=== PATIENT | female | born 1990 | race Caucasian/White ===

== ENCOUNTER 2023-12-15 21:51 | Inpatient (IN) | payer OTHER, SELFPAY ==
--- NOTE | 2023-12-15 21:46 | ECG_ITS ---
APPROVED REPORT Exam: Resting ECG HR:123 bpm ECG Measurements Heart Rate 123 AXES MT 154 P 17 QRSd 92 QRS 59 QT 308 T 45 QTc 381 Conclusion Sinus tachycardia with incomplete right bundle branch block Electronically signed by : RAJINDER LANCASTER, 12/15/2023 23:27:49
[2023-12-15 21:51] VITALS: BP 149/82; PULSE 124; RESP 22; TEMP 36.6; O2SAT 81; BMI 34.9
--- NOTE | 2023-12-15 21:52 | XR_ITS ---
PROCEDURE INFORMATION: Exam: XR Chest Exam date and time: 12/15/2023 10:59 PM Age: 33 years old Clinical indication: Shortness of breath; Additional info: SOA TECHNIQUE: Imaging protocol: Radiologic exam of the chest. Views: 1 view. COMPARISON: CR XR CHEST PORTABLE 12/15/2023 10:59 PM FINDINGS: Lungs: Low lung volumes. Bilateral hazy airspace disease in the mid and lower lung zones. Pleural spaces: Unremarkable. No pleural effusion. No pneumothorax. Heart/Mediastinum: Unremarkable. No cardiomegaly. Vasculature: Unremarkable. Bones/joints: Unremarkable. IMPRESSION: 1. Bilateral mid and lower lung zone hazy airspace disease consistent with inflammation or edema. No significant effusions are evident. 2. Low lung volumes.
[2023-12-15 22:01] VITALS: BP 122/63; PULSE 137; O2SAT 85
[2023-12-15 22:20] LABS: Basophils # 0.1 K/mm3 (0-0.2); Basophils % 0.4 % (0.1-2.0); Eosinophils # 0.4 K/mm3 (0.0-0.4); Eosinophils % 2.1 % (0.1-12.0); Hematocrit 37.8 % (37.0-47.0); Lymphocytes # 2.9 K/mm3 (0.7-4.5); Lymphocytes % 14.8 % (10-50); Mean Corpuscular HGB Conc 31.8 g/dL (31.8-35.4); Mean Corpuscular Hemoglobin 29.4 pg (27.0-31.2); Mean Corpuscular Volume 92.5 fl (81-99); Mean Platelet Volume 7.5 fl (7.4-10.4); Monocytes # 0.3 K/mm3 (0.1-1.0); Monocytes % 1.3 % (1.7-9.3); Neutrophils # 15.8 K/mm3 (1.8-7.8); Neutrophils % 81.4 % (37.0-80.0); Platelet Count 365 K/mm3 (142-424); Red Blood Count 4.08 M/mm3 (4.20-5.40); Red Cell Distribution Width 14.4 % (11.5-17.5); White Blood Count 19.4 K/mm3 (4.8-10.8)
[2023-12-15 22:24] LABS: MANUAL DIFFERENTIAL MANUAL DIFFERENTIAL (MANUAL DIFF)
[2023-12-15] MEDS: LACTATED RINGERS 1000ML 1,000 ML 999 ML IV (22:25)
[2023-12-15 22:31] VITALS: BP 110/64; PULSE 124; O2SAT 89
[2023-12-15 22:33] LABS: Alanine Aminotransferase 33 U/L (12-78); Albumin Level 3.7 g/dl (3.5-5.0); Albumin/Globulin Ratio 1.1 (1.1-1.8); Aspartate Amino Transferase 52 U/L (14-36); Blood Urea Nitrogen 9 mg/dl (7-17); Carbon Dioxide 21 mmol/L (22.0-30.0); Chloride 111 mmol/L (98-107); Creatinine Clearance Estimated 175 mL/min (50-200); Estimated Glomerular Filt Rate 98 ml/min (>60); GFR (African American) 118 ML/MIN (>60); Globulin 3.4 g/dL (1.3-3.2); Total Protein,Serum 7.1 g/dl (6.3-8.2)
[2023-12-15 22:36] LABS: Alkaline Phosphatase 95 U/L (38-126); Anion Gap 10.1 mEq/L (5-15); Bilirubin,Total 0.4 mg/dl (0.2-1.3); Calcium 8.6 mg/dl (8.4-10.2); Glucose 120 mg/dl (74-100); Potassium 3.1 mmoL/L (3.5-5.1); Sodium 139 mmol/L (136-145)
[2023-12-15 22:39] LABS: D-Dimer 0.52 ug/mL (0.0-0.5)
[2023-12-15 22:45] LABS: NT Pro Brain Natriuretic Pep. 108 pg/mL (0-125)
[2023-12-15 22:48] LABS: Eosinophils % 4 % (0-3); Lymphocytes % 11 % (10-50); Monocytes % 1 % (2-9); Neutrophils % 84 % (42-76); Platelet Estimate Normal; Tear Drop Cells 1+; Total Cells Counted 100
--- NOTE | 2023-12-15 22:48 | CT_ITS ---
PROCEDURE INFORMATION: Exam: CTA Chest With Contrast Exam date and time: 12/15/2023 11:12 PM Age: 33 years old Clinical indication: Shortness of breath; Additional info: SOA tachy, hypoxemia TECHNIQUE: Imaging protocol: Computed tomographic angiography of the chest with contrast. Exam focused on the arteries. 3D rendering (Not supervised by radiologist): MIP and/or 3D reconstructed images were created by the technologist. Radiation optimization: All CT scans at this facility use at least one of these dose optimization techniques: automated exposure control; mA and/or kV adjustment per patient size (includes targeted exams where dose is matched to clinical indication); or iterative reconstruction. Contrast material: ISOVUE; Contrast volume: 70 ml; Contrast route: INTRAVENOUS (IV); COMPARISON: CR XR CHEST PORTABLE 12/15/2023 10:59 PM FINDINGS: Pulmonary arteries: Normal. No pulmonary emboli. Aorta: Unremarkable. No aortic aneurysm. No aortic dissection. Lungs: There is a small right lower lobe calcified granuloma. Diffuse extensive ground-glass opacities are noted throughout both lungs. Pleural spaces: Unremarkable. No pneumothorax. No pleural effusion. Heart: Unremarkable. No cardiomegaly. No pericardial effusion. Lymph nodes: There is mediastinal and bilateral hilar lymphadenopathy. Bones/joints: Unremarkable. No acute fracture. Soft tissues: Unremarkable. IMPRESSION: 1. No pulmonary embolus. 2. Acute inflammatory process with extensive bilateral ground-glass infiltrates along with mediastinal and hilar lymphadenopathy.
[2023-12-15 22:49] LABS: Troponin I < 0.01 ng/ml (0.00-0.034)
--- NOTE | 2023-12-15 22:49 | [facility].EDCP ---
Discharge Plan Disposition Patient Disposition: Admitted Condition: Fair Clinical Impressions Clinical Impression: Acute hypoxemic respiratory failure, Pneumonia Print Language Print Language: Czech Discharge ED Provider: Dane Georges [facility] <Dane Georges MD - Last Filed: 12/15/23 23:00> General Chief Complaint: Shortness of Breath/Dyspnea Stated Complaint: SOA Time Seen by Provider: 12/15/23 21:52 Mode of Arrival: Ambulatory Source of Information: Patient Limitations: No Limitations Description of Symptoms (Recalled from ER Triage Doc. by RN): Pt arrives with SOA after taking some Bromfed cough syrup.Pt is on daily Suboxone. Oxygen is 80% on ra and 91% after 2l/nc History of Present Illness HPI narrative: Please note that above description of symptoms, in this electronic medical record under categorization of recalled from ER triage doctor by RN are reflective of an initial nursing assessment, however, is not reflective of my full history and physical exam that was personally taken and clarified. Consequentially, this preceding description of symptoms, which may include the patient's categorized chief complaint in the EMR, do not reflect my personal clinical impression, and the ultimate description of history of present illness and patient stated complaints should be deferred to this section of the note. Unless stated otherwise or congruent with this section of the note, additional signs, symptoms, or incongruence should be interpreted as inaccurate with my clinical impression. Related Data Allergies Allergy/AdvReac Type Severity Reaction Status Date / Time No Known Allergies Allergy Verified 12/15/23 22:24 PFS <Dane Georges MD - Last Filed: 12/15/23 23:00> [facility] Disclaimer: The information contained in this section may have been updated after the patient was seen, as this information can be updated by other users. Social History (Updated 12/15/23 @ 23:00 by Dane Georges MD) Smoking Status: Current every day smoker alcohol intake: never current occupational status: employed Travel in the last 8 weeks: None <Dane Georges MD - Last Filed: 12/15/23 23:00> ROS Obtained: Yes All systems reviewed & no additional complaints except as documented Physical Exam <Dane Georges MD - Last Filed: 12/15/23 23:00> General General appearance: alert, anxious and obese ENT ENT exam: Present other (4 L nasal cannula in place, 81% on room air. 94% with nasal cannula) Neck Neck exam: Present trachea midline Chest Chest inspection: Present normal inspection and symmetric chest wall rise Respiratory Respiratory exam: Present normal lung sounds bilaterally; Absent respiratory distress, wheezes, stridor, accessory muscle use or prolonged expiratory phase Cardiovascular Cardiovascular exam: Present normal rhythm, tachycardia and other (Pulses equal and symmetric in upper and lower extremities) Extremities Exam Extremities exam: Absent edema Neurological Exam Neurological exam: Present alert, oriented X3 and CN II-XII intact Skin Skin exam: Present warm and dry; Absent cyanosis, diaphoresis or pallor HEART Score <Dane Georges MD - Last Filed: 12/15/23 23:00> HEART Score HEART Score assessment performed?: No Critical Care <Dane Georges MD - Last Filed: 12/15/23 23:00> Critical Care Time Critical Care Time: Yes (respiratory) Attestation: On , the high probability of a clinically significant, sudden or life threatening deterioration of the following system(s) required my full and direct attention, intervention and personal management. The time I documented below is in addition to time spent performing reported procedures but includes the following listed in this critical care notation. Total Time Total Critical Care Time: 50 Medical Decision Making <Dane Georges MD - Last Filed: 12/15/23 23:00> Medical Records Medical records reviewed: Yes I reviewed the patient's medical records. Emir Inquiry Pt receiving controlled substance: No Emir was queried for this patient: No Vital Signs Vital Signs: 12/15/23 21:51 12/15/23 22:01 12/15/23 22:31 Temperature 98 F Temperature Source Oral Pulse Rate 137 H 124 H Pulse Rate [Left] 124 H Respiratory Rate 22 Blood Pressure 122/63 110/64 Blood Pressure [Right Arm] 149/82 H Blood Pressure Mean 82 73 Blood Pressure Mean [Right Arm] 104 Blood Pressure Source [Right Arm] Automatic Cuff Blood Pressure Position [Right Arm] Sitting 02 Sat by Pulse Oximetry 81 L 85 L 89 L Oxygen Delivery Method Room Air Lab Data Labs: Lab Results 12/15/23 22:10: WBC 19.4 H, RBC 4.08 L, Hgb 12.0 L, Hct 37.8, MCV 92.5, MCH 29.4, MCHC 31.8, RDW 14.4, Plt Count 365, MPV 7.5, Neut % (Auto) 81.4 H, Lymph % (Auto) 14.8, [place] % (Auto) 1.3 L, Eos % (Auto) 2.1, Baso % (Auto) 0.4, Neut # (Auto) 15.8 H, Lymph # (Auto) 2.9, [place] # (Auto) 0.3, Eos # (Auto) 0.4, Baso # (Auto) 0.1, Total Counted 100, Neutrophils % (Manual) 84 H, Lymphocytes % (Manual) 11, Monocytes % (Manual) 1 L, Eosinophils % (Manual) 4 H, Platelet Estimate Normal, Tear Drop Cells 1+, D-Dimer 0.52 H, Sodium 139, Potassium 3.1 L, Chloride 111 H, Carbon Dioxide 21 L, Anion Gap 10.1, BUN 9, Creatinine 0.70, Estimated Creat Clear 175, Estimated GFR 98, Est GFR ( Amer) 118, Glucose 120 H, Calcium 8.6, Total Bilirubin 0.4, AST 52 H, ALT 33, Alkaline Phosphatase 95, Troponin I < 0.01, NT-Pro-B Natriuret Pep 108, Total Protein 7.1, Albumin 3.7, Globulin 3.4 H, Albumin/Globulin Ratio 1.1 12/15/23 23:22: VBG pH 7.34, VBG pCO2 42.1, VBG pO2 38.7, VBG HCO3 22.1 L, VBG Total CO2 23.4, VBG O2 Saturation 71.7 H, VBG Base Excess -3.7 L, VBG Lactic Acid 1.4 12/15/23 22:10 12/15/23 22:10 Response Orders (Tests/Meds): ED MEDICATIONS Generic Name Dose Route Start Last Admin Trade Name Freq PRN Reason Stop Dose Admin Hydroxyzine Pamoate 25 mg 12/15/23 21:53 12/15/23 22:55 Hydroxyzine Pamoate 25mg Capsule PO 01/14/24 21:52 25 mg Q6HP PRN Administration Itching Piperacillin Sod/Tazobactam 100 mls @ 200 mls/hr 12/15/23 23:36 Sod 4.5 gm/ Sodium Chloride IV 12/16/23 00:05 ONCE ONE Miscellaneous 1 each 12/15/23 23:45 Vancomycin Consult Request NOTAPPLIC 01/14/24 23:44 CONSULT PHARMACY [facility] Sodium Chloride 10 ml 12/15/23 23:19 12/15/23 23:20 Sodium Chloride 0.9% 10ml Syr (Rad Only) IV 01/14/24 23:18 10 ml NEEDED PRN Administration Maintain IV Site Discontinued Medications Generic Name Dose Route Start Last Admin Trade Name Chalinoq PRN Reason Stop Dose Admin Lactated Ringer's 1,000 mls @ 999 mls/hr 12/15/23 21:54 12/15/23 22:25 Lactated Ringer's 1000 Ml Bag IV 12/15/23 22:54 999 mls/hr .Q1H1M ONE Administration Iopamidol 70 ml 12/15/23 23:19 12/15/23 23:20 Iopamidol-370 (76%);100ml Bottle IV 12/15/23 23:20 70 ml ONCE ONE Administration Methylprednisolone Sodium Succinate 125 mg 12/15/23 22:48 12/15/23 22:55 Methylprednisolone Sod Succ 125mg Vial IV 12/15/23 22:49 125 mg ONCE ONE Administration Potassium Chloride 60 meq 12/15/23 22:39 12/15/23 22:55 Potassium Chloride 20meq Tab PO 12/15/23 22:40 60 meq ONCE ONE Administration Sodium Chloride 50 ml 12/15/23 23:19 12/15/23 23:20 0.9 % Sodium Chloride 50 Ml Vial IV 12/15/23 23:20 50 ml ONCE ONE Administration ORDERS Category Date Time Status CT angio chest PE protocol Stat Cat Scan 12/15/23 22:48 Completed CXR --portable [XR chest portable] Stat Exams 12/15/23 21:52 Completed CBC w/Auto Diff [Complete Blood Count Auto Diff] Stat Lab 12/15/23 22:10 Completed CMP [Comprehensive Metabolic Panel] Stat Lab 12/15/23 22:10 Completed D-Dimer Stat Lab 12/15/23 22:10 Completed NT Pro Brain Natriuretic Pep. Stat Lab 12/15/23 22:10 Completed Trop I [Troponin I] Stat Lab 12/15/23 22:10 Completed Troponin I Q3H Lab 12/16/23 01:00 Ordered Troponin I Q3H Lab 12/16/23 04:00 Ordered VBG [Venous Blood Gas] Stat RT 12/15/23 23:22 Completed MDM Narrative Medical Decision Narrative: 33-year-old female history of remote DVT, tubal ligation, anxiety, panic, chronic chest pain presenting with chest pain, shortness of breath. She states this has been going on for a couple of years, has been seen at multiple ED's for this. Patient states for the past couple of days she has been short of breath, having chest pain. It is substernal, exertional, associated with cough. She tried to take Bromfed today just before arrival and states that it interacted with my other medications. She started having a panic attack. She states that she also felt that her oxygen was low, so came to the emergency department. History was obtained via conversation with patient. On arrival, patient hemodynamically stable, alert, oriented x4, appropriate, GCS 15, moving all extremities spontaneously, pupils equal and reactive to light. Full physical exam performed and significant for anxious appearing, tearful. Hypoxemic, tachycardic. Lungs are clear to auscultation anterior and posterior bilaterally. No murmurs gallops rubs, no lower extremity swelling. Cardiac exam otherwise normal differential includes PE, pneumothorax, pneumonia, ACS, [place], among others. Patient was given supplemental oxygen, hydroxyzine, Solu-Medrol (patient says that this is the only thing that ever helps when she has the symptoms) for symptomatic management and correction of underlying abnormalities. Patient placed on continuous cardiac monitoring and continuous pulse ox with initial blood pressure 149/82, heart rate 120, saturation 81% on room air. Patient 94% with 4 L nasal cannula. Independent interpretation of EKG shows incomplete right bundle branch block in the setting of sinus tachycardia 123 bpm. NE 154, QRS 92, QTc 381. Ophiem normal.. Workup independently interpreted and significant for leukocytosis 19.4 with neutrophilia. Patient also has mildly elevated D-dimer 0.52. Chemistry remarkable for potassium 3.1, this was repleted 60 mill equivalents p.o. Troponin negative, BNP negative. Prior to imaging, care handed off to oncoming physician. Human Factors Specialist disclaimer Much of this encounter note is an electronic profile stitching machine operator spoken language to printed text. Electronic profile stitching machine operator of the spoken language may permit errors. Although I have reviewed the note, some errors may still exist. <Lisandro Hernandez MD - Last Filed: 12/15/23 23:43> Vital Signs Vital Signs: 12/15/23 21:51 12/15/23 22:01 12/15/23 22:31 Temperature 98 F Temperature Source Oral Pulse Rate 137 H 124 H Pulse Rate [Left] 124 H Respiratory Rate 22 Blood Pressure 122/63 110/64 Blood Pressure [Right Arm] 149/82 H Blood Pressure Mean 82 73 Blood Pressure Mean [Right Arm] 104 Blood Pressure Source [Right Arm] Automatic Cuff Blood Pressure Position [Right Arm] Sitting 02 Sat by Pulse Oximetry 81 L 85 L 89 L Oxygen Delivery Method Room Air Lab Data Labs: Lab Results 12/15/23 22:10: WBC 19.4 H, RBC 4.08 L, Hgb 12.0 L, Hct 37.8, MCV 92.5, MCH 29.4, MCHC 31.8, RDW 14.4, Plt Count 365, MPV 7.5, Neut % (Auto) 81.4 H, Lymph % (Auto) 14.8, [place] % (Auto) 1.3 L, Eos % (Auto) 2.1, Baso % (Auto) 0.4, Neut # (Auto) 15.8 H, Lymph # (Auto) 2.9, [place] # (Auto) 0.3, Eos # (Auto) 0.4, Baso # (Auto) 0.1, Total Counted 100, Neutrophils % (Manual) 84 H, Lymphocytes % (Manual) 11, Monocytes % (Manual) 1 L, Eosinophils % (Manual) 4 H, Platelet Estimate Normal, Tear Drop Cells 1+, D-Dimer 0.52 H, Sodium 139, Potassium 3.1 L, Chloride 111 H, Carbon Dioxide 21 L, Anion Gap 10.1, BUN 9, Creatinine 0.70, Estimated Creat Clear 175, Estimated GFR 98, Est GFR ( Amer) 118, Glucose 120 H, Calcium 8.6, Total Bilirubin 0.4, AST 52 H, ALT 33, Alkaline Phosphatase 95, Troponin I < 0.01, NT-Pro-B Natriuret Pep 108, Total Protein 7.1, Albumin 3.7, Globulin 3.4 H, Albumin/Globulin Ratio 1.1 12/15/23 23:22: VBG pH 7.34, VBG pCO2 42.1, VBG pO2 38.7, VBG HCO3 22.1 L, VBG Total CO2 23.4, VBG O2 Saturation 71.7 H, VBG Base Excess -3.7 L, VBG Lactic Acid 1.4 Response Orders (Tests/Meds): ED MEDICATIONS Generic Name Dose Route Start Last Admin Trade Name Freq PRN Reason Stop Dose Admin Hydroxyzine Pamoate 25 mg 12/15/23 21:53 12/15/23 22:55 Hydroxyzine Pamoate 25mg Capsule PO 01/14/24 21:52 25 mg Q6HP PRN Administration Itching Piperacillin Sod/Tazobactam 100 mls @ 200 mls/hr 12/15/23 23:36 Sod 4.5 gm/ Sodium Chloride IV 12/16/23 00:05 ONCE ONE Miscellaneous 1 each 12/15/23 23:45 Vancomycin Consult Request NOTAPPLIC 01/14/24 23:44 CONSULT PHARMACY [facility] Sodium Chloride 10 ml 12/15/23 23:19 12/15/23 23:20 Sodium Chloride 0.9% 10ml Syr (Rad Only) IV 01/14/24 23:18 10 ml NEEDED PRN Administration Maintain IV Site Discontinued Medications Generic Name Dose Route Start Last Admin Trade Name Freq PRN Reason Stop Dose Admin Lactated Ringer's 1,000 mls @ 999 mls/hr 12/15/23 21:54 12/15/23 22:25 Lactated Ringer's 1000 Ml Bag IV 12/15/23 22:54 999 mls/hr .Q1H1M ONE Administration Iopamidol 70 ml 12/15/23 23:19 12/15/23 23:20 Iopamidol-370 (76%);100ml Bottle IV 12/15/23 23:20 70 ml ONCE ONE Administration Methylprednisolone Sodium Succinate 125 mg 12/15/23 22:48 12/15/23 22:55 Methylprednisolone Sod Succ 125mg Vial IV 12/15/23 22:49 125 mg ONCE ONE Administration Potassium Chloride 60 meq 12/15/23 22:39 12/15/23 22:55 Potassium Chloride 20meq Tab PO 12/15/23 22:40 60 meq ONCE ONE Administration Sodium Chloride 50 ml 12/15/23 23:19 12/15/23 23:20 0.9 % Sodium Chloride 50 Ml Vial IV 12/15/23 23:20 50 ml ONCE ONE Administration ORDERS Category Date Time Status CT angio chest PE protocol Stat Cat Scan 12/15/23 22:48 Completed CXR --portable [XR chest portable] Stat Exams 08/18/24 21:52 Completed CBC w/Auto Diff [Complete Blood Count Auto Diff] Stat Lab 12/15/23 22:10 Completed CMP [Comprehensive Metabolic Panel] Stat Lab 12/15/23 22:10 Completed D-Dimer Stat Lab 12/15/23 22:10 Completed NT Pro Brain Natriuretic Pep. Stat Lab 12/15/23 22:10 Completed Trop I [Troponin I] Stat Lab 12/15/23 22:10 Completed Troponin I Q3H Lab 12/16/23 01:00 Ordered Troponin I Q3H Lab 12/16/23 04:00 Ordered VBG [Venous Blood Gas] Stat RT 12/15/23 23:22 Completed MDM Narrative Medical Decision Narrative: 33-year-old female history of remote DVT, tubal ligation, anxiety, panic, chronic chest pain presenting with chest pain, shortness of breath. She states this has been going on for a couple of years, has been seen at multiple ED's for this. Patient states for the past couple of days she has been short of breath, having chest pain. It is substernal, exertional, associated with cough. She tried to take Bromfed today just before arrival and states that it interacted with my other medications. She started having a panic attack. She states that she also felt that her oxygen was low, so came to the emergency department. History was obtained via conversation with patient. On arrival, patient hemodynamically stable, alert, oriented x4, appropriate, GCS 15, moving all extremities spontaneously, pupils equal and reactive to light. Full physical exam performed and significant for anxious appearing, tearful. Hypoxemic, tachycardic. Lungs are clear to auscultation anterior and posterior bilaterally. No murmurs gallops rubs, no lower extremity swelling. Cardiac exam otherwise normal differential includes PE, pneumothorax, pneumonia, ACS, [place], among others. Patient was given supplemental oxygen, hydroxyzine, Solu-Medrol (patient says that this is the only thing that ever helps when she has the symptoms) for symptomatic management and correction of underlying abnormalities. Patient placed on continuous cardiac monitoring and continuous pulse ox with initial blood pressure 149/82, heart rate 120, saturation 81% on room air. Patient 94% with 4 L nasal cannula. Independent interpretation of EKG shows incomplete right bundle branch block in the setting of sinus tachycardia 123 bpm. NE 154, QRS 92, QTc 381. Ophiem normal.. Workup independently interpreted and significant for leukocytosis 19.4 with neutrophilia. Patient also has mildly elevated D-dimer 0.52. Chemistry remarkable for potassium 3.1, this was repleted 60 mill equivalents p.o. Troponin negative, BNP negative. Prior to imaging, care handed off to oncoming physician. Human Factors Specialist disclaimer Much of this encounter note is an electronic profile stitching machine operator spoken language to printed text. Electronic profile stitching machine operator of the spoken language may permit errors. Although I have reviewed the note, some errors may still exist. Hernandez: Upon my assumption of care patient was stable on 4 L nasal cannula. She had pulled off her nasal cannula at 1 point and become hypoxic again. She is saturating well on 4 to 6 L. VBG has been sent. I called [facility] and asked them to perform a stat read on patient's CTA. I personally interpreted this CTA chest prior to radiology read. I appreciate bilateral patchy infiltrates in the lung parenchyma as well as abnormalities in the mediastinum. No PE on my personal interpretation. Radiology read is in agreement. Since patient has bilateral patchy infiltrates with tachycardia, hypoxia, significant leukocytosis, I ordered vancomycin and Zosyn for broad-spectrum coverage. Patient requires admission and is amenable to this. I discussed this case with the hospitalist. Patient accepted for admission.
[2023-12-15] MEDS: hydrOXYzine pamoate 25MG CAPSULE 25 MG PO (22:55)
[2023-12-15] MEDS: METHYLPREDNISOLONE SOD SUCC 125MG VIAL 125 MG IV (22:55)
[2023-12-15] MEDS: POTASSIUM CHLORIDE 20MEQ TAB 60 MEQ PO (22:55)
[2023-12-15] MEDS: SODIUM CHLORIDE 0.9% 10ML SYR (RAD ONLY) 10 ML IV (23:20)
[2023-12-15] MEDS: 0.9 % SODIUM CHLORIDE 50 ML VIAL IV (23:20)
[2023-12-15] MEDS: IOPAMIDOL-370 (76%);100ML BOTTLE 70 ML IV (23:20)
[2023-12-15 23:34] LABS: Lactate Venous 1.4 mmol/L (0.4-2.0); VBG Base Excess -3.7 mmol/L (-2.4-2.3); VBG HCO3 22.1 mmol/L (23-30); VBG Oxygen Saturation 71.7 % (50-70); VBG PCO2 42.1 mmol/L (35-51); VBG PH 7.34 mmol/L (7.31-7.41); VBG PO2 38.7 mmol/L (28-40); VBG Total CO2 23.4 mmol/L (23-27)
[2023-12-15] MEDS: PIPERACILLIN/TAZO 4.5 GM in 0.9 % SODIUM CHLORIDE 100 ML IV (23:43)
[2023-12-15] MEDS: VANCOMYCIN CONSULT REQUEST 1 EACH NOTAPPLIC (23:45)
--- NOTE | 2023-12-15 23:50 | PC.NURSE ---
Report given to Iesha RN
[2023-12-15 23:51] VITALS: PULSE 104; O2SAT 93
--- NOTE | 2023-12-15 23:53 | PC.NURSE ---
[facility] verified by [facility]
[2023-12-15 23:54] VITALS: BP 110/64; PULSE 104; RESP 18; TEMP 36.8; O2SAT 94
[2023-12-16] VITALS (19 sets, daily range): BP systolic 111–149; BP diastolic 69–91; PULSE 55–107; RESP 16–30; TEMP 36.5–36.9; O2SAT 88–100; BMI 37.2
--- NOTE | 2023-12-16 00:07 | PC.NURSE ---
Patient arrived to floor via stretcher from ED at 00:05.
[2023-12-16 00:35] LABS: Adenovirus,PCR Not Detected (NotDetected); Bordetella Pertussis Not Detected (NotDetected); Chlamydophila Pneumoniae, PCR Not Detected (NotDetected); Coronavirus 19, PCR Not Detected (NotDetected); Coronavirus 229E Not Detected (NotDetected); Coronavirus NL63 Not Detected (NotDetected); Coronavirus OC43 Not Detected (NotDetected); Coronovirus HKU1,PCR Not Detected (NotDetected); Human Metapneumovirus Not Detected (NotDetected); Influenza A, PCR Not Detected (NotDetected); Influenza AH1, 2009 Not Detected (NotDetected); Influenza AH1, PCR Not Detected (NotDetected); Influenza AH3,PCR Not Detected (NotDetected); Influenza B, PCR Not Detected (NotDetected); Mycoplasma Pneumoniae, PCR Not Detected (NotDetected); Parainfluenza 1, PCR Not Detected (NotDetected); Parainfluenza 2, PCR Not Detected (NotDetected); Parainfluenza 3, PCR Not Detected (NotDetected); Parainfluenza 4, PCR Not Detected (NotDetected); Respiratory Syncytial Virus Not Detected (NotDetected); Rhinovirus/Enterovirus Not Detected (NotDetected)
--- NOTE | 2023-12-16 00:36 | EXP.HP ---
History of Present Illness *Admission Date: 12/16/23 *Reason for visit:: Shortness of breath *History of present illness: This is a 33-year-old female with past medical history of substance abuse disorder on Suboxone, anxiety and depression who presents to the emergency department with complaints of severe shortness of breath. With EMS her oxygen saturations were noted to be in the 80s. Upon arrival to the emergency department she had a room air oxygen sat of 81% with tachycardia and tachypnea. She was placed on nasal cannula and is requiring 5 to 6 L to maintain oxygen saturation greater than 90%. She reports sudden onset of shortness of breath yesterday is associated with a mild cough. She denies any prodromal symptoms prior to her shortness of breath. She does state that she has been around 2 people recently with viral illnesses but they were only diagnosed with upper respiratory infections. She denies any fever, headaches, myalgias. States that she was laying down and noticed that it was hard to breathe. States that she has a sensation of air not passing through her oral and chest cavities well. States this has happened multiple times in the past in 2021. She states that she was admitted to [facility] with multiple episodes of shortness of breath. Required steroids, breathing treatments with eventual discharge to home. She reports this happened on 6 or 7 different occasions. She is unaware of any diagnoses that she received to be the causative factor of these episodes. Denies any known lung diseases. States that she has been clean from substance abuse but when she did use it was snorting of medicine. Denies any IV drug use. She does endorse the use of electronic cigarettes. States that she did not use electronic cigarettes back in 2021 with the other episodes of shortness of breath. 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 Of note, she does own 3 parakeets at home that she is in close contact with daily. States that she holds her birds a lot throughout the day. Emergency department workup notable for leukocytosis with a white blood cell count 19. Elevated D-dimer at 0.52, mildly elevated AST at 52, potassium of 3.1. EKG notable for sinus tach with incomplete right bundle branch block. CT imaging of the chest notable for Acute inflammatory process with extensive bilateral ground-glass infiltrates along with mediastinal and hilar lymphadenopathy. Negative for PE. She is still currently requiring 5 to 6 L nasal cannula but has improved work of breathing at this time. She is able to speak in complete sentences. Oxygen saturations maintaining approximately 93 to 95%. [facility] Disclaimer: The information contained in this section may have been updated after the patient was seen, as this information can be updated by other users. Medical History (Updated 12/16/23 @ 17:35 by Maciej Baca MD) ILD (interstitial lung disease) Endometriosis Acute [place] Anxiety Depression Bipolar disorder Surgical History (Updated 12/16/23 @ 00:40 by Iesha Pool, ELIANA) History of cholecystectomy Hx of tonsillectomy Delivery by section Family History (Updated 12/16/23 @ 00:46 by Iesha Pool, ELIANA) Other Cancer Social History (Updated 12/16/23 @ 00:46 by Iesha Pool, ELIANA) Smoking Status: Current every day smoker alcohol intake: never current occupational status: employed Travel in the last 8 weeks: None Review of Systems Review of Systems Review of systems:: other (Negative except for HPI) Meds Home Medications and Allergies Home Medications ?Medication ?Instructions ?Recorded ?Confirmed ?Type aripiprazole 10 mg tablet 10 mg PO HS 12/15/23 12/16/23 History buprenorphine 8 mg-naloxone 2 mg 2 tab sublingual DAILY 12/15/23 12/16/23 History sublingual tablet buspirone 15 mg tablet 15 mg PO TID 12/15/23 12/16/23 History fluoxetine 20 mg capsule 20 mg PO DAILY 12/15/23 12/16/23 History gabapentin 800 mg tablet 800 mg PO TID 12/15/23 12/16/23 History quetiapine 50 mg tablet 50 mg PO HS 12/15/23 12/16/23 History fluoxetine 40 mg capsule 40 mg PO DAILY 12/16/23 12/16/23 History New Prescriptions to Start Prescriptions: Allergies Allergy/AdvReac Type Severity Reaction Status Date / Time No Known Allergies Allergy Verified 12/15/23 22:24 Exam Data for Last 24 hours Vital signs and Labs for Last 24 Hours: Temp Pulse Resp BP Pulse Ox O2 Del Method O2 Flow Rate 98.2 F 104 H 18 110/64 89 L Nasal Cannula 6 12/15/23 23:54 12/15/23 23:54 12/15/23 23:54 12/15/23 23:54 12/15/23 22:31 12/15/23 23:54 12/15/23 23:54 Laboratory Results - last 24 hr 12/15/23 22:10: WBC 19.4 H, RBC 4.08 L, Hgb 12.0 L, Hct 37.8, MCV 92.5, MCH 29.4, MCHC 31.8, RDW 14.4, Plt Count 365, MPV 7.5, Neut % (Auto) 81.4 H, Lymph % (Auto) 14.8, [place] % (Auto) 1.3 L, Eos % (Auto) 2.1, Baso % (Auto) 0.4, Neut # (Auto) 15.8 H, Lymph # (Auto) 2.9, [place] # (Auto) 0.3, Eos # (Auto) 0.4, Baso # (Auto) 0.1, Total Counted 100, Neutrophils % (Manual) 84 H, Lymphocytes % (Manual) 11, Monocytes % (Manual) 1 L, Eosinophils % (Manual) 4 H, Platelet Estimate Normal, Tear Drop Cells 1+, D-Dimer 0.52 H, Sodium 139, Potassium 3.1 L, Chloride 111 H, Carbon Dioxide 21 L, Anion Gap 10.1, BUN 9, Creatinine 0.70, Estimated Creat Clear 175, Estimated GFR 98, Est GFR ( Amer) 118, Glucose 120 H, Calcium 8.6, Total Bilirubin 0.4, AST 52 H, ALT 33, Alkaline Phosphatase 95, Troponin I < 0.01, NT-Pro-B Natriuret Pep 108, Total Protein 7.1, Albumin 3.7, Globulin 3.4 H, Albumin/Globulin Ratio 1.1 12/15/23 23:22: VBG pH 7.34, VBG pCO2 42.1, VBG pO2 38.7, VBG HCO3 22.1 L, VBG Total CO2 23.4, VBG O2 Saturation 71.7 H, VBG Base Excess -3.7 L, VBG Lactic Acid 1.4 I & O for Last 24 hours: Intake & Output 12/13/23 12/14/23 12/15/23 12/16/23 23:59 23:59 23:59 23:59 Weight 95.254 kg Constitutional Constitutional: no acute distress *Routine HEENT Exam Head: Present normocephalic Eye: Present EOMI and PERRL ENT: Present mucous membranes moist *Routine Neck Exam Neck: Present supple; Absent lymphadenopathy *Routine Respiratory Exam Respiratory: Present decreased breath sounds, diminished air movement and able to speak in complete sentences *Routine Cardiovascular Exam Cardiovascular: Present RRR and tachycardia *Routine Abdominal Exam Abdominal: Present soft and normoactive bowel sounds; Absent tenderness *Routine Rectal Exam Rectal:: deferred *Routine Genitalia Exam Genitalia:: deferred *Routine Extremities Exam Extremities: Absent cyanosis, clubbing or edema *Routine Skin Exam Skin: Present warm; Absent rash *Routine Neurological Exam Neurological: Present alert and oriented X3 Assessment and Plan *Assessment and plan (1) Acute hypoxemic respiratory failure: Status: Acute Category: Medical Code(s): J96.01 - Acute respiratory failure with hypoxia (2) Pneumonia: Status: Acute Qualifiers: Laterality: bilateral Lung location: lower lobe of lung Pneumonia type: due to unspecified organism Qualified Code(s): J18.9 - Pneumonia, unspecified organism Category: Medical Code(s): J18.9 - Pneumonia, unspecified organism (3) Bipolar 1 disorder: Status: Acute Category: Medical Code(s): F31.9 - Bipolar disorder, unspecified (4) Anxiety and depression: Status: Acute Category: Medical Code(s): F41.9 - Anxiety disorder, unspecified; F32.A - Depression, unspecified (5) HIV (human immunodeficiency virus infection): Status: Acute Category: Medical Code(s): Z21 - Asymptomatic human immunodeficiency virus [HIV] infection status Plan Case discussed with ER physician, request admission due to respiratory distress. Medicine agreed to admit for further management. Problems addressed as follows: #Acute respiratory failure with hypoxia #Pneumonia Patient with extensive groundglass opacities and interstitial inflammatory disease with mediastinal and hilar lymphadenopathy Differential diagnosis include: Viral/bacterial/fungal/zoonotic/EVALI Consult to Pulmonology in a.m., greatly appreciate expertise Reports being in contact with 2 people this week with viral illnesses. Will send for full respiratory panel. Patient reports being swabbed for COVID this week which was negative. Currently requiring 5 to 6 L nasal cannula Continue bronchodilators and corticosteroids Will continue broad-spectrum coverage with vancomycin, Zosyn and doxycycline Maintain oxygen saturations greater than 88% Continuous pulse ox Sputum culture pending Requesting chart from [facility] where patient states that she was admitted previously with similar symptoms #Sepsis Meets criteria for leukocytosis, tachycardia, tachypnea Continue broad-spectrum coverage for pneumonia Will defer for 30 mL/kg bolus. Pt is hemodynamically stable and would like to avoid volume overload in acute respiratory distress Inflammatory markers pending #Anxiety and depression Continue new mood stabilization medications #vancomycin toxicty monitoring Pharmacy consulted for management and monitoring of Vancomycin-high risk medication Rounded on patient after nurse practitioner. Personally examined and interviewed patient. Agree with exam findings and care plan as documented. Patient was screened for HIV this morning given the atypical nature of her pneumonia and dyspnea out of proportion to her lung exam. Found to be HIV positive. Added Bactrim double strength oral twice daily for coverage of possible pneumocystis. Pulmonology assisting with care. Holding on a bronchoscopy at this time. Will consider steroids over the next 24 to 48 hours if sputum cultures and blood cultures support PCP and are negative for bacteremia. Will consider initiating antiretroviral therapy pending patient's clinical improvement. Left to be cautious for immune reconstitution syndrome. Discussed finding and diagnosis with patient and her fianc?. Questions answered at bedside. Facilitating testing for fianc?. Escalated to Vapotherm over the course of the morning, currently on 70% FiO2. Escalated to stepdown level of care. Continue vancomycin IV, Zosyn IV, Bactrim double strength twice daily oral.
[2023-12-16] MEDS: IPRATROPIUM/ALBUTEROL 3 ML NEB IH ×5 (00:57→23:12)
[2023-12-16] MEDS: ACETAMINOPHEN 325MG TAB 650 MG PO ×3 (01:10→23:11)
[2023-12-16] MEDS: VANCOMYCIN/WATER FOR INJ (PEG) 1.5 GM/300 ML PIGGYBACK IV ×3 (01:10→16:50)
[2023-12-16] MEDS: NICOTINE 21MG/24HR PATCH 21 MG TD ×2 (01:12→08:34)
[2023-12-16] MEDS: DOXYCYCLINE HYCL 100 MG TABLET PO ×2 (01:14→12:06)
[2023-12-16 01:25] LABS: Troponin I < 0.01 ng/ml (0.00-0.034)
--- NOTE | 2023-12-16 03:42 | PC.NURSE ---
Contacted [facility] at 03:43 and spoke to Vianca, she will fax any past medical records.
[2023-12-16] MEDS: FUROSEMIDE 40 MG TABLET PO ×2 (04:35→08:35)
[2023-12-16 04:40] LABS: Basophils % 0.1 % (0.1-2.0); Hematocrit 35.8 % (37.0-47.0); Lymphocytes # 0.5 K/mm3 (0.7-4.5); Lymphocytes % 2.2 % (10-50); Mean Corpuscular HGB Conc 30.8 g/dL (31.8-35.4); Mean Corpuscular Hemoglobin 28.4 pg (27.0-31.2); Mean Corpuscular Volume 92.2 fl (81-99); Mean Platelet Volume 7.1 fl (7.4-10.4); Monocytes # 0.3 K/mm3 (0.1-1.0); Monocytes % 1.3 % (1.7-9.3); Neutrophils # 21.9 K/mm3 (1.8-7.8); Neutrophils % 96.3 % (37.0-80.0); Platelet Count 314 K/mm3 (142-424); Red Blood Count 3.89 M/mm3 (4.20-5.40); Red Cell Distribution Width 14.4 % (11.5-17.5); White Blood Count 22.8 K/mm3 (4.8-10.8)
[2023-12-16 04:43] LABS: Chloride 109 mmol/L (98-107)
[2023-12-16 04:44] LABS: Potassium 3.8 mmoL/L (3.5-5.1); Sodium 137 mmol/L (136-145)
[2023-12-16 04:47] LABS: Anion Gap 9.8 mEq/L (5-15); Blood Urea Nitrogen 8 mg/dl (7-17); Calcium 8.1 mg/dl (8.4-10.2); Carbon Dioxide 22 mmol/L (22.0-30.0); Creatinine Clearance Estimated 217 mL/min (50-200); Estimated Glomerular Filt Rate 117 ml/min (>60); GFR (African American) 141 ML/MIN (>60); Glucose 201 mg/dl (74-100)
[2023-12-16 04:59] LABS: Troponin I < 0.01 ng/ml (0.00-0.034)
--- NOTE | 2023-12-16 05:14 | PC.NURSE ---
Ms Pope was newly admitted last night for shortness of breath and dyspnea. She reported that her shortness of breath has been an ongoing issue for years and does not know what is going on. Patient has been admitted to [facility] in the past due to respiratory issues. She is alert and oriented x4 and can ambulate independently. However, ambulation causes her to become easily winded. She has been running sinus tachycardia on telemetry. Upon auscultation, coarse crackles were heard in her lungs. She arrived to the floor on 6 L of oxygen on nasal cannula and tolerated it well in the low 90s. Her O2 sats started dropping into the mid 80s during her sleep. She was later switched to a Venturi mask on 50% around 02:00 this shift. Patient's O2 sats have fluctuated around 88%. Sputum was collected and sent during this shift. 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 Patient has gotten up to the commode once this shift; her urine was noted to be clear, dark pippa, and slightly foul-smelling. I myself emptied 425 mL of urine this shift. Patient stated that she did feel a little overexerted after getting out/back into bed. Patient's has remained at bedside through the night. Patient has slept intermittently throughout the night. She was given antibiotics per MAR and a Nicotine patch for her cravings. The patient did report some pain in her chest that increases whenever she breathes; Tylenol was given to treat her pain. She was also given 40mg of Lasix this shift. SCDs were applied. She is currently resting in bed with no complaints at this time. Call light within reach.
--- NOTE | 2023-12-16 08:04 | P.CONPHA_ITS ---
Pharmacy Intervention Comments: HOME MEDICATION LIST VERIFIED USING LIST FROM OUTPATIENT PHARMACY, PT INTERVIEW AND CALLING [facility].
--- NOTE | 2023-12-16 08:04 | HMH.PHAINT1 ---
Pharmacy Intervention Comments: HOME MEDICATION LIST VERIFIED USING LIST FROM OUTPATIENT PHARMACY, PT INTERVIEW AND CALLING [facility].
--- NOTE | 2023-12-16 08:21 | EXP.PHA.CONS ---
Pharmacy Consult Date: 12/16/23 Time: 08:21 Referring provider: DR. JEFFERSON Reason for Consult:: VANCOMYCIN DOSING Allergies Allergy/AdvReac Type Severity Reaction Status Date / Time No Known Allergies Allergy Verified 12/15/23 22:24 Home Medications ?Medication ?Instructions ?Recorded ?Confirmed ?Type aripiprazole 10 mg tablet 10 mg PO HS 12/15/23 12/16/23 History buprenorphine 8 mg-naloxone 2 mg 2 tab sublingual DAILY 12/15/23 12/16/23 History sublingual tablet buspirone 15 mg tablet 15 mg PO TID 12/15/23 12/16/23 History fluoxetine 20 mg capsule 20 mg PO DAILY 12/15/23 12/16/23 History gabapentin 800 mg tablet 800 mg PO TID 12/15/23 12/16/23 History quetiapine 50 mg tablet 50 mg PO HS 12/15/23 12/16/23 History New Prescriptions to Start Prescriptions: Height: 1.65 m Weight: 101.378 kg Laboratory Results:: Laboratory Results - last 24 hr 12/15/23 22:10: WBC 19.4 H, RBC 4.08 L, Hgb 12.0 L, Hct 37.8, MCV 92.5, MCH 29.4, MCHC 31.8, RDW 14.4, Plt Count 365, MPV 7.5, Neut % (Auto) 81.4 H, Lymph % (Auto) 14.8, [place] % (Auto) 1.3 L, Eos % (Auto) 2.1, Baso % (Auto) 0.4, Neut # (Auto) 15.8 H, Lymph # (Auto) 2.9, [place] # (Auto) 0.3, Eos # (Auto) 0.4, Baso # (Auto) 0.1, Total Counted 100, Neutrophils % (Manual) 84 H, Lymphocytes % (Manual) 11, Monocytes % (Manual) 1 L, Eosinophils % (Manual) 4 H, Platelet Estimate Normal, Tear Drop Cells 1+, D-Dimer 0.52 H, Sodium 139, Potassium 3.1 L, Chloride 111 H, Carbon Dioxide 21 L, Anion Gap 10.1, BUN 9, Creatinine 0.70, Estimated Creat Clear 175, Estimated GFR 98, Est GFR ( Amer) 118, Glucose 120 H, Calcium 8.6, Total Bilirubin 0.4, AST 52 H, ALT 33, Alkaline Phosphatase 95, Troponin I < 0.01, NT-Pro-B Natriuret Pep 108, Total Protein 7.1, Albumin 3.7, Globulin 3.4 H, Albumin/Globulin Ratio 1.1 12/15/23 23:22: VBG pH 7.34, VBG pCO2 42.1, VBG pO2 38.7, VBG HCO3 22.1 L, VBG Total CO2 23.4, VBG O2 Saturation 71.7 H, VBG Base Excess -3.7 L, VBG Lactic Acid 1.4 12/16/23 00:27: Chlamy pneumoniae PCR Not detected, Adenovirus (PCR) Not detected, B. pertussis DNA (PCR) Not detected, Coronavirus OC43 (PCR) Not detected, Coronavirus HKU1 (PCR) Not detected, Coronavirus 229E (PCR) Not detected, SARS-CoV-2 (PCR) Not detected, Coronavirus NL63 (PCR) Not detected, Human Metapneumovir PCR Not detected, Influenza A (H1) PCR Not detected, Influ A (H1N1/09) PCR Not detected, Influenza A (H3) PCR Not detected, Influenza Type A (PCR) Not detected, Influenza Type B (PCR) Not detected, M. pneumoniae (PCR) Not detected, Parainfluenza 1 (PCR) Not detected, Parainfluenza 2 (PCR) Not detected, Parainfluenza 3 (PCR) Not detected, Parainfluenza 4 (PCR) Not detected, RSV (PCR) Not detected, Entero/Rhino (PCR) Not detected 12/16/23 00:55: Troponin I < 0.01 12/16/23 04:26: WBC 22.8 H*, RBC 3.89 L, Hgb 11.0 L, Hct 35.8 L, MCV 92.2, MCH 28.4, MCHC 30.8 L, RDW 14.4, Plt Count 314, MPV 7.1 L, Neut % (Auto) 96.3 H, Lymph % (Auto) 2.2 L, [place] % (Auto) 1.3 L, Eos % (Auto) 0.0 L, Baso % (Auto) 0.1, Neut # (Auto) 21.9 H, Lymph # (Auto) 0.5 L, [place] # (Auto) 0.3, Eos # (Auto) 0.0, Baso # (Auto) 0.0, Sodium 137, Potassium 3.8 D, Chloride 109 H, Carbon Dioxide 22, Anion Gap 9.8, BUN 8, Creatinine 0.60, Estimated Creat Clear 217, Estimated GFR 117, Est GFR ( Amer) 141, Glucose 201 H D, Calcium 8.1 L, Troponin I < 0.01 Medical History: Medical History (Updated 12/16/23 @ 00:49 by Марина [facility]os [facility]) Endometriosis Acute [place] Anxiety Depression Bipolar disorder Assessment and Plan Assessment and plan all Dx Assessment and Plan for all problems:: Pharmacokinetic dosing service Objective: Patient: Floor: Age: 33 yo Serum creatinine: 0.6 mg/dL Height: 65.0 Inches Weight (kg): 101 Assessment: IBW (kg): 57.00 Dosing wt(kg): 101 Estimated Creatinine clearance (ml/min): 122.2 CRCL method: Cockcroft and Gault using ibw(default). Drug selected: Vancomycin Loading dose (mg): 0 Vd (liters): 80.8 (factor used: 0.8 L/kg) Chente (hr-1): 0.106 Half life (hrs): 6.54 Recommended dose: 1500 mg Interval: 8 hrs Infusion time (hrs): 2.0 Predicted peak (mcg/mL): 29.3 Predicted trough (mcg/mL): 15.51 Total body weight is being used for vancomycin dosing. Recommendations: Give Vancomycin 1500 mg q 8 hrs with an expected Cpeak of 29.3 mcg/ml and an expected Ctrough of 15.51 mcg/ml. ----Vanco only - ignore for aminoglycosides----- CLvanco= 8.56 L/hr AUC 0-24 /MICHAEL Data: MICHAEL 0.5 mcg/mL: AUC/MICHAEL: 1051.4 MICHAEL 1.0 mcg/mL: AUC/MICHAEL: 525.7 --------- MICHAEL 1.5 mcg/mL: AUC/MICHAEL: 350.5 MICHAEL 2.0 mcg/mL: AUC/MICHAEL: 262.9
[2023-12-16 08:27] LABS: Erythrocyte Sedimentation Rate 27 mm/hr (0-20)
[2023-12-16] MEDS: PIPERCILLIN/TAZO 3.375 GM in 0.9 % SODIUM CHLORIDE 50 ML IV ×3 (08:34→23:06)
[2023-12-16] MEDS: BUSPIRONE HCL 5 MG TABLET 15 MG PO ×3 (08:35→20:19)
[2023-12-16] MEDS: METHYLPREDNISOLONE SOD SUCC 40MG VIAL 40 MG IV (08:35)
[2023-12-16] MEDS: FLUOXETINE 20MG CAPSULE 20 MG PO (08:35)
[2023-12-16] MEDS: GABAPENTIN 800MG TABLET 800 MG PO ×3 (08:35→20:19)
[2023-12-16] MEDS: BUPRENORPHINE/NALOXONE 8MG/2MG ODT 2 EACH SL (08:42)
--- NOTE | 2023-12-16 09:16 | PC.NURSE ---
Addendum entered by Anne-Marei Cordova, RT 12/16/23 09:25: RESP CARE NOTE: Pt vapotherm settings increased to 35L/80% to maintain SPO2 at 94%. Will continue to monitor patient. Original Note: RESP CARE NOTE: Pt placed on vapotherm per Dr Vicente order and titrated to 30L/60% to maintain SPO2 at 92-95% on these settings. Will continue to monitor patient via continuous pulse oximetry.
[2023-12-16 09:18] LABS: C-Reactive Protein 113.7 mg/L (0-4)
[2023-12-16 09:22] LABS: NT Pro Brain Natriuretic Pep. 198 pg/mL (0-125)
--- NOTE | 2023-12-16 09:36 | EXP.PULM.CON ---
History of Present Illness History of present illness: Ms. Garces is a 33-year-old female current smoker around 82-16-rkop-year smoking history, prior history of drug abuse, snorted, never used any IV drugs, e currently on Suboxone, anxiety and depression presented today with worsening respiratory distress needing increased oxygen supplementation and pulmonary was called for further evaluation and management. Patient with progressively worsening respiratory distress, admits cough mostly nonproductive. Denies any hemoptysis. [facility] Disclaimer: The information contained in this section may have been updated after the patient was seen, as this information can be updated by other users. Medical History (Updated 12/16/23 @ 10:17 by Otoniel Vicente MD) ILD (interstitial lung disease) Endometriosis Acute [place] Anxiety Depression Bipolar disorder Surgical History (Updated 12/16/23 @ 00:40 by Iesha Pool RN) History of cholecystectomy Hx of tonsillectomy Delivery by section Family History (Updated 12/16/23 @ 00:46 by Iesha Pool, RN) Other Cancer Social History (Updated 12/16/23 @ 00:46 by Iesha Pool RN) Smoking Status: Current every day smoker alcohol intake: never current occupational status: employed Travel in the last 8 weeks: None Review of Systems Constitutional Constitutional: Reports anorexia, Reports body ache(s), Reports fatigue and Reports lethargy Eyes Eyes: Denies eye discharge, Denies dry eyes, Denies irritation and Denies itchy eyes ENT Ears, Nose, Mouth, and Throat: Denies epistaxis, Denies facial pain, Denies lip swelling and Denies throat swelling *Cardiovascular Cardiovascular: Reports dyspnea and Reports dyspnea on exertion *Respiratory Respiratory: Denies change in phlegm color, Reports chest congestion, Reports cough, Reports dyspnea, Reports dyspnea on exertion, Denies excessive phlegm production, Denies hemoptysis and Denies wheezing *Gastrointestinal Gastrointestinal: Denies abdominal pain, Denies belching and Denies cramping *Musculoskeletal Musculoskeletal: Reports back pain, Reports myalgias and Reports other (No small joint swelling or Pain) Psychiatric Psychiatric: Denies homicidal ideation and Denies suicidal ideation Endocrine Endocrine: Reports fatigue and Denies heat intolerance Hematologic/Lymphatic Hematologic/Lymphatic: Denies easy bleeding and Denies lymphadenopathy Allergic/Immunologic Allergic/Immunologic: Denies itchy eyes, Denies lip swelling, Denies throat swelling and Denies wheezing Pulmonology Exam Inpatient Vital signs and Labs for Last 24 Hours: Temp Pulse Resp BP Pulse Ox O2 Del Method O2 Flow Rate 98.0 F 91 H 20 126/72 93 L Vapotherm 30 12/16/23 08:00 12/16/23 08:00 12/16/23 08:00 12/16/23 08:00 12/16/23 09:15 12/16/23 09:15 12/16/23 09:15 FiO2 60 12/16/23 09:15 Laboratory Results - last 24 hr 12/15/23 22:10: WBC 19.4 H, RBC 4.08 L, Hgb 12.0 L, Hct 37.8, MCV 92.5, MCH 29.4, MCHC 31.8, RDW 14.4, Plt Count 365, MPV 7.5, Neut % (Auto) 81.4 H, Lymph % (Auto) 14.8, [place] % (Auto) 1.3 L, Eos % (Auto) 2.1, Baso % (Auto) 0.4, Neut # (Auto) 15.8 H, Lymph # (Auto) 2.9, [place] # (Auto) 0.3, Eos # (Auto) 0.4, Baso # (Auto) 0.1, Total Counted 100, Neutrophils % (Manual) 84 H, Lymphocytes % (Manual) 11, Monocytes % (Manual) 1 L, Eosinophils % (Manual) 4 H, Platelet Estimate Normal, Tear Drop Cells 1+, D-Dimer 0.52 H, Sodium 139, Potassium 3.1 L, Chloride 111 H, Carbon Dioxide 21 L, Anion Gap 10.1, BUN 9, Creatinine 0.70, Estimated Creat Clear 175, Estimated GFR 98, Est GFR ( Amer) 118, Glucose 120 H, Calcium 8.6, Total Bilirubin 0.4, AST 52 H, ALT 33, Alkaline Phosphatase 95, Troponin I < 0.01, NT-Pro-B Natriuret Pep 108, Total Protein 7.1, Albumin 3.7, Globulin 3.4 H, Albumin/Globulin Ratio 1.1 12/15/23 23:22: VBG pH 7.34, VBG pCO2 42.1, VBG pO2 38.7, VBG HCO3 22.1 L, VBG Total CO2 23.4, VBG O2 Saturation 71.7 H, VBG Base Excess -3.7 L, VBG Lactic Acid 1.4 12/16/23 00:27: Chlamy pneumoniae PCR Not detected, Adenovirus (PCR) Not detected, B. pertussis DNA (PCR) Not detected, Coronavirus OC43 (PCR) Not detected, Coronavirus HKU1 (PCR) Not detected, Coronavirus 229E (PCR) Not detected, SARS-CoV-2 (PCR) Not detected, Coronavirus NL63 (PCR) Not detected, Human Metapneumovir PCR Not detected, Influenza A (H1) PCR Not detected, Influ A (H1N1/09) PCR Not detected, Influenza A (H3) PCR Not detected, Influenza Type A (PCR) Not detected, Influenza Type B (PCR) Not detected, M. pneumoniae (PCR) Not detected, Parainfluenza 1 (PCR) Not detected, Parainfluenza 2 (PCR) Not detected, Parainfluenza 3 (PCR) Not detected, Parainfluenza 4 (PCR) Not detected, RSV (PCR) Not detected, Entero/Rhino (PCR) Not detected 12/16/23 00:55: Troponin I < 0.01 12/16/23 04:26: WBC 22.8 H*, RBC 3.89 L, Hgb 11.0 L, Hct 35.8 L, MCV 92.2, MCH 28.4, MCHC 30.8 L, RDW 14.4, Plt Count 314, MPV 7.1 L, Neut % (Auto) 96.3 H, Lymph % (Auto) 2.2 L, [place] % (Auto) 1.3 L, Eos % (Auto) 0.0 L, Baso % (Auto) 0.1, Neut # (Auto) 21.9 H, Lymph # (Auto) 0.5 L, [place] # (Auto) 0.3, Eos # (Auto) 0.0, Baso # (Auto) 0.0, ESR 27 H, Sodium 137, Potassium 3.8 D, Chloride 109 H, Carbon Dioxide 22, Anion Gap 9.8, BUN 8, Creatinine 0.60, Estimated Creat Clear 217, Estimated GFR 117, Est GFR ( Amer) 141, Glucose 201 H D, Calcium 8.1 L, Troponin I < 0.01, C-Reactive Protein 113.7 H, NT-Pro-B Natriuret Pep 198 H I & O for Labs for Last 24 Hours: Intake & Output 12/13/23 12/14/23 12/15/23 12/16/23 23:59 23:59 23:59 23:59 Intake Total 480 / 480 Output Total 1125 / 1125 Balance -645 / -645 Weight 210 lb 223 lb 8.004 oz Microbiology Reports for the Last 24 Hours: Microbiology 12/16/23 01:00 Sputum - Expectorated Sputum Gram Stain - Final Constitutional: Present moderate distress Head: Present normocephalic and atraumatic ENT: Present normal exam, normal oropharynx and mucous membranes moist Neck: Present normal inspection and full ROM Respiratory: Present respiratory distress; Absent rhonchi, wheezes, crackles or able to speak in complete sentences Cardiac: Present S1/S2, Tachycardia and radial pulses present GI: Present soft and distention; Absent tenderness or guarding Rectal (female): Present deferred (female): Present deferred Skin: Present intact; Absent cyanosis or jaundice Neuro: Present alert, awake and oriented x 3 Extremities: Present normal inspection; Absent clubbing or cyanosis Psychiatric: Present normal affect and cooperative Meds Home Medications and Allergies Home Medications ?Medication ?Instructions ?Recorded ?Confirmed ?Type aripiprazole 10 mg tablet 10 mg PO HS 12/15/23 12/16/23 History buprenorphine 8 mg-naloxone 2 mg 2 tab sublingual DAILY 12/15/23 12/16/23 History sublingual tablet buspirone 15 mg tablet 15 mg PO TID 12/15/23 12/16/23 History fluoxetine 20 mg capsule 20 mg PO DAILY 12/15/23 12/16/23 History gabapentin 800 mg tablet 800 mg PO TID 12/15/23 12/16/23 History quetiapine 50 mg tablet 50 mg PO HS 12/15/23 12/16/23 History fluoxetine 40 mg capsule 40 mg PO DAILY 12/16/23 12/16/23 History New Prescriptions to Start Prescriptions: Allergies Allergy/AdvReac Type Severity Reaction Status Date / Time No Known Allergies Allergy Verified 12/15/23 22:24 Results Laboratory Findings 12/16/23 04:26 12/16/23 04:26 PT/INR, D-dimer D-Dimer 0.52 ug/mL (0.0-0.5) H 12/15/23 22:10 Abnormal lab findings: Abnormal Labs 12/15/23 12/15/23 12/16/23 22:10 23:22 04:26 WBC 19.4 H 22.8 H* RBC 4.08 L 3.89 L Hgb 12.0 L 11.0 L Hct 35.8 L MCHC 30.8 L MPV 7.1 L Neut % (Auto) 81.4 H 96.3 H Lymph % (Auto) 2.2 L [place] % (Auto) 1.3 L 1.3 L Eos % (Auto) 0.0 L Neut # (Auto) 15.8 H 21.9 H Lymph # (Auto) 0.5 L Neutrophils % (Manual) 84 H Monocytes % (Manual) 1 L Eosinophils % (Manual) 4 H ESR 27 H D-Dimer 0.52 H VBG HCO3 22.1 L VBG O2 Saturation 71.7 H VBG Base Excess -3.7 L Potassium 3.1 L Chloride 111 H 109 H Carbon Dioxide 21 L Glucose 120 H 201 H D Calcium 8.1 L AST 52 H C-Reactive Protein 113.7 H NT-Pro-B Natriuret Pep 198 H Globulin 3.4 H Assessment and Plan *Assessment and plan (1) Acute hypoxemic respiratory failure: Status: Acute Category: Medical Code(s): J96.01 - Acute respiratory failure with hypoxia (2) Pneumonia: Status: Acute Qualifiers: Laterality: bilateral Lung location: lower lobe of lung Pneumonia type: due to unspecified organism Qualified Code(s): J18.9 - Pneumonia, unspecified organism Category: Medical Code(s): J18.9 - Pneumonia, unspecified organism (3) ILD (interstitial lung disease): Status: Acute Category: Medical Code(s): J84.9 - Interstitial pulmonary disease, unspecified Plan Ms. Garces is a 33-year-old female current smoker around 83-22-uzyf-year smoking history, prior history of drug abuse, snorted, never used any IV drugs, e currently on Suboxone, anxiety and depression presented today with worsening respiratory distress needing increased oxygen supplementation and pulmonary was called for further evaluation and management. Patient with progressively worsening respiratory distress, admits cough mostly nonproductive. Denies any hemoptysis. Labs on admission, predominant neutrophilic leukocytosis with a white count of 22.8. Hemoglobin at 11. Platelet count 314. Comprehensive respiratory viral PCR panel negative BUN/creatinine within normal limits. CRP elevated at 113.7. proBNP at 119. Troponins within normal limits. CTA upon admission no evidence of pulmonary embolism. Bilateral diffuse groundglass opacities along with traction bronchiectasis predominantly in left lower lung mcconnell. Mild review of systems negative. Denies any personal history or family to autoimmune disorders. Past history include parakeets within the last month. Plan: Continue oxygen supplementation to maintain O2 saturation goal of 89% and above. Continue high flow nasal oxygen supplementation. Wean as tolerated. Recommend HIV screen Follow with hypersensitive pneumonitis panel Follow with urine strep and Legionella antigen and Nasal MRSA screen Follow with urinalysis Continue vancomycin and Zosyn pending sputum and blood culture. # Thank you for involving pulmonary in this patient care. Will continue to follow.
[2023-12-16 09:52] LABS: Lactate Dehydrogenase 441 U/L (313-618)
[2023-12-16 11:30] LABS: Appearance,Urine CLEAR (Clear); Bilirubin,Urine Negative (Negative); Blood, Urine 1+ (Negative); Color,Urine YELLOW (Yellow); Glucose,Urine (UA) 3+ (Negative); Ketones,Urine Negative (Negative); Leukocyte Esterase,Urine Negative (Negative); Microscopic, Urine URINE MICROSCOPIC (MICROSCOPIC); Nitrate,Urine Negative (Negative); Protein,Urine Negative (Negative); Specific Gravity, Urine 1.015 (1.005-1.030)
[2023-12-16 12:05] LABS: Bacteria,Urine Trace /lpf; Squamous Epithelial Cell,Urine Occasional #/hpf (0-5); WBC,Urine Occasional #/hpf (0-3)
[2023-12-16 12:55] LABS: HIV (1&2) Antibody Rapid REACTIVE (NONREACTIVE)
--- NOTE | 2023-12-16 18:50 | PC.NURSE ---
pt alert and oriented x4 and independent in her care. currently hooked to [employer]. nasal swab and urine sample collected this shift and sent to lab. pt is resting in bed with vapotherm 35L 80% with sats 89-95%. respiratory has been monitoring toleration of this and adjusting as necessary. pt has received multiple doses of antibiotics per jun, as well as other daily meds & tylenol for a headache. scuds have remained on the pt throughout the shift. pt has not ambulated this shift. significant other and son at bedside. both will be spending the night here. pt and significant other educated on the need to supervise child at all times and not allow disruptions. [facility] staff not responsible for child's care. both parties agreeable. bed in low and locked position with call light in reach. pt has no complaints or concerns at this time.
[2023-12-16] MEDS: SULFA/TRIMETHOPRIM 1 TABLET 1 EACH PO (20:19)
[2023-12-16] MEDS: FLUOXETINE 20MG CAPSULE 60 MG PO (20:19)
[2023-12-16] MEDS: ARIPiprazole 10MG TABLET 10 MG PO (20:19)
[2023-12-16] MEDS: MELATONIN 5MG TABLET 5 MG PO (23:06)
[2023-12-17] VITALS (17 sets, daily range): BP systolic 91–120; BP diastolic 52–73; PULSE 70–102; RESP 16–30; TEMP 36.7–37.1; O2SAT 89–94; BMI 37.2
[2023-12-17] MEDS: VANCOMYCIN/WATER FOR INJ (PEG) 1.5 GM/300 ML PIGGYBACK IV (00:03)
--- NOTE | 2023-12-17 05:10 | PC.NURSE ---
End of shift summary: Patient remained stable throughout shift without acute changes. Vapotherm remains in place with improved settings of 25L/40%-- tolerated weaning down well. Patient medicated per JUN. She remains a/o x3, CGS 15, VSS otherwise.
[2023-12-17] MEDS: IPRATROPIUM/ALBUTEROL 3 ML NEB IH ×4 (06:14→23:40)
[2023-12-17 06:31] LABS: Albumin Level 3.7 g/dl (3.5-5.0); Chloride 108 mmol/L (98-107); Potassium 4.2 mmoL/L (3.5-5.1); Sodium 138 mmol/L (136-145)
[2023-12-17 06:33] LABS: Basophils % 0.1 % (0.1-2.0); Eosinophils % 0.1 % (0.1-12.0); Hematocrit 38.7 % (37.0-47.0); Hemoglobin 11.9 g/dL (12.2-16.2); Lymphocytes # 2.7 K/mm3 (0.7-4.5); Lymphocytes % 11.2 % (10-50); Mean Corpuscular HGB Conc 30.6 g/dL (31.8-35.4); Mean Corpuscular Hemoglobin 27.7 pg (27.0-31.2); Mean Corpuscular Volume 90.7 fl (81-99); Mean Platelet Volume 7.6 fl (7.4-10.4); Monocytes # 0.6 K/mm3 (0.1-1.0); Monocytes % 2.4 % (1.7-9.3); Neutrophils # 20.7 K/mm3 (1.8-7.8); Neutrophils % 86.1 % (37.0-80.0); Platelet Count 407 K/mm3 (142-424); Red Blood Count 4.27 M/mm3 (4.20-5.40); Red Cell Distribution Width 14.5 % (11.5-17.5)
[2023-12-17 06:34] LABS: Alanine Aminotransferase 32 U/L (12-78); Albumin/Globulin Ratio 1.1 (1.1-1.8); Alkaline Phosphatase 112 U/L (38-126); Anion Gap 10.2 mEq/L (5-15); Aspartate Amino Transferase 46 U/L (14-36); Bilirubin,Total 0.4 mg/dl (0.2-1.3); Blood Urea Nitrogen 9 mg/dl (7-17); Carbon Dioxide 24 mmol/L (22.0-30.0); Creatinine Clearance Estimated 163 mL/min (50-200); Estimated Glomerular Filt Rate 84 ml/min (>60); GFR (African American) 101 ML/MIN (>60); Globulin 3.4 g/dL (1.3-3.2); Total Protein,Serum 7.1 g/dl (6.3-8.2)
[2023-12-17 06:35] LABS: Calcium 8.9 mg/dl (8.4-10.2); Glucose 113 mg/dl (74-100); Magnesium 1.8 mg/dl (1.6-2.3)
[2023-12-17 06:44] LABS: MANUAL DIFFERENTIAL MANUAL DIFFERENTIAL (MANUAL DIFF)
[2023-12-17] MEDS: FUROSEMIDE 40 MG TABLET PO (08:02)
[2023-12-17] MEDS: PIPERCILLIN/TAZO 3.375 GM in 0.9 % SODIUM CHLORIDE 50 ML IV ×2 (08:02→16:13)
[2023-12-17] MEDS: BUSPIRONE HCL 5 MG TABLET 15 MG PO ×3 (08:02→21:20)
[2023-12-17] MEDS: NICOTINE 21MG/24HR PATCH 21 MG TD (08:02)
[2023-12-17 08:19] LABS: Lymphocytes % 18 % (10-50); Neutrophils % 82 % (42-76); Platelet Estimate Normal; Total Cells Counted 100
[2023-12-17 08:20] LABS: RBC Morphology Normal
[2023-12-17] MEDS: SULFA/TRIMETHOPRIM 1 TABLET 1 EACH PO ×2 (08:32→21:20)
[2023-12-17 08:48] LABS: HIV Screen 4th Generation wRfx Non Reactive (Non Reactive)
--- NOTE | 2023-12-17 09:39 | P.PN_ITS ---
Subjective *Date: 12/17/23 *Time: 10:19 Interval history: Denies any new respiratory complaints. Tolerating well. Pulmonology Exam Inpatient Vital signs and Labs for Last 24 Hours: Temp Pulse Resp BP Pulse Ox O2 Del Method O2 Flow Rate 98.1 F 87 30 H 117/69 94 L Vapotherm 25 12/17/23 08:00 12/17/23 08:00 12/17/23 08:00 12/17/23 08:00 12/17/23 08:00 12/17/23 09:00 12/17/23 06:14 FiO2 40 12/17/23 06:14 Laboratory Results - last 24 hr 12/16/23 04:26: Lactate Dehydrogenase 441 12/16/23 11:20: HIV 1&2 Ag/Ab, 4th Gen Non reactive, HIV 1&2 Antibody Rapid Reactive 12/16/23 : Urine Color Yellow, Urine Appearance Clear, Urine pH 7.0, Ur Specific [place] 1.015, Urine Protein Negative, Urine Glucose (UA) 3+, Urine Ketones Negative, Urine Blood 1+, Urine Nitrate Negative, Urine Bilirubin Negative, Urine Urobilinogen 1.0, Ur Leukocyte Esterase Negative, Urine RBC None, Urine WBC Occasional, Ur Squamous Epith Cells Occasional, Urine Bacteria Trace 12/17/23 05:23: WBC 24.0 H*, RBC 4.27, Hgb 11.9 L, Hct 38.7, MCV 90.7, MCH 27.7, MCHC 30.6 L, RDW 14.5, Plt Count 407 D, MPV 7.6, Neut % (Auto) 86.1 H, Lymph % (Auto) 11.2, [place] % (Auto) 2.4, Eos % (Auto) 0.1, Baso % (Auto) 0.1, Neut # (Auto) 20.7 H, Lymph # (Auto) 2.7, [place] # (Auto) 0.6, Eos # (Auto) 0.0, Baso # (Auto) 0.0, Total Counted 100, Neutrophils % (Manual) 82 H, Lymphocytes % (Manual) 18, Platelet Estimate Normal, RBC Morphology Normal, Sodium 138, Potassium 4.2, Chloride 108 H, Carbon Dioxide 24, Anion Gap 10.2, BUN 9, Creatinine 0.80 D, Estimated Creat Clear 163, Estimated GFR 84, Est GFR ( Amer) 101 D, Glucose 113 H, Calcium 8.9, Magnesium 1.8, Total Bilirubin 0.4, AST 46 H, ALT 32, Alkaline Phosphatase 112, Total Protein 7.1, Albumin 3.7, Globulin 3.4 H, Albumin/Globulin Ratio 1.1 Temp Pulse Resp BP Pulse Ox O2 Del Method O2 Flow Rate 98.0 F 91 H 20 126/72 93 L Vapotherm 30 12/16/23 08:00 12/16/23 08:00 12/16/23 08:00 12/16/23 08:00 12/16/23 09:15 12/16/23 09:15 12/16/23 09:15 FiO2 60 12/16/23 09:15 Laboratory Results - last 24 hr 12/15/23 22:10: WBC 19.4 H, RBC 4.08 L, Hgb 12.0 L, Hct 37.8, MCV 92.5, MCH 29.4, MCHC 31.8, RDW 14.4, Plt Count 365, MPV 7.5, Neut % (Auto) 81.4 H, Lymph % (Auto) 14.8, [place] % (Auto) 1.3 L, Eos % (Auto) 2.1, Baso % (Auto) 0.4, Neut # (Auto) 15.8 H, Lymph # (Auto) 2.9, [place] # (Auto) 0.3, Eos # (Auto) 0.4, Baso # (Auto) 0.1, Total Counted 100, Neutrophils % (Manual) 84 H, Lymphocytes % (Manual) 11, Monocytes % (Manual) 1 L, Eosinophils % (Manual) 4 H, Platelet Estimate Normal, Tear Drop Cells 1+, D-Dimer 0.52 H, Sodium 139, Potassium 3.1 L , Chloride 111 H, Carbon Dioxide 21 L, Anion Gap 10.1, BUN 9, Creatinine 0.70, Estimated Creat Clear 175, Estimated GFR 98, Est GFR ( Amer) 118, Glucose 120 H, Calcium 8.6, Total Bilirubin 0.4, AST 52 H, ALT 33, Alkaline Phosphatase 95, Troponin I < 0.01, NT-Pro-B Natriuret Pep 108, Total Protein 7.1, Albumin 3.7, Globulin 3.4 H, Albumin/Globulin Ratio 1.1 12/15/23 23:22: VBG pH 7.34, VBG pCO2 42.1, VBG pO2 38.7, VBG HCO3 22.1 L, VBG Total CO2 23.4, VBG O2 Saturation 71.7 H, VBG Base Excess -3.7 L, VBG Lactic Acid 1.4 12/16/23 00:27: Chlamy pneumoniae PCR Not detected, Adenovirus (PCR) Not detected, B. pertussis DNA (PCR) Not detected, Coronavirus OC43 (PCR) Not detected, Coronavirus HKU1 (PCR) Not detected, Coronavirus 229E (PCR) Not detected, SARS-CoV-2 (PCR) Not detected, Coronavirus NL63 (PCR) Not detected, Human Metapneumovir PCR Not detected, Influenza A (H1) PCR Not detected, Influ A (H1N1/09) PCR Not detected, Influenza A (H3) PCR Not detected, Influenza Type A (PCR) Not detected, Influenza Type B (PCR) Not detected, M. pneumoniae (PCR) Not detected, Parainfluenza 1 (PCR) Not detected, Parainfluenza 2 (PCR) Not detected, Parainfluenza 3 (PCR) Not detected, Parainfluenza 4 (PCR) Not detected, RSV (PCR) Not detected, Entero/Rhino (PCR) Not detected 12/16/23 00:55: Troponin I < 0.01 12/16/23 04:26: WBC 22.8 H*, RBC 3.89 L, Hgb 11.0 L, Hct 35.8 L, MCV 92.2, MCH 28.4, MCHC 30.8 L, RDW 14.4, Plt Count 314, MPV 7.1 L, Neut % (Auto) 96.3 H, Lymph % (Auto) 2.2 L, [place] % (Auto) 1.3 L, Eos % (Auto) 0.0 L, Baso % (Auto) 0.1, Neut # (Auto) 21.9 H, Lymph # (Auto) 0.5 L, [place] # (Auto) 0.3, Eos # (Auto) 0.0, Baso # (Auto) 0.0, ESR 27 H, Sodium 137, Potassium 3.8 D, Chloride 109 H, Carbon Dioxide 22, Anion Gap 9.8, BUN 8, Creatinine 0.60, Estimated Creat Clear 217, Estimated GFR 117, Est GFR ( Amer) 141, Glucose 201 H D, Calcium 8.1 L, Troponin I < 0.01, C-Reactive Protein 113.7 H, NT-Pro-B Natriuret Pep 198 H I & O for Labs for Last 24 Hours: Intake & Output 12/14/23 12/15/23 12/16/23 12/17/23 23:59 23:59 23:59 23:59 Intake Total 930 / 1680 750 / 750 Output Total 2125 / 2925 800 / 800 Balance -1195 / -1245 -50 / -50 Weight 210 lb 223 lb 8.004 oz 223 lb 8.004 oz Intake & Output 12/13/23 12/14/23 12/15/23 12/16/23 23:59 23:59 23:59 23:59 Intake Total 480 / 480 Output Total 1125 / 1125 Balance -645 / -645 Weight 210 lb 223 lb 8.004 oz Microbiology Reports for the Last 24 Hours: Microbiology 12/16/23 00:55 Blood Blood Culture - Preliminary NO GROWTH AFTER 24 HOURS Microbiology 12/16/23 01:00 Sputum - Expectorated Sputum Gram Stain - Final Constitutional: Present moderate distress Head: Present normocephalic and atraumatic ENT: Present normal exam, normal oropharynx and mucous membranes moist Neck: Present normal inspection and full ROM Respiratory: Present respiratory distress; Absent rhonchi, wheezes, crackles or able to speak in complete sentences Cardiac: Present S1/S2, Tachycardia and radial pulses present GI: Present soft and distention; Absent tenderness or guarding Rectal (female): Present deferred (female): Present deferred Skin: Present intact; Absent cyanosis or jaundice Neuro: Present alert, awake and oriented x 3 Extremities: Present normal inspection; Absent clubbing or cyanosis Psychiatric: Present normal affect and cooperative Assessment and Plan *Assessment and plan (1) Acute hypoxemic respiratory failure: Status: Acute Category: Medical Code(s): J96.01 - Acute respiratory failure with hypoxia (2) Pneumonia: Status: Acute Qualifiers: Laterality: bilateral Lung location: lower lobe of lung Pneumonia type: due to unspecified organism Qualified Code(s): J18.9 - Pneumonia, unspecified organism Category: Medical Code(s): J18.9 - Pneumonia, unspecified organism (3) ILD (interstitial lung disease): Status: Acute Category: Medical Code(s): J84.9 - Interstitial pulmonary disease, unspecified Plan Ms. Garces is a 33-year-old female current smoker around 32-10-updw-year smoking history, prior history of drug abuse, snorted, never used any IV drugs, e currently on Suboxone, anxiety and depression presented today with worsening respiratory distress needing increased oxygen supplementation and pulmonary was called for further evaluation and management. Patient with progressively worsening respiratory distress, admits cough mostly nonproductive. Denies any hemoptysis. Labs on admission, predominant neutrophilic leukocytosis with a white count of 22.8. Hemoglobin at 11. Platelet count 314. Comprehensive respiratory viral PCR panel negative BUN/creatinine within normal limits. CRP elevated at 113.7. proBNP at 119. Troponins within normal limits. CTA upon admission no evidence of pulmonary embolism. Bilateral diffuse groundglass opacities along with traction bronchiectasis predominantly in left lower lung mcconnell. Mild review of systems negative. Denies any personal history or family to autoimmune disorders. Past history include parakeets within the last month. Interval update: HIV screen resulted positive for highly concerning for PJP. Initiated on Bactrim yesterday. Will follow with the lab to perform cell worsening for PJP. Sputum >25 WBC Gm +ve cocci. Final cultures pending. Blood cultures no growth 24 hours. Urinalysis not concerning for hematuria Plan: -Out of bed to chair. Activity as tolerated. Incentive spirometry. Continue oxygen supplementation to maintain O2 saturation goal of 89% and above. Weaned to 15 L 35% this morning. Will continue to wean as tolerated to nasal cannula Continue vancomycin and Zosyn pending sputum and blood culture. Continue Bactrim DS daily for suspected PJP pneumonia. F/U Sputum cytology -Follow with CD4 differential F/U urine histoplasma antigen Follow with hypersensitive pneumonitis panel Follow with urine strep and Legionella antigen and Nasal MRSA screen # Thank you for involving pulmonary in this patient care. Will continue to follow.
[2023-12-17] MEDS: BUPRENORPHINE/NALOXONE 8MG/2MG ODT 2 EACH SL (09:43)
[2023-12-17] MEDS: GABAPENTIN 800MG TABLET 800 MG PO ×3 (09:43→21:19)
--- NOTE | 2023-12-17 09:58 | PC.NURSE ---
Dr. Vicente at bedside.
[2023-12-17] MEDS: ACETAMINOPHEN 325MG TAB 650 MG PO (11:10)
[2023-12-17 13:19] LABS: RBC 4.01
[2023-12-17 13:20] LABS: Eosinophils 0; HCT 34.3; HGB 11.3; Lymphocytes 4; MCH 28.2; MCHC 32.9; MCV 86; Monocytes 1; Neutrophils 92; Platelets 335; RDW 13.3
[2023-12-17 13:21] LABS: Abs. Lymphocytes 1.1; Abs. Monocytes 0.4; Abs. Neutrophil 25.4; Immature Granulocytes 3
[2023-12-17 13:35] LABS: WBC 27.7
[2023-12-17] MEDS: KETOROLAC 30MG/ML VIAL 30 MG IV (13:45)
[2023-12-17 15:15] LABS: % CD4 Positive Lymphs 28.8 % (30.8-58.5); Abs. Immature Granulocytes 0.7 x10E3/uL (0.0-0.1); Absolute CD4 helper 317 /uL (359-1519)
[2023-12-17 16:14] LABS: Anti-Centromere B Antibodies <0.2 AI (0.0-0.9); Anti-DNA (DS) Ab Qn 1 IU/mL (0-9); Anti-Jo-1 <0.2 AI (0.0-0.9); Antichromatin Antibodies <0.2 AI (0.0-0.9); Antiscleroderma-70 Antibodies <0.2 AI (0.0-0.9); RNP Antibodies <0.2 AI (0.0-0.9); Sjogren's Anti-SS-A <0.2 AI (0.0-0.9)
--- NOTE | 2023-12-17 17:35 | PC.NURSE ---
A&OX4. PT IS TOLERATING VAPOTHERM WELL, SETTINGS AT 15L 50% AT THIS TIME. O2 CURRENTLY 93%. PT DID HAVE SOME SUBSTERNAL PAIN AT ONE TIME. WORSE WITH EXERTION AND DEEP BREATHS. GAVE TORADOL PER JUN-WHICH HAD GREAT AFFECT FOR PATIENT. PT WAS UP TO CHAIR FOR QUITE SOME TIME THIS SHIFT, USING BEDSIDE COMMODE. O2 SATURATION DECREASES WITH EXERTION. DOES TAKE A BIT TO BOUNCE BACK. PT STATES SHE HAS BEEN VERY SLEEPY TODAY, BUT IS ABLE TO AROUSE AND ANSWER ALL QUESTIONS AND HOLD CONVERSATION. FAMILY AT BEDSIDE MAJORITY OF SHIFT. NO OTHER NEEDS OR C/O NOTED THUS FAR, VSS.
--- NOTE | 2023-12-17 18:12 | P.PN_ITS ---
Subjective *Date: 12/17/23 *Time: 18:12 Interval history: Patient steadily weaning from Vapotherm without complications. Patient agrees. Start evaluation. Admits to some pleuritic chest discomfort with breathing resolved with as needed pain meds. Denies fever/chills overnight. Medical Exam Vital signs and Labs for Last 24 Hours: Vital Signs Temp Pulse Pulse Resp BP Pulse Ox O2 Del Method 12/17/23 16:39 Vapotherm 12/17/23 16:00 90 12/17/23 16:00 89 L Vapotherm 12/17/23 16:00 98.3 F 12/17/23 15:00 Vapotherm 12/17/23 14:00 96 H 22 91/52 L 89 L Vapotherm 12/17/23 13:00 Vapotherm 12/17/23 12:00 100 H 12/17/23 12:00 93 H 20 116/72 93 L Vapotherm 12/17/23 11:13 94 H 12/17/23 11:13 102 H 12/17/23 11:13 92 L Vapotherm 12/17/23 11:00 Vapotherm 12/17/23 10:00 88 24 120/73 92 L Vapotherm 12/17/23 09:00 Vapotherm 12/17/23 08:00 90 12/17/23 08:00 98.1 F 12/17/23 08:00 87 30 H 117/69 94 L Vapotherm 12/17/23 08:00 92 L Vapotherm 12/17/23 06:14 81 12/17/23 06:14 78 12/17/23 06:14 94 L Vapotherm 12/17/23 06:00 79 20 96/66 L 94 L Vapotherm 12/17/23 04:00 98.8 F 12/17/23 04:00 70 17 95/68 L 92 L Vapotherm 12/17/23 04:00 82 12/17/23 02:00 82 19 98/67 L 94 L Vapotherm 12/17/23 00:00 70 12/17/23 00:00 70 16 113/64 94 L Vapotherm 12/16/23 23:20 70 12/16/23 23:20 70 12/16/23 22:00 73 17 132/74 100 Vapotherm 12/16/23 20:00 98.4 F 12/16/23 20:00 77 20 124/74 100 Vapotherm 12/16/23 20:00 66 12/16/23 18:43 Vapotherm 12/16/23 18:25 62 12/16/23 18:25 62 12/16/23 18:25 94 L Vapotherm O2 Flow Rate FiO2 12/17/23 16:39 12/17/23 16:00 12/17/23 16:00 12/17/23 16:00 12/17/23 15:00 12/17/23 14:00 12/17/23 13:00 12/17/23 12:00 12/17/23 12:00 12/17/23 11:13 12/17/23 11:13 12/17/23 11:13 15 35 12/17/23 11:00 12/17/23 10:00 12/17/23 09:00 12/17/23 08:00 12/17/23 08:00 12/17/23 08:00 12/17/23 08:00 12/17/23 06:14 12/17/23 06:14 12/17/23 06:14 25 40 12/17/23 06:00 25 40 12/17/23 04:00 12/17/23 04:00 25 40 12/17/23 04:00 12/17/23 02:00 25 40 12/17/23 00:00 12/17/23 00:00 35 50 12/16/23 23:20 12/16/23 23:20 12/16/23 22:00 35 70 12/16/23 20:00 12/16/23 20:00 35 70 12/16/23 20:00 12/16/23 18:43 35 12/16/23 18:25 12/16/23 18:25 12/16/23 18:25 35 70 Intake and Output 12/17/23 12/17/23 12/17/23 07:59 15:59 23:59 Intake Total 750 / 1020 270 / 1020 Output Total 800 / 800 0 / 800 Balance -50 / 220 270 / 220 Intake: Intake, Oral Amount 400 / 670 270 / 670 Intake, Total IV Amount 350 / 350 Pipercillin/Tazo 3.375 gm In 0. 50 / 50 9 % Sodium Chloride 50 ml @ 100 mls/hr IV Q8H [facility] Rx#:[id number] Vancomycin/Water For Inj (Peg) 300 / 300 1.5 gm In 300 ml @ 150 mls/hr IV Q8H [facility] Rx#:[id number] Output: Output, Urine Amount 800 / 800 0 / 800 Other: Number of Unmeasured Voids 1 Weight 101.378 kg Patient Weight 12/17/23 23:59 Weight 101.378 kg Laboratory Results - last 24 hr 12/16/23 11:20: DAIANA Comment Comment, DERRICK-1 Antibody <0.2, SS-A Antibody <0.2, SS- B Antibody 1.0 H, Sm (Wick) Antibody <0.2, [employer] Antibody <0.2, Scl-70 Scleroderma Ab <0.2, Double Strand DNA Ab 1, Chromatin Antibody <0.2, Centromere B Antibody <0.2, HIV 1&2 Ag/Ab, 4th Gen Non reactive 12/16/23 15:00: Abs Immat Gran (auto) 0.7 H, Nucleated RBC % TNP, % CD4 [place] 2 8.8 L, Absolute CD4 [place] 317 L 12/17/23 05:23: WBC 24.0 H*, RBC 4.27, Hgb 11.9 L, Hct 38.7, MCV 90.7, MCH 27.7, MCHC 30.6 L, RDW 14.5, Plt Count 407 D, MPV 7.6, Neut % (Auto) 86.1 H, Lymph % (Auto) 11.2, [place] % (Auto) 2.4, Eos % (Auto) 0.1, Baso % (Auto) 0.1, Neut # (Auto) 20.7 H, Lymph # (Auto) 2.7, [place] # (Auto) 0.6, Eos # (Auto) 0.0, Baso # (Auto) 0.0, Total Counted 100, Neutrophils % (Manual) 82 H, Lymphocytes % (Manual) 18, Platelet Estimate Normal, RBC Morphology Normal, Sodium 138, Potassium 4.2, Chloride 108 H, Carbon Dioxide 24, Anion Gap 10.2, BUN 9, Creatinine 0.80 D, Estimated Creat Clear 163, Estimated GFR 84, Est GFR ( Amer) 101 D, Glucose 113 H, Calcium 8.9, Magnesium 1.8, Total Bilirubin 0.4, AST 46 H, ALT 32, Alkaline Phosphatase 112, Total Protein 7.1, Albumin 3.7, Globulin 3.4 H, Albumin/Globulin Ratio 1.1 I & O for Labs for Last 24 Hours: Intake & Output 12/14/23 12/15/23 12/16/23 12/17/23 23:59 23:59 23:59 23:59 Intake Total 930 / 1680 1020 / 1020 Output Total 2125 / 2925 800 / 800 Balance -1195 / -1245 220 / 220 Weight 95.254 kg 101.378 kg 101.378 kg Microbiology Reports for the Last 24 Hours: Microbiology 12/16/23 01:00 Sputum - Expectorated Sputum Gram Stain - Final 12/16/23 01:00 Sputum - Expectorated Sputum Sputum Culture - Preliminary 12/16/23 00:55 Blood Blood Culture - Preliminary NO GROWTH AFTER 24 HOURS Head: Present atraumatic Neck: Present normal inspection Respiratory: Present respiratory distress and diminished air movement Cardiac: Present Tachycardia GI: Present soft and normal bowel sounds Rectal (female): Present deferred (female): Present deferred Extremities: Present normal inspection Skin: Present intact Assessment and Plan *Assessment and plan (1) HIV (human immunodeficiency virus infection): Status: Acute Category: Medical Code(s): Z21 - Asymptomatic human immunodeficiency virus [HIV] infection status (2) ILD (interstitial lung disease): Status: Acute Category: Medical Code(s): J84.9 - Interstitial pulmonary disease, unspecified (3) Anxiety and depression: Status: Acute Category: Medical Code(s): F41.9 - Anxiety disorder, unspecified; F32.A - Depression, unspecified (4) Pneumonia: Status: Acute Qualifiers: Laterality: bilateral Lung location: lower lobe of lung Pneumonia type: due to unspecified organism Qualified Code(s): J18.9 - Pneumonia, unspecified organism Category: Medical Code(s): J18.9 - Pneumonia, unspecified organism (5) Acute hypoxemic respiratory failure: Status: Acute Category: Medical Code(s): J96.01 - Acute respiratory failure with hypoxia (6) Bipolar 1 disorder: Status: Acute Category: Medical Code(s): F31.9 - Bipolar disorder, unspecified Plan #Acute respiratory failure with hypoxia #Pneumonia ?8/20 patient's rapid HIV test positive but confirmatory test negative. Will discuss results with infectious disease environmental consultant and pulmonology. Continue current management. Wean from Vapotherm as tolerated. Continue PCP prophylaxis. Continue IV antibiotics, nebulization treatments, and glucocorticoids. Appreciate pulmonary consult and assistance Patient with extensive groundglass opacities and interstitial inflammatory disease with mediastinal and hilar lymphadenopathy Differential diagnosis include: Viral/bacterial/fungal/zoonotic/EVALI Consult to Pulmonology in a.m., greatly appreciate expertise Reports being in contact with 2 people this week with viral illnesses. Will send for full respiratory panel. Patient reports being swabbed for COVID this week which was negative. Currently requiring 5 to 6 L nasal cannula Continue bronchodilators and corticosteroids Will continue broad-spectrum coverage with vancomycin, Zosyn and doxycycline Maintain oxygen saturations greater than 88% Continuous pulse ox Sputum culture pending Requesting chart from [facility] where patient states that she was admitted previously with similar symptoms #Sepsis Meets criteria for leukocytosis, tachycardia, tachypnea Continue broad-spectrum coverage for pneumonia Will defer for 30 mL/kg bolus. Pt is hemodynamically stable and would like to avoid volume overload in acute respiratory distress Inflammatory markers pending #Anxiety and depression Continue new mood stabilization medications #vancomycin toxicty monitoring Pharmacy consulted for management and monitoring of Vancomycin-high risk medication Rounded on patient after nurse practitioner. Personally examined and interviewed patient. Agree with exam findings and care plan as documented. Patient was screened for HIV this morning given the atypical nature of her pneumonia and dyspnea out of proportion to her lung exam. Found to be HIV positive. Added Bactrim double strength oral twice daily for coverage of pos sible pneumocystis. Pulmonology assisting with care. Holding on a bronchoscopy at this time. Will consider steroids over the next 24 to 48 hours if sputum cultures and blood cultures support PCP and are negative for bacteremia. Will consider initiating antiretroviral therapy pending patient's clinical improvement. Left to be cautious for immune reconstitution syndrome. Discussed finding and diagnosis with patient and her fianc?. Questions answered at bedside. Facilitating testing for fianc?. Escalated to Vapotherm over the course of the morning, currently on 70% FiO2. Escalated to stepdown level of care. Continue vancomycin IV, Zosyn IV, Bactrim double strength twice daily oral. Disposition: ? Patient will remain in ICU till weaning from Vapotherm. Will continue infectious workup including evaluation for immunosuppressive HIV infection, and PCP. Patient will probably remain in house for initial additional few days to complete workup.
[2023-12-17] MEDS: FLUOXETINE 20MG CAPSULE 60 MG PO (21:19)
[2023-12-17] MEDS: ARIPiprazole 10MG TABLET 10 MG PO (21:19)
[2023-12-17] MEDS: QUETIAPINE 25MG TABLET 50 MG PO (21:20)
[2023-12-18] VITALS (17 sets, daily range): BP systolic 90–117; BP diastolic 47–73; PULSE 70–98; RESP 16–24; TEMP 36.6–37.3; O2SAT 89–97; BMI 37.2
[2023-12-18] MEDS: KETOROLAC 30MG/ML VIAL 15 MG IV (02:15)
[2023-12-18] MEDS: ACETAMINOPHEN 325MG TAB 650 MG PO (04:00)
[2023-12-18] MEDS: MORPHINE 2MG/ML SYRINGE 1 MG IV (04:45)
--- NOTE | 2023-12-18 05:18 | PC.NURSE ---
Eng of shift summary: Patient has rested well throughout shift. Vapotherm settings adjusted per [facility] ADJUNCT HISTORY INSTRUCTOR with current settings of 20L/50% and tolerating well. Medicated per MAR for acute pain. Otherwise, NAD, VSS, GCS 15
[2023-12-18] MEDS: IPRATROPIUM/ALBUTEROL 3 ML NEB IH ×4 (06:23→23:37)
[2023-12-18] MEDS: BUSPIRONE HCL 5 MG TABLET 15 MG PO ×3 (08:44→20:40)
[2023-12-18] MEDS: FUROSEMIDE 40 MG TABLET PO (08:45)
[2023-12-18] MEDS: NICOTINE 21MG/24HR PATCH 21 MG TD (08:45)
[2023-12-18] MEDS: SULFA/TRIMETHOPRIM 1 TABLET 1 EACH PO ×2 (08:45→20:39)
[2023-12-18] MEDS: PIPERCILLIN/TAZO 3.375 GM in 0.9 % SODIUM CHLORIDE 50 ML IV ×3 (08:45→17:19)
[2023-12-18] MEDS: GABAPENTIN 800MG TABLET 800 MG PO ×2 (08:45→20:39)
[2023-12-18 09:14] LABS: HBsAg Screen Negative (Negative); HCV Ab Non Reactive (Non Reactive); Hep A Ab, IGM Negative (Negative); Hep B Core Ab, IgM Negative (Negative)
--- NOTE | 2023-12-18 09:37 | P.PN_ITS ---
Subjective *Date: 12/18/23 *Time: 11:23 Interval history: No acute respiratory events overnight. Worsening oxygen requirements. Patient denies any new respiratory complaints. Pulmonology Exam Inpatient Vital signs and Labs for Last 24 Hours: Temp Pulse Resp BP Pulse Ox O2 Del Method O2 Flow Rate 98.0 F 86 20 90/64 L 93 L Vapotherm 20 12/18/23 08:00 12/18/23 08:00 12/18/23 08:00 12/18/23 08:00 12/18/23 08:00 12/18/23 09:00 12/18/23 09:00 FiO2 50 12/18/23 08:00 Laboratory Results - last 24 hr 12/16/23 11:20: DAIANA Comment Comment, DERRICK-1 Antibody <0.2, SS-A Antibody <0.2, SS- B Antibody 1.0 H, Sm (Wick) Antibody <0.2, [employer] MEMBER Antibody <0.2, Scl-70 Scleroderma Ab <0.2, Double Strand DNA Ab 1, Chromatin Antibody <0.2, Centromere B Antibody <0.2 12/16/23 15:00: Abs Immat Gran (auto) 0.7 H, Nucleated RBC % TNP, % CD4 [place] 28.8 L, Absolute CD4 [place] 317 L, Hepatitis A IgM Ab Negative, Hep Bs Antigen Negative, Hep B Core IgM Ab Negative, Hepatitis C Antibody Non reactive Temp Pulse Resp BP Pulse Ox O2 Del Method O2 Flow Rate 98.0 F 91 H 20 126/72 93 L Vapotherm 30 12/16/23 08:00 12/16/23 08:00 12/16/23 08:00 12/16/23 08:00 12/16/23 09:15 12/16/23 09:15 12/16/23 09:15 FiO2 60 12/16/23 09:15 Laboratory Results - last 24 hr 12/15/23 22:10: WBC 19.4 H, RBC 4.08 L, Hgb 12.0 L, Hct 37.8, MCV 92.5, MCH 29.4, MCHC 31.8, RDW 14.4, Plt Count 365, MPV 7.5, Neut % (Auto) 81.4 H, Lymph % (Auto) 14.8, [place] % (Auto) 1.3 L, Eos % (Auto) 2.1, Baso % (Auto) 0.4, Neut # (Auto) 15.8 H, Lymph # (Auto) 2.9, [place] # (Auto) 0.3, Eos # (Auto) 0.4, Baso # ( Auto) 0.1, Total Counted 100, Neutrophils % (Manual) 84 H, Lymphocytes % (Manual) 11, Monocytes % (Manual) 1 L, Eosinophils % (Manual) 4 H, Platelet Estimate Normal, Tear Drop Cells 1+, D-Dimer 0.52 H, Sodium 139, Potassium 3.1 L , Chloride 111 H, Carbon Dioxide 21 L, Anion Gap 10.1, BUN 9, Creatinine 0.70, Estimated Creat Clear 175, Estimated GFR 98, Est GFR ( Amer) 118, Glucose 120 H, Calcium 8.6, Total Bilirubin 0.4, AST 52 H, ALT 33, Alkaline Phosphatase 95, Troponin I < 0.01, NT-Pro-B Natriuret Pep 108, Total Protein 7.1, Albumin 3.7, Globulin 3.4 H, Albumin/Globulin Ratio 1.1 12/15/23 23:22: VBG pH 7.34, VBG pCO2 42.1, VBG pO2 38.7, VBG HCO3 22.1 L, VBG Total CO2 23.4, VBG O2 Saturation 71.7 H, VBG Base Excess -3.7 L, VBG Lactic Acid 1.4 12/16/23 00:27: Chlamy pneumoniae PCR Not detected, Adenovirus (PCR) Not detected, B. pertussis DNA (PCR) Not detected, Coronavirus OC43 (PCR) Not detected, Coronavirus HKU1 (PCR) Not detected, Coronavirus 229E (PCR) Not detected, SARS-CoV-2 (PCR) Not detected, Coronavirus NL63 (PCR) Not detected, Human Metapneumovir PCR Not detected, Influenza A (H1) PCR Not detected, Influ A (H1N1/09) PCR Not detected, Influenza A (H3) PCR Not detected, Influenza Type A (PCR) Not detected, Influenza Type B (PCR) Not detected, M. pneumoniae (PCR) Not detected, Parainfluenza 1 (PCR) Not detected, Parainfluenza 2 (PCR) Not detected, Parainfluenza 3 (PCR) Not detected, Parainfluenza 4 (PCR) Not detected, RSV (PCR) Not detected, Entero/Rhino (PCR) Not detected 12/16/23 00:55: Troponin I < 0.01 12/16/23 04:26: WBC 22.8 H*, RBC 3.89 L, Hgb 11.0 L, Hct 35.8 L, MCV 92.2, MCH 28.4, MCHC 30.8 L, RDW 14.4, Plt Count 314, MPV 7.1 L, Neut % (Auto) 96.3 H, Lymph % (Auto) 2.2 L, [place] % (Auto) 1.3 L, Eos % (Auto) 0.0 L, Baso % (Auto) 0 .1, Neut # (Auto) 21.9 H, Lymph # (Auto) 0.5 L, [place] # (Auto) 0.3, Eos # (Auto) 0.0, Baso # (Auto) 0.0, ESR 27 H, Sodium 137, Potassium 3.8 D, Chloride 109 H, Carbon Dioxide 22, Anion Gap 9.8, BUN 8, Creatinine 0.60, Estimated Creat Clear 217, Estimated GFR 117, Est GFR ( Amer) 141, Glucose 201 H D, Calcium 8.1 L, Troponin I < 0.01, C-Reactive Protein 113.7 H, NT-Pro-B Natriuret Pep 198 H I & O for Labs for Last 24 Hours: Intake & Output 12/15/23 12/16/23 12/17/23 12/18/23 23:59 23:59 23:59 23:59 Intake Total 930 / 1680 0 / 1990 620 / 620 Output Total 2125 / 2925 800 / 1275 475 / 475 Balance -1195 / -1245 940 / 715 145 / 145 Weight 210 lb 223 lb 8.004 oz 223 lb 8.004 oz 223 lb 12.307 oz Intake & Output 12/13/23 12/14/23 12/15/23 12/16/23 23:59 23:59 23:59 23:59 Intake Total 480 / 480 Output Total 1125 / 1125 Balance -645 / -645 Weight 210 lb 223 lb 8.004 oz Microbiology Reports for the Last 24 Hours: Microbiology 12/16/23 01:00 Sputum - Expectorated Sputum Gram Stain - Final 12/16/23 01:00 Sputum - Expectorated Sputum Sputum Culture - Final 12/17/23 12:24 Sputum - Expectorated Sputum СВЕТЛАНА Preparation - Final Microbiology 12/16/23 01:00 Sputum - Expectorated Sputum Gram Stain - Final Constitutional: Present moderate distress Head: Present normocephalic and atraumatic ENT: Present normal exam, normal oropharynx and mucous membranes moist Neck: Present normal inspection and full ROM Respiratory: Present respiratory distress; Absent rhonchi, wheezes, crackles or able to speak in complete sentences Cardiac: Present S1/S2, Tachycardia and radial pulses present GI: Present soft and distention; Absent tenderness or guarding Rectal (female): Present deferred (female): Present deferred Skin: Present intact; Absent cyanosis or jaundice Neuro: Present alert, awake and oriented x 3 Extremities: Present normal inspection; Absent clubbing or cyanosis Psychiatric: Present normal affect and cooperative Assessment and Plan *Assessment and plan (1) Acute hypoxemic respiratory failure: Status: Acute Category: Medical Code(s): J96.01 - Acute respiratory failure with hypoxia (2) Pneumonia: Status: Acute Qualifiers: Laterality: bilateral Lung location: lower lobe of lung Pneumonia type: due to unspecified organism Qualified Code(s): J18.9 - Pneumonia, unspecified organism Category: Medical Code(s): J18.9 - Pneumonia, unspecified organism (3) ILD (interstitial lung disease): Status: Acute Category: Medical Code(s): J84.9 - Interstitial pulmonary disease, unspecified Plan Ms. Garces is a 33-year-old female current smoker around 84-43-ccmq-year smoki ng history, prior history of drug abuse, snorted, never used any IV drugs, e currently on Suboxone, anxiety and depression presented today with worsening respiratory distress needing increased oxygen supplementation and pulmonary was called for further evaluation and management. Patient with progressively worsening respiratory distress, admits cough mostly nonproductive. Denies any hemoptysis. Labs on admission, predominant neutrophilic leukocytosis with a white count of 22.8. Hemoglobin at 11. Platelet count 314. Comprehensive respiratory viral PCR panel negative BUN/creatinine within normal limits. CRP elevated at 113.7. proBNP at 119. Troponins within normal limits. CTA upon admission no evidence of pulmonary embolism. Bilateral diffuse groundglass opacities along with traction bronchiectasis predominantly in left lower lung [place]. Mild review of systems negative. Denies any personal history or family to autoimmune disorders. Pet history include parakeets within the last month prior to admission Urinalysis not concerning for hematuria Interval update: HIV screen resulted positive -however final test resulted negative. Continue to receive Bactrim. Sputum cultures normal respiratory rehana. Blood cultures no growth 24 hours. Chest x-ray today concerning for bilateral worsening airspace disease. Worsening oxygen requirement from yesterday. Plan: -Out of bed to chair. Activity as tolerated. Incentive spirometry. -Continue oxygen supplementation to maintain O2 saturation goal of 89% and above. Weaned to 15 L 35% this morning. Will continue to wean as tolerated to nasal cannula -Continue vancomycin and Zosyn pending sputum and blood culture. -Continue Bactrim DS daily for suspected PJP pneumonia. F/U Sputum cytology -Initiate itraconazole 200 twice daily -Follow with CD4 differential -F/U urine histoplasma antigen Follow with hypersensitive pneumonitis panel Follow with urine strep and Legionella antigen and Nasal MRSA screen # Thank you for involving pulmonary in this patient care. Will continue to follow.
--- NOTE | 2023-12-18 09:39 | XR_ITS ---
FINAL REPORT CLINICAL HISTORY: Hypoxia COMPARISON: 12/15/2023 FINDINGS: SINGLE-VIEW CHEST There is cardiomegaly. The mediastinum is normal. The lungs are underinflated. There are chronic changes at the bases. The previously identified airspace opacity at the bases has nearly resolved. Mild residual infiltrate is seen at the left base. There is no pneumothorax. IMPRESSION: Near-complete resolution of previously identified airspace opacity with mild residual infiltrate at the left base. Reviewed, Interpreted and Dictated by Brant Tariq MD Transcribed by Belkys Tucker Authenticated and [facility]
[2023-12-18 11:47] LABS: Basophils # 0.1 K/mm3 (0-0.2); Basophils % 0.6 % (0.1-2.0); Eosinophils # 0.7 K/mm3 (0.0-0.4); Eosinophils % 5.6 % (0.1-12.0); Hematocrit 39.3 % (37.0-47.0); Hemoglobin 12.2 g/dL (12.2-16.2); Lymphocytes # 3.5 K/mm3 (0.7-4.5); Lymphocytes % 28.3 % (10-50); Mean Corpuscular Hemoglobin 28.2 pg (27.0-31.2); Mean Platelet Volume 7.2 fl (7.4-10.4); Monocytes # 0.4 K/mm3 (0.1-1.0); Monocytes % 3.1 % (1.7-9.3); Neutrophils # 7.8 K/mm3 (1.8-7.8); Neutrophils % 62.4 % (37.0-80.0); Platelet Count 385 K/mm3 (142-424); Red Blood Count 4.32 M/mm3 (4.20-5.40); Red Cell Distribution Width 14.4 % (11.5-17.5); White Blood Count 12.5 K/mm3 (4.8-10.8)
[2023-12-18 11:50] LABS: Chloride 105 mmol/L (98-107)
[2023-12-18 11:51] LABS: Albumin Level 3.6 g/dl (3.5-5.0); Potassium 3.6 mmoL/L (3.5-5.1); Sodium 139 mmol/L (136-145)
[2023-12-18 11:53] LABS: Alanine Aminotransferase 45 U/L (12-78); Blood Urea Nitrogen 19 mg/dl (7-17); Creatinine Clearance Estimated 145 mL/min (50-200); Estimated Glomerular Filt Rate 73 ml/min (>60); GFR (African American) 88 ML/MIN (>60)
[2023-12-18 11:54] LABS: Albumin/Globulin Ratio 1.1 (1.1-1.8); Alkaline Phosphatase 116 U/L (38-126); Anion Gap 7.6 mEq/L (5-15); Aspartate Amino Transferase 58 U/L (14-36); Bilirubin,Total 0.5 mg/dl (0.2-1.3); Calcium 8.3 mg/dl (8.4-10.2); Carbon Dioxide 30 mmol/L (22.0-30.0); Globulin 3.4 g/dL (1.3-3.2); Glucose 102 mg/dl (74-100)
[2023-12-18] MEDS: ITRACONAZOLE 100MG CAPSULE 200 MG PO ×2 (11:54→20:40)
[2023-12-18 11:59] LABS: C-Reactive Protein 113.2 mg/L (0-4)
[2023-12-18 12:28] LABS: Magnesium 1.6 mg/dl (1.6-2.3)
[2023-12-18 12:46] LABS: Procalcitonin 0.827 ng/mL (0.0-2.0)
[2023-12-18] MEDS: BUPRENORPHINE/NALOXONE 8MG/2MG ODT 2 EACH SL (13:58)
--- NOTE | 2023-12-18 15:25 | PC.NURSE ---
PT IS RESTING IN BED. ALERT AND ORIENTED X4. HAS BEEN DROWSY T/O THE SHIFT. REQUESTED TO TAKE HER SUBOXONE AT 1400 DUE TO THAT BEING THE TIME SHE TAKES IT AT HOME. PHARMACY NOTIFIED TO CHANGE THE TIME. PT WAS OFFERED TO GET OOB TO CHAIR AND SHE STATED SHE MIGHT AT DINNER TIME. LUNG SOUNDS DIMINISHED WITH SCATTERED WHEEZES. O2 SATURATION HAS MAINTAINED 92-96% ON VAPOTHERM 20 L 50% FIO2. ATTEMPTED TO WEAN PT TO 15 L 40% HOWEVER O2 SATURATION WOULD ONLY MAINTAIN 85-87%. NOTIFIED AND STATED TO KEEP SATURATION >90%. RT NOTIFIED. VSS. WILL CONTINUE TO MONITOR.
[2023-12-18 17:35] LABS: Clinical Relevance Notes (.); Disclaimer Notes (.); Fungitell Value < 31.25 pg/mL (.); Interpretation Notes (.)
[2023-12-18 17:35] LABS: Body Fluid Culture, Sterile Not indicated. (.); Legionella pneumophila Urinary Negative (Negative); Organism ID Not indicated. (.); Specimen Source Urine (.); Streptococcus pneumoniae Ag Negative (Negative)
--- NOTE | 2023-12-18 17:36 | EXP.ACUTE.PN ---
Subjective *Date: 12/18/23 *Time: 17:36 Interval history: Patient still gradually weaning from Vapotherm. Patient in good spirits at time evaluation by Dr. Rouse today. Medical Exam Vital signs and Labs for Last 24 Hours: Vital Signs Temp Pulse Pulse Resp BP Pulse Ox O2 Del Method 12/18/23 16:00 97 Vapotherm 12/18/23 16:00 90 12/18/23 16:00 92 H 20 115/53 L 97 Vapotherm 12/18/23 15:00 Vapotherm 12/18/23 14:00 85 24 117/51 L 95 Vapotherm 12/18/23 13:58 90 L Vapotherm 12/18/23 13:00 Vapotherm 12/18/23 12:00 85 12/18/23 12:00 92 H 20 99/66 L 89 L Vapotherm 12/18/23 12:00 98 F 12/18/23 11:13 79 12/18/23 11:13 78 12/18/23 11:00 Vapotherm 12/18/23 10:00 96 H 22 110/73 91 L Vapotherm 12/18/23 09:00 Vapotherm 12/18/23 08:00 90 12/18/23 08:00 Vapotherm 12/18/23 08:00 98.0 F 86 20 90/64 L 93 L Vapotherm 12/18/23 06:00 86 20 96/62 L 94 L Vapotherm 12/18/23 04:00 88 19 105/62 L 92 L Vapotherm 12/18/23 04:00 97 H 12/18/23 02:00 92 H 23 105/57 L 92 L Vapotherm 12/18/23 00:00 98 H 23 114/68 93 L Vapotherm 12/18/23 00:00 97 H 12/17/23 23:40 96 H 12/17/23 23:40 98 H 12/17/23 22:40 90 L Vapotherm 12/17/23 22:00 96 H 20 106/61 L 90 L Vapotherm 12/17/23 20:00 86 12/17/23 20:00 85 23 112/62 93 L Vapotherm 12/17/23 20:00 98.4 F 12/17/23 18:56 87 12/17/23 18:56 91 H 12/17/23 18:56 91 L Nasal Cannula 12/17/23 18:52 Vapotherm 12/17/23 18:00 100 H 20 100/63 L 92 L Vapotherm O2 Flow Rate FiO2 12/18/23 16:00 20 50 12/18/23 16:00 12/18/23 16:00 12/18/23 15:00 20 12/18/23 14:00 20 50 12/18/23 13:58 20 50 12/18/23 13:00 12/18/23 12:00 12/18/23 12:00 15 40 12/18/23 12:00 12/18/23 11:13 12/18/23 11:13 12/18/23 11:00 15 12/18/23 10:00 15 40 12/18/23 09:00 20 12/18/23 08:00 12/18/23 08:00 20 50 12/18/23 08:00 20 50 12/18/23 06:00 20 50 12/18/23 04:00 12/18/23 04:00 12/18/23 02:00 12/18/23 00:00 12/18/23 00:00 12/17/23 23:40 12/17/23 23:40 12/17/23 22:40 20 50 12/17/23 22:00 12/17/23 20:00 12/17/23 20:00 15 50 12/17/23 20:00 12/17/23 18:56 12/17/23 18:56 12/17/23 18:56 15 50 12/17/23 18:52 15 12/17/23 18:00 15 50 Intake and Output 12/18/23 12/18/23 12/18/23 07:59 15:59 23:59 Intake Total 250 / 940 690 / 940 Output Total 475 / 475 Balance -225 / 465 690 / 465 Intake: Intake, Oral Amount 200 / 840 640 / 840 Intake, Total IV Amount 50 / 100 50 / 100 Pipercillin/Tazo 3.375 gm In 0. 50 / 100 50 / 100 9 % Sodium Chloride 50 ml @ 100 mls/hr IV Q8H [facility] Rx#:[id number] Output: Output, Urine Amount 475 / 475 Other: Number of Voids 2 Weight 101.5 kg Patient Weight 12/18/23 23:59 Weight 101.5 kg Laboratory Results - last 24 hr 12/16/23 11:15: Fluid Culture Not indicated., Ur L.pneumophila Ag Negative, S. pneumoniae Antigen Negative, S. pneumoniae Ag Source Urine, Organism ID Not indicated. 12/16/23 11:20: B-(1,3)-D-Glucan Quant < 31.25, B-(1,3)-D-Glucan Intrp Notes 12/16/23 15:00: Hepatitis A IgM Ab Negative, Hep Bs Antigen Negative, Hep B Core IgM Ab Negative, Hepatitis C Antibody Non reactive 12/18/23 11:26: WBC 12.5 H D, RBC 4.32, Hgb 12.2, Hct 39.3, MCV 91.0, MCH 28.2, MCHC 31.0 L, RDW 14.4, Plt Count 385, MPV 7.2 L, Neut % (Auto) 62.4, Lymph % (Auto) 28.3, [place] % (Auto) 3.1, Eos % (Auto) 5.6, Baso % (Auto) 0.6, Neut # (Auto) 7.8, Lymph # (Auto) 3.5, [place] # (Auto) 0.4, Eos # (Auto) 0.7 H, Baso # (Auto) 0.1, Sodium 139, Potassium 3.6, Chloride 105, Carbon Dioxide 30, Anion Gap 7.6, BUN 19 H D, Creatinine 0.90, Estimated Creat Clear 145, Estimated GFR 73, Est GFR ( Amer) 88, Glucose 102 H, Calcium 8.3 L, Magnesium 1.6 D, Total Bilirubin 0.5, AST 58 H D, ALT 45 D, Alkaline Phosphatase 116, C-Reactive Protein 113.2 H, Total Protein 7.0, Albumin 3.6, Globulin 3.4 H, Albumin/Globulin Ratio 1.1, Procalcitonin 0.827 I & O for Labs for Last 24 Hours: Intake & Output 12/15/23 12/16/23 12/17/23 12/18/23 23:59 23:59 23:59 23:59 Intake Total 930 / 1680 0 / 1990 940 / 940 Output Total 2125 / 2925 800 / 1275 475 / 475 Balance -1195 / -1245 940 / 715 465 / 465 Weight 95.254 kg 101.378 kg 101.378 kg 101.5 kg Microbiology Reports for the Last 24 Hours: Microbiology 12/16/23 00:55 Blood Blood Culture - Preliminary NO GROWTH AFTER 48 HOURS 12/16/23 01:00 Sputum - Expectorated Sputum Gram Stain - Final 12/16/23 01:00 Sputum - Expectorated Sputum Sputum Culture - Final 12/17/23 12:24 Sputum - Expectorated Sputum СВЕТЛАНА Preparation - Final Head: Present normocephalic ENT: Present normal oropharynx Neck: Present normal inspection and full ROM Respiratory: Present decreased breath sounds and diminished air movement GI: Present soft and normal bowel sounds Extremities: Present normal inspection and full ROM Skin: Present intact and dry Assessment and Plan *Assessment and plan (1) HIV (human immunodeficiency virus infection): Status: Acute Category: Medical Code(s): Z21 - Asymptomatic human immunodeficiency virus [HIV] infection status (2) ILD (interstitial lung disease): Status: Acute Category: Medical Code(s): J84.9 - Interstitial pulmonary disease, unspecified (3) Anxiety and depression: Status: Acute Category: Medical Code(s): F41.9 - Anxiety disorder, unspecified; F32.A - Depression, unspecified Plan # Possible immunosuppressive condition ?12/17 worried that patient may be suffering from combined variable immunodeficiency disease or HIV. HIV test pending as noted in pneumonia section. Will order IgG levels. Patient and patient's family admit the patient suffered from multiple respiratory infections over past 2 years. #Acute respiratory failure with hypoxia #Pneumonia ?12/17 called in confirmatory HIV test should be available within the next 2 to 4 days. Still attempting to wean patient off of Vapotherm. Appreciate pulmonary assistance. Continue current management. ?12/16 patient's rapid HIV test positive but second rapid test negative. Currently waiting on results of HIV confirmatory test. Will discuss results with infectious disease managed services consultant and pulmonology. Continue current management. Wean from Vapotherm as tolerated. Continue PCP prophylaxis. Continue IV antibiotics, nebulization treatments, and glucocorticoids. Appreciate pulmonary consult and assistance Patient with extensive groundglass opacities and interstitial inflammatory disease with mediastinal and hilar lymphadenopathy Differential diagnosis include: Viral/bacterial/fungal/zoonotic/EVALI Consult to Pulmonology in a.m., greatly appreciate expertise Reports being in contact with 2 people this week with viral illnesses. Will send for full respiratory panel. Patient reports being swabbed for COVID this week which was negative. Currently requiring 5 to 6 L nasal cannula Continue bronchodilators and corticosteroids Will continue broad-spectrum coverage with vancomycin, Zosyn and doxycycline Maintain oxygen saturations greater than 88% Continuous pulse ox Sputum culture pending Requesting chart from [facility] where patient states that she was admitted previously with similar symptoms #Sepsis Meets criteria for leukocytosis, tachycardia, tachypnea Continue broad-spectrum coverage for pneumonia Will defer for 30 mL/kg bolus. Pt is hemodynamically stable and would like to avoid volume overload in acute respiratory distress Inflammatory markers pending #Anxiety and depression Continue new mood stabilization medications #vancomycin toxicty monitoring Pharmacy consulted for management and monitoring of Vancomycin-high risk medication Rounded on patient after nurse practitioner. Personally examined and interviewed patient. Agree with exam findings and care plan as documented. Patient was screened for HIV this morning given the atypical nature of her pneumonia and dyspnea out of proportion to her lung exam. Found to be HIV positive. Added Bactrim double strength oral twice daily for coverage of possible pneumocystis. Pulmonology assisting with care. Holding on a bronchoscopy at this time. Will consider steroids over the next 24 to 48 hours if sputum cultures and blood cultures support PCP and are negative for bacteremia. Will consider initiating antiretroviral therapy pending patient's clinical improvement. Left to be cautious for immune reconstitution syndrome. Discussed finding and diagnosis with patient and her fianc?. Questions answered at bedside. Facilitating testing for fianc?. Escalated to Vapotherm over the course of the morning, currently on 70% FiO2. Escalated to stepdown level of care. Continue vancomycin IV, Zosyn IV, Bactrim double strength twice daily oral. Disposition: ? Patient will remain in ICU till weaning from Vapotherm. Will continue infectious workup including evaluation for immunosuppressive HIV infection, and PCP. Patient will probably remain in house for initial additional few days to complete workup. 35 minutes critical care time spent with patient by Dr. Rouse 12/18/2023.
[2023-12-18] MEDS: FLUOXETINE 20MG CAPSULE 60 MG PO (20:40)
[2023-12-18] MEDS: ARIPiprazole 10MG TABLET 10 MG PO (20:40)
[2023-12-18] MEDS: MELATONIN 5MG TABLET 5 MG PO (20:40)
[2023-12-18] MEDS: QUETIAPINE 25MG TABLET 25 MG PO (20:40)
[2023-12-19] VITALS (21 sets, daily range): BP systolic 87–119; BP diastolic 37–73; PULSE 74–99; RESP 16–27; TEMP 36.8–37.1; O2SAT 90–97; BMI 37.3
[2023-12-19] MEDS: PIPERCILLIN/TAZO 3.375 GM in 0.9 % SODIUM CHLORIDE 50 ML IV ×2 (00:04→08:54)
--- NOTE | 2023-12-19 05:06 | PC.NURSE ---
Patient has rested well this shift. Patient remains A/O x4, voiced no complaints of pain. Remains on vapotherm 20L/50% and maintaining o2 sats >90%. Family remains at bedside throughout shift, call light within reach.
[2023-12-19] MEDS: IPRATROPIUM/ALBUTEROL 3 ML NEB IH ×3 (06:09→18:35)
[2023-12-19 06:32] LABS: Basophils % 0.4 % (0.1-2.0); Eosinophils # 0.8 K/mm3 (0.0-0.4); Eosinophils % 6.6 % (0.1-12.0); Hematocrit 36.5 % (37.0-47.0); Hemoglobin 11.2 g/dL (12.2-16.2); Lymphocytes # 3.7 K/mm3 (0.7-4.5); Lymphocytes % 31.8 % (10-50); Mean Corpuscular HGB Conc 30.8 g/dL (31.8-35.4); Mean Corpuscular Volume 90.9 fl (81-99); Mean Platelet Volume 7.2 fl (7.4-10.4); Monocytes # 0.4 K/mm3 (0.1-1.0); Monocytes % 3.3 % (1.7-9.3); Neutrophils # 6.7 K/mm3 (1.8-7.8); Neutrophils % 57.8 % (37.0-80.0); Platelet Count 360 K/mm3 (142-424); Red Blood Count 4.02 M/mm3 (4.20-5.40); Red Cell Distribution Width 14.4 % (11.5-17.5); White Blood Count 11.5 K/mm3 (4.8-10.8)
[2023-12-19 06:43] LABS: Albumin Level 3.4 g/dl (3.5-5.0); Chloride 106 mmol/L (98-107); Sodium 135 mmol/L (136-145)
[2023-12-19 06:46] LABS: Alanine Aminotransferase 43 U/L (12-78); Albumin/Globulin Ratio 1.1 (1.1-1.8); Alkaline Phosphatase 118 U/L (38-126); Aspartate Amino Transferase 51 U/L (14-36); Bilirubin,Total 0.5 mg/dl (0.2-1.3); Blood Urea Nitrogen 13 mg/dl (7-17); Carbon Dioxide 26 mmol/L (22.0-30.0); Creatinine Clearance Estimated 187 mL/min (50-200); Estimated Glomerular Filt Rate 98 ml/min (>60); GFR (African American) 118 ML/MIN (>60); Globulin 3.2 g/dL (1.3-3.2); Total Protein,Serum 6.6 g/dl (6.3-8.2)
[2023-12-19 06:47] LABS: Calcium 8.4 mg/dl (8.4-10.2); Glucose 94 mg/dl (74-100)
[2023-12-19 06:52] LABS: C-Reactive Protein 92.2 mg/L (0-4)
[2023-12-19 07:14] LABS: Magnesium 1.7 mg/dl (1.6-2.3)
[2023-12-19 07:16] LABS: HIV 1 RNA, Real time PCR <20 copies/mL (.)
--- NOTE | 2023-12-19 08:02 | EXP.PHA.PN ---
Subjective *Date: 12/19/23 *Time: 08:02 Medical Exam Vital signs and Labs for Last 24 Hours: Vital Signs Temp Pulse Pulse Resp BP Pulse Ox O2 Del Method 12/19/23 07:51 93 L Vapotherm 12/19/23 06:56 Vapotherm 12/19/23 06:11 91 H 12/19/23 06:11 91 H 12/19/23 06:00 74 18 98/60 L 92 L Vapotherm 12/19/23 05:00 Vapotherm 12/19/23 04:20 95 Vapotherm 12/19/23 04:00 80 12/19/23 04:00 98.2 F 81 16 106/37 L 97 Vapotherm 12/19/23 03:00 Vapotherm 12/19/23 02:00 88 16 106/61 L 92 L Vapotherm 12/19/23 01:00 Vapotherm 12/19/23 00:00 85 12/19/23 00:00 98.2 F 84 16 87/73 L 95 Vapotherm 12/18/23 23:38 77 12/18/23 23:38 78 12/18/23 23:38 91 L Vapotherm 12/18/23 23:30 70 16 100/47 L 97 Vapotherm 12/18/23 23:00 Vapotherm 12/18/23 22:00 75 16 98/48 L 95 Vapotherm 12/18/23 21:00 Room Air 12/18/23 20:00 80 12/18/23 20:00 76 18 98/55 L 94 L Vapotherm 12/18/23 20:00 94 L Vapotherm 12/18/23 20:00 99.1 F 12/18/23 18:52 79 12/18/23 18:52 82 12/18/23 18:52 94 L Vapotherm 12/18/23 18:00 82 19 105/72 L 97 Vapotherm 12/18/23 17:00 Vapotherm 12/18/23 16:00 97 Vapotherm 12/18/23 16:00 90 12/18/23 16:00 92 H 20 115/53 L 97 Vapotherm 12/18/23 16:00 98.3 F 12/18/23 15:00 Vapotherm 12/18/23 14:00 85 24 117/51 L 95 Vapotherm 12/18/23 13:58 90 L Vapotherm 12/18/23 13:00 Vapotherm 12/18/23 12:00 85 12/18/23 12:00 92 H 20 99/66 L 89 L Vapotherm 12/18/23 12:00 98 F 12/18/23 11:13 79 12/18/23 11:13 78 12/18/23 11:00 Vapotherm 12/18/23 10:00 96 H 22 110/73 91 L Vapotherm 12/18/23 09:00 Vapotherm O2 Flow Rate FiO2 12/19/23 07:51 20 50 12/19/23 06:56 20 12/19/23 06:11 12/19/23 06:11 12/19/23 06:00 20 12/19/23 05:00 20 12/19/23 04:20 20 50 12/19/23 04:00 12/19/23 04:00 20 12/19/23 03:00 20 12/19/23 02:00 20 12/19/23 01:00 20 12/19/23 00:00 12/19/23 00:00 20 12/18/23 23:38 12/18/23 23:38 12/18/23 23:38 20 50 12/18/23 23:30 20 12/18/23 23:00 20 12/18/23 22:00 20 12/18/23 21:00 12/18/23 20:00 12/18/23 20:00 20 12/18/23 20:00 20 50 12/18/23 20:00 12/18/23 18:52 12/18/23 18:52 12/18/23 18:52 20 50 12/18/23 18:00 20 50 12/18/23 17:00 20 12/18/23 16:00 20 50 12/18/23 16:00 12/18/23 16:00 12/18/23 16:00 12/18/23 15:00 20 12/18/23 14:00 20 50 12/18/23 13:58 20 50 12/18/23 13:00 12/18/23 12:00 12/18/23 12:00 15 40 12/18/23 12:00 12/18/23 11:13 12/18/23 11:13 12/18/23 11:00 15 12/18/23 10:00 15 40 12/18/23 09:00 20 Intake and Output 12/18/23 12/19/23 12/19/23 23:59 07:59 15:59 Intake Total 120 / 1060 50 / 50 Output Total 0 / 475 0 / 0 Balance 120 / 585 50 / 50 Intake: Intake, Oral Amount 120 / 960 Intake, Total IV Amount 50 / 50 Pipercillin/Tazo 3.375 gm In 0. 50 / 50 9 % Sodium Chloride 50 ml @ 100 mls/hr IV Q8H [facility] Rx#:[id number] Output: Output, Urine Amount 0 / 475 0 / 0 Other: Number of Unmeasured Voids 1 1 Weight 101.5 kg Patient Weight 12/19/23 23:59 Weight 101.5 kg Laboratory Results - last 24 hr 12/16/23 11:15: Fluid Culture Not indicated., Ur L.pneumophila Ag Negative, S. pneumoniae Antigen Negative, S. pneumoniae Ag Source Urine, Organism ID Not indicated. 12/16/23 11:20: B-(1,3)-D-Glucan Quant < 31.25, B-(1,3)-D-Glucan Intrp Notes 12/16/23 15:00: Hepatitis A IgM Ab Negative, Hep Bs Antigen Negative, Hep B Core IgM Ab Negative, Hepatitis C Antibody Non reactive 12/17/23 05:23: HIV-1 RNA PCR copies/ml <20, HIV-1 RNA (PCR) log10 TNP 12/18/23 11:26: WBC 12.5 H D, RBC 4.32, Hgb 12.2, Hct 39.3, MCV 91.0, MCH 28.2, MCHC 31.0 L, RDW 14.4, Plt Count 385, MPV 7.2 L, Neut % (Auto) 62.4, Lymph % (Auto) 28.3, [place] % (Auto) 3.1, Eos % (Auto) 5.6, Baso % (Auto) 0.6, Neut # (Auto) 7.8, Lymph # (Auto) 3.5, [place] # (Auto) 0.4, Eos # (Auto) 0.7 H, Baso # (Auto) 0.1, Sodium 139, Potassium 3.6, Chloride 105, Carbon Dioxide 30, Anion Gap 7.6, BUN 19 H D, Creatinine 0.90, Estimated Creat Clear 145, Estimated GFR 73, Est GFR ( Amer) 88, Glucose 102 H, Calcium 8.3 L, Magnesium 1.6 D, Total Bilirubin 0.5, AST 58 H D, ALT 45 D, Alkaline Phosphatase 116, C-Reactive Protein 113.2 H, Total Protein 7.0, Albumin 3.6, Globulin 3.4 H, Albumin/Globulin Ratio 1.1, Procalcitonin 0.827 12/19/23 05:25: WBC 11.5 H, RBC 4.02 L, Hgb 11.2 L, Hct 36.5 L, MCV 90.9, MCH 28.0, MCHC 30.8 L, RDW 14.4, Plt Count 360, MPV 7.2 L, Neut % (Auto) 57.8, Lymph % (Auto) 31.8, [place] % (Auto) 3.3, Eos % (Auto) 6.6, Baso % (Auto) 0.4, Neut # (Auto) 6.7, Lymph # (Auto) 3.7, [place] # (Auto) 0.4, Eos # (Auto) 0.8 H, Baso # (Auto) 0.0, Sodium 135 L, Potassium 4.0, Chloride 106, Carbon Dioxide 26, Anion Gap 7.0, BUN 13 D, Creatinine 0.70 D, Estimated Creat Clear 187, Estimated GFR 98, Est GFR ( Amer) 118 D, Glucose 94, Calcium 8.4, Magnesium 1.7, Total Bilirubin 0.5, AST 51 H, ALT 43, Alkaline Phosphatase 118, C-Reactive Protein 92.2 H, Total Protein 6.6, Albumin 3.4 L, Globulin 3.2, Albumin/Globulin Ratio 1.1 I & O for Labs for Last 24 Hours: Intake & Output 12/16/23 12/17/23 12/18/23 12/19/23 23:59 23:59 23:59 23:59 Intake Total 930 / 1680 1740 / 1990 1060 / 1060 50 / 50 Output Total 2125 / 2925 800 / 1275 475 / 475 0 / 0 Balance -1195 / -1245 940 / 715 585 / 585 50 / 50 Weight 101.378 kg 101.378 kg 101.5 kg 101.5 kg Microbiology Reports for the Last 24 Hours: Microbiology 12/16/23 00:55 Blood Blood Culture - Preliminary NO GROWTH AFTER 48 HOURS 12/16/23 01:00 Sputum - Expectorated Sputum Gram Stain - Final 12/16/23 01:00 Sputum - Expectorated Sputum Sputum Culture - Final 12/17/23 12:24 Sputum - Expectorated Sputum СВЕТЛАНА Preparation - Final The patient's infection will respond to the chosen ABx?: Yes (WHITE COUNT 11.5, TREND DOWN, AFEBRILE >24HR) Is the patient receiving the right drug, dose, and route?: Yes Could a more targeted ABx be ordered?: No (BLOOD = NO GROWTH, SPUTUM = NORMAL JOAN, NO YEAST, ACID FAST PENDING.) How long ABx needed (days)?: 21 (FOR BACTRIM FOR SUSPECTED PJP PNEUMONIA)
[2023-12-19] MEDS: SULFA/TRIMETHOPRIM 1 TABLET 1 EACH PO ×2 (08:54→20:58)
[2023-12-19] MEDS: BUSPIRONE HCL 5 MG TABLET 15 MG PO ×3 (08:54→20:58)
[2023-12-19] MEDS: NICOTINE 21MG/24HR PATCH 21 MG TD (08:54)
[2023-12-19] MEDS: FUROSEMIDE 40 MG TABLET PO (08:54)
[2023-12-19] MEDS: ITRACONAZOLE 100MG CAPSULE 200 MG PO ×2 (08:54→20:58)
[2023-12-19] MEDS: GABAPENTIN 800MG TABLET 800 MG PO ×2 (08:54→20:58)
[2023-12-19] MEDS: ACETAMINOPHEN 325MG TAB 650 MG PO ×2 (09:01→21:01)
--- NOTE | 2023-12-19 09:56 | P.PN_ITS ---
Subjective *Date: 12/19/23 *Time: 11:27 Interval history: No acute respiratory vents overnight. Pulmonology Exam Inpatient Vital signs and Labs for Last 24 Hours: Temp Pulse Resp BP Pulse Ox O2 Del Method O2 Flow Rate 98.8 F 95 H 25 H 105/62 L 93 L Vapotherm 20 12/19/23 08:00 12/19/23 08:05 12/19/23 08:00 12/19/23 08:00 12/19/23 08:05 12/19/23 09:01 12/19/23 09:01 FiO2 50 12/19/23 08:05 Laboratory Results - last 24 hr 12/16/23 11:15: Fluid Culture Not indicated., Ur L.pneumophila Ag Negative, S. pneumoniae Antigen Negative, S. pneumoniae Ag Source Urine, Organism ID Not indicated. 12/16/23 11:20: B-(1,3)-D-Glucan Quant < 31.25, B-(1,3)-D-Glucan Intrp Notes 12/17/23 05:23: HIV-1 RNA PCR copies/ml <20, HIV-1 RNA (PCR) log10 TNP 12/18/23 11:26: WBC 12.5 H D, RBC 4.32, Hgb 12.2, Hct 39.3, MCV 91.0, MCH 28.2, MCHC 31.0 L, RDW 14.4, Plt Count 385, MPV 7.2 L, Neut % (Auto) 62.4, Lymph % (Auto) 28.3, [place] % (Auto) 3.1, Eos % (Auto) 5.6, Baso % (Auto) 0.6, Neut # (Auto) 7.8, Lymph # (Auto) 3.5, [place] # (Auto) 0.4, Eos # (Auto) 0.7 H, Baso # (Auto) 0.1, Sodium 139, Potassium 3.6, Chloride 105, Carbon Dioxide 30, Anion Gap 7.6, BUN 19 H D, Creatinine 0.90, Estimated Creat Clear 145, Estimated GFR 73, Est GFR ( Amer) 88, Glucose 102 H, Calcium 8.3 L, Magnesium 1.6 D, Total Bilirubin 0.5, AST 58 H D, ALT 45 D, Alkaline Phosphatase 116, C-Reactive Protein 113.2 H, Total Protein 7.0, Albumin 3.6, Globulin 3.4 H, Albumin/Globulin Ratio 1.1, Procalcitonin 0.827 12/19/23 05:25: WBC 11.5 H, RBC 4.02 L, Hgb 11.2 L, Hct 36.5 L, MCV 90.9, MCH 28.0, MCHC 30.8 L, RDW 14.4, Plt Count 360, MPV 7.2 L, Neut % (Auto) 57.8, Lymph % (Auto) 31.8, [place] % (Auto) 3.3, Eos % (Auto) 6.6, Baso % (Auto) 0.4, Neut # (Auto) 6.7, Lymph # (Auto) 3.7, [place] # (Auto) 0.4, Eos # (Auto) 0.8 H, Baso # (Auto) 0.0, Sodium 135 L, Potassium 4.0, Chloride 106, Carbon Dioxide 26, Anion Gap 7.0, BUN 13 D, Creatinine 0.70 D, Estimated Creat Clear 187, Estimated GFR 98, Est GFR ( Amer) 118 D, Glucose 94, Calcium 8.4, Magnesium 1.7, Total Bilirubin 0.5, AST 51 H, ALT 43, Alkaline Phosphatase 118, C-Reactive Protein 92.2 H, Total Protein 6.6, Albumin 3.4 L, Globulin 3.2, Albumin/Globulin Ratio 1.1 Temp Pulse Resp BP Pulse Ox O2 Del Method O2 Flow Rate 98.0 F 91 H 20 126/72 93 L Vapotherm 30 12/16/23 08:00 12/16/23 08:00 12/16/23 08:00 12/16/23 08:00 12/16/23 09:15 12/16/23 09:15 12/16/23 09:15 FiO2 60 12/16/23 09:15 Laboratory Results - last 24 hr 12/15/23 22:10: WBC 19.4 H, RBC 4.08 L, Hgb 12.0 L, Hct 37.8, MCV 92.5, MCH 29.4, MCHC 31.8, RDW 14.4, Plt Count 365, MPV 7.5, Neut % (Auto) 81.4 H, Lymph % (Auto) 14.8, [place] % (Auto) 1.3 L, Eos % (Auto) 2.1, Baso % (Auto) 0.4, Neut # (Auto) 15.8 H, Lymph # (Auto) 2.9, [place] # (Auto) 0.3, Eos # (Auto) 0.4, Baso # (Auto) 0.1, Total Counted 100, Neutrophils % (Manual) 84 H, Lymphocytes % (Manual) 11, Monocytes % (Manual) 1 L, Eosinophils % (Manual) 4 H, Platelet Estimate Normal, Tear Drop Cells 1+, D-Dimer 0.52 H, Sodium 139, Potassium 3.1 L , Chloride 111 H, Carbon Dioxide 21 L, Anion Gap 10.1, BUN 9, Creatinine 0.70, Estimated Creat Clear 175, Estimated GFR 98, Est GFR ( Amer) 118, Glucose 120 H, Calcium 8.6, Total Bilirubin 0.4, AST 52 H, ALT 33, Alkaline Phosphatase 95, Troponin I < 0.01, NT-Pro-B Natriuret Pep 108, Total Protein 7.1, Albumin 3.7, Globulin 3.4 H, Albumin/Globulin Ratio 1.1 12/15/23 23:22: VBG pH 7.34, VBG pCO2 42.1, VBG pO2 38.7, VBG HCO3 22.1 L, VBG Total CO2 23.4, VBG O2 Saturation 71.7 H, VBG Base Excess -3.7 L, VBG Lactic Acid 1.4 12/16/23 00:27: Chlamy pneumoniae PCR Not detected, Adenovirus (PCR) Not detected, B. pertussis DNA (PCR) Not detected, Coronavirus OC43 (PCR) Not detected, Coronavirus HKU1 (PCR) Not detected, Coronavirus 229E (PCR) Not detected, SARS-CoV-2 (PCR) Not detected, Coronavirus NL63 (PCR) Not detected, Human Metapneumovir PCR Not detected, Influenza A (H1) PCR Not detected, Influ A (H1N1/09) PCR Not detected, Influenza A (H3) PCR Not detected, Influenza Type A (PCR) Not detected, Influenza Type B (PCR) Not detected, M. pneumoniae (PCR) Not detected, Parainfluenza 1 (PCR) Not detected, Parainfluenza 2 (PCR) Not detected, Parainfluenza 3 (PCR) Not detected, Parainfluenza 4 (PCR) Not detected, RSV (PCR) Not detected, Entero/Rhino (PCR) Not detected 12/16/23 00:55: Troponin I < 0.01 12/16/23 04:26: WBC 22.8 H*, RBC 3.89 L, Hgb 11.0 L, Hct 35.8 L, MCV 92.2, MCH 28.4, MCHC 30.8 L, RDW 14.4, Plt Count 314, MPV 7.1 L, Neut % (Auto) 96.3 H, Lymph % (Auto) 2.2 L, [place] % (Auto) 1.3 L, Eos % (Auto) 0.0 L, Baso % (Auto) 0.1, Neut # (Auto) 21.9 H, Lymph # (Auto) 0.5 L, [place] # (Auto) 0.3, Eos # (Auto) 0.0, Baso # (Auto) 0.0, ESR 27 H, Sodium 137, Potassium 3.8 D, Chloride 109 H, Carbon Dioxide 22, Anion Gap 9.8, BUN 8, Creatinine 0.60, Estimated Creat Clear 217, Estimated GFR 117, Est GFR ( Amer) 141, Glucose 201 H D, Calcium 8.1 L, Troponin I < 0.01, C-Reactive Protein 113.7 H, NT-Pro-B Natriuret Pep 198 H I & O for Labs for Last 24 Hours: Intake & Output 12/16/23 12/17/23 12/18/23 12/19/23 23:59 23:59 23:59 23:59 Intake Total 930 / 1680 1740 / 1990 1060 / 1060 460 / 460 Output Total 2125 / 2925 800 / 1275 475 / 475 0 / 0 Balance -1195 / -1245 940 / 715 585 / 585 460 / 460 Weight 223 lb 8.004 oz 223 lb 8.004 oz 223 lb 12.307 oz 223 lb 12.307 oz Intake & Output 12/13/23 12/14/23 12/15/23 12/16/23 23:59 23:59 23:59 23:59 Intake Total 480 / 480 Output Total 1125 / 1125 Balance -645 / -645 Weight 210 lb 223 lb 8.004 oz Microbiology Reports for the Last 24 Hours: Microbiology 12/16/23 00:55 Blood Blood Culture - Preliminary NO GROWTH AFTER 48 HOURS 12/16/23 01:00 Sputum - Expectorated Sputum Gram Stain - Final 12/16/23 01:00 Sputum - Expectorated Sputum Sputum Culture - Final Microbiology 12/16/23 01:00 Sputum - Expectorated Sputum Gram Stain - Final Constitutional: Present moderate distress Head: Present normocephalic and atraumatic ENT: Present normal exam, normal oropharynx and mucous membranes moist Neck: Present normal inspection and full ROM Respiratory: Present respiratory distress; Absent rhonchi, wheezes, crackles or able to speak in complete sentences Cardiac: Present S1/S2, Tachycardia and radial pulses present GI: Present soft and distention; Absent tenderness or guarding Rectal (female): Present deferred (female): Present deferred Skin: Present intact; Absent cyanosis or jaundice Neuro: Present alert, awake and oriented x 3 Extremities: Present normal inspection; Absent clubbing or cyanosis Psychiatric: Present normal affect and cooperative Assessment and Plan *Assessment and plan (1) Acute hypoxemic respiratory failure: Status: Acute Category: Medical Code(s): J96.01 - Acute respiratory failure with hypoxia (2) Pneumonia: Status: Acute Qualifiers: Laterality: bilateral Lung location: lower lobe of lung Pneumonia type: due to unspecified organism Qualified Code(s): J18.9 - Pneumonia, unspecified organism Category: Medical Code(s): J18.9 - Pneumonia, unspecified organism (3) ILD (interstitial lung disease): Status: Acute Category: Medical Code(s): J84.9 - Interstitial pulmonary disease, unspecified Plan Ms. Garces is a 33-year-old female current smoker around 64-51-dobt-year smoking history, prior history of drug abuse, snorted, never used any IV drugs, e currently on Suboxone, anxiety and depression presented today with worsening respiratory distress needing increased oxygen supplementation and pulmonary was called for further evaluation and management. Patient with progressively worsening respiratory distress, admits cough mostly nonproductive. Denies any hemoptysis. Labs on admission, predominant neutrophilic leukocytosis with a white count of 22.8. Hemoglobin at 11. Platelet count 314. Comprehensive respiratory viral PCR panel negative BUN/creatinine within normal limits. CRP elevated at 113.7. proBNP at 119. Troponins within normal limits. CTA upon admission no evidence of pulmonary embolism. Bilateral diffuse groundglass opacities along with traction bronchiectasis predominantly in left lower lung [place]. ILD review of systems negative. Denies any personal history or family to autoimmune disorders. Pet history include parakeets within the last month prior to admission Urinalysis not concerning for hematuria Beta D glucan WNL. Urine Strep and Legionella Ag Negative. Anti SSA Ab Positive. CD4 count 317. CRP slightly improved from 113 to 92. Urine strep Legionella antigen negative. Nasal MRSA PCR negative. Interval update: No significant improvement in patient respiratory status and oxygen requirements. Wean antibiotics to levofloxacin and Bactrim along with continuation of itraconazole. Sputum PJP staining. Initiate prednisone 40 mg daily Plan: -Lasix 40 mg IV once -Prednisone 40 mg daily -Out of bed to chair. Activity as tolerated. Incentive spirometry. -Continue oxygen supplementation to maintain O2 saturation goal of 89% and above. . Will continue to wean as tolerated to nasal cannula -Continue Bactrim and levofloxacin -Continue itraconazole -F/U urine histoplasma antigen Follow with hypersensitive pneumonitis panel # Thank you for involving pulmonary in this patient care. Will continue to follow.
[2023-12-19] MEDS: FUROSEMIDE 40MG/4ML VIAL 40 MG IV (11:05)
[2023-12-19] MEDS: predniSONE 20MG TAB 40 MG PO (12:12)
[2023-12-19 12:49] LABS: Procalcitonin 0.469 ng/mL (0.0-2.0)
--- NOTE | 2023-12-19 15:08 | EXP.ACUTE.PN ---
Subjective *Date: 12/19/23 *Time: 15:08 Interval history: Patient gets periods of time evaluation by Dr. Rouse today. Slowly weaning from Vapotherm. Less dyspnea versus yesterday exam. Medical Exam Vital signs and Labs for Last 24 Hours: Vital Signs Temp Pulse Pulse Resp BP Pulse Ox O2 Del Method 12/19/23 14:53 Nasal Cannula 12/19/23 14:00 95 H 20 112/64 91 L Nasal Cannula 12/19/23 13:57 Nasal Cannula 12/19/23 12:24 99 H 22 119/70 91 L Nasal Cannula 12/19/23 11:13 84 12/19/23 11:13 82 12/19/23 11:13 94 L Vapotherm 12/19/23 11:13 Vapotherm 12/19/23 10:00 91 H 24 93/72 L 93 L Vapotherm 12/19/23 09:01 Vapotherm 12/19/23 08:05 95 H 93 L Vapotherm 12/19/23 08:00 90 12/19/23 08:00 98.8 F 12/19/23 08:00 92 H 25 H 105/62 L 91 L Vapotherm 12/19/23 07:51 93 L Vapotherm 12/19/23 06:56 Vapotherm 12/19/23 06:20 93 L Vapotherm 12/19/23 06:11 91 H 12/19/23 06:11 91 H 12/19/23 06:00 74 18 98/60 L 92 L Vapotherm 12/19/23 05:00 Vapotherm 12/19/23 04:20 95 Vapotherm 12/19/23 04:00 80 12/19/23 04:00 98.2 F 81 16 106/37 L 97 Vapotherm 12/19/23 03:00 Vapotherm 12/19/23 02:00 88 16 106/61 L 92 L Vapotherm 12/19/23 01:00 Vapotherm 12/19/23 00:00 85 12/19/23 00:00 98.2 F 84 16 87/73 L 95 Vapotherm 12/18/23 23:38 77 12/18/23 23:38 78 12/18/23 23:38 91 L Vapotherm 12/18/23 23:30 70 16 100/47 L 97 Vapotherm 12/18/23 23:00 Vapotherm 12/18/23 22:00 75 16 98/48 L 95 Vapotherm 12/18/23 21:00 Room Air 12/18/23 20:00 80 12/18/23 20:00 76 18 98/55 L 94 L Vapotherm 12/18/23 20:00 94 L Vapotherm 12/18/23 20:00 99.1 F 12/18/23 18:52 79 12/18/23 18:52 82 12/18/23 18:52 94 L Vapotherm 12/18/23 18:00 82 19 105/72 L 97 Vapotherm 12/18/23 17:00 Vapotherm 12/18/23 16:00 97 Vapotherm 12/18/23 16:00 90 12/18/23 16:00 92 H 20 115/53 L 97 Vapotherm 12/18/23 16:00 98.3 F O2 Flow Rate FiO2 12/19/23 14:53 4 12/19/23 14:00 4 12/19/23 13:57 4 12/19/23 12:24 4 12/19/23 11:13 12/19/23 11:13 12/19/23 11:13 20 35 12/19/23 11:13 20 12/19/23 10:00 20 50 12/19/23 09:01 20 12/19/23 08:05 20 50 12/19/23 08:00 12/19/23 08:00 12/19/23 08:00 20 50 12/19/23 07:51 20 50 12/19/23 06:56 20 12/19/23 06:20 20 50 12/19/23 06:11 12/19/23 06:11 12/19/23 06:00 20 12/19/23 05:00 20 12/19/23 04:20 20 50 12/19/23 04:00 12/19/23 04:00 20 12/19/23 03:00 20 12/19/23 02:00 20 12/19/23 01:00 20 12/19/23 00:00 12/19/23 00:00 20 12/18/23 23:38 12/18/23 23:38 12/18/23 23:38 20 50 12/18/23 23:30 20 08/21/24 23:00 20 12/18/23 22:00 20 12/18/23 21:00 12/18/23 20:00 12/18/23 20:00 20 12/18/23 20:00 20 50 12/18/23 20:00 12/18/23 18:52 12/18/23 18:52 12/18/23 18:52 20 50 12/18/23 18:00 20 50 12/18/23 17:00 20 12/18/23 16:00 20 50 12/18/23 16:00 12/18/23 16:00 12/18/23 16:00 Intake and Output 12/18/23 12/19/23 12/19/23 23:59 07:59 15:59 Intake Total 120 / 1060 50 / 700 650 / 700 Output Total 0 / 475 0 / 1550 1550 / 1550 Balance 120 / 585 50 / -850 -900 / -850 Intake: Intake, Oral Amount 120 / 960 600 / 600 Intake, Total IV Amount 50 / 100 50 / 100 Pipercillin/Tazo 3.375 gm In 0. 50 / 100 50 / 100 9 % Sodium Chloride 50 ml @ 100 mls/hr IV Q8H [facility] Rx#:[id number] Output: Output, Urine Amount 0 / 475 0 / 1550 1550 / 1550 Other: Number of Unmeasured Voids 1 1 1 Weight 101.5 kg Patient Weight 12/19/23 23:59 Weight 101.5 kg Laboratory Results - last 24 hr 12/16/23 11:15: Fluid Culture Not indicated., Ur L.pneumophila Ag Negative, S. pneumoniae Antigen Negative, S. pneumoniae Ag Source Urine, Organism ID Not indicated. 12/16/23 11:20: B-(1,3)-D-Glucan Quant < 31.25, B-(1,3)-D-Glucan Intrp Notes 12/17/23 05:23: HIV-1 RNA PCR copies/ml <20, HIV-1 RNA (PCR) log10 TNP 12/19/23 05:25: WBC 11.5 H, RBC 4.02 L, Hgb 11.2 L, Hct 36.5 L, MCV 90.9, MCH 28.0, MCHC 30.8 L, RDW 14.4, Plt Count 360, MPV 7.2 L, Neut % (Auto) 57.8, Lymph % (Auto) 31.8, [place] % (Auto) 3.3, Eos % (Auto) 6.6, Baso % (Auto) 0.4, Neut # (Auto) 6.7, Lymph # (Auto) 3.7, [place] # (Auto) 0.4, Eos # (Auto) 0.8 H, Baso # (Auto) 0.0, Sodium 135 L, Potassium 4.0, Chloride 106, Carbon Dioxide 26, Anion Gap 7.0, BUN 13 D, Creatinine 0.70 D, Estimated Creat Clear 187, Estimated GFR 98, Est GFR ( Amer) 118 D, Glucose 94, Calcium 8.4, Magnesium 1.7, Total Bilirubin 0.5, AST 51 H, ALT 43, Alkaline Phosphatase 118, C-Reactive Protein 92.2 H, Total Protein 6.6, Albumin 3.4 L, Globulin 3.2, Albumin/Globulin Ratio 1.1, Procalcitonin 0.469 I & O for Labs for Last 24 Hours: Intake & Output 12/16/23 12/17/23 12/18/23 12/19/23 23:59 23:59 23:59 23:59 Intake Total 930 / 1680 1740 / 1990 1060 / 1060 700 / 700 Output Total 2125 / 2925 800 / 1275 475 / 475 1550 / 1550 Balance -1195 / -1245 940 / 715 585 / 585 -850 / -850 Weight 101.378 kg 101.378 kg 101.5 kg 101.5 kg Microbiology Reports for the Last 24 Hours: Microbiology 12/16/23 11:18 Nose MRSA Culture - Final Negative 12/16/23 00:55 Blood Blood Culture - Preliminary NO GROWTH AFTER 48 HOURS Head: Present normocephalic ENT: Present normal exam and normal oropharynx Neck: Present normal inspection and full ROM Cardiac: Present Reg Rate and Rhythm Rectal (female): Present deferred (female): Present deferred Extremities: Present normal inspection and full ROM Skin: Present intact and dry Assessment and Plan *Assessment and plan (1) ILD (interstitial lung disease): Status: Acute Category: Medical Code(s): J84.9 - Interstitial pulmonary disease, unspecified (2) Anxiety and depression: Status: Acute Category: Medical Code(s): F41.9 - Anxiety disorder, unspecified; F32.A - Depression, unspecified (3) Acute hypoxemic respiratory failure: Status: Acute Category: Medical Code(s): J96.01 - Acute respiratory failure with hypoxia (4) Pneumonia: Status: Acute Qualifiers: Laterality: bilateral Lung location: lower lobe of lung Pneumonia type: due to unspecified organism Qualified Code(s): J18.9 - Pneumonia, unspecified organism Category: Medical Code(s): J18.9 - Pneumonia, unspecified organism Plan # Possible immunosuppressive condition such as combined variable immunodeficiency syndrome. ?12/17 worried that patient may be suffering from combined variable immunodeficiency disease or HIV. HIV test pending as noted in pneumonia section. Will order IgG levels. Patient and patient's family admit the patient suffered from multiple respiratory infections over past 2 years. IgG levels ordered yesterday by Dr. Rouse. #Acute respiratory failure with hypoxia #Pneumonia ?12/18 patient's respiratory status steadily improving. Continue to wean from Vapotherm as tolerated. 12/17 chest x-ray shows decreased infiltrates versus previous exam. ?12/18 confirmatory Western blot HIV test negative. Viral HIV RNA not noted. Although rapid HIV initially positive, given negative Western blot test patient does not have HIV. Concerned patient may be suffering from immunodeficiency such as combined variable immunodeficiency syndrome. IgG levels ordered yesterday by Dr. Rouse. Y ?12/17 called in confirmatory HIV test should be available within the next 2 to 4 days. Still attempting to wean patient off of Vapotherm. Appreciate pulmonary assistance. Continue current management. ?12/16 patient's rapid HIV test positive but second rapid test negative. Currently waiting on results of HIV confirmatory test. Will discuss results with infectious disease procurement consultant and pulmonology. Continue current management. Wean from Vapotherm as tolerated. Continue PCP prophylaxis. Continue IV antibiotics, nebulization treatments, and glucocorticoids. Appreciate pulmonary consult and assistance Patient with extensive groundglass opacities and interstitial inflammatory disease with mediastinal and hilar lymphadenopathy Differential diagnosis include: Viral/bacterial/fungal/zoonotic/EVALI Consult to Pulmonology in a.m., greatly appreciate expertise Reports being in contact with 2 people this week with viral illnesses. Will send for full respiratory panel. Patient reports being swabbed for COVID this week which was negative. Currently requiring 5 to 6 L nasal cannula Continue bronchodilators and corticosteroids Will continue broad-spectrum coverage with vancomycin, Zosyn and doxycycline Maintain oxygen saturations greater than 88% Continuous pulse ox Sputum culture pending Requesting chart from [facility] where patient states that she was admitted previously with similar symptoms #Sepsis ?Improving with treatment of pneumonia. Meets criteria for leukocytosis, tachycardia, tachypnea Continue broad-spectrum coverage for pneumonia Will defer for 30 mL/kg bolus. Pt is hemodynamically stable and would like to avoid volume overload in acute respiratory distress Inflammatory markers pending #Anxiety and depression Continue new mood stabilization medications #vancomycin toxicty monitoring Pharmacy consulted for management and monitoring of Vancomycin-high risk medication Rounded on patient after nurse practitioner. Personally examined and interviewed patient. Agree with exam findings and care plan as documented. Patient was screened for HIV this morning given the atypical nature of her pneumonia and dyspnea out of proportion to her lung exam. Found to be HIV positive. Added Bactrim double strength oral twice daily for coverage of possible pneumocystis. Pulmonology assisting with care. Holding on a bronchoscopy at this time. Will consider steroids over the next 24 to 48 hours if sputum cultures and blood cultures support PCP and are negative for bacteremia. Will consider initiating antiretroviral therapy pending patient's clinical improvement. Left to be cautious for immune reconstitution syndrome. Discussed finding and diagnosis with patient and her fianc?. Questions answered at bedside. Facilitating testing for fianc?. Escalated to Vapotherm over the course of the morning, currently on 70% FiO2. Escalated to stepdown level of care. Continue vancomycin IV, Zosyn IV, Bactrim double strength twice daily oral. Disposition: ? Patient will remain in ICU till weaning from Vapotherm. Will continue infectious workup including evaluation for immunosuppressive disorder. Patient will probably remain in house for initial additional few days to complete workup. 35 minutes critical care time spent with patient by Dr. Rouse 12/19/2023.
[2023-12-19] MEDS: BUPRENORPHINE/NALOXONE 8MG/2MG ODT 2 EACH SL (15:26)
[2023-12-19] MEDS: LEVOFLOXACIN/D5W 750 MG/150 ML 750 MG/150 ML PIGGYBACK 100 MG IV (16:33)
--- NOTE | 2023-12-19 17:05 | PC.NURSE ---
pt noted to be alert and oriented x 4. throughout the first part of the shift pt was noted to be very sleepy. pt states that she typically does not get up until around 2pm. pt was able to be weaned from vapotherm to 4lpm nc at approx 1130. nad noted. pt able to get up to the bsc without assistance to void yellow urine. pt is currently menstruating. pt 02 sats noted to drop to the upper 70's/low 80's with minimal exertion. pt o2 sats noted to recover well/easily. o2 sats noted to be 90-93 while on 4lpm
[2023-12-19] MEDS: ARIPiprazole 10MG TABLET 10 MG PO (20:58)
[2023-12-19] MEDS: MELATONIN 5MG TABLET 5 MG PO (20:58)
[2023-12-19] MEDS: FLUOXETINE 20MG CAPSULE 60 MG PO (20:59)
[2023-12-19] MEDS: QUETIAPINE 25MG TABLET 25 MG PO (20:59)
[2023-12-20] VITALS (8 sets, daily range): BP systolic 108–118; BP diastolic 58–71; PULSE 67–83; RESP 16–19; TEMP 36.5–36.6; O2SAT 93–96; BMI 37.3
[2023-12-20] MEDS: IPRATROPIUM/ALBUTEROL 3 ML NEB IH ×2 (00:02→06:13)
[2023-12-20 05:52] LABS: Basophils % 0.3 % (0.1-2.0); Eosinophils # 0.1 K/mm3 (0.0-0.4); Eosinophils % 0.9 % (0.1-12.0); Hematocrit 36.9 % (37.0-47.0); Hemoglobin 11.8 g/dL (12.2-16.2); Lymphocytes # 2.4 K/mm3 (0.7-4.5); Lymphocytes % 25.4 % (10-50); Mean Corpuscular Hemoglobin 28.7 pg (27.0-31.2); Mean Corpuscular Volume 89.5 fl (81-99); Mean Platelet Volume 7.3 fl (7.4-10.4); Monocytes # 0.3 K/mm3 (0.1-1.0); Monocytes % 2.9 % (1.7-9.3); Neutrophils # 6.8 K/mm3 (1.8-7.8); Neutrophils % 70.5 % (37.0-80.0); Platelet Count 430 K/mm3 (142-424); Red Blood Count 4.12 M/mm3 (4.20-5.40); Red Cell Distribution Width 14.2 % (11.5-17.5); White Blood Count 9.6 K/mm3 (4.8-10.8)
[2023-12-20 05:55] LABS: Chloride 105 mmol/L (98-107)
[2023-12-20 05:56] LABS: Potassium 4.1 mmoL/L (3.5-5.1); Sodium 135 mmol/L (136-145)
[2023-12-20 05:58] LABS: Blood Urea Nitrogen 16 mg/dl (7-17); Creatinine Clearance Estimated 218 mL/min (50-200); Estimated Glomerular Filt Rate 117 ml/min (>60); GFR (African American) 141 ML/MIN (>60)
[2023-12-20 05:59] LABS: Anion Gap 7.1 mEq/L (5-15); Carbon Dioxide 27 mmol/L (22.0-30.0); Glucose 140 mg/dl (74-100)
[2023-12-20 06:04] LABS: C-Reactive Protein 72.3 mg/L (0-4)
[2023-12-20 06:43] LABS: Procalcitonin 0.268 ng/mL (0.0-2.0)
[2023-12-20] MEDS: GABAPENTIN 800MG TABLET 800 MG PO ×2 (09:02→13:46)
[2023-12-20] MEDS: ITRACONAZOLE 100MG CAPSULE 200 MG PO (09:03)
[2023-12-20] MEDS: BUSPIRONE HCL 5 MG TABLET 15 MG PO ×2 (09:03→13:46)
[2023-12-20] MEDS: predniSONE 20MG TAB 40 MG PO (09:03)
[2023-12-20] MEDS: SULFA/TRIMETHOPRIM 1 TABLET 1 EACH PO (09:03)
[2023-12-20] MEDS: NICOTINE 21MG/24HR PATCH 21 MG TD (09:03)
[2023-12-20] MEDS: FUROSEMIDE 40 MG TABLET PO (09:03)
[2023-12-20] MEDS: ACETAMINOPHEN 325MG TAB 650 MG PO (09:06)
--- NOTE | 2023-12-20 09:44 | EXP.PULM.PN ---
Subjective *Date: 12/20/23 *Time: 12:27 Interval history: No acute respiratory vents overnight. Patient admits significant improvement in her respiratory symptoms. Pulmonology Exam Inpatient Vital signs and Labs for Last 24 Hours: Temp Pulse Resp BP Pulse Ox O2 Del Method O2 Flow Rate 97.7 F 77 16 109/59 L 96 Nasal Cannula 3 12/20/23 08:00 12/20/23 08:00 12/20/23 08:00 12/20/23 08:00 12/20/23 08:00 12/20/23 08:00 12/20/23 08:00 FiO2 35 12/19/23 11:13 Laboratory Results - last 24 hr 12/19/23 05:25: Procalcitonin 0.469 12/20/23 05:25: WBC 9.6, RBC 4.12 L, Hgb 11.8 L, Hct 36.9 L, MCV 89.5, MCH 28.7, MCHC 32.0, RDW 14.2, Plt Count 430 H, MPV 7.3 L, Neut % (Auto) 70.5, Lymph % (Auto) 25.4, [place] % (Auto) 2.9, Eos % (Auto) 0.9, Baso % (Auto) 0.3, Neut # (Auto) 6.8, Lymph # (Auto) 2.4, [place] # (Auto) 0.3, Eos # (Auto) 0.1, Baso # (Auto) 0.0, Sodium 135 L, Potassium 4.1, Chloride 105, Carbon Dioxide 27, Anion Gap 7.1, BUN 16, Creatinine 0.60, Estimated Creat Clear 218, Estimated GFR 117, Est GFR ( Amer) 141, Glucose 140 H D, Calcium 9.0, Magnesium 2.0 D, C-Reactive Protein 72.3 H, Procalcitonin 0.268 Temp Pulse Resp BP Pulse Ox O2 Del Method O2 Flow Rate 98.0 F 91 H 20 126/72 93 L Vapotherm 30 12/16/23 08:00 12/16/23 08:00 12/16/23 08:00 12/16/23 08:00 12/16/23 09:15 12/16/23 09:15 12/16/23 09:15 FiO2 60 12/16/23 09:15 Laboratory Results - last 24 hr 12/15/23 22:10: WBC 19.4 H, RBC 4.08 L, Hgb 12.0 L, Hct 37.8, MCV 92.5, MCH 29.4, MCHC 31.8, RDW 14.4, Plt Count 365, MPV 7.5, Neut % (Auto) 81.4 H, Lymph % (Auto) 14.8, [place] % (Auto) 1.3 L, Eos % (Auto) 2.1, Baso % (Auto) 0.4, Neut # (Auto) 15.8 H, Lymph # (Auto) 2.9, [place] # (Auto) 0.3, Eos # (Auto) 0.4, Baso # (Auto) 0.1, Total Counted 100, Neutrophils % (Manual) 84 H, Lymphocytes % (Manual) 11, Monocytes % (Manual) 1 L, Eosinophils % (Manual) 4 H, Platelet Estimate Normal, Tear Drop Cells 1+, D-Dimer 0.52 H, Sodium 139, Potassium 3.1 L, Chloride 111 H, Carbon Dioxide 21 L, Anion Gap 10.1, BUN 9, Creatinine 0.70, Estimated Creat Clear 175, Estimated GFR 98, Est GFR ( Amer) 118, Glucose 120 H, Calcium 8.6, Total Bilirubin 0.4, AST 52 H, ALT 33, Alkaline Phosphatase 95, Troponin I < 0.01, NT-Pro-B Natriuret Pep 108, Total Protein 7.1, Albumin 3.7, Globulin 3.4 H, Albumin/Globulin Ratio 1.1 12/15/23 23:22: VBG pH 7.34, VBG pCO2 42.1, VBG pO2 38.7, VBG HCO3 22.1 L, VBG Total CO2 23.4, VBG O2 Saturation 71.7 H, VBG Base Excess -3.7 L, VBG Lactic Acid 1.4 12/16/23 00:27: Chlamy pneumoniae PCR Not detected, Adenovirus (PCR) Not detected, B. pertussis DNA (PCR) Not detected, Coronavirus OC43 (PCR) Not detected, Coronavirus HKU1 (PCR) Not detected, Coronavirus 229E (PCR) Not detected, SARS-CoV-2 (PCR) Not detected, Coronavirus NL63 (PCR) Not detected, Human Metapneumovir PCR Not detected, Influenza A (H1) PCR Not detected, Influ A (H1N1/09) PCR Not detected, Influenza A (H3) PCR Not detected, Influenza Type A (PCR) Not detected, Influenza Type B (PCR) Not detected, M. pneumoniae (PCR) Not detected, Parainfluenza 1 (PCR) Not detected, Parainfluenza 2 (PCR) Not detected, Parainfluenza 3 (PCR) Not detected, Parainfluenza 4 (PCR) Not detected, RSV (PCR) Not detected, Entero/Rhino (PCR) Not detected 12/16/23 00:55: Troponin I < 0.01 12/16/23 04:26: WBC 22.8 H*, RBC 3.89 L, Hgb 11.0 L, Hct 35.8 L, MCV 92.2, MCH 28.4, MCHC 30.8 L, RDW 14.4, Plt Count 314, MPV 7.1 L, Neut % (Auto) 96.3 H, Lymph % (Auto) 2.2 L, [place] % (Auto) 1.3 L, Eos % (Auto) 0.0 L, Baso % (Auto) 0.1, Neut # (Auto) 21.9 H, Lymph # (Auto) 0.5 L, [place] # (Auto) 0.3, Eos # (Auto) 0.0, Baso # (Auto) 0.0, ESR 27 H, Sodium 137, Potassium 3.8 D, Chloride 109 H, Carbon Dioxide 22, Anion Gap 9.8, BUN 8, Creatinine 0.60, Estimated Creat Clear 217, Estimated GFR 117, Est GFR ( Amer) 141, Glucose 201 H D, Calcium 8.1 L, Troponin I < 0.01, C-Reactive Protein 113.7 H, NT-Pro-B Natriuret Pep 198 H I & O for Labs for Last 24 Hours: Intake & Output 12/17/23 12/18/23 12/19/23 12/20/23 23:59 23:59 23:59 23:59 Intake Total 1739 / 1990 1060 / 1060 1120 / 1870 960 / 960 Output Total 800 / 1275 475 / 475 2350 / 2350 Balance 940 / 715 585 / 585 -1230 / -480 960 / 960 Weight 223 lb 8.004 oz 223 lb 12.307 oz 223 lb 12.307 oz 223 lb 12.307 oz Intake & Output 12/13/23 12/14/23 12/15/23 12/16/23 23:59 23:59 23:59 23:59 Intake Total 480 / 480 Output Total 1125 / 1125 Balance -645 / -645 Weight 210 lb 223 lb 8.004 oz Microbiology Reports for the Last 24 Hours: Microbiology 12/16/23 00:55 Blood Blood Culture - Preliminary NO GROWTH AFTER 4 DAYS 12/16/23 11:18 Nose MRSA Culture - Final Negative Microbiology 12/16/23 01:00 Sputum - Expectorated Sputum Gram Stain - Final Constitutional: Present moderate distress Head: Present normocephalic and atraumatic ENT: Present normal exam, normal oropharynx and mucous membranes moist Neck: Present normal inspection and full ROM Respiratory: Present respiratory distress; Absent rhonchi, wheezes, crackles or able to speak in complete sentences Cardiac: Present S1/S2, Tachycardia and radial pulses present GI: Present soft and distention; Absent tenderness or guarding Rectal (female): Present deferred (female): Present deferred Skin: Present intact; Absent cyanosis or jaundice Neuro: Present alert, awake and oriented x 3 Extremities: Present normal inspection; Absent clubbing or cyanosis Psychiatric: Present normal affect and cooperative Assessment and Plan *Assessment and plan (1) Acute hypoxemic respiratory failure: Status: Acute Category: Medical Code(s): J96.01 - Acute respiratory failure with hypoxia (2) Pneumonia: Status: Acute Qualifiers: Laterality: bilateral Lung location: lower lobe of lung Pneumonia type: due to unspecified organism Qualified Code(s): J18.9 - Pneumonia, unspecified organism Category: Medical Code(s): J18.9 - Pneumonia, unspecified organism (3) ILD (interstitial lung disease): Status: Acute Category: Medical Code(s): J84.9 - Interstitial pulmonary disease, unspecified Plan Ms. Garces is a 33-year-old female current smoker around 14-12-bkil-year smoking history, prior history of drug abuse, snorted, never used any IV drugs, e currently on Suboxone, anxiety and depression presented today with worsening respiratory distress needing increased oxygen supplementation and pulmonary was called for further evaluation and management. Patient with progressively worsening respiratory distress, admits cough mostly nonproductive. Denies any hemoptysis. Labs on admission, predominant neutrophilic leukocytosis with a white count of 22.8. Hemoglobin at 11. Platelet count 314. Comprehensive respiratory viral PCR panel negative BUN/creatinine within normal limits. CRP elevated at 113.7. proBNP at 119. Troponins within normal limits. CTA upon admission no evidence of pulmonary embolism. Bilateral diffuse groundglass opacities along with traction bronchiectasis predominantly in left lower lung [place]. ILD review of systems negative. Denies any personal history or family to autoimmune disorders. Pet history include parakeets within the last month prior to admission Urinalysis not concerning for hematuria Beta D glucan WNL. Urine Strep and Legionella Ag Negative. Anti SSA Ab Positive. CD4 count 317. CRP slightly improved from 113 to 92. Urine strep Legionella antigen negative. Nasal MRSA PCR negative. Interval update: No acute respiratory vents overnight. Weaned to nasal cannula. Tolerating well. Plan: -Prednisone 40 mg daily x 14 days -Out of bed to chair. Activity as tolerated. Incentive spirometry. Continue nasal oxygen supplementation to maintain O2 saturation below 89% and above -Continue Bactrim x 14 days and levofloxacin x 10 days since initiation of Zosyn -Continue itraconazole x 14 days -F/U urine histoplasma antigen Follow with hypersensitive pneumonitis panel # Thank you for involving pulmonary in this patient care. Will follow the patient in pulmonary clinic 5 to 7 days postdischarge
--- NOTE | 2023-12-20 09:46 | XR_ITS ---
FINAL REPORT CLINICAL HISTORY: SOB COMPARISON: 12/18/2023 FINDINGS: The heart size is normal. The mediastinum is normal. The lungs are underinflated. There is no focal infiltrate or edema. There are no pleural effusions. There is no pneumothorax. There is no osseous abnormality. IMPRESSION: No acute cardiopulmonary process Reviewed, Interpreted and Dictated by Brant Tariq MD Transcribed by Essie Saravia Authenticated and [facility]
[2023-12-20] MEDS: BUPRENORPHINE/NALOXONE 8MG/2MG ODT 2 EACH SL (13:46)
--- NOTE | 2023-12-20 13:46 | P.DS_ITS ---
General Admission date:: 12/15/23 Discharge date: 12/20/23 HPI HPI HPI: This is a 33-year-old female with past medical history of substance abuse disorder on Suboxone, anxiety and depression who presents to the emergency department with complaints of severe shortness of breath. With EMS her oxygen saturations were noted to be in the 80s. Upon arrival to the emergency department she had a room air oxygen sat of 81% with tachycardia and tachypnea. She was placed on nasal cannula and is requiring 5 to 6 L to maintain oxygen saturation greater than 90%. She reports sudden onset of shortness of breath yesterday is associated with a mild cough. She denies any prodromal symptoms prior to her shortness of breath. She does state that she has been around 2 people recently with viral illnesses but they were only diagnosed with upper respiratory infections. She denies any fever, headaches, myalgias. States that she was laying down and noticed that it was hard to breathe. States that she has a sensation of air not passing through her oral and chest cavities well. States this has happened multiple times in the past in 2021. She states that she was admitted to [facility] with multiple episodes of shortness of breath. Required steroids, breathing treatments with eventual discharge to home. She reports this happened on 6 or 7 different occasions. She is unaware of any diagnoses that she received to be the causative factor of these episodes. Denies any known lung diseases. States that she has been clean from substance abuse but when she did use it was snorting of medicine. Denies any IV drug use. She does endorse the use of electronic cigarettes. States that she did not use electronic cigarettes back in 2021 with the other episodes of shortness of breath. 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 Of note, she does own 3 parakeets at home that she is in close contact with daily. States that she holds her birds a lot throughout the day. Emergency department workup notable for leukocytosis with a white blood cell count 19. Elevated D-dimer at 0.52, mildly elevated AST at 52, potassium of 3.1. EKG notable for sinus tach with incomplete right bundle branch block. CT imaging of the chest notable for Acute inflammatory process with extensive bilateral ground-glass infiltrates along with mediastinal and hilar lymp hadenopathy. Negative for PE. She is still currently requiring 5 to 6 L nasal cannula but has improved work of breathing at this time. She is able to speak in complete sentences. Oxygen saturations maintaining approximately 93 to 95%. Hospital Course Hospital Course Hospital Course: Patient admitted to hospital 12/15/2023 and diagnosed with atypical pneumonia. Patient placed on broad-spectrum antibiotics, antifungal, and glucocorticoid therapy during hospitalization. Patient's initial imaging showed groundglass opacities which gradually improved throughout hospitalization. CTA chest showed no pulmonary embolus. Respiratory PCR bacterial/viral antigen panel negative. Urine strep pneumo/Legionella negative. Patient weaned from Vapotherm to nasal cannula by 12/19/2023. Patient further weaned to 2 L nasal cannula by 12/20/2023. Patient's O2 saturation fell to 85% on room air at rest 12/20/2023. Patient evaluated and comanaged by pulmonology/hospitalist throughout hospitalization. Patient had rapid HIV test positive during hospitalization, however Western blot confirmatory HIV test negative. Patient RNA levels nondetectable. CD4 count 317. Patient states she has suffered from similar respiratory distress issues; most recently 2 years ago. Patient subsequently diagnosed by Dr. Rouse with acquired immunodeficiency syndrome, with a diagnosis of combined variable immunodeficiency disease entertained. IgG levels collected during hospitalization. Patient instructed to follow-up with pulmonary, immunology, infectious disease, and primary care physician at time of hospital discharge by Dr. Rouse. Patient discharged home on home oxygen. Patient also discharged home on prednisone 40 mg x 14 days, Bactrim x 14 days, Levaquin x 10 days, and itraconazole x 14 days. Exam Data for Last 24 hours Vital signs and Labs for Last 24 Hours: Temp Pulse Resp BP Pulse Ox O2 Del Method O2 Flow Rate 97.7 F 77 16 109/59 L 96 Nasal Cannula 2 12/20/23 08:00 12/20/23 08:00 12/20/23 08:00 12/20/23 08:00 12/20/23 08:00 12/20/23 11:15 12/20/23 11:15 FiO2 35 12/19/23 11:13 Laboratory Results - last 24 hr 12/20/23 05:25: WBC 9.6, RBC 4.12 L, Hgb 11.8 L, Hct 36.9 L, MCV 89.5, MCH 28.7, MCHC 32.0, RDW 14.2, Plt Count 430 H, MPV 7.3 L, Neut % (Auto) 70.5, Lymph % (Auto) 25.4, [place] % (Auto) 2.9, Eos % (Auto) 0.9, Baso % (Auto) 0.3, Neut # (Auto) 6.8, Lymph # (Auto) 2.4, [place] # (Auto) 0.3, Eos # (Auto) 0.1, Baso # (Auto) 0.0, Sodium 135 L, Potassium 4.1, Chloride 105, Carbon Dioxide 27, Anion Gap 7.1, BUN 16, Creatinine 0.60, Estimated Creat Clear 218, Estimated GFR 117, Est GFR ( Amer) 141, Glucose 140 H D, Calcium 9.0, Magnesium 2.0 D, C- Reactive Protein 72.3 H, Procalcitonin 0.268 I & O for Last 24 hours: Intake & Output 12/17/23 12/18/23 12/19/23 12/20/23 23:59 23:59 23:59 23:59 Intake Total 1740 / 1990 1060 / 1060 1120 / 1870 960 / 960 Output Total 800 / 1275 475 / 475 2350 / 2350 Balance 940 / 715 585 / 585 -1230 / -480 960 / 960 Weight 101.378 kg 101.5 kg 101.5 kg 101.5 kg Microbiology Reports for the Last 24 Hours: Microbiology 12/16/23 00:55 Blood Blood Culture - Preliminary NO GROWTH AFTER 4 DAYS 12/16/23 11:18 Nose MRSA Culture - Final Negative Constitutional Constitutional: no acute distress *Routine HEENT Exam Head: Present normocephalic Eye: Present EOMI and normal accommodation ENT: Present mucous membranes moist *Routine Neck Exam Neck: Present supple and full ROM *Routine Respiratory Exam Respiratory: Present CTA bilaterally *Routine Cardiovascular Exam Cardiovascular: Present RRR, Normal S1 and Normal S2 *Routine Abdominal Exam Abdominal: Present soft and normoactive bowel sounds *Routine Extremities Exam Extremities: Present full ROM and normal capillary refill *Routine Skin Exam Skin: Present intact and dry *Routine Neurological Exam Neurological: Present alert and oriented X3 Results Data Completed and Pending Labs on day of discharge: Labs from last 24 hours 12/20/23 05:25 WBC 9.6 RBC 4.12 L Hgb 11.8 L Hct 36.9 L MCV 89.5 MCH 28.7 MCHC 32.0 RDW 14.2 Plt Count 430 H MPV 7.3 L Neut % (Auto) 70.5 Lymph % (Auto) 25.4 [place] % (Auto) 2.9 Eos % (Auto) 0.9 Baso % (Auto) 0.3 Neut # (Auto) 6.8 Lymph # (Auto) 2.4 [place] # (Auto) 0.3 Eos # (Auto) 0.1 Baso # (Auto) 0.0 Sodium 135 L Potassium 4.1 Chloride 105 Carbon Dioxide 27 Anion Gap 7.1 BUN 16 Creatinine 0.60 Estimated Creat Clear 218 Estimated GFR 117 Est GFR ( Amer) 141 Glucose 140 H D Calcium 9.0 Magnesium 2.0 D C-Reactive Protein 72.3 H Procalcitonin 0.268 Preliminary micro results at discharge 12/16/23 00:55 Blood Culture - Preliminary Blood NO GROWTH AFTER 4 DAYS Impressions Impressions: Date of Service: 12/20/23 Procedure(s): XR chest portable Accession Number(s): [id number] cc: Brant Tariq MD; Provider,Referral MD~ FINAL REPORT CLINICAL HISTORY: SOB COMPARISON: 12/18/2023 FINDINGS: The heart size is normal. The mediastinum is normal. The lungs are underinflated. There is no focal infiltrate or edema. There are no pleural effusions. There is no pneumothorax. There is no osseous abnormality. IMPRESSION: No acute cardiopulmonary process Ordering Physician: Otoniel Vicente MD Date of Service: 12/18/23 Procedure(s): XR chest portable Accession Number(s): [id number] cc: Brant Tariq MD; Provider,Referral MD~ FINAL REPORT CLINICAL HISTORY: Hypoxia COMPARISON: 12/15/2023 FINDINGS: SINGLE-VIEW CHEST There is cardiomegaly. The mediastinum is normal. The lungs are underinflated. There are chronic changes at the bases. The previously identified airspace opacity at the bases has nearly resolved. Mild residual infiltrate is seen at the left base. There is no pneumothorax. IMPRESSION: Near-complete resolution of previously identified airspace opacity with mild residual infiltrate at the left base. - Exam date and time: 12/15/2023 11:12 PM Age: 33 years old Clinical indication: Shortness of breath; Additional info: SOA tachy, hypoxemia TECHNIQUE: Imaging protocol: Computed tomographic angiography of the chest with contrast. Exam focused on the arteries. 3D rendering (Not supervised by radiologist): MIP and/or 3D reconstructed images were created by the technologist. Radiation optimization: All CT scans at this facility use at least one of these dose optimization techniques: automated exposure control; mA and/or kV adjustment per patient size (includes targeted exams where dose is matched to clinical indication); or iterative reconstruction. Contrast material: ISOVUE; Contrast volume: 70 ml; Contrast route: INTRAVENOUS (IV); COMPARISON: CR XR CHEST PORTABLE 12/15/2023 10:59 PM FINDINGS: Pulmonary arteries: Normal. No pulmonary emboli. Aorta: Unremarkable. No aortic aneurysm. No aortic dissection. Lungs: There is a small right lower lobe calcified granuloma. Diffuse extensive ground-glass opacities are noted throughout both lungs. Pleural spaces: Unremarkable. No pneumothorax. No pleural effusion. Heart: Unremarkable. No cardiomegaly. No pericardial effusion. Lymph nodes: There is mediastinal and bilateral hilar lymphadenopathy. Bones/joints: Unremarkable. No acute fracture. Soft tissues: Unremarkable. IMPRESSION: 1. No pulmonary embolus. 2. Acute inflammatory process with extensive bilateral ground-glass infiltrates along with mediastinal and hilar lymphadenopathy. - CR XR CHEST PORTABLE 12/15/2023 10:59 PM FINDINGS: Lungs: Low lung volumes. Bilateral hazy airspace disease in the mid and lower lung zones. Pleural spaces: Unremarkable. No pleural effusion. No pneumothorax. Heart/Mediastinum: Unremarkable. No cardiomegaly. Vasculature: Unremarkable. Bones/joints: Unremarkable. IMPRESSION: 1. Bilateral mid and lower lung zone hazy airspace disease consistent with inflammation or edema. No significant effusions are evident. 2. Low lung volumes. DS: Diagnosis Discharge Diagnosis (1) Acute hypoxemic respiratory failure: Status: Acute Code(s): J96.01 - Acute respiratory failure with hypoxia (2) Pneumonia: Status: Acute Code(s): J18.9 - Pneumonia, unspecified organism Qualifiers: Laterality: bilateral Lung location: lower lobe of lung Pneumonia type: due to unspecified organism Qualified Code(s): J18.9 - Pneumonia, unspecified organism (3) ILD (interstitial lung disease): Status: Acute Code(s): J84.9 - Interstitial pulmonary disease, unspecified Meds Home Medications and Allergies Home Medications ?Medication ?Instructions ?Recorded ?Confirmed ?Type aripiprazole 10 mg tablet 10 mg PO HS 12/15/23 12/16/23 History buprenorphine 8 mg-naloxone 2 mg 2 tab sublingual DAILY 12/15/23 12/16/23 Hi story sublingual tablet buspirone 15 mg tablet 15 mg PO TID 12/15/23 12/16/23 History fluoxetine 20 mg capsule 20 mg PO DAILY 12/15/23 12/16/23 History gabapentin 800 mg tablet 800 mg PO TID 12/15/23 12/16/23 History quetiapine 50 mg tablet 50 mg PO HS 12/15/23 12/16/23 History fluoxetine 40 mg capsule 40 mg PO DAILY 12/16/23 12/16/23 History itraconazole 100 mg capsule 100 mg PO DAILY #14 caps 12/20/23 Rx levofloxacin 750 mg tablet 750 mg PO DAILY #14 tabs 12/20/23 Rx prednisone 20 mg tablet 40 mg (2 x 20 mg) PO DAILY #28 tabs 12/20/23 Rx sulfamethoxazole 400 1 tab PO BID #28 tabs 12/20/23 Rx mg-trimethoprim 80 mg tablet (Bactrim) New Prescriptions to Start Prescriptions: itraconazole Rouse,[place] levofloxacin Rouse,Sean prednisone Rouse,Sean sulfamethoxazole-trimethoprim [Bactrim] Rouse,Sean Allergies Allergy/AdvReac Type Severity Reaction Status Date / Time No Known Allergies Allergy Verified 12/15/23 22:24 Discharge Plan Disposition Patient Disposition: Home, Self-Care Condition: Fair Discharge Order Discharge Orders: Discharge Order (Routine); Ordered 12/20/23 Ordered By: Sean Rouse Follow up Plan Follow up with: Pawel Mackey II, MD [Referring] - 1 month (Patient with recurrent respiratory illness. CD4 317, RNA negative, rapid HIV positive but Western blot negative. Please evaluate for possible infectious etiology for current respiratory infection. Thank you) Claudia Lacey MD [Referring] - 1 month (Patient with recurrent respiratory infections possibly suffering from combined variable immunodeficiency disease. Please evaluate and advise. Thank you) Padma Capps APRN [Nurse Practitioner] - 12/27/23 1:00 pm Otoniel Vicente MD [Physician] - 12/26/23 1:40 pm Prescriptions/Medication Reconciliation: New prednisone 20 mg tablet 40 mg PO DAILY Qty: 28 0RF sulfamethoxazole-trimethoprim [Bactrim] 400-80 mg tablet 1 tab PO BID Qty: 28 0RF levofloxacin 750 mg tablet 750 mg PO DAILY Qty: 14 0RF itraconazole 100 mg capsule 100 mg PO DAILY Qty: 14 0RF Rx Instructions: must administer with a meal/food No Action gabapentin 800 mg tablet 800 mg PO TID fluoxetine 20 mg capsule 20 mg PO DAILY buspirone 15 mg tablet 15 mg PO TID aripiprazole 10 mg tablet 10 mg PO HS Patient Comments: TAKE 1 TABLET BY MOUTH AT BEDTIME buprenorphine-naloxone 8-2 mg tablet, sublingual 2 tab SUBLINGUAL DAILY Patient Comments: Place 2 tablet under tongue once a day Rx Instructions: Patient prefers film over tablet; states that tablets leave sores in her mouth quetiapine 50 mg tablet 50 mg PO HS fluoxetine 40 mg capsule 40 mg PO DAILY Patient Comments: TAKE 1 CAPSULE BY MOUTH DAILY Rx Instructions: pt takes total of 60mg prozac Other Ambulatory Orders: Home Medical Equipment (Routine) Location: None Selected Ordered By: Sean Rouse Problem Reconciliation Problems Reviewed?: Yes Patient Discharge Instructions ACTIVITY: Continue current activity DIET: continue same diet Additional Instructions: Patient requires 3 L home oxygen at time of hospital discharge. Patient Instructions: Atypical Pneumonia, DI for Pneumonia -- Adult, DI for Respiratory Failure Print Language: Palestinian Providers Primary Care Provider: Provider,Referral Admit Provider: Maciej Baca Attending Provider: Maciej Baca
[2023-12-20 14:28] LABS: IgG, Subclass 1 426 mg/dL (248-810); IgG, Subclass 2 262 mg/dL (130-555); IgG, Subclass 3 50 mg/dL (15-102); IgG, Subclass 4 44 mg/dL (2-96); Immunoglobulin G, Qn 895 mg/dL (586-1602)
--- NOTE | 2023-12-20 15:17 | CARE MANAGER ---
Patient discharged home today with home O2. Patient Choice signed for [facility]. Clinical/order faxed and portable delivered prior to discharge.
[2023-12-22 15:08] LABS: Histoplasma Gal'mannan Ag Ur Negative (<0.2 ng/mL)
--- NOTE | 2023-12-24 13:06 | CARE MANAGER ---
Attempted to contact patient x2 related to hospital discharge. No VM option. ELIANA Frausto
[2023-12-25 09:32] LABS: PDF: SCANNED IMAGE
[2023-12-30 12:28] LABS: Aspergillus fumigatus IgG NEGATIVE
[2023-12-30 12:30] LABS: Anti-Centromere B Abs Charge YES; Anti-DNA (DS) Ab Charge YES; Anti-Jo-1 Charge YES; Antichromatin Abs Charge YES; Antinuclear Antibodies (ANA) POSITIVE; Antiscleroderma-70 Abs Charge YES; Pigeon Serum Abs NEGATIVE; RNP Antibodies Charge YES; Sjogren's Anti-SS-A Ab Charge YES; Sjogren's Anti-SS-B Ab Charge YES; Smith Antibodies Charge YES
== END 2023-12-20 14:40 | disposition home or self-care (01) | DRG 193 ==
LOC: ER 23:40 → 2ND 12-16 00:28
PROVIDERS: Emergency Medicine; Internal Medicine; Internal Medicine Pulmonary Disease; Nurse Practitioner Acute Care; Admitting Provider Internal Medicine Adolescent Medicine; Emergency Provider Emergency Medicine; Visit Provider Internal Medicine Adolescent Medicine
DX: J18.9 Pneumonia, unspecified organism (principal); J96.01 Acute respiratory failure with hypoxia; F41.9 Anxiety disorder, unspecified; R07.9 Chest pain, unspecified; G89.29 Other chronic pain; F31.9 Bipolar disorder, unspecified; F17.290 Nicotine dependence, other tobacco product, uncomplicated
CPT/HCPCS: 36415; 71045; 71275; 80048; 80053; 80074; 81001; 82784; 82787; 82803; 83615; 83735; 83880; 84145; 84484; 85007; 85025; 85027; 85378; 85651; 86038; 86140; 86225; 86235; 86331; 86361; 86602; 86606; 86609; 86703; 87040; 87070; 87081; 87116; 87186; 87205; 87206; 87220; 87385; 87449; 87536; 87581; 87632; 87635; 87798; 87899; 93005; 94640; 94760; 94761; 99291; G0432; J0574; J1885; J1940; J1956; J2270; J2543; J2919; J7120; J7620; Q9967

== ENCOUNTER 2024-02-26 21:43 | Emergency (ER) | payer SELFPAY ==
[2024-02-26] VITALS (7 sets, daily range): BP systolic 96–126; BP diastolic 55–80; PULSE 61–118; RESP 16–46; TEMP 37.1; O2SAT 42–88; BMI 33.3
--- NOTE | 2024-02-26 21:30 | CT_ITS ---
PROCEDURE INFORMATION: Exam: CTA Chest With Contrast Exam date and time: 02/26/2024 11:53 PM Age: 33 years old Clinical indication: Dyspnea; Additional info: Resp failure TECHNIQUE: Imaging protocol: Computed tomographic angiography of the chest with contrast. Exam focused on the arteries. 3D rendering (Not supervised by radiologist): MIP and/or 3D reconstructed images were created by the technologist. Radiation optimization: All CT scans at this facility use at least one of these dose optimization techniques: automated exposure control; mA and/or kV adjustment per patient size (includes targeted exams where dose is matched to clinical indication); or iterative reconstruction. Contrast material: ISOVUE; Contrast volume: 80 ml; Contrast route: INTRAVENOUS (IV); Other contrast: Oral; COMPARISON: CT ANGIO CHEST PE PROTOCOL 12/15/2023 11:12 PM FINDINGS: Pulmonary arteries: Normal. No pulmonary emboli. Aorta: Unremarkable. No aortic aneurysm. No aortic dissection. Lungs: Ground-glass opacities in both lungs concerning for pneumonia. No consolidation. No masses. Pleural spaces: Unremarkable. No pneumothorax. No pleural effusion. Heart: Unremarkable. No cardiomegaly. No pericardial effusion. Lymph nodes: Unremarkable. No enlarged lymph nodes. Bones/joints: Unremarkable. No acute fracture. Soft tissues: Unremarkable. IMPRESSION: Ground-glass opacities in both lungs concerning for pneumonia. No pulmonary embolus
--- NOTE | 2024-02-26 21:36 | ECG_ITS ---
APPROVED REPORT Exam: Resting ECG HR:110 bpm ECG Measurements Heart Rate 110 AXES IN 147 P 51 QRSd 96 QRS 87 QT 353 T 14 QTc 418 Conclusion SINUS TACHYCARDIA INCOMPLETE RIGHT BUNDLE BRANCH BLOCK [90+ ms QRS DURATION, TERMINAL R IN V1/V2, 40+ ms S IN I/aVL/V4/V5/V6] NONSPECIFIC T-WAVE ABNORMALITY ABNORMAL RHYTHM ECG UNCONFIRMED REPORT Electronically signed by : BONIFACIO JIMENEZ, 02/27/2024 06:52:07
[2024-02-26] MEDS: METHYLPREDNISOLONE SOD SUCC 125MG VIAL 125 MG IV (21:46)
[2024-02-26 21:48] LABS: Basophils % 0.2 % (0.1-2.0); Hematocrit 32.2 % (37.0-47.0); Hemoglobin 10.6 g/dL (12.2-16.2); Lymphocytes # 2.5 K/mm3 (0.7-4.5); Lymphocytes % 17.4 % (10-50); Mean Corpuscular HGB Conc 33.1 g/dL (31.8-35.4); Mean Corpuscular Hemoglobin 28.4 pg (27.0-31.2); Mean Platelet Volume 7.3 fl (7.4-10.4); Monocytes # 0.6 K/mm3 (0.1-1.0); Monocytes % 4.1 % (1.7-9.3); Neutrophils # 11.2 K/mm3 (1.8-7.8); Neutrophils % 78.2 % (37.0-80.0); Platelet Count 387 K/mm3 (142-424); Red Blood Count 3.74 M/mm3 (4.20-5.40); Red Cell Distribution Width 14.8 % (11.5-17.5); White Blood Count 14.3 K/mm3 (4.8-10.8)
[2024-02-26 21:52] LABS: VBG Base Excess -7.3 mmol/L (-2.4-2.3); VBG HCO3 18.5 mmol/L (23-30); VBG PCO2 35.3 mmol/L (35-51); VBG PH 7.34 mmol/L (7.31-7.41); VBG Total CO2 19.6 mmol/L (23-27)
--- NOTE | 2024-02-26 22:00 | PC.NURSE ---
Dr. Tanner notified of critical lactic acid from [facility]
[2024-02-26 22:07] LABS: HCG Qualitative, Serum Negative (Negative)
--- NOTE | 2024-02-26 22:07 | ED_ITS ---
Discharge Plan Disposition Patient Disposition: Xfer Short-Term Hosp Prescriptions Prescriptions: No Action gabapentin 800 mg tablet 800 mg PO TID fluoxetine 20 mg capsule 20 mg PO DAILY buspirone 15 mg tablet 15 mg PO TID aripiprazole 10 mg tablet 10 mg PO HS Patient Comments: TAKE 1 TABLET BY MOUTH AT BEDTIME buprenorphine-naloxone 8-2 mg tablet, sublingual 2 tab SUBLINGUAL DAILY Patient Comments: Place 2 tablet under tongue once a day Rx Instructions: Patient prefers film over tablet; states that tablets leave sores in her mouth quetiapine 50 mg tablet 50 mg PO HS fluoxetine 40 mg capsule 40 mg PO DAILY Patient Comments: TAKE 1 CAPSULE BY MOUTH DAILY Rx Instructions: pt takes total of 60mg prozac prednisone 20 mg tablet 40 mg PO DAILY Qty: 28 0RF sulfamethoxazole-trimethoprim [Bactrim] 400-80 mg tablet 1 tab PO BID Qty: 28 0RF levofloxacin 750 mg tablet 750 mg PO DAILY Qty: 14 0RF itraconazole 100 mg capsule 100 mg PO DAILY Qty: 14 0RF Rx Instructions: must administer with a meal/food Referrals Follow up/Referrals: Provider,Referral, MD [Primary Care Provider] - See instructions Clinical Impressions Clinical Impression: NIRAJ (acute kidney injury), Liver injury, Acute hypoxemic respiratory failure, Multi-organ failure with heart failure, Shock, Elevated troponin, Pneumonia Stand Alone Forms Stand Alone Forms: Transfer Record - ED Print Language Print Language: Faroese Discharge ED Provider: Patricia Tanner HPI <Patricia Tanner DO - Last Filed: 02/27/24 00:57> General Chief Complaint: Shortness of Breath/Dyspnea Stated Complaint: SOA, hypoxic, home O2 3LPM Time Seen by Provider: 02/26/24 21:42 Mode of Arrival: EMS Source of Information: Patient, EMS and Medical Record Limitations: No Limitations Description of Symptoms (Recalled from ER Triage Doc. by RN): Pt c/o SOA for several days. States she wears home O2 of 2-5 LPM NC. EMS reports her sat is 82% on 3LPM NC. Pt is tachnepic and dyspnea. She reports, I feel like I'm dying . 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 She does take suboxone 16mg daily. History of Present Illness HPI narrative: This patient is a 33-year-old female with a history of interstitial lung disease, bipolar disorder, anxiety and depression, and previous admission for respiratory failure requiring Vapotherm and then discharged home on 5 to 6 L nasal cannula presented to the emergency department for evaluation with concern for shortness of breath. Patient is a very poor historian and states that she has some lung issue for which she wears oxygen at home, 5 to 6 L nasal cannula but sometimes down to 2 L. She notes that she has been feeling bad for several days with shortness of breath. She states she feels like she is dying. She has had cough, congestion, severe shortness of breath. EMS notes that they picked her up and she was hypoxic with an O2 saturation reading in the 50s-80s. She was significantly tachypneic and tachycardic. Patient does not further contribute to history upon exam given acuity of condition. Related Data Home Medications ?Medication ?Instructions ?Recorded ?Confirmed aripiprazole 10 mg tablet 10 mg PO HS 12/15/23 12/16/23 buprenorphine 8 mg-naloxone 2 mg 2 tab sublingual DAILY 12/15/23 12/16/23 sublingual tablet buspirone 15 mg tablet 15 mg PO TID 12/15/23 12/16/23 fluoxetine 20 mg capsule 20 mg PO DAILY 12/15/23 12/16/23 gabapentin 800 mg tablet 800 mg PO TID 12/15/23 12/16/23 quetiapine 50 mg tablet 50 mg PO HS 12/15/23 12/16/23 fluoxetine 40 mg capsule 40 mg PO DAILY 12/16/23 12/16/23 Previous Rx's ?Medication ?Instructions ?Recorded itraconazole 100 mg capsule 100 mg PO DAILY #14 caps 12/20/23 levofloxacin 750 mg tablet 750 mg PO DAILY #14 tabs 12/20/23 prednisone 20 mg tablet 40 mg (2 x 20 mg) PO DAILY #28 tabs 12/20/23 sulfamethoxazole 400 1 tab PO BID #28 tabs 12/20/23 mg-trimethoprim 80 mg tablet (Bactrim) Allergies Allergy/AdvReac Type Severity Reaction Status Date / Time No Known Allergies Allergy Verified 12/15/23 22:24 [facility] <Patricia Tanner, DO - Last Filed: 02/27/24 00:57> [facility] Disclaimer: The information contained in this section may have been updated after the patient was seen, as this information can be updated by other users. Medical History ILD (interstitial lung disease) Endometriosis Acute PR Anxiety Depression Bipolar disorder Surgical History History of cholecystectomy Hx of tonsillectomy Delivery by section Family History Other Cancer Social History Smoking Status: Current some day smoker alcohol intake: never current occupational status: employed Travel in the last 8 weeks: None Other Medical History Have you received the Flu Vaccine for this season: No Have you received the Pneumonia Vaccine: No <Patricia Tanner DO - Last Filed: 02/27/24 00:57> ROS Obtained: Yes All systems reviewed & no additional complaints except as documented Physical Exam <Patricia Tanner DO - Last Filed: 02/27/24 00:57> General General appearance: alert and in distress Comment: Very ill-appearing, tachypneic, tachycardic Head Head exam: atraumatic and normocephalic Eye Eye exam: Present normal appearance, PERRL and EOMI ENT ENT exam: Present mucous membranes dry and normal external ear exam Neck Neck exam: Present normal inspection, full ROM and trachea midline; Absent tenderness Chest Chest inspection: Present normal inspection and symmetric chest wall rise; Absent tenderness Respiratory Respiratory exam: Present normal lung sounds bilaterally, respiratory distress, accessory muscle use, prolonged expiratory phase and other (Tachypneic with prolonged expiratory phase, accessory muscle use. Lungs are clear bilaterally); Absent wheezes or stridor Cardiovascular Cardiovascular exam: Present normal rhythm and tachycardia Abdominal Exam Abdominal exam: Present soft; Absent distention, tenderness, guarding, rebound or rigidity Extremities Exam Extremities exam: Present normal inspection, full ROM and normal capillary refill; Absent tenderness or edema Back Exam Back exam: Present normal inspection and full ROM; Absent tenderness Neurological Exam Neurological exam: Present alert, oriented X3, CN II-XII intact and normal gait; Absent motor sensory deficit Psychiatric Psychiatric exam: Present anxious Skin Skin exam: Present warm and dry HEART Score <Patricia Tanner DO - Last Filed: 02/27/24 00:57> HEART Score HEART Score assessment performed?: Yes History (anamnesis): Moderately suspicious ECG: Non-specific disturbance Age: <45 years Risk factors: 1-2 risk factors Troponin: > 3x normal limit HEART Score: 5 <Damian Lorenzana MD - Last Filed: 02/27/24 03:45> HEART Score HEART Score: 5 Procedures <Damian Lorenzana MD - Last Filed: 02/27/24 03:45> Intubation Mallampati Score:: Class III Time out performed: Yes sedative: Etomidate Mg Given: 40 paralytic: Succinylcholine Mg Given: 140 Laryngoscope: Gabrielle Assist Device Used: fiber optic device ET Tube Size: 7.5 ET Tube Uncuffed: No Tube Secured Depth (cm): 21 Tube Secured Location: lips Tube Placement Confirmation: visualized tube passing through cords, equal breath sounds bilaterally and confirmation by capnometry Patient Tolerated Procedure: well and no complications Intubation Complications: hypoxia (dropped to 80 but quickly recovered to the 90s) Critical Care <Patricia Tanner DO - Last Filed: 02/27/24 00:57> Critical Care Time Critical Care Time: Yes Attestation: On 02/26/24, the high probability of a clinically significant, sudden or life threatening deterioration of the following system(s) required my full and direct attention, intervention and personal management. The time I documented below is in addition to time spent performing reported procedures but includes the following listed in this critical care notation. Total Time Total Critical Care Time: 60 <Damian Lorenzana MD - Last Filed: 02/27/24 03:45> Critical Care Time Critical Care Time: Yes Attestation: On 02/27/24, the high probability of a clinically significant, sudden or life threatening deterioration of the following system(s) respiratory required my full and direct attention, intervention and personal management. The time I documented below is in addition to time spent performing reported procedures but includes the following listed in this critical care notation. Total Time Total Critical Care Time: 65 Medical Decision Making <Patricia Tanner DO - Last Filed: 02/27/24 00:57> Emir Inquiry Pt receiving controlled substance: No Vital Signs Vital Signs: 02/26/24 21:42 02/26/24 22:00 02/26/24 22:15 Temperature 98.8 F Temperature Source Axillary Pulse Rate 61 108 H Pulse Rate [Right] 118 H Respiratory Rate 38 H 41 H 26 H Blood Pressure 115/80 Blood Pressure [Right Arm] 112/70 Blood Pressure Mean [Right Arm] 84 Blood Pressure Source Blood Pressure Source [Right Arm] Automatic Cuff Blood Pressure Position 02 Sat by Pulse Oximetry 74 L 42 L Oxygen Delivery Method Nasal Cannula Oxygen Flow Rate (LPM) 3 02/26/24 22:30 02/26/24 23:00 02/26/24 23:17 Temperature Temperature Source Pulse Rate Pulse Rate [Right] Respiratory Rate 46 H 16 Blood Pressure 126/78 115/73 Blood Pressure [Right Arm] Blood Pressure Mean [Right Arm] Blood Pressure Source Blood Pressure Source [Right Arm] Blood Pressure Position 02 Sat by Pulse Oximetry 88 L Oxygen Delivery Method Vapotherm Oxygen Flow Rate (LPM) 40 02/26/24 23:31 02/27/24 00:01 02/27/24 00:31 Temperature Temperature Source Pulse Rate 100 H 93 H 86 Pulse Rate [Right] Respiratory Rate 22 32 H Blood Pressure 96/55 L 112/73 109/68 L Blood Pressure [Right Arm] Blood Pressure Mean [Right Arm] Blood Pressure Source Blood Pressure Source [Right Arm] Blood Pressure Position 02 Sat by Pulse Oximetry 81 L 88 L 98 Oxygen Delivery Method Oxygen Flow Rate (LPM) 02/27/24 01:01 02/27/24 01:30 02/27/24 02:00 Temperature Temperature Source Pulse Rate 87 79 79 Pulse Rate [Right] Respiratory Rate 28 H 22 33 H Blood Pressure 98/69 L 119/69 126/85 Blood Pressure [Right Arm] Blood Pressure Mean [Right Arm] Blood Pressure Source Blood Pressure Source [Right Arm] Blood Pressure Position 02 Sat by Pulse Oximetry 91 L 95 94 L Oxygen Delivery Method Oxygen Flow Rate (LPM) 02/27/24 02:31 02/27/24 02:37 02/27/24 02:42 Temperature 98.8 F Temperature Source Oral Pulse Rate 66 79 Pulse Rate [Right] Respiratory Rate 43 H 45 H 38 H Blood Pressure 127/105 H 111/76 111/76 Blood Pressure [Right Arm] Blood Pressure Mean [Right Arm] Blood Pressure Source Automatic Cuff Blood Pressure Source [Right Arm] Blood Pressure Position Sitting 02 Sat by Pulse Oximetry 92 L Oxygen Delivery Method BiPAP Oxygen Flow Rate (LPM) Lab Data Labs: Lab Results 02/26/24 21:30: WBC 14.3 H, RBC 3.74 L, Hgb 10.6 L, Hct 32.2 L, MCV 86.0, MCH 28.4, MCHC 33.1, RDW 14.8, Plt Count 387, MPV 7.3 L, Neut % (Auto) 78.2, Lymph % (Auto) 17.4, Taylor % (Auto) 4.1, Eos % (Auto) 0.0 L, Baso % (Auto) 0.2, Neut # (Auto) 11.2 H, Lymph # (Auto) 2.5, Taylor # (Auto) 0.6, Eos # (Auto) 0.0, Baso # (Auto) 0.0, VBG pH 7.34, VBG pCO2 35.3, VBG pO2 33.0, VBG HCO3 18.5 L, VBG Total CO2 19.6 L, VBG O2 Saturation 54.0, VBG Base Excess -7.3 L, VBG Lactic Acid 5.0 H, Sodium 136, Potassium 4.6, Chloride 105, Carbon Dioxide 17 L, Anion Gap 18.6 H, BUN 23 H, Creatinine 1.10 H, Estimated Creat Clear 106, Estimated GFR 58 L, Est GFR ( Amer) 70, Glucose 140 H, Calcium 8.3 L, Total Bilirubin 0.9, A ST 431 H*, ALT 267 H, Alkaline Phosphatase 133 H, Troponin I 0.21 H, NT-Pro-B Natriuret Pep 05672 H, Total Protein 6.7, Albumin 3.6, Globulin 3.1, Albumin/Globulin Ratio 1.2, TSH 0.62, Thyroxine (T4) 5.9, Serum HCG, Qual Negative, HIV 1&2 Antibody Rapid Preliminary reactive 02/26/24 22:09: Chlamy pneumoniae PCR Not detected, Adenovirus (PCR) Not detected, B. pertussis DNA (PCR) Not detected, Coronavirus OC43 (PCR) Not detected, Coronavirus HKU1 (PCR) Not detected, Coronavirus 229E (PCR) Not detected, SARS-CoV-2 (PCR) Not detected, Coronavirus NL63 (PCR) Not detected, Human Metapneumovir PCR Not detected, Influenza A (H1) PCR Not detected, Influ A (H1N1/09) PCR Not detected, Influenza A (H3) PCR Not detected, Influenza Type A (PCR) Not detected, Influenza Type B (PCR) Not detected, M. pneumoniae (PCR) Not detected, Parainfluenza 1 (PCR) Not detected, Parainfluenza 2 (PCR) Not detected, Parainfluenza 3 (PCR) Not detected, Parainfluenza 4 (PCR) Not detected, RSV (PCR) Not detected, Entero/Rhino (PCR) Not detected 02/26/24 23:11: O2 % 6lnc, ABG pH 7.46 H, ABG pCO2 26.8 L, ABG pO2 31.2 L, ABG HCO3 18.5 L, ABG Total CO2 19.4 L, ABG O2 Saturation 56 L*, ABG Base Excess -5.3 L 02/26/24 23:20: Lactate 2.5 H 02/27/24 00:55: Troponin I 0.20 H 02/26/24 21:30 02/26/24 21:30 Response Orders (Tests/Meds): ED MEDICATIONS Generic Name Dose Route Start Last Admin Trade Name Freq PRN Reason Stop Dose Admin Miscellaneous 1 each 02/26/24 22:00 02/26/24 22:49 Vancomycin Consult Request NOTAPPLIC 03/27/24 21:59 1 each CONSULT PHARMACY ABDI Administration Sodium Chloride 3 ml 02/26/24 21:33 02/26/24 22:09 Sodium Chloride 3% 15ml Neb IH 03/27/24 21:32 3 ml ONCE PRN Administration INDUCE [employer]LE[employer] Sodium Chloride 10 ml 02/26/24 23:59 02/27/24 00:00 Sodium Chloride 0.9% 10ml Syr (Rad Only) IV 03/27/24 23:58 10 ml NEEDED PRN Administration Maintain IV Site Discontinued Medications Generic Name Dose Route Start Last Admin Trade Name Freq PRN Reason Stop Dose Admin Diazepam 5 mg 02/27/24 00:07 02/27/24 00:09 Diazepam 10mg/2ml Syringe IV 02/27/24 00:08 5 mg ONCE ONE Administration Diazepam 5 mg 02/27/24 02:21 02/27/24 03:03 Diazepam 10mg/2ml Syringe IV 02/27/24 02:22 5 mg ONCE ONE Administration Cefepime HCl 2 gm/ Sodium 100 mls @ 200 mls/hr 02/26/24 21:58 02/26/24 23:35 Chloride IV 02/26/24 22:27 200 mls/hr ONCE ONE Administration Azithromycin 500 mg/ Sodium 250 mls @ 250 mls/hr 02/26/24 22:00 02/26/24 22:48 Chloride IV 02/26/24 22:01 250 mls/hr ONCE ONE Administration Lactated Ringer's 1,000 mls @ 999 mls/hr 02/26/24 21:58 02/26/24 22:05 Lactated Ringer's 1000 Ml Bag IV 02/26/24 22:58 Not Given .Q1H1M ONE Vancomycin HCl 2,250 mg/ 250 mls @ 125 mls/hr 02/26/24 22:15 02/26/24 22:48 Sodium Chloride IV 02/27/24 00:14 125 mls/hr ONCE ONE Administration Iopamidol 80 ml 02/26/24 23:59 02/27/24 00:00 Iopamidol-370 (76%);100ml Bottle IV 02/27/24 00:00 80 ml ONCE ONE Administration Methylprednisolone Sodium Succinate 125 mg 02/26/24 21:35 02/26/24 21:46 Methylprednisolone Sod Succ 125mg Vial IV 02/26/24 21:36 125 mg ONCE ONE Administration Ondansetron HCl 4 mg 02/26/24 23:06 02/26/24 23:16 Ondansetron 4mg/2ml Vial IV 02/26/24 23:07 4 mg ONCE ONE Administration Sodium Chloride 50 ml 02/26/24 23:59 02/27/24 00:00 0.9 % Sodium Chloride 50 Ml Vial IV 02/27/24 00:00 50 ml ONCE ONE Administration ORDERS Category Date Time Status CT abdomen pelvis w con Stat Cat Scan 02/26/24 22:38 Completed CTA Chest [CT angio chest PE protocol] Stat Cat Scan 02/26/24 21:30 Completed BNP [NT Pro Brain Natriuretic Pep.] Stat Lab 02/26/24 21:30 Completed Complete Blood Count Auto Diff Stat Lab 02/26/24 21:30 Completed Comprehensive Metabolic Panel Stat Lab 02/26/24 21:30 Completed Full Resp Panel w/COVID ([facility]) Routine Lab 02/26/24 22:09 Completed HIV (1&2) Antibody Rapid Stat Lab 02/26/24 21:30 Completed Hep C Ab with Reflex to RNA Stat Lab 02/26/24 22:46 Received Lactic Acid Follow Up (RFLX 1) Stat Lab 02/27/24 03:23 Ordered Lactic Acid Stat Lab 02/26/24 23:20 Completed Serum [HCG Qualitative, Serum] Stat Lab 02/26/24 21:30 Completed T4 (Thyroxine) Stat Lab 02/26/24 21:30 Completed TSH [Thyroid Stimulating Hormone] Stat Lab 02/26/24 21:30 Completed Trop I [Troponin I] Stat Lab 02/26/24 21:30 Completed Troponin I Q3H Lab 02/27/24 00:55 Completed Troponin I Q3H Lab 02/27/24 03:45 Ordered Blood Culture Stat Micro 02/26/24 22:22 Received Sputum Culture & Gram Stain Stat Micro 02/26/24 21:33 Ordered ABG [Arterial Blood Gas] Stat RT 02/26/24 23:11 Completed VBG [Venous Blood Gas] Stat RT 02/26/24 21:30 Completed ECG Data Tracing #1: Attestation: I reviewed this ECG and interpreted as documented below: ECG Narrative: Sinus tachycardia with a ventricular rate of 110 bpm. Incomplete right bundle branch block noted. Nonspecific T wave abnormality but no acute ST changes concerning for ischemia. ECG initial impression date: 02/26/24 ECG initial impression time: 21:39 MDM Narrative Medical Decision Narrative: In summary, this patient is a 33-year-old female presenting to the Emergency Department for evaluation of shortness of breath and feeling like she is dying. Differential diagnoses considered include but are not limited to pneumonia, acute on chronic respiratory failure, asthma, COPD, pulmonary edema, heart failure, PE. Ruling out the most morbid conditions drove assessment. It should be noted patient's history includes interstitial lung disease, bipolar disorder, anxiety and depression, chronic respiratory failure which are not at goal therapy. This complicates all aspects of care by increasing patient's risk for morbidity. I reviewed patient's past medical records and noted previous admission for respiratory failure with concern for possible immunocompromise state given severe respiratory failure in the setting of multifocal pneumonia On exam, the patient arrives critically ill-appearing in acute distress with an O2 saturation that actually read 29% when EMS was moving her over from stretcher to bed and O2 supplementation was briefly interrupted. She also has significant tachycardic, tachypneic, diaphoretic. She did improve with her work of breathing on nonrebreather, but her O2 saturation was only picking up in the low 80s. Tachycardia and tachypnea had improved however. Blood pressure noted to be trending downward. Workup included broad lab evaluation to evaluate for infectious, metabolic, cardiac causes symptoms as well as scans of the chest, abdomen, and pelvis. EKG was obtained that is not concerning for acute ischemia. Bedside echocardiogram was performed by Dr. Lorenzana and not concerning for pericardial effusion, tamponade, acute heart failure, but she does have possible concern for some right heart strain. I independently interpreted CT scans prior to the radiologist read and noted multifocal pneumonia but no large PE, nothing in the abdomen and pelvis. Please see their read for final interpretation. Labs were obtained that demonstrated acute kidney injury, acute liver injury, elevated troponin, elevated BNP, leukocytosis, elevated lactic acid. She is significantly hypoxic on ABG with PaO2 in the 30s. Ultimately, patient has multisystem organ failure, especially respiratory failure, with uncertain etiology. She does have multifocal pneumonia but I feel that her symptoms and exam are out of proportion. She does have a history of interstitial lung disease according to medical record review, but she was lost to follow-up. I treated the patient with IV methylprednisolone, vancomycin, cefepime, azithromycin as well as a bolus of IV fluids. I had an interactive discussion with the hospitalist and we both agreed that the patient would benefit from transfer to higher level of care. I had an interactive discussion with Dr. Meyer At who excepted the patient for transfer. Prior to that, I had spoken with both and [facility] who advised they had no beds. patient agreeable to transfer to . Prior to transfer, patient required escalating respiratory support including initially Vapotherm at 40 L and 100% FiO2 but then escalation to BiPAP. Patient care signed out to the oncoming provider, Dr. Lorenzana, while we are awaiting definitive transport to . <Damian Lorenzana MD - Last Filed: 02/27/24 03:45> Vital Signs Vital Signs: 02/26/24 21:42 02/26/24 22:00 02/26/24 22:15 Temperature 98.8 F Temperature Source Axillary Pulse Rate 61 108 H Pulse Rate [Right] 118 H Respiratory Rate 38 H 41 H 26 H Blood Pressure 115/80 Blood Pressure [Right Arm] 112/70 Blood Pressure Mean [Right Arm] 84 Blood Pressure Source Blood Pressure Source [Right Arm] Automatic Cuff Blood Pressure Position 02 Sat by Pulse Oximetry 74 L 42 L Oxygen Delivery Method Nasal Cannula Oxygen Flow Rate (LPM) 3 02/26/24 22:30 02/26/24 23:00 02/26/24 23:17 Temperature Temperature Source Pulse Rate Pulse Rate [Right] Respiratory Rate 46 H 16 Blood Pressure 126/78 115/73 Blood Pressure [Right Arm] Blood Pressure Mean [Right Arm] Blood Pressure Source Blood Pressure Source [Right Arm] Blood Pressure Position 02 Sat by Pulse Oximetry 88 L Oxygen Delivery Method Vapotherm Oxygen Flow Rate (LPM) 40 02/26/24 23:31 02/27/24 00:01 02/27/24 00:31 Temperature Temperature Source Pulse Rate 100 H 93 H 86 Pulse Rate [Right] Respiratory Rate 22 32 H Blood Pressure 96/55 L 112/73 109/68 L Blood Pressure [Right Arm] Blood Pressure Mean [Right Arm] Blood Pressure Source Blood Pressure Source [Right Arm] Blood Pressure Position 02 Sat by Pulse Oximetry 81 L 88 L 98 Oxygen Delivery Method Oxygen Flow Rate (LPM) 02/27/24 01:01 02/27/24 01:30 02/27/24 02:00 Temperature Temperature Source Pulse Rate 87 79 79 Pulse Rate [Right] Respiratory Rate 28 H 22 33 H Blood Pressure 98/69 L 119/69 126/85 Blood Pressure [Right Arm] Blood Pressure Mean [Right Arm] Blood Pressure Source Blood Pressure Source [Right Arm] Blood Pressure Position 02 Sat by Pulse Oximetry 91 L 95 94 L Oxygen Delivery Method Oxygen Flow Rate (LPM) 02/27/24 02:31 02/27/24 02:37 02/27/24 02:42 Temperature 98.8 F Temperature Source Oral Pulse Rate 66 79 Pulse Rate [Right] Respiratory Rate 43 H 45 H 38 H Blood Pressure 127/105 H 111/76 111/76 Blood Pressure [Right Arm] Blood Pressure Mean [Right Arm] Blood Pressure Source Automatic Cuff Blood Pressure Source [Right Arm] Blood Pressure Position Sitting 02 Sat by Pulse Oximetry 92 L Oxygen Delivery Method BiPAP Oxygen Flow Rate (LPM) Lab Data Labs: Lab Results 02/26/24 21:30: WBC 14.3 H, RBC 3.74 L, Hgb 10.6 L, Hct 32.2 L, MCV 86.0, MCH 28.4, MCHC 33.1, RDW 14.8, Plt Count 387, MPV 7.3 L, Neut % (Auto) 78.2, Lymph % (Auto) 17.4, Taylor % (Auto) 4.1, Eos % (Auto) 0.0 L, Baso % (Auto) 0.2, Neut # (Auto) 11.2 H, Lymph # (Auto) 2.5, Taylor # (Auto) 0.6, Eos # (Auto) 0.0, Baso # (Auto) 0.0, VBG pH 7.34, VBG pCO2 35.3, VBG pO2 33.0, VBG HCO3 18.5 L, VBG Total CO2 19.6 L, VBG O2 Saturation 54.0, VBG Base Excess -7.3 L, VBG Lactic Acid 5.0 H, Sodium 136, Potassium 4.6, Chloride 105, Carbon Dioxide 17 L, Anion Gap 18.6 H, BUN 23 H, Creatinine 1.10 H, Estimated Creat Clear 106, Estimated GFR 58 L, Est GFR ( Amer) 70, Glucose 140 H, Calcium 8.3 L, Total Bilirubin 0.9, A ST 431 H*, ALT 267 H, Alkaline Phosphatase 133 H, Troponin I 0.21 H, NT-Pro-B Natriuret Pep 25057 H, Total Protein 6.7, Albumin 3.6, Globulin 3.1, Albumin/Globulin Ratio 1.2, TSH 0.62, Thyroxine (T4) 5.9, Serum HCG, Qual Negative, HIV 1&2 Antibody Rapid Preliminary reactive 02/26/24 22:09: Chlamy pneumoniae PCR Not detected, Adenovirus (PCR) Not detected, B. pertussis DNA (PCR) Not detected, Coronavirus OC43 (PCR) Not detected, Coronavirus HKU1 (PCR) Not detected, Coronavirus 229E (PCR) Not detected, SARS-CoV-2 (PCR) Not detected, Coronavirus NL63 (PCR) Not detected, Human Metapneumovir PCR Not detected, Influenza A (H1) PCR Not detected, Influ A (H1N1/09) PCR Not detected, Influenza A (H3) PCR Not detected, Influenza Type A (PCR) Not detected, Influenza Type B (PCR) Not detected, M. pneumoniae (PCR) Not detected, Parainfluenza 1 (PCR) Not detected, Parainfluenza 2 (PCR) Not detected, Parainfluenza 3 (PCR) Not detected, Parainfluenza 4 (PCR) Not detected, RSV (PCR) Not detected, Entero/Rhino (PCR) Not detected 02/26/24 23:11: O2 % 6lnc, ABG pH 7.46 H, ABG pCO2 26.8 L, ABG pO2 31.2 L, ABG HCO3 18.5 L, ABG Total CO2 19.4 L, ABG O2 Saturation 56 L*, ABG Base Excess -5.3 L 02/26/24 23:20: Lactate 2.5 H 02/27/24 00:55: Troponin I 0.20 H Response Orders (Tests/Meds): ED MEDICATIONS Generic Name Dose Route Start Last Admin Trade Name Freq PRN Reason Stop Dose Admin Miscellaneous 1 each 02/26/24 22:00 02/26/24 22:49 Vancomycin Consult Request NOTAPPLIC 03/27/24 21:59 1 each CONSULT PHARMACY ABDI Administration Sodium Chloride 3 ml 02/26/24 21:33 02/26/24 22:09 Sodium Chloride 3% 15ml Neb IH 03/27/24 21:32 3 ml ONCE PRN Administration INDUCE SPUTUM COLLECTION Sodium Chloride 10 ml 02/26/24 23:59 02/27/24 00:00 Sodium Chloride 0.9% 10ml Syr (Rad Only) IV 03/27/24 23:58 10 ml NEEDED PRN Administration Maintain IV Site Discontinued Medications Generic Name Dose Route Start Last Admin Trade Name Freq PRN Reason Stop Dose Admin Diazepam 5 mg 02/27/24 00:07 02/27/24 00:09 Diazepam 10mg/2ml Syringe IV 02/27/24 00:08 5 mg ONCE ONE Administration Diazepam 5 mg 02/27/24 02:21 02/27/24 03:03 Diazepam 10mg/2ml Syringe IV 02/27/24 02:22 5 mg ONCE ONE Administration Cefepime HCl 2 gm/ Sodium 100 mls @ 200 mls/hr 02/26/24 21:58 02/26/24 23:35 Chloride IV 02/26/24 22:27 200 mls/hr ONCE ONE Administration Azithromycin 500 mg/ Sodium 250 mls @ 250 mls/hr 02/26/24 22:00 02/26/24 22:48 Chloride IV 02/26/24 22:01 250 mls/hr ONCE ONE Administration Lactated Ringer's 1,000 mls @ 999 mls/hr 02/26/24 21:58 02/26/24 22:05 Lactated Ringer's 1000 Ml Bag IV 02/26/24 22:58 Not Given .Q1H1M ONE Vancomycin HCl 2,250 mg/ 250 mls @ 125 mls/hr 02/26/24 22:15 02/26/24 22:48 Sodium Chloride IV 02/27/24 00:14 125 mls/hr ONCE ONE Administration Iopamidol 80 ml 02/26/24 23:59 02/27/24 00:00 Iopamidol-370 (76%);100ml Bottle IV 02/27/24 00:00 80 ml ONCE ONE Administration Methylprednisolone Sodium Succinate 125 mg 02/26/24 21:35 02/26/24 21:46 Methylprednisolone Sod Succ 125mg Vial IV 02/26/24 21:36 125 mg ONCE ONE Administration Ondansetron HCl 4 mg 02/26/24 23:06 02/26/24 23:16 Ondansetron 4mg/2ml Vial IV 02/26/24 23:07 4 mg ONCE ONE Administration Sodium Chloride 50 ml 02/26/24 23:59 02/27/24 00:00 0.9 % Sodium Chloride 50 Ml Vial IV 02/27/24 00:00 50 ml ONCE ONE Administration ORDERS Category Date Time Status CT abdomen pelvis w con Stat Cat Scan 02/26/24 22:38 Completed CTA Chest [CT angio chest PE protocol] Stat Cat Scan 02/26/24 21:30 Completed BNP [NT Pro Brain Natriuretic Pep.] Stat Lab 02/26/24 21:30 Completed Complete Blood Count Auto Diff Stat Lab 02/26/24 21:30 Completed Comprehensive Metabolic Panel Stat Lab 02/26/24 21:30 Completed Full Resp Panel w/COVID ([facility]) Routine Lab 02/26/24 22:09 Completed HIV (1&2) Antibody Rapid Stat Lab 02/26/24 21:30 Completed Hep C Ab with Reflex to RNA Stat Lab 02/26/24 22:46 Received Lactic Acid Follow Up (RFLX 1) Stat Lab 02/27/24 03:23 Ordered Lactic Acid Stat Lab 02/26/24 23:20 Completed Serum [HCG Qualitative, Serum] Stat Lab 02/26/24 21:30 Completed T4 (Thyroxine) Stat Lab 02/26/24 21:30 Completed TSH [Thyroid Stimulating Hormone] Stat Lab 02/26/24 21:30 Completed Trop I [Troponin I] Stat Lab 02/26/24 21:30 Completed Troponin I Q3H Lab 02/27/24 00:55 Completed Troponin I Q3H Lab 02/27/24 03:45 Ordered Blood Culture Stat Micro 02/26/24 22:22 Received Sputum Culture & Gram Stain Stat Micro 02/26/24 21:33 Ordered ABG [Arterial Blood Gas] Stat RT 02/26/24 23:11 Completed VBG [Venous Blood Gas] Stat RT 02/26/24 21:30 Completed MDM Narrative Medical Decision Narrative: In summary, this patient is a 33-year-old female presenting to the Emergency Department for evaluation of shortness of breath and feeling like she is dying. Differential diagnoses considered include but are not limited to pneumonia, acute on chronic respiratory failure, asthma, COPD, pulmonary edema, heart failure, PE. Ruling out the most morbid conditions drove assessment. It should be noted patient's history includes interstitial lung disease, bipolar disorder, anxiety and depression, chronic respiratory failure which are not at goal therapy. This complicates all aspects of care by increasing patient's risk for morbidity. I reviewed patient's past medical records and noted previous admission for respiratory failure with concern for possible immunocompromise state given severe respiratory failure in the setting of multifocal pneumonia On exam, the patient arrives critically ill-appearing in acute distress with an O2 saturation that actually read 29% when EMS was moving her over from stretcher to bed and O2 supplementation was briefly interrupted. She also has significant tachycardic, tachypneic, diaphoretic. She did improve with her work of breathing on nonrebreather, but her O2 saturation was only picking up in the low 80s. Tachycardia and tachypnea had improved however. Blood pressure noted to be trending downward. Workup included broad lab evaluation to evaluate for infectious, metabolic, cardiac causes symptoms as well as scans of the chest, abdomen, and pelvis. EKG was obtained that is not concerning for acute ischemia. Bedside echocardiogram was performed by Dr. Lorenzana and not concerning for pericardial effusion, tamponade, acute heart failure, but she does have possible concern for some right heart strain. I independently interpreted CT scans prior to the radiologist read and noted multifocal pneumonia but no large PE, nothing in the abdomen and pelvis. Please see their read for final interpretation. Labs were obtained that demonstrated acute kidney injury, acute liver injury, elevated troponin, elevated BNP, leukocytosis, elevated lactic acid. She is significantly hypoxic on ABG with PaO2 in the 30s. Ultimately, patient has multisystem organ failure, especially respiratory failure, with uncertain etiology. She does have multifocal pneumonia but I feel that her symptoms and exam are out of proportion. She does have a history of interstitial lung disease according to medical record review, but she was lost to follow-up. I treated the patient with IV methylprednisolone, vancomycin, cefepime, azithromycin as well as a bolus of IV fluids. I had an interactive discussion with the hospitalist and we both agreed that the patient would benefit from transfer to higher level of care. I had an interactive discussion with Dr. Meyer At who excepted the patient for transfer. Prior to that, I had spoken with both and [facility] who advised they had no beds. patient agreeable to transfer to . Prior to transfer, patient required escalating respiratory support including initially Vapotherm at 40 L and 100% FiO2 but then escalation to BiPAP. Patient care signed out to the oncoming provider, Dr. Lorenzana, while we are awaiting definitive transport to . Harriett MYLES: I assumed care of the patient at the time of handoff from the prior provider. On reassessment patient continues to sat in the high 80s. I adjusted her BiPAP settings to 18/10, 100%. On further reassessment, patient was accepted to and bed was available. We attempted to transition patient from the hospital BiPAP to the transport BiPAP. The patient became much more tachypneic to the 40s and was pulling significantly lower volumes. She remained alert and oriented and continued to sat mid 90s on those settings, but I am concerned that she would not be able to maintain that effort en route to . I had an interactive discussion with patient about the risks and benefits of intubation prior to transport versus transport with suboptimal support. We ultimately utilized shared decision making and decided to intubate patient prior to transfer. Intubation went well, she only desaturated to 80% and quickly recovered. Fowler and OG were placed, tube placement was confirmed with chest x-ray, on my interpretation it was appropriately placed. Patient was discharged and transported to for further assessment.
[2024-02-26 22:09] LABS: Albumin Level 3.6 g/dl (3.5-5.0); Chloride 105 mmol/L (98-107)
[2024-02-26] MEDS: SODIUM CHLORIDE 3% 15ML NEB 3 ML IH (22:09)
[2024-02-26 22:10] LABS: Potassium 4.6 mmoL/L (3.5-5.1); Sodium 136 mmol/L (136-145)
[2024-02-26 22:12] LABS: Alanine Aminotransferase 267 U/L (12-78); Blood Urea Nitrogen 23 mg/dl (7-17); Creatinine Clearance Estimated 106 mL/min (50-200); Estimated Glomerular Filt Rate 58 ml/min (>60); GFR (African American) 70 ML/MIN (>60)
[2024-02-26 22:12] LABS: Adenovirus,PCR Not Detected (NotDetected); Bordetella Pertussis Not Detected (NotDetected); Chlamydophila Pneumoniae, PCR Not Detected (NotDetected); Coronavirus 19, PCR Not Detected (NotDetected); Coronavirus 229E Not Detected (NotDetected); Coronavirus NL63 Not Detected (NotDetected); Coronavirus OC43 Not Detected (NotDetected); Coronovirus HKU1,PCR Not Detected (NotDetected); Human Metapneumovirus Not Detected (NotDetected); Influenza A, PCR Not Detected (NotDetected); Influenza AH1, 2009 Not Detected (NotDetected); Influenza AH1, PCR Not Detected (NotDetected); Influenza AH3,PCR Not Detected (NotDetected); Influenza B, PCR Not Detected (NotDetected); Mycoplasma Pneumoniae, PCR Not Detected (NotDetected); Parainfluenza 1, PCR Not Detected (NotDetected); Parainfluenza 2, PCR Not Detected (NotDetected); Parainfluenza 3, PCR Not Detected (NotDetected); Parainfluenza 4, PCR Not Detected (NotDetected); Respiratory Syncytial Virus Not Detected (NotDetected); Rhinovirus/Enterovirus Not Detected (NotDetected)
[2024-02-26 22:13] LABS: Albumin/Globulin Ratio 1.2 (1.1-1.8); Alkaline Phosphatase 133 U/L (38-126); Anion Gap 18.6 mEq/L (5-15); Aspartate Amino Transferase 431 U/L (14-36); Bilirubin,Total 0.9 mg/dl (0.2-1.3); Calcium 8.3 mg/dl (8.4-10.2); Carbon Dioxide 17 mmol/L (22.0-30.0); Globulin 3.1 g/dL (1.3-3.2); Glucose 140 mg/dl (74-100); Total Protein,Serum 6.7 g/dl (6.3-8.2)
[2024-02-26 22:22] LABS: NT Pro Brain Natriuretic Pep. 13600 pg/mL (0-125)
[2024-02-26 22:29] LABS: T4 (Thyroxine) 5.9 ug/dl (5.53-11.0)
[2024-02-26 22:35] LABS: Troponin I 0.21 ng/ml (0.00-0.034)
--- NOTE | 2024-02-26 22:38 | CT_ITS ---
PROCEDURE INFORMATION: Exam: CT Abdomen And Pelvis With Contrast Exam date and time: 02/26/2024 11:53 PM Age: 33 years old Clinical indication: Abdominal pain; Additional info: Abd pain, transaminitis TECHNIQUE: Imaging protocol: Computed tomography of the abdomen and pelvis with contrast. 3D rendering (Not supervised by radiologist): MIP and/or 3D reconstructed images were created by the technologist. Radiation optimization: All CT scans at this facility use at least one of these dose optimization techniques: automated exposure control; mA and/or kV adjustment per patient size (includes targeted exams where dose is matched to clinical indication); or iterative reconstruction. Contrast material: ISOVUE; Contrast volume: 80 ml; Contrast route: IV; COMPARISON: CT ANGIO CHEST PE PROTOCOL 02/26/2024 11:53 PM FINDINGS: Lungs: There is ground-glass opacities in the lung bases concerning for pneumonia Liver: Hepatomegaly and fatty liver the 26 cm Gallbladder and biliary ducts: Cholecystectomy Pancreas: Normal. No ductal dilation. Spleen: Normal. No splenomegaly. Adrenal glands: Normal. No mass. Kidneys and ureters: Normal. No hydronephrosis. Stomach and bowel: Constipation. No colitis or small bowel obstruction. Appendix: Appendectomy Intraperitoneal space: Unremarkable. No free air. No significant fluid collection. Vasculature: Unremarkable. No abdominal aortic aneurysm. Lymph nodes: Unremarkable. No enlarged lymph nodes. Urinary bladder: Unremarkable as visualized. Reproductive: Unremarkable as visualized. Bones/joints: Unremarkable. No acute fracture. Soft tissues: Unremarkable. IMPRESSION: No acute findings in the abdomen pelvis.
[2024-02-26 22:42] LABS: Thyroid Stimulating Hormone 0.62 uIU/mL (0.465-4.68)
[2024-02-26] MEDS: AZITHROMYCIN 500 MG in 0.9 % SODIUM CHLORIDE 250 ML 250 MG IV (22:48)
[2024-02-26] MEDS: VANCOMYCIN HCL 2,250 MG in 0.9 % SODIUM CHLORIDE 250 ML 125 MG IV (22:48)
[2024-02-26] MEDS: VANCOMYCIN CONSULT REQUEST 1 EACH NOTAPPLIC (22:49)
[2024-02-26 23:12] LABS: ABG Base Excess -5.3 mmol/L (-2.4-2.3); ABG HCO3 18.5 mmhg (22.0-26.0); ABG Oxygen Saturation 56 % (90-100); ABG PCO2 26.8 mmhg (35.0-45.0); ABG PH 7.46 mmol/L (7.35-7.45); ABG TCO2 19.4 mmhg (23-27)
--- NOTE | 2024-02-26 23:14 | PC.NURSE ---
pt reports worsening SOA, spo2 58%. pt placed on NRB. Pt is now up to 82%. A Ciro MYLES notified. Order received to place pt on vapotherm. RT notified.
[2024-02-26] MEDS: ONDANSETRON 4MG/2ML VIAL 4 MG IV (23:16)
--- NOTE | 2024-02-26 23:24 | PC.NURSE ---
pt placed on vapotherm by RT. 40LPM, 100% FIO2
[2024-02-26] MEDS: CEFEPIME HCL 2 GM in 0.9 % SODIUM CHLORIDE 100 ML IV (23:35)
[2024-02-26 23:37] LABS: Lactic Acid 2.5 mmol/L (0.7-2.1)
[2024-02-26 23:51] LABS: ABG PO2 31.2 mmhg (80-100); Oxygen 6LNC %
[2024-02-27] VITALS (15 sets, daily range): BP systolic 98–155; BP diastolic 68–118; PULSE 66–93; RESP 14–45; TEMP 37.1; O2SAT 88–99
[2024-02-27] MEDS: SODIUM CHLORIDE 0.9% 10ML SYR (RAD ONLY) 10 ML IV
[2024-02-27] MEDS: IOPAMIDOL-370 (76%);100ML BOTTLE 80 ML IV
[2024-02-27] MEDS: 0.9 % SODIUM CHLORIDE 50 ML VIAL IV
[2024-02-27] MEDS: diazePAM 10MG/2ML SYRINGE 5 MG IV ×2 (00:09→03:03)
--- NOTE | 2024-02-27 00:31 | PC.NURSE ---
Pt placed on bipap @0117 settings- 14/12, rate 18, FIO2 80%
--- NOTE | 2024-02-27 00:44 | PC.NURSE ---
report called to Nathan MONROY at [facility]
--- NOTE | 2024-02-27 01:13 | PC.NURSE ---
Attempted to call EMS for transport, no answer X 2
--- NOTE | 2024-02-27 01:18 | PC.NURSE ---
pts O2 sat was 89-90% settings are now 13/02, 100% FIO2
--- NOTE | 2024-02-27 01:25 | PC.NURSE ---
spoke with [facility] for pt transport.
[2024-02-27] MEDS: ETOMIDATE 40MG/20ML VIAL 40 MG IV (03:20)
[2024-02-27] MEDS: SUCCINYLCHOLINE 20MG/ML 10 ML MDV 140 MG IV (03:21)
[2024-02-27 03:23] LABS: Reflex Lactic Add Lactic Reflex
--- NOTE | 2024-02-27 03:29 | XR_ITS ---
PROCEDURE INFORMATION: Exam: XR Chest Exam date and time: 02/27/2024 3:33 AM Age: 33 years old Clinical indication: Device placement; Ett placement (vent status); Additional info: Post intubation TECHNIQUE: Imaging protocol: Radiologic exam of the chest. Views: 1 view. COMPARISON: CT ANGIO CHEST PE PROTOCOL 02/26/2024 11:53 PM FINDINGS: Tubes, catheters and devices: ET tube and NG tube in good position. Lungs: Patchy bilateral airspace disease. Pleural spaces: Unremarkable. No pleural effusion. No pneumothorax. Heart/Mediastinum: Unremarkable. No cardiomegaly. Bones/joints: Unremarkable. IMPRESSION: ET tube and NG tube in good position. Patchy bilateral airspace disease.
--- NOTE | 2024-02-27 03:45 | PC.NURSE ---
Event Note: 0312- Dr Lorenzana at bedside s/w pt regarding need for intubation and risks for compromised airway in route to UC. Pt agrees. BP 119/91, HR 76, sat 99% on bipap, RR 33 031- BP 116/84, RR 30, 100% sat on bipap, HR 78 0320- Etomidate [address] Lorenzana 032- Succinycholine 140mg given by Dr. Lorenzana 0322- Dr. Lorenzana successfully intubates pt with 7.5 ETT, 21 cm @ lip. BP 108/76, HR 80, 100% bagged, RR 19. Equal chest rise, and good color change on CO2 detector. 0326- 16 fr felton catheter placed, OG 18 fr placed to 60cm depth- immediate return of gastric contents 032- Propofol started at 15mcg/kg/min 034- Fentanyl started @ 25 mcg/hr per Dr. Lorenzana
--- NOTE | 2024-02-27 03:54 | PC.NURSE ---
pt leaving with EMS and Souleymane Iraheta RN to monitor and titrate sedation gtts
[2024-02-27] MEDS: NOREPINEPHRINE BITARTRATE/D5W 8 MG/250 ML PLAST..BAG 15 MG IV (07:13)
[2024-02-27] MEDS: propofoL 100 ML 2.72 MG IV (07:17)
[2024-02-28 08:21] LABS: HCV Ab Non Reactive (Non Reactive)
[2024-02-28 09:15] LABS: HIV Screen 4th Generation wRfx Non Reactive (Non Reactive)
== END 2024-02-27 04:00 | disposition short-term general hospital (02) ==
PROVIDERS: Emergency Medicine; Emergency Provider Emergency Medicine
DX: J18.9 Pneumonia, unspecified organism (principal); R79.89 Other specified abnormal findings of blood chemistry; R57.9 Shock, unspecified; I50.9 Heart failure, unspecified; N17.9 Acute kidney failure, unspecified; R06.02 Shortness of breath; R06.00 Dyspnea, unspecified; R05.9 Cough, unspecified; R09.81 Nasal congestion; S36.119A Unspecified injury of liver, initial encounter
CPT/HCPCS: 31500; 51702; 71045; 71275; 74177; 80053; 82803; 83605; 83880; 84436; 84443; 84484; 84703; 85025; 86703; 86803; 87040; 87265; 87389; 87486; 87581; 87632; 87635; 93005; 96374; 96375; 99291; 99292; G0432; J0330; J0456; J2405; J2704; J2919; J3360; J3370; J7050; Q9967

== ENCOUNTER 2024-05-17 23:24 | Observation (INO) | payer OTHER, SELFPAY ==
[2024-05-17 23:26] VITALS: BP 144/96; PULSE 92; RESP 24; TEMP 36.9; O2SAT 95; BMI 35.6
--- NOTE | 2024-05-17 23:33 | CT_ITS ---
PROCEDURE INFORMATION: Exam: CTA Chest With Contrast Exam date and time: 05/18/2024 2:28 AM Age: 33 years old Clinical indication: Other: Hypoxia; Additional info: Hypoxia, syncope, known ild TECHNIQUE: Imaging protocol: Computed tomographic angiography of the chest with contrast. Exam focused on the arteries. 3D rendering (Not supervised by radiologist): MIP and/or 3D reconstructed images were created by the technologist. Radiation optimization: All CT scans at this facility use at least one of these dose optimization techniques: automated exposure control; mA and/or kV adjustment per patient size (includes targeted exams where dose is matched to clinical indication); or iterative reconstruction. Contrast material: ISOVUE; Contrast volume: 70 ml; Contrast route: INTRAVENOUS (IV); COMPARISON: CT ANGIO CHEST PE PROTOCOL 02/26/2024 11:53 PM FINDINGS: Pulmonary arteries: Normal. No pulmonary emboli. Aorta: Unremarkable. No aortic aneurysm. No aortic dissection. Lungs: Extensive bilateral airspace consolidation. Pleural spaces: Unremarkable. No pneumothorax. No pleural effusion. Heart: Unremarkable. No cardiomegaly. No pericardial effusion. Lymph nodes: Enlarged paratracheal and prevascular lymph nodes measuring up to 1 cm in short axis. Bones/joints: Unremarkable. No acute fracture. Soft tissues: Unremarkable. IMPRESSION: Extensive bilateral airspace consolidation. Suspicious for pneumonia.
--- NOTE | 2024-05-17 23:33 | XR_ITS ---
PROCEDURE INFORMATION: Exam: XR Chest Exam date and time: 05/18/2024 2:36 AM Age: 33 years old Clinical indication: Shortness of breath; Additional info: SOA TECHNIQUE: Imaging protocol: Radiologic exam of the chest. Views: 1 view. COMPARISON: CT ANGIO CHEST PE PROTOCOL 05/18/2024 2:28 AM FINDINGS: Lungs: Extensive bilateral airspace consolidation, more prominent on the right. Pleural spaces: Unremarkable. No pleural effusion. No pneumothorax. Heart/Mediastinum: Unremarkable. No cardiomegaly. Bones/joints: Unremarkable. IMPRESSION: Extensive bilateral airspace consolidation, more prominent on the right. Suspicious for pneumonia.
[2024-05-18] VITALS (8 sets, daily range): BP systolic 120–149; BP diastolic 72–99; PULSE 81–93; RESP 16–28; TEMP 36.6–36.9; O2SAT 96–99
[2024-05-18 00:03] LABS: Hematocrit 34.1 % (37.0-47.0); Hemoglobin 11.1 g/dL (12.2-16.2); Mean Corpuscular HGB Conc 32.6 g/dL (31.8-35.4); Mean Corpuscular Hemoglobin 26.9 pg (27.0-31.2); Mean Corpuscular Volume 82.8 fl (81-99); Red Blood Count 4.12 M/mm3 (4.20-5.40); Red Cell Distribution Width 14.3 % (11.5-17.5); White Blood Count 17.6 K/mm3 (4.8-10.8)
[2024-05-18 00:04] LABS: Basophils % 0.2 % (0.1-2.0); Eosinophils # 0.1 K/mm3 (0.0-0.4); Eosinophils % 0.3 % (0.1-12.0); Lymphocytes # 2.1 K/mm3 (0.7-4.5); Lymphocytes % 12.1 % (10-50); Mean Platelet Volume 8.9 fl (7.4-10.4); Monocytes # 0.7 K/mm3 (0.1-1.0); Monocytes % 4.2 % (1.7-9.3); Neutrophils # 14.4 K/mm3 (1.8-7.8); Neutrophils % 82.1 % (37.0-80.0); Platelet Count 316 K/mm3 (142-424)
[2024-05-18 00:07] LABS: MANUAL DIFFERENTIAL MANUAL DIFFERENTIAL (MANUAL DIFF)
[2024-05-18 00:08] LABS: HCG Qualitative, Serum Negative (Negative)
[2024-05-18] MEDS: LACTATED RINGERS 1000ML 1,000 ML 999 ML IV ×2 (00:09→02:04)
[2024-05-18] MEDS: IPRATROPIUM/ALBUTEROL 3 ML NEB 9 ML IH (00:09)
[2024-05-18] MEDS: METHYLPREDNISOLONE SOD SUCC 125MG VIAL 125 MG IV (00:09)
[2024-05-18 00:10] LABS: Alanine Aminotransferase 25 U/L (12-78); Albumin Level 3.9 g/dl (3.5-5.0); Albumin/Globulin Ratio 1.3 (1.1-1.8); Alkaline Phosphatase 118 U/L (38-126); Anion Gap 11.4 mEq/L (5-15); Aspartate Amino Transferase 39 U/L (14-36); Bilirubin,Total 0.5 mg/dl (0.2-1.3); Blood Urea Nitrogen 7 mg/dl (7-17); Calcium 8.9 mg/dl (8.4-10.2); Carbon Dioxide 25 mmol/L (22.0-30.0); Chloride 106 mmol/L (98-107); Estimated Glomerular Filt Rate 98 ml/min (>60); GFR (African American) 118 ML/MIN (>60); Globulin 3.1 g/dL (1.3-3.2); Glucose 101 mg/dl (74-100); Potassium 3.4 mmoL/L (3.5-5.1); Sodium 139 mmol/L (136-145)
--- NOTE | 2024-05-18 00:10 | ECG_ITS ---
APPROVED REPORT Exam: Resting ECG HR:93 bpm ECG Measurements Heart Rate 93 AXES VT 171 P 24 QRSd 77 QRS 18 QT 344 T 8 QTc 394 Conclusion SINUS RHYTHM LOW QRS VOLTAGE IN PRECORDIAL LEADS [QRS DEFLECTION < 1.0 mV IN CHEST LEADS] No STEMI Electronically signed by : JT ARAUJO, 05/18/2024 08:27:37
--- NOTE | 2024-05-18 00:11 | [facility].EDCP ---
Discharge Plan Disposition Patient Disposition: Admitted Condition: Fair Chief Complaint: Shortness of Breath/Dyspnea Clinical Impressions Clinical Impression: Sepsis, ILD (interstitial lung disease), Pneumonia, Hypoxia, Acidosis, lactic Discharge ED Provider: Lisandro Hernandez General Chief Complaint: Shortness of Breath/Dyspnea Stated Complaint: ILDA, passed out 05/16 Time Seen by Provider: 05/17/24 23:30 History of Present Illness HPI narrative: 33-year-old female with history of interstitial lung disease, reactive airway disease who was transferred to [facility] in January with acute hypoxic respiratory failure with multiorgan failure, heart failure, shock presents to the ER with shortness of breath. Patient reports she wears anywhere from 2 L to 5 L nasal cannula at home. She states recently she has not been needing the nasal cannula at all however the last 2 days she started getting sick with difficulty breathing and feeling generally unwell. She states she is having significant shortness of breath anytime she walks or does anything physical. She states she has to crawl up the stairs. Yesterday she was so short of breath she had an episode of syncope. Patient reports she has not yet established care with pulmonology because she was having problems with insurance but was going to call their office tomorrow. Patient reportedly signed out AMA from [facility] after her last admission so she is not on any medications for her heart. During that admission she was intubated on a ventilator for respiratory support. She states she came to the ER early in her illness this time hoping to avoid all of those problems. Patient states yesterday when she syncopized she had become extremely short of breath and then lost consciousness, she did strike her head but does not take blood thinners, has not had altered mental status since that time. Patient is afraid she is developing pneumonia because every time she has the symptoms that is what has happened. She denies fever, cough, sore throat, vomiting, diarrhea, or peripheral swelling. Related Data Home Medications ?Medication ?Instructions ?Recorded ?Confirmed aripiprazole 10 mg tablet 10 mg PO HS 12/15/23 12/16/23 buprenorphine 8 mg-naloxone 2 mg 2 tab sublingual DAILY 12/15/23 12/16/23 sublingual tablet buspirone 15 mg tablet 15 mg PO TID 12/15/23 12/16/23 fluoxetine 20 mg capsule 20 mg PO DAILY 12/15/23 12/16/23 gabapentin 800 mg tablet 800 mg PO TID 12/15/23 12/16/23 quetiapine 50 mg tablet 50 mg PO HS 12/15/23 12/16/23 fluoxetine 40 mg capsule 40 mg PO DAILY 12/16/23 12/16/23 Previous Rx's ?Medication ?Instructions ?Recorded itraconazole 100 mg capsule 100 mg PO DAILY #14 caps 12/20/23 levofloxacin 750 mg tablet 750 mg PO DAILY #14 tabs 12/20/23 prednisone 20 mg tablet 40 mg (2 x 20 mg) PO DAILY #28 tabs 12/20/23 sulfamethoxazole 400 1 tab PO BID #28 tabs 12/20/23 mg-trimethoprim 80 mg tablet (Bactrim) Allergies Allergy/AdvReac Type Severity Reaction Status Date / Time No Known Allergies Allergy Verified 12/15/23 22:24 [facility] Disclaimer: The information contained in this section may have been updated after the patient was seen, as this information can be updated by other users. Medical History ILD (interstitial lung disease) Endometriosis Acute DE Anxiety Depression Bipolar disorder Surgical History History of cholecystectomy Hx of tonsillectomy Delivery by section Family History Other Cancer Social History Smoking Status: Current every day smoker alcohol intake: never current occupational status: employed Travel in the last 8 weeks: None Have you lived/traveled outside [place] in past 30 days?: No Contact w/someone who lives/traveled outside [place] past 30 days?: No Exposure to someone with infectious disease in past 14 days?: No Do you have a fever (greater than 100.4 F or 38 C)?: No Have you tested positive for COVID-19: No Exposed to someone with COVID-19 in past 14 days?: No Do you have a sore throat?: No Do you have a cough?: No Do you have any weakness?: No Do you have any diarrhea?: No Are you experiencing any unusual bleeding?: No Do you have any muscle aches/pain?: No Do you have any abdominal pain?: No Are you experiencing loss of taste or smell?: No Other Medical History Have you received the Flu Vaccine for this season: No Have you received the Pneumonia Vaccine: No ROS Obtained: Yes Systems reviewed as appropriate & no additional complaints except as documented Per HPI Physical Exam General General appearance: alert, in no apparent distress and obese Head Head exam: atraumatic and normocephalic Eye Eye exam: Present PERRL and EOMI ENT ENT exam: Present mucous membranes moist Neck Neck exam: Present normal inspection and full ROM Chest Chest inspection: Present symmetric chest wall rise Respiratory Respiratory exam: Present other (87 to 88% on room air on arrival, tachypneic); Absent normal lung sounds bilaterally (Diminished throughout but no obvious rhonchi or rales), stridor, accessory muscle use or prolonged expiratory phase Cardiovascular Cardiovascular exam: Present normal rhythm and tachycardia (tachycardic rate 100-105 during my exam) Abdominal Exam Abdominal exam: Present soft; Absent distention or tenderness Extremities Exam Extremities exam: Present full ROM, normal capillary refill and other (2+ peripheral pulses); Absent edema Neurological Exam Neurological exam: Present alert and oriented X3; Absent motor sensory deficit Psychiatric Psychiatric exam: Present normal affect and normal mood Skin Skin exam: Present warm and dry HEART Score HEART Score HEART Score assessment performed?: Yes History (anamnesis): Slightly suspicious ECG: Non-specific disturbance Age: <45 years Risk factors: 1-2 risk factors Troponin: </= normal limit HEART Score: 2 Procedures Miscellaneous Procedure Procedure Performed: Ultrasound-guided IV Indication: Need for peripheral IV access, multiple other failed attempts Risk and benefits discussed by me with the patient, verbal consent provided Procedure details: 20-gauge IV placed in left upper extremity near the antecubital fossa under ultrasound guidance. First attempt success, draws and flushes, secured with Tegaderm Post-procedure: Patient neurovascularly intact, no change in status, tolerated procedure well Critical Care Critical Care Time Critical Care Time: Yes Attestation: On 05/17/24, the high probability of a clinically significant, sudden or life threatening deterioration of the following system(s) (respiratory, hemodynamic) required my full and direct attention, intervention and personal management. The time I documented below is in addition to time spent performing reported procedures but includes the following listed in this critical care notation. Total Time Total Critical Care Time: 35 Medical Decision Making Medical Records Medical records reviewed: Yes I reviewed the patient's medical records. MR Comment: Review of most recent ER note demonstrates patient was transferred to [facility] on a ventilator for multiorgan failure, heart failure, hypoxic respiratory failure. Emir Inquiry Pt receiving controlled substance: No Vital Signs Vital Signs: 05/17/24 23:26 05/18/24 00:03 05/18/24 02:14 Temperature 98.5 F Temperature Source Oral Pulse Rate 87 93 H Pulse Rate [Right Radial] 92 H Respiratory Rate 24 19 Blood Pressure 120/79 147/99 H Blood Pressure [Right Arm] 144/96 H Blood Pressure Mean 100 Blood Pressure Mean [Right Arm] 112 Blood Pressure Source Blood Pressure Source [Right Arm] Automatic Cuff Blood Pressure Position Blood Pressure Position [Right Arm] Supine 02 Sat by Pulse Oximetry 95 99 97 Oxygen Delivery Method Nasal Cannula Nasal Cannula Oxygen Flow Rate (LPM) 2 3 05/18/24 02:15 05/18/24 02:41 05/18/24 03:38 Temperature 98.4 F Temperature Source Oral Pulse Rate 86 81 Pulse Rate [Right Radial] Respiratory Rate 18 28 H 20 Blood Pressure 144/99 H 148/90 H 149/92 H Blood Pressure [Right Arm] Blood Pressure Mean Blood Pressure Mean [Right Arm] Blood Pressure Source Manual Cuff/ Auscultation Blood Pressure Source [Right Arm] Blood Pressure Position Supine Blood Pressure Position [Right Arm] 02 Sat by Pulse Oximetry 96 96 Oxygen Delivery Method Nasal Cannula Oxygen Flow Rate (LPM) 3 05/18/24 04:00 05/18/24 04:28 Temperature 97.9 F Temperature Source Oral Pulse Rate 83 82 Pulse Rate [Right Radial] Respiratory Rate 19 18 Blood Pressure 132/83 138/72 Blood Pressure [Right Arm] Blood Pressure Mean Blood Pressure Mean [Right Arm] Blood Pressure Source Automatic Cuff Blood Pressure Source [Right Arm] Blood Pressure Position Supine Blood Pressure Position [Right Arm] 02 Sat by Pulse Oximetry 96 Oxygen Delivery Method Nasal Cannula Oxygen Flow Rate (LPM) Lab Data Labs: Lab Results 05/17/24 23:33: VBG pH 7.33, VBG pCO2 43.8, VBG pO2 32.5, VBG HCO3 22.6 L, VBG Total CO2 23.9, VBG O2 Saturation 63.3, VBG Base Excess -3.4 L, VBG Lactic Acid 2.1 H 05/17/24 23:42: WBC 17.6 H, RBC 4.12 L, Hgb 11.1 L, Hct 34.1 L, MCV 82.8, MCH 26.9 L, MCHC 32.6, RDW 14.3, Plt Count 316, MPV 8.9, Neut % (Auto) 82.1 H, Lymph % (Auto) 12.1, Moca % (Auto) 4.2, Eos % (Auto) 0.3, Baso % (Auto) 0.2, Neut # (Auto) 14.4 H, Lymph # (Auto) 2.1, Moca # (Auto) 0.7, Eos # (Auto) 0.1, Baso # (Auto) 0.0, Total Counted 100, Neutrophils % (Manual) 87 H, Lymphocytes % (Manual) 12, Monocytes % (Manual) 1 L, Platelet Estimate Normal, RBC Morphology Normal, PT 10.0, INR 0.90, Sodium 139, Potassium 3.4 L, Chloride 106, Carbon Dioxide 25, Anion Gap 11.4, BUN 7, Creatinine 0.70, Estimated GFR 98, Est GFR ( Amer) 118, Glucose 101 H, Calcium 8.9, Total Bilirubin 0.5, AST 39 H, ALT 25, Alkaline Phosphatase 118, Troponin I < 0.01, NT-Pro-B Natriuret Pep 570 H, Total Protein 7.0, Albumin 3.9, Globulin 3.1, Albumin/Globulin Ratio 1.3, Serum HCG, Qual Negative 05/18/24 03:25: Troponin I < 0.01 05/17/24 23:42 05/17/24 23:42 Response Orders (Tests/Meds): ED MEDICATIONS Generic Name Dose Route Start Last Admin Trade Name Freq PRN Reason Stop Dose Admin Acetaminophen 650 mg 05/18/24 04:23 Acetaminophen 325mg Tab PO 06/17/24 04:22 Q4HP PRN Fever or Mild Pain (1-3) Enoxaparin Sodium 40 mg 05/18/24 09:00 Enoxaparin 40mg/0.4ml Syringe SUBCUT 06/17/24 08:59 DAILY ABDI Piperacillin Sod/Tazobactam 100 mls @ 200 mls/hr 05/18/24 00:15 05/18/24 01:56 Sod 4.5 gm/ Sodium Chloride IV 05/28/24 00:14 200 mls/hr Q8H ABDI Administration Ibuprofen 400 mg 05/18/24 04:23 Ibuprofen 400 Mg Tablet PO 06/17/24 04:22 Q6HP PRN Mild Pain (1-3) Miscellaneous 1 each 05/18/24 00:15 05/18/24 02:11 Vancomycin Consult Request NOTAPPLIC 06/17/24 00:14 1 each CONSULT PHARMACY ABDI Administration Ondansetron HCl 4 mg 05/18/24 04:23 Ondansetron 4mg/2ml Vial IV 06/17/24 04:22 Q8HP PRN Nausea Pantoprazole Sodium 40 mg 05/18/24 21:00 Pantoprazole 40mg Tablet PO 06/17/24 20:59 HS ABDI Sodium Chloride 10 ml 05/18/24 02:43 05/18/24 02:44 Sodium Chloride 0.9% 10ml Syr (Rad Only) IV 06/17/24 02:42 10 ml NEEDED PRN Administration Maintain IV Site Discontinued Medications Generic Name Dose Route Start Last Admin Trade Name Freq PRN Reason Stop Dose Admin Albuterol/Ipratropium 9 ml 05/17/24 23:53 05/18/24 00:09 Ipratropium/Albuterol 3 Ml Neb IH 05/17/24 23:54 9 ml ONCE ONE Administration Lactated Ringer's 1,000 mls @ 999 mls/hr 05/17/24 23:49 05/18/24 00:09 Lactated Ringer's 1000 Ml Bag IV 05/18/24 00:49 999 mls/hr .Q1H1M ONE Administration Lactated Ringer's 1,000 mls @ 999 mls/hr 05/18/24 00:09 05/18/24 02:04 Lactated Ringer's 1000 Ml Bag IV 05/18/24 01:09 999 mls/hr .Q1H1M ONE Administration Vancomycin HCl 2,500 mg/ 500 mls @ 250 mls/hr 05/18/24 00:30 05/18/24 02:10 Sodium Chloride IV 05/18/24 02:29 250 mls/hr ONCE ONE Administration Iopamidol 70 ml 05/18/24 02:43 05/18/24 02:44 Iopamidol-370 (76%);100ml Bottle IV 05/18/24 02:44 70 ml ONCE ONE Administration Methylprednisolone Sodium Succinate 125 mg 05/17/24 23:53 05/18/24 00:09 Methylprednisolone Sod Succ 125mg Vial IV 05/17/24 23:54 125 mg ONCE ONE Administration Sodium Chloride 50 ml 05/18/24 02:43 05/18/24 02:44 0.9 % Sodium Chloride 50 Ml Vial IV 05/18/24 02:44 50 ml ONCE ONE Administration ORDERS Category Date Time Status CT angio chest PE protocol Stat Cat Scan 05/17/24 23:33 Completed XR chest portable Stat Exams 05/17/24 23:33 Completed Complete Blood Count Auto Diff Stat Lab 05/17/24 23:42 Completed Comprehensive Metabolic Panel Stat Lab 05/17/24 23:42 Completed HCG Qualitative, Serum Stat Lab 05/17/24 23:42 Completed NT Pro Brain Natriuretic Pep. Stat Lab 05/17/24 23:42 Completed Prothrombin Time INR Stat Lab 05/17/24 23:42 Completed Troponin I Q3H Lab 05/18/24 03:25 Completed Troponin I Q3H Lab 05/18/24 05:45 Ordered Troponin I Stat Lab 05/17/24 23:42 Completed Urinalysis and Microscopic Stat Lab 05/18/24 00:12 Ordered Blood Culture Stat Micro 05/18/24 00:35 Received Venous Blood Gas Stat RT 05/17/24 23:33 Completed Tissue Perfus/Sepsis Re-Eval Sepsis Re-Evaluation Performed: Yes Date Performed: 05/18/24 Time Performed: 04:00 [facility] Narrative Medical Decision Narrative: In summary, this 33-year-old female with comorbidities described in the HPI presents to the emergency department today with dyspnea on exertion, syncope, generalized malaise. On initial evaluation patient is tachycardic, hypoxic on room air but oxygenating well on 3 L nasal cannula satting 96%, she was tachypneic but no accessory muscle use, no stridor, mildly diminished throughout but no obvious rhonchi or rales, no peripheral edema, abdomen soft, nontender, nondistended, GCS 15, remainder of exam reassuring. Differential diagnosis includes but is not limited to sepsis, viral syndrome, pneumonia, electrolyte abnormality, dehydration, hypercarbia, lactic acidosis, UTI, PE, pneumothorax, exacerbation of interstitial lung disease, among others. Based on these concerns, I ordered broad workup including serum labs, cardiac workup, CTA PE, breathing treatments, VBG. ECG personally interpreted demonstrates sinus rhythm, rate 93, normal axis, normal [place] and QTc, no STEMI. Patient received DuoNebs, Solu-Medrol, IV fluids, full sepsis bolus was not administered due to patient's history of heart failure and previously elevated BNP greater than 13,000 based on my review of previous labs, once patient's leukocytosis confirmed my suspicions for sepsis, she also received broad-spectrum antibiotics for treatment. On reassessment after DuoNeb's patient is saturating well and breathing comfortably, tachypnea has somewhat improved. No change in breath sounds. Labs personally reviewed demonstrate leukocytosis WBC 17.6, this further supports my suspicion for sepsis. Patient is receiving broad-spectrum antibiotics. Labs also demonstrate anemia with hemoglobin 11.1 slightly improved from previous, PT/INR normal, VBG with normal pH, lactic 2.1 which is elevated, patient is receiving IV fluids. CMP notable for trace elevation in AST which is nonactionable, trace hypokalemia, troponin undetectably low less than 0.01, BNP elevated at 570 but significantly improved from patient's visit in January. Chest x-ray personally interpreted demonstrates bilateral parenchymal infiltrates, see radiology read for final interpretation. CTA PE personally interpreted does not demonstrate large PE, no pleural effusion, bilateral airspace consolidation present. Concern for pneumonia. See radiology read for final potation. I have recommended admission to the patient. She initially pushed back stating she has kids at home to take care of and does not want to burden other people with taking care of them. After further discussion with her including risks of leaving especially since she meets criteria for sepsis send has obvious pneumonia, as well as reminding her of the severe condition in which she found herself in January after similar circumstances, she agreed to be admitted. I discussed this case with the hospitalist. After reviewing labs and imaging, he agrees with the plan for admission. Patient accepted for admission and admitted in stable condition.
[2024-05-18 00:18] LABS: VBG Base Excess -3.4 mmol/L (-2.4-2.3); VBG HCO3 22.6 mmol/L (23-30); VBG Oxygen Saturation 63.3 % (50-70); VBG PCO2 43.8 mmol/L (35-51); VBG PH 7.33 mmol/L (7.31-7.41); VBG PO2 32.5 mmol/L (28-40); VBG Total CO2 23.9 mmol/L (23-27)
[2024-05-18 00:20] LABS: Lactate Venous 2.1 mmol/L (0.4-2.0)
[2024-05-18 00:22] LABS: NT Pro Brain Natriuretic Pep. 570 pg/mL (0-125)
[2024-05-18 00:23] LABS: Troponin I < 0.01 ng/ml (0.00-0.034)
[2024-05-18 00:28] LABS: Lymphocytes % 12 % (10-50); Monocytes % 1 % (2-9); Neutrophils % 87 % (42-76); Total Cells Counted 100
[2024-05-18 00:29] LABS: Platelet Estimate Normal; RBC Morphology Normal
[2024-05-18] MEDS: PIPERACILLIN/TAZO 4.5 GM in 0.9 % SODIUM CHLORIDE 100 ML IV (01:56)
[2024-05-18] MEDS: VANCOMYCIN HCL 2,500 MG in 0.9 % SODIUM CHLORIDE 500 ML 250 MG IV (02:10)
[2024-05-18] MEDS: VANCOMYCIN CONSULT REQUEST 1 EACH NOTAPPLIC (02:11)
[2024-05-18] MEDS: SODIUM CHLORIDE 0.9% 10ML SYR (RAD ONLY) 10 ML IV (02:44)
[2024-05-18] MEDS: IOPAMIDOL-370 (76%);100ML BOTTLE 70 ML IV (02:44)
[2024-05-18] MEDS: 0.9 % SODIUM CHLORIDE 50 ML VIAL IV (02:44)
[2024-05-18 04:21] LABS: Reflex Lactic Add Lactic Reflex
[2024-05-18 04:22] LABS: Troponin I < 0.01 ng/ml (0.00-0.034)
--- NOTE | 2024-05-18 04:29 | PC.NURSE ---
Report called; waiting for Juliet to come to the ER to get patient
--- NOTE | 2024-05-18 04:52 | PC.NURSE ---
Patient arrived to floor via wheelchair from ED at 04:44.
[2024-05-18 05:02] LABS: Adenovirus,PCR Not Detected (NotDetected); Bordetella Pertussis Not Detected (NotDetected); Chlamydophila Pneumoniae, PCR Not Detected (NotDetected); Coronavirus 19, PCR Not Detected (NotDetected); Coronavirus 229E Not Detected (NotDetected); Coronavirus NL63 Not Detected (NotDetected); Coronavirus OC43 Not Detected (NotDetected); Coronovirus HKU1,PCR Not Detected (NotDetected); Human Metapneumovirus Not Detected (NotDetected); Influenza A, PCR Not Detected (NotDetected); Influenza AH1, 2009 Not Detected (NotDetected); Influenza AH1, PCR Not Detected (NotDetected); Influenza AH3,PCR Not Detected (NotDetected); Influenza B, PCR Not Detected (NotDetected); Mycoplasma Pneumoniae, PCR Not Detected (NotDetected); Parainfluenza 1, PCR Not Detected (NotDetected); Parainfluenza 2, PCR Not Detected (NotDetected); Parainfluenza 3, PCR Not Detected (NotDetected); Parainfluenza 4, PCR Not Detected (NotDetected); Respiratory Syncytial Virus Not Detected (NotDetected); Rhinovirus/Enterovirus Not Detected (NotDetected)
[2024-05-18 05:50] LABS: Lactic Acid Follow Up (RFLX 1) 2.2 mmol/L (0.7-2.1)
--- NOTE | 2024-05-18 05:52 | P.HP_ITS ---
<Statement entered by Sheldon Castrejon MD - 05/20/24 10:31> Personally examined patient and agree with the plan of care as outlined by the CIVIL PROJECT ENGINEER. History of Present Illness *Admission Date: 05/18/24 *Reason for visit:: Pneumonia respiratory difficulty *History of present illness: Patient has a 6-year history of respiratory problems., She only knows she has been given a diagnosis of interstitial lung disease. Last time patient was here she actually was flown out to [place]. And she says that she signed herself out AMA. Patient states she had some problems with insurance which is now squared away and is supposed to be seeing the wrapper cashier., Discussed with her her past believes. And she is very disconnected from reality as to what needs to be done to find a true diagnosis with her problems. Teaching was done on the necessity to work with the medical system to be able to rule out conditions and are fine true diagnosis. Patient states that she has had problems for 6 years and actually improved over the last 2 years but now has returned she is feeling she is getting worse and has returned to the ER in better shape than she was before to try to prevent that.. Chest x-ray and CT scan shows probable pneumonia right lung. Patient also noted that she actually had a syncopal spell landing on the right side of her face causing some abrasions. Labs have returned negative for flu or COVID. Patient on arrival presents with saturations around 88%. After conferring with the ER physician examining the chest x-ray. And looking at the lab work with the increased white count, with a significant decrease in respiratory auscultation sounds. Do feel that she needs to be admitted at this time. Will continue with respiratory treatments present and antibiotics. Patient states that that regime has helped her in the past before.. [facility] Disclaimer: The information contained in this section may have been updated after the patient was seen, as this information can be updated by other users. Medical History (Updated 05/18/24 @ 06:05 by John Hunter APRN) Pneumonia Pneumonia Syncope ILD (interstitial lung disease) Endometriosis Acute NM Anxiety Depression Bipolar disorder Surgical History History of cholecystectomy Hx of tonsillectomy Delivery by section Family History Other Cancer Social History Smoking Status: Current every day smoker alcohol intake: never current occupational status: employed Travel in the last 8 weeks: None Have you lived/traveled outside US in past 30 days?: No Contact w/someone who lives/traveled outside US past 30 days?: No Exposure to someone with infectious disease in past 14 days?: No Do you have a fever (greater than 100.4 F or 38 C)?: No Have you tested positive for COVID-19: No Exposed to someone with COVID-19 in past 14 days?: No Do you have a sore throat?: No Do you have a cough?: No Do you have any weakness?: No Are you experiencing any nausea/vomitting?: No Do you have any diarrhea?: No Are you experiencing any unusual bleeding?: No Do you have any muscle aches/pain?: No Do you have any abdominal pain?: No Are you experiencing loss of taste or smell?: No Other Medical History Have you received the Flu Vaccine for this season: No Have you received the Pneumonia Vaccine: No Review of Systems Constitutional Constitutional: Reports system reviewed and no additional complaints, except as documented and Reports as per HPI Eyes Eyes: Reports as per HPI ENT Ears, Nose, Mouth, and Throat: Reports as per HPI *Cardiovascular Cardiovascular: Reports as per HPI, Reports dyspnea, Reports dyspnea on exertion and Reports orthopnea *Respiratory Respiratory: Reports as per HPI, Reports dyspnea and Reports dyspnea on exertion *Gastrointestinal Gastrointestinal: Reports as per HPI *Genitourinary Genitourinary: Reports as per HPI *Musculoskeletal Musculoskeletal: Reports as per HPI Integumentary/Breasts Skin/Breast: Reports as per HPI *Neurologic Neurologic: Reports as per HPI Psychiatric Psychiatric: Reports as per HPI and Reports other (Very poor problem-solving skills) Endocrine Endocrine: Reports as per HPI Hematologic/Lymphatic Hematologic/Lymphatic: Reports as per HPI Allergic/Immunologic Allergic/Immunologic: Reports as per HPI Meds Home Medications and Allergies Home Medications ?Medication ?Instructions ?Recorded ?Confirmed ?Type aripiprazole 10 mg tablet 10 mg PO HS 12/15/23 05/18/24 History buprenorphine 8 mg-naloxone 2 mg 2 tab sublingual DAILY 12/15/23 05/18/24 History sublingual tablet buspirone 15 mg tablet 15 mg PO TID 12/15/23 05/18/24 History gabapentin 800 mg tablet 800 mg PO TID 12/15/23 05/18/24 History quetiapine 50 mg tablet 50 mg PO HS 12/15/23 05/18/24 History fluoxetine 40 mg capsule 60 mg PO DAILY 12/16/23 05/18/24 History New Prescriptions to Start Prescriptions: Allergies Allergy/AdvReac Type Severity Reaction Status Date / Time No Known Allergies Allergy Verified 12/15/23 22:24 Exam Data for Last 24 hours Vital signs and Labs for Last 24 Hours: Temp Pulse Resp BP Pulse Ox O2 Del Method O2 Flow Rate 97.9 F 82 18 138/72 96 Nasal Cannula 3 05/18/24 04:28 05/18/24 04:28 05/18/24 04:28 05/18/24 04:28 05/18/24 04:00 05/18/24 04:28 05/18/24 02:15 Laboratory Results - last 24 hr 05/17/24 23:33: VBG pH 7.33, VBG pCO2 43.8, VBG pO2 32.5, VBG HCO3 22.6 L, VBG Total CO2 23.9, VBG O2 Saturation 63.3, VBG Base Excess -3.4 L, VBG Lactic Acid 2.1 H 05/17/24 23:42: WBC 17.6 H, RBC 4.12 L, Hgb 11.1 L, Hct 34.1 L, MCV 82.8, MCH 26.9 L, MCHC 32.6, RDW 14.3, Plt Count 316, MPV 8.9, Neut % (Auto) 82.1 H, Lymph % (Auto) 12.1, [place] % (Auto) 4.2, Eos % (Auto) 0.3, Baso % (Auto) 0.2, Neut # (Auto) 14.4 H, Lymph # (Auto) 2.1, [place] # (Auto) 0.7, Eos # (Auto) 0.1, Baso # (Auto) 0.0, Total Counted 100, Neutrophils % (Manual) 87 H, Lymphocytes % (Manual) 12, Monocytes % (Manual) 1 L, Platelet Estimate Normal, RBC Morphology Normal, PT 10.0, INR 0.90, Sodium 139, Potassium 3.4 L, Chloride 106, Carbon Dioxide 25, Anion Gap 11.4, BUN 7, Creatinine 0.70, Estimated GFR 98, Est GFR ( Amer) 118, Glucose 101 H, Calcium 8.9, Total Bilirubin 0.5, AST 39 H, ALT 25, Alkaline Phosphatase 118, Troponin I < 0.01, NT-Pro-B Natriuret Pep 570 H, Total Protein 7.0, Albumin 3.9, Globulin 3.1, Albumin/Globulin Ratio 1.3, Serum HCG, Qual Negative 05/18/24 02:24: Chlamy pneumoniae PCR Not detected, Adenovirus (PCR) Not detected, B. pertussis DNA (PCR) Not detected, Coronavirus OC43 (PCR) Not detected, Coronavirus HKU1 (PCR) Not detected, Coronavirus 229E (PCR) Not detected, SARS-CoV-2 (PCR) Not detected, Coronavirus NL63 (PCR) Not detected, Human Metapneumovir PCR Not detected, Influenza A (H1) PCR Not detected, Influ A (H1N1/09) PCR Not detected, Influenza A (H3) PCR Not detected, Influenza Type A (PCR) Not detected, Influenza Type B (PCR) Not detected, M. pneumoniae (PCR) Not detected, Parainfluenza 1 (PCR) Not detected, Parainfluenza 2 (PCR) Not detected, Parainfluenza 3 (PCR) Not detected, Parainfluenza 4 (PCR) Not detected, RSV (PCR) Not detected, Entero/Rhino (PCR) Not detected 05/18/24 03:25: Troponin I < 0.01 05/18/24 05:28: Lactate 2.2 H I & O for Last 24 hours: Intake & Output 05/15/24 05/16/24 05/17/24 05/18/24 05:59 05:59 05:59 05:59 Weight 214 lb Radiology Reports for the Last 24 Hours: Consolidation on CT scan and chest x-ray worse in the right lower lung, does not appear to be a developing pneumonia Constitutional Constitutional: moderate distress, morbidly obese, chronically ill appearing and cooperative Comments: Requiring increased oxygen supplement *Routine HEENT Exam Head: Present normocephalic and atraumatic Eye: Present EOMI and PERRL ENT: Present mucous membranes moist and oropharynx clear *Routine Neck Exam Neck: Present supple and full ROM Routine Chest/Breast/Axilla Exam Chest wall: Present tenderness (No chest pain) *Routine Respiratory Exam Respiratory: Present accessory muscle use, decreased breath sounds, rhonchi, distant breath sounds, diminished air movement, able to speak in complete sentences and symmetric chest movement *Routine Cardiovascular Exam Cardiovascular: Present RRR, Normal S1 and Normal S2 *Routine Abdominal Exam Abdominal: Present soft, normoactive bowel sounds and obese *Routine Rectal Exam Rectal:: deferred *Routine Genitalia Exam Genitalia:: deferred *Routine Extremities Exam Extremities: Present normal capillary refill Comments: Moves both upper and lower extremities without any difficulty no sign of injury swelling or joint deformity Routine Back/Spine/Pelvis Exam Back/Spine: Present full ROM Comments: Patient is able to move on the stretcher without any difficulty sits up without assistance. *Routine Skin Exam Skin: Present intact, dry, warm and normal turgor *Routine Neurological Exam Neurological: Present alert, oriented X3, CN II-XII intact, normal reflexes, moving all extremities, normal tone, vision grossly intact and hearing grossly intact Routine Psychiatric Exam Psychiatric: Present normal affect, normal thought process and cooperative Comments: The patient's ability at self-care, having a chronic respiratory condition. Is very limited.. Her mindset differs between not really believing, versus that she is not going to from it, That is one of the reasons she has not followed up on a regular basis, and has signed out AMA after last transfer H&P: Result Impressions 1. Interstitial lung disease with worsening respiratory failure requiring more oxygen. 2. Patient continues to smoke. Patient has poor insight as to how serious her condition is Imaging and Cardiology Chest x-ray: Additional comments: Consolidation especially in the right lower lung appearing to be developing pneumonia Assessment and Plan *Assessment and plan (1) Pneumonia: Status: Acute Qualifiers: Pneumonia type: due to unspecified organism Laterality: bilateral Lung location: lower lobe of lung Qualified Code(s): J18.9 - Pneumonia, unspecified organism Category: Medical Code(s): J18.9 - Pneumonia, unspecified organism (2) Hypoxia: Status: Acute Category: Medical Code(s): R09.02 - Hypoxemia (3) ILD (interstitial lung disease): Status: Acute Category: Medical Code(s): J84.9 - Interstitial pulmonary disease, unspecified (4) Morbid obesity: Status: Acute Category: Medical Code(s): E66.01 - Morbid (severe) obesity due to excess calories (5) Tobacco abuse: Status: Acute Category: Medical Code(s): Z72.0 - Tobacco use Plan 1. Patient will be placed on the floor monitored O2 saturations continuously. Will continue DuoNebs, started on steroids, continue antibiotics. Pulmonology consult to evaluate for interstitial lung disease. Teaching done on the need for to work with the medical establishment to evaluate need and to continue care to improve her condition. Will continue to monitor labs and radiological testing as needed.
[2024-05-18 06:03] LABS: Troponin I < 0.01 ng/ml (0.00-0.034)
[2024-05-18] MEDS: POTASSIUM CHLORIDE 20MEQ TAB 40 MEQ PO ×2 (06:17→08:55)
[2024-05-18 07:34] LABS: Reflex Lactic (2 hrs) Add Lactic Reflex
--- NOTE | 2024-05-18 08:54 | HMH.PHAINT1 ---
Pharmacy Intervention Comments: VERIFIED HOME MEDICATION LIST USING LIST FROM OUTPATIENT PHARMACY
[2024-05-18] MEDS: AZITHROMYCIN 500 MG in 0.9 % SODIUM CHLORIDE 250 ML 250 MG IV (08:55)
[2024-05-18] MEDS: ENOXAPARIN 40MG/0.4ML SYRINGE 40 MG SUBCUT (08:56)
--- NOTE | 2024-05-18 10:12 | P.CONS_ITS ---
History of Present Illness History of present illness: Mr. Garces is a 33-year-old female around 95-99-svcq-year smoking history with reported history of interstitial lung disease presented to the ER with worsening respiratory distress and pulmonary was called for further evaluation and management. Patient is a current smoker. Denies any vaping in the last 6 months. Denies any current IV /inhalational drug abuse currently. Denies any sick contacts as per family member diagnosed with strep throat. Patient admits worsening symptoms after cleaning basement. Rest of the family members did not show any symptoms. [facility] Disclaimer: The information contained in this section may have been updated after the patient was seen, as this information can be updated by other users. Medical History (Updated 05/18/24 @ 13:32 by Otoniel Vicente MD) Acute respiratory failure with hypoxia Pneumonia Pneumonia Syncope ILD (interstitial lung disease) Endometriosis Acute MS Anxiety Depression Bipolar disorder Surgical History History of cholecystectomy Hx of tonsillectomy Delivery by section Family History Other Cancer Social History Smoking Status: Current every day smoker alcohol intake: never current occupational status: employed Travel in the last 8 weeks: None Review of Systems Constitutional Constitutional: Reports anorexia, Reports body ache(s) and Reports fatigue Eyes Eyes: Denies eye discharge, Denies dry eyes, Denies irritation and Denies itchy eyes ENT Ears, Nose, Mouth, and Throat: Denies epistaxis, Denies facial pain, Denies lip swelling and Denies throat swelling *Cardiovascular Cardiovascular: Reports dyspnea and Reports dyspnea on exertion *Respiratory Respiratory: Denies change in phlegm color, Reports chest congestion, Reports cough, Reports dyspnea, Reports dyspnea on exertion, Reports excessive phlegm production, Denies hemoptysis, Denies pain on inspiration, Denies pain with cough and Denies wheezing *Gastrointestinal Gastrointestinal: Denies abdominal pain, Denies belching and Denies cramping *Musculoskeletal Musculoskeletal: Reports back pain, Reports myalgias and Reports other (No small joint swelling or Pain) *Neurologic Neurologic: Reports as per HPI Psychiatric Psychiatric: Denies homicidal ideation and Denies suicidal ideation Endocrine Endocrine: Reports fatigue and Denies heat intolerance Hematologic/Lymphatic Hematologic/Lymphatic: Denies easy bleeding and Denies lymphadenopathy Allergic/Immunologic Allergic/Immunologic: Denies itchy eyes, Denies lip swelling, Denies throat swelling and Denies wheezing Pulmonology Exam Inpatient Vital signs and Labs for Last 24 Hours: Temp Pulse Resp BP Pulse Ox O2 Del Method O2 Flow Rate 97.9 F 86 16 138/87 96 Nasal Cannula 2 05/18/24 08:00 05/18/24 08:00 05/18/24 08:00 05/18/24 08:00 05/18/24 08:00 05/18/24 08:00 05/18/24 07:00 Laboratory Results - last 24 hr 05/17/24 23:33: VBG pH 7.33, VBG pCO2 43.8, VBG pO2 32.5, VBG HCO3 22.6 L, VBG Total CO2 23.9, VBG O2 Saturation 63.3, VBG Base Excess -3.4 L, VBG Lactic Acid 2.1 H 05/17/24 23:42: WBC 17.6 H, RBC 4.12 L, Hgb 11.1 L, Hct 34.1 L, MCV 82.8, MCH 26.9 L, MCHC 32.6, RDW 14.3, Plt Count 316, MPV 8.9, Neut % (Auto) 82.1 H, Lymph % (Auto) 12.1, [place] % (Auto) 4.2, Eos % (Auto) 0.3, Baso % (Auto) 0.2, Neut # (Auto) 14.4 H, Lymph # (Auto) 2.1, [place] # (Auto) 0.7, Eos # (Auto) 0.1, Baso # (Auto) 0.0, Total Counted 100, Neutrophils % (Manual) 87 H, Lymphocytes % (Manual) 12, Monocytes % (Manual) 1 L, Platelet Estimate Normal, RBC Morphology Normal, PT 10.0, INR 0.90, Sodium 139, Potassium 3.4 L, Chloride 106, Carbon Dioxide 25, Anion Gap 11.4, BUN 7, Creatinine 0.70, Estimated GFR 98, Est GFR ( Amer) 118, Glucose 101 H, Calcium 8.9, Total Bilirubin 0.5, AST 39 H, ALT 25, Alkaline Phosphatase 118, Troponin I < 0.01, NT-Pro-B Natriuret Pep 570 H, Total Protein 7.0, Albumin 3.9, Globulin 3.1, Albumin/Globulin Ratio 1.3, Serum HCG, Qual Negative 05/18/24 02:24: Chlamy pneumoniae PCR Not detected, Adenovirus (PCR) Not detected, B. pertussis DNA (PCR) Not detected, Coronavirus OC43 (PCR) Not detected, Coronavirus HKU1 (PCR) Not detected, Coronavirus 229E (PCR) Not detected, SARS-CoV-2 (PCR) Not detected, Coronavirus NL63 (PCR) Not detected, Human Metapneumovir PCR Not detected, Influenza A (H1) PCR Not detected, Influ A (H1N1/09) PCR Not detected, Influenza A (H3) PCR Not detected, Influenza Type A (PCR) Not detected, Influenza Type B (PCR) Not detected, M. pneumoniae (PCR) Not detected, Parainfluenza 1 (PCR) Not detected, Parainfluenza 2 (PCR) Not detected, Parainfluenza 3 (PCR) Not detected, Parainfluenza 4 (PCR) Not detected, RSV (PCR) Not detected, Entero/Rhino (PCR) Not detected 05/18/24 03:25: Troponin I < 0.01 05/18/24 05:28: Lactate 2.2 H, Troponin I < 0.01 05/18/24 08:10: Lactate 2.0 I & O for Labs for Last 24 Hours: Intake & Output 05/15/24 05/16/24 05/17/24 05/18/24 23:59 23:59 23:59 23:59 Output Total 0 / 0 Balance 0 / 0 Weight 214 lb Constitutional: Present moderate distress Head: Present normocephalic and atraumatic ENT: Present normal exam, normal oropharynx and mucous membranes moist Neck: Present normal inspection and full ROM Respiratory: Present respiratory distress, rhonchi and able to speak in complete sentences; Absent wheezes Cardiac: Present S1/S2, Tachycardia and radial pulses present GI: Present soft and distention; Absent tenderness or guarding Rectal (female): Present deferred (female): Present deferred Skin: Present intact; Absent cyanosis or jaundice Neuro: Present alert, awake and oriented x 3 Extremities: Present normal inspection; Absent clubbing or cyanosis Psychiatric: Present normal affect and cooperative Meds Home Medications and Allergies Home Medications ?Medication ?Instructions ?Recorded ?Confirmed ?Type aripiprazole 10 mg tablet 10 mg PO HS 12/15/23 05/18/24 History buprenorphine 8 mg-naloxone 2 mg 2 tab sublingual DAILY 12/15/23 05/18/24 History sublingual tablet buspirone 15 mg tablet 15 mg PO TID 12/15/23 05/18/24 History gabapentin 800 mg tablet 800 mg PO TID 12/15/23 05/18/24 History quetiapine 50 mg tablet 50 mg PO HS 12/15/23 05/18/24 History fluoxetine 40 mg capsule 40 mg PO DAILY 12/16/23 05/18/24 History fluoxetine 20 mg capsule 20 mg PO DAILY 05/18/24 05/18/24 History levofloxacin 750 mg tablet 750 mg PO DAILY 4 days #4 tabs 05/18/24 Rx prednisone 20 mg tablet 20 mg PO DAILY 2 days #2 tabs 05/18/24 Rx New Prescriptions to Start Prescriptions: Sheldon Almonte prednisone Sheldon Castrejon Allergies Allergy/AdvReac Type Severity Reaction Status Date / Time No Known Allergies Allergy Verified 12/15/23 22:24 Results Laboratory Findings 05/18/24 08:00 05/18/24 08:00 PT/INR, D-dimer PT 10.0 seconds (9.2-12.1) 05/17/24 23:42 INR 0.90 (0.9-1.1) 05/17/24 23:42 Abnormal lab findings: Abnormal Labs 05/17/24 05/17/24 05/18/24 23:33 23:42 05:28 WBC 17.6 H RBC 4.12 L Hgb 11.1 L Hct 34.1 L MCH 26.9 L Neut % (Auto) 82.1 H Neut # (Auto) 14.4 H Neutrophils % (Manual) 87 H Monocytes % (Manual) 1 L VBG HCO3 22.6 L VBG Base Excess -3.4 L VBG Lactic Acid 2.1 H Potassium 3.4 L Glucose 101 H Lactate 2.2 H AST 39 H NT-Pro-B Natriuret Pep 570 H Assessment and Plan *Assessment and plan (1) Acute respiratory failure with hypoxia: Status: Acute Category: Medical Code(s): J96.01 - Acute respiratory failure with hypoxia (2) Pneumonia: Status: Acute Qualifiers: Pneumonia type: due to unspecified organism Laterality: bilateral Lung location: lower lobe of lung Qualified Code(s): J18.9 - Pneumonia, unspecified organism Category: Medical Code(s): J18.9 - Pneumonia, unspecified organism (3) ILD (interstitial lung disease): Status: Acute Category: Medical Code(s): J84.9 - Interstitial pulmonary disease, unspecified Plan Mr. Garces is a 33-year-old female around 44-50-phfk-year smoking history with reported history of interstitial lung disease presented to the ER with worsening respiratory distress and pulmonary was called for further evaluation and management. Patient is a current smoker. Denies any vaping in the last 6 months. Denies any current IV /inhalational drug abuse currently. Denies any sick contacts as per family member diagnosed with strep throat. Patient admits worsening symptoms after cleaning basement. Rest of the family members did not show any symptoms. Denies any hemoptysis. Previously seen in the hospital [address] on admission bilateral diffuse groundglass opacities along with hilar, subcarinal and paratracheal lymphadenopathy noted. DAIANA screen positive with positive SSB antibody. These findings appear to be more intense from her prior CT in 2023. Patient admits similar admissions in between at [facility] needing intubation mechanical ventilatory support. Neutrophilic predominant leukocytosis upon admission. COVID-19 and flu PCR panel negative. Using 2-3L oxygen supplementation. No significant wheezing noted on auscultation. Acute bacterial pneumonia/ILD flare. However patient will need a bronchoscopy to rule out infectious workup before initiating steroids for possible ILD flare at this point of time. Patient ate for breakfast this morning. Rodriguez: Continue oxygen supplementation to maintain O2 saturation below 90% and above Continue ceftriaxone and azithromycin pending culture results Recommend nasal MRSA, urine strep and Legionella antigens Recommend serum beta D glucan and urine histo antigen N.p.o. giovany, scheduled for bronchoscopy transbronchial biopsy tomorrow a.m.
[2024-05-18 11:10] LABS: Basophils % 0.2 % (0.1-2.0); Eosinophils % 0.1 % (0.1-12.0); Hematocrit 33.1 % (37.0-47.0); Hemoglobin 10.9 g/dL (12.2-16.2); Lymphocytes # 0.5 K/mm3 (0.7-4.5); Lymphocytes % 3.9 % (10-50); Mean Corpuscular HGB Conc 32.9 g/dL (31.8-35.4); Mean Corpuscular Hemoglobin 27.7 pg (27.0-31.2); Mean Platelet Volume 9.2 fl (7.4-10.4); Monocytes # 0.1 K/mm3 (0.1-1.0); Monocytes % 0.8 % (1.7-9.3); Neutrophils # 12.2 K/mm3 (1.8-7.8); Neutrophils % 94.6 % (37.0-80.0); Platelet Count 338 K/mm3 (142-424); Red Blood Count 3.94 M/mm3 (4.20-5.40); Red Cell Distribution Width 14.6 % (11.5-17.5); White Blood Count 12.9 K/mm3 (4.8-10.8)
[2024-05-18 11:13] LABS: MANUAL DIFFERENTIAL MANUAL DIFFERENTIAL (MANUAL DIFF)
[2024-05-18 11:17] LABS: Albumin Level 3.3 g/dl (3.5-5.0); Chloride 108 mmol/L (98-107); Potassium 3.9 mmoL/L (3.5-5.1); Sodium 137 mmol/L (136-145)
[2024-05-18 11:19] LABS: Alanine Aminotransferase 25 U/L (12-78); Aspartate Amino Transferase 31 U/L (14-36); Blood Urea Nitrogen 6 mg/dl (7-17); Creatinine Clearance Estimated 250 mL/min (50-200); Estimated Glomerular Filt Rate 144 ml/min (>60); GFR (African American) 174 ML/MIN (>60)
[2024-05-18 11:20] LABS: Albumin/Globulin Ratio 1.1 (1.1-1.8); Alkaline Phosphatase 100 U/L (38-126); Anion Gap 10.9 mEq/L (5-15); Bilirubin,Total 0.2 mg/dl (0.2-1.3); Calcium 8.5 mg/dl (8.4-10.2); Carbon Dioxide 22 mmol/L (22.0-30.0); Globulin 3.1 g/dL (1.3-3.2); Glucose 166 mg/dl (74-100); Magnesium 1.5 mg/dl (1.6-2.3); Total Protein,Serum 6.4 g/dl (6.3-8.2)
--- NOTE | 2024-05-18 12:04 | EXP.DC.SUM ---
General Admission date:: 05/18/24 HPI HPI HPI: Patient has a 6-year history of respiratory problems., She only knows she has been given a diagnosis of interstitial lung disease. Last time patient was here she actually was flown out to [facility]. And she says that she signed herself out AMA. Patient states she had some problems with insurance which is now squared away and is supposed to be seeing the security advisor., Discussed with her her past believes. And she is very disconnected from reality as to what needs to be done to find a true diagnosis with her problems. Teaching was done on the necessity to work with the medical system to be able to rule out conditions and are fine true diagnosis. Patient states that she has had problems for 6 years and actually improved over the last 2 years but now has returned she is feeling she is getting worse and has returned to the ER in better shape than she was before to try to prevent that.. Chest x-ray and CT scan shows probable pneumonia right lung. Patient also noted that she actually had a syncopal spell landing on the right side of her face causing some abrasions. Labs have returned negative for flu or COVID. Patient on arrival presents with saturations around 88%. After conferring with the ER physician examining the chest x-ray. And looking at the lab work with the increased white count, with a significant decrease in respiratory auscultation sounds. Do feel that she needs to be admitted at this time. Will continue with respiratory treatments present and antibiotics. Patient states that that regime has helped her in the past before.. Hospital Course Hospital Course Hospital Course: Jordan Pope is a 33 year old female with a ~30 pack year current smoker who presented with respiratory distress and admitted for community acquired pneumonia. #Acute hypoxic respiratory failure #Community acquired pneumonia #Suspected interstitial lung disease - CT on admission bilateral diffuse ground glass opacities along with hilar, subcarinal and paratracheal lymphadenopathy. - Pulmonlogy consulted, assisted with plan of care as below. - DAIANA screen positive with positive SSB antibody. These findings appear to be more intense from her prior CT in 2023. - Patient admits similar admissions in between at [facility] needing intubation mechanical ventilatory support. - Initiated on ceftriaxone and azithromycin. - Initial WBC 17, improved to 12.9. Vitals stable. - Pulmonology discussed with patient about bronchoscopy tomorrow, however patient adamantly wanted to go home today. Discussed risks of going home, including decompensation of pneumonia vs other pulmonary pathology, including , and patient understood risk. She still wanted to proceed leaving AGAINST MEDICAL ADVICE. - Prescribed levofloxacin for 4 more days, and prednisone for 2 days. Exam Data for Last 24 hours Vital signs and Labs for Last 24 Hours: Temp Pulse Resp BP Pulse Ox O2 Del Method O2 Flow Rate 97.9 F 86 16 138/87 96 Nasal Cannula 2 05/18/24 08:00 05/18/24 08:00 05/18/24 08:00 05/18/24 08:00 05/18/24 08:00 05/18/24 08:00 05/18/24 07:00 Laboratory Results - last 24 hr 05/17/24 23:33: VBG pH 7.33, VBG pCO2 43.8, VBG pO2 32.5, VBG HCO3 22.6 L, VBG Total CO2 23.9, VBG O2 Saturation 63.3, VBG Base Excess -3.4 L, VBG Lactic Acid 2.1 H 05/17/24 23:42: WBC 17.6 H, RBC 4.12 L, Hgb 11.1 L, Hct 34.1 L, MCV 82.8, MCH 26.9 L, MCHC 32.6, RDW 14.3, Plt Count 316, MPV 8.9, Neut % (Auto) 82.1 H, Lymph % (Auto) 12.1, [place] % (Auto) 4.2, Eos % (Auto) 0.3, Baso % (Auto) 0.2, Neut # (Auto) 14.4 H, Lymph # (Auto) 2.1, [place] # (Auto) 0.7, Eos # (Auto) 0.1, Baso # (Auto) 0.0, Total Counted 100, Neutrophils % (Manual) 87 H, Lymphocytes % (Manual) 12, Monocytes % (Manual) 1 L, Platelet Estimate Normal, RBC Morphology Normal, PT 10.0, INR 0.90, Sodium 139, Potassium 3.4 L, Chloride 106, Carbon Dioxide 25, Anion Gap 11.4, BUN 7, Creatinine 0.70, Estimated GFR 98, Est GFR ( Amer) 118, Glucose 101 H, Calcium 8.9, Total Bilirubin 0.5, AST 39 H, ALT 25, Alkaline Phosphatase 118, Troponin I < 0.01, NT-Pro-B Natriuret Pep 570 H, Total Protein 7.0, Albumin 3.9, Globulin 3.1, Albumin/Globulin Ratio 1.3, Serum HCG, Qual Negative 05/18/24 02:24: Chlamy pneumoniae PCR Not detected, Adenovirus (PCR) Not detected, B. pertussis DNA (PCR) Not detected, Coronavirus OC43 (PCR) Not detected, Coronavirus HKU1 (PCR) Not detected, Coronavirus 229E (PCR) Not detected, SARS-CoV-2 (PCR) Not detected, Coronavirus NL63 (PCR) Not detected, Human Metapneumovir PCR Not detected, Influenza A (H1) PCR Not detected, Influ A (H1N1/09) PCR Not detected, Influenza A (H3) PCR Not detected, Influenza Type A (PCR) Not detected, Influenza Type B (PCR) Not detected, M. pneumoniae (PCR) Not detected, Parainfluenza 1 (PCR) Not detected, Parainfluenza 2 (PCR) Not detected, Parainfluenza 3 (PCR) Not detected, Parainfluenza 4 (PCR) Not detected, RSV (PCR) Not detected, Entero/Rhino (PCR) Not detected 05/18/24 03:25: Troponin I < 0.01 05/18/24 05:28: Lactate 2.2 H, Troponin I < 0.01 05/18/24 08:00: WBC 12.9 H D, RBC 3.94 L, Hgb 10.9 L, Hct 33.1 L, MCV 84.0, MCH 27.7, MCHC 32.9, RDW 14.6, Plt Count 338, MPV 9.2, Neut % (Auto) 94.6 H, Lymph % (Auto) 3.9 L, [place] % (Auto) 0.8 L, Eos % (Auto) 0.1, Baso % (Auto) 0.2, Neut # (Auto) 12.2 H, Lymph # (Auto) 0.5 L, [place] # (Auto) 0.1, Eos # (Auto) 0.0, Baso # (Auto) 0.0, Sodium 137, Potassium 3.9, Chloride 108 H, Carbon Dioxide 22, Anion Gap 10.9, BUN 6 L, Creatinine 0.50 L D, Estimated Creat Clear 250, Estimated GFR 144, Est GFR ( Amer) 174 D, Glucose 166 H D, Calcium 8.5, Magnesium 1.5 L, Total Bilirubin 0.2, AST 31, ALT 25, Alkaline Phosphatase 100, Total Protein 6.4, Albumin 3.3 L D, Globulin 3.1, Albumin/Globulin Ratio 1.1 05/18/24 08:10: Lactate 2.0 I & O for Last 24 hours: Intake & Output 05/15/24 05/16/24 05/17/24 05/18/24 23:59 23:59 23:59 23:59 Output Total 0 / 0 Balance 0 / 0 Weight 97.069 kg Constitutional Constitutional: no acute distress *Routine HEENT Exam Head: Present normocephalic Eye: Present EOMI and PERRL ENT: Present mucous membranes moist *Routine Neck Exam Neck: Present supple; Absent lymphadenopathy *Routine Respiratory Exam Respiratory: Present CTA bilaterally *Routine Cardiovascular Exam Cardiovascular: Present RRR *Routine Abdominal Exam Abdominal: Present soft and normoactive bowel sounds; Absent tenderness *Routine Extremities Exam Extremities: Absent cyanosis, clubbing or edema *Routine Skin Exam Skin: Present warm; Absent rash *Routine Neurological Exam Neurological: Present alert and oriented X3 Results Data Completed and Pending Labs on day of discharge: Labs from last 24 hours 05/18/24 05/18/24 05/18/24 08:10 08:00 05:28 WBC 12.9 H D RBC 3.94 L Hgb 10.9 L Hct 33.1 L MCV 84.0 MCH 27.7 MCHC 32.9 RDW 14.6 Plt Count 338 MPV 9.2 Neut % (Auto) 94.6 H Lymph % (Auto) 3.9 L Stone[place] % (Auto) 0.8 L Eos % (Auto) 0.1 Baso % (Auto) 0.2 Neut # (Auto) 12.2 H Lymph # (Auto) 0.5 L [place] # (Auto) 0.1 Eos # (Auto) 0.0 Baso # (Auto) 0.0 Total Counted Neutrophils % (Manual) Lymphocytes % (Manual) Monocytes % (Manual) Platelet Estimate RBC Morphology PT INR VBG pH VBG pCO2 VBG pO2 VBG HCO3 VBG Total CO2 VBG O2 Saturation VBG Base Excess VBG Lactic Acid Sodium 137 Potassium 3.9 Chloride 108 H Carbon Dioxide 22 Anion Gap 10.9 BUN 6 L Creatinine 0.50 L D Estimated Creat Clear 250 Estimated GFR 144 Est GFR ( Amer) 174 D Glucose 166 H D Lactate 2.0 2.2 H Calcium 8.5 Magnesium 1.5 L Total Bilirubin 0.2 AST 31 ALT 25 Alkaline Phosphatase 100 Troponin I < 0.01 NT-Pro-B Natriuret Pep Total Protein 6.4 Albumin 3.3 L D Globulin 3.1 Albumin/Globulin Ratio 1.1 Serum HCG, Qual Chlamy pneumoniae PCR Adenovirus (PCR) B. pertussis DNA (PCR) Coronavirus OC43 (PCR) Coronavirus HKU1 (PCR) Coronavirus 229E (PCR) SARS-CoV-2 (PCR) Coronavirus NL63 (PCR) Human Metapneumovir PCR Influenza A (H1) PCR Influ A (H1N1/09) PCR Influenza A (H3) PCR Influenza Type A (PCR) Influenza Type B (PCR) M. pneumoniae (PCR) Parainfluenza 1 (PCR) Parainfluenza 2 (PCR) Parainfluenza 3 (PCR) Parainfluenza 4 (PCR) RSV (PCR) Entero/Rhino (PCR) 05/18/24 05/18/24 05/17/24 03:25 02:24 23:42 WBC 17.6 H RBC 4.12 L Hgb 11.1 L Hct 34.1 L MCV 82.8 MCH 26.9 L MCHC 32.6 RDW 14.3 Plt Count 316 MPV 8.9 Neut % (Auto) 82.1 H Lymph % (Auto) 12.1 [place] % (Auto) 4.2 Eos % (Auto) 0.3 Baso % (Auto) 0.2 Neut # (Auto) 14.4 H Lymph # (Auto) 2.1 [place] # (Auto) 0.7 Eos # (Auto) 0.1 Baso # (Auto) 0.0 Total Counted 100 Neutrophils % (Manual) 87 H Lymphocytes % (Manual) 12 Monocytes % (Manual) 1 L Platelet Estimate Normal RBC Morphology Normal PT 10.0 INR 0.90 VBG pH VBG pCO2 VBG pO2 VBG HCO3 VBG Total CO2 VBG O2 Saturation VBG Base Excess VBG Lactic Acid Sodium 139 Potassium 3.4 L Chloride 106 Carbon Dioxide 25 Anion Gap 11.4 BUN 7 Creatinine 0.70 Estimated Creat Clear Estimated GFR 98 Est GFR ( Amer) 118 Glucose 101 H Lactate Calcium 8.9 Magnesium Total Bilirubin 0.5 AST 39 H ALT 25 Alkaline Phosphatase 118 Troponin I < 0.01 < 0.01 NT-Pro-B Natriuret Pep 570 H Total Protein 7.0 Albumin 3.9 Globulin 3.1 Albumin/Globulin Ratio 1.3 Serum HCG, Qual Negative Chlamy pneumoniae PCR Not detected Adenovirus (PCR) Not detected B. pertussis DNA (PCR) Not detected Coronavirus OC43 (PCR) Not detected Coronavirus HKU1 (PCR) Not detected Coronavirus 229E (PCR) Not detected SARS-CoV-2 (PCR) Not detected Coronavirus NL63 (PCR) Not detected Human Metapneumovir PCR Not detected Influenza A (H1) PCR Not detected Influ A (H1N1/09) PCR Not detected Influenza A (H3) PCR Not detected Influenza Type A (PCR) Not detected Influenza Type B (PCR) Not detected M. pneumoniae (PCR) Not detected Parainfluenza 1 (PCR) Not detected Parainfluenza 2 (PCR) Not detected Parainfluenza 3 (PCR) Not detected Parainfluenza 4 (PCR) Not detected RSV (PCR) Not detected Entero/Rhino (PCR) Not detected 05/17/24 23:33 WBC RBC Hgb Hct MCV MCH MCHC RDW Plt Count MPV Neut % (Auto) Lymph % (Auto) [place] % (Auto) Eos % (Auto) Baso % (Auto) Neut # (Auto) Lymph # (Auto) [place] # (Auto) Eos # (Auto) Baso # (Auto) Total Counted Neutrophils % (Manual) Lymphocytes % (Manual) Monocytes % (Manual) Platelet Estimate RBC Morphology PT INR VBG pH 7.33 VBG pCO2 43.8 VBG pO2 32.5 VBG HCO3 22.6 L VBG Total CO2 23.9 VBG O2 Saturation 63.3 VBG Base Excess -3.4 L VBG Lactic Acid 2.1 H Sodium Potassium Chloride Carbon Dioxide Anion Gap BUN Creatinine Estimated Creat Clear Estimated GFR Est GFR ( Amer) Glucose Lactate Calcium Magnesium Total Bilirubin AST ALT Alkaline Phosphatase Troponin I NT-Pro-B Natriuret Pep Total Protein Albumin Globulin Albumin/Globulin Ratio Serum HCG, Qual Chlamy pneumoniae PCR Adenovirus (PCR) B. pertussis DNA (PCR) Coronavirus OC43 (PCR) Coronavirus HKU1 (PCR) Coronavirus 229E (PCR) SARS-CoV-2 (PCR) Coronavirus NL63 (PCR) Human Metapneumovir PCR Influenza A (H1) PCR Influ A (H1N1/09) PCR Influenza A (H3) PCR Influenza Type A (PCR) Influenza Type B (PCR) M. pneumoniae (PCR) Parainfluenza 1 (PCR) Parainfluenza 2 (PCR) Parainfluenza 3 (PCR) Parainfluenza 4 (PCR) RSV (PCR) Entero/Rhino (PCR) DS: Diagnosis Discharge Diagnosis (1) Pneumonia: Status: Acute Code(s): J18.9 - Pneumonia, unspecified organism Qualifiers: Laterality: bilateral Lung location: lower lobe of lung Pneumonia type: due to unspecified organism Qualified Code(s): J18.9 - Pneumonia, unspecified organism (2) Hypoxia: Status: Acute Code(s): R09.02 - Hypoxemia (3) ILD (interstitial lung disease): Status: Acute Code(s): J84.9 - Interstitial pulmonary disease, unspecified (4) Morbid obesity: Status: Acute Code(s): E66.01 - Morbid (severe) obesity due to excess calories (5) Tobacco abuse: Status: Acute Code(s): Z72.0 - Tobacco use Meds Home Medications and Allergies Home Medications ?Medication ?Instructions ?Recorded ?Confirmed ?Type aripiprazole 10 mg tablet 10 mg PO HS 12/15/23 05/18/24 History buprenorphine 8 mg-naloxone 2 mg 2 tab sublingual DAILY 12/15/23 05/18/24 History sublingual tablet buspirone 15 mg tablet 15 mg PO TID 12/15/23 05/18/24 History gabapentin 800 mg tablet 800 mg PO TID 12/15/23 05/18/24 History quetiapine 50 mg tablet 50 mg PO HS 12/15/23 05/18/24 History fluoxetine 40 mg capsule 40 mg PO DAILY 12/16/23 05/18/24 History fluoxetine 20 mg capsule 20 mg PO DAILY 05/18/24 05/18/24 History levofloxacin 750 mg tablet 750 mg PO DAILY 4 days #4 tabs 05/18/24 Rx prednisone 20 mg tablet 20 mg PO DAILY 2 days #2 tabs 05/18/24 Rx New Prescriptions to Start Prescriptions: levofloxacin Sheldon Castrejon prednisone Sheldon Castrejon Allergies Allergy/AdvReac Type Severity Reaction Status Date / Time No Known Allergies Allergy Verified 12/15/23 22:24 Discharge Plan Disposition Patient Disposition: Left Against Medical Advice Condition: Fair Patient Discharge Instructions Print Language: Vietnamese Providers Admit Provider: Sheldon Castrejon Attending Provider: Sheldon Castrejon
[2024-05-18 12:19] LABS: Lymphocytes % 7 % (10-50); Neutrophils % 93 % (42-76); Platelet Estimate Normal; RBC Morphology Normal; Total Cells Counted 100
--- NOTE | 2024-05-18 12:57 | PC.NURSE ---
Patient stated wanting to go home, there was a plan for a bronchoscopy tomorrow and she did not want to stay overnight again. Patient requested to be discharged or leave AMA. Patient was informed for plan of bronchoscopy and how the hospitalist was unable to discharge her with that plan. Patient stated still wanting to leave and was agreeable to sign out AMA. RN removed IV and patient left AMA with family.
== END 2024-05-18 12:57 | disposition left against medical advice (07) ==
LOC: ER 23:30 → 2ND 05-18 04:17
PROVIDERS: Admitting Provider Student in an Organized Health Care Education/Training Program; Emergency Provider Emergency Medicine; Visit Provider Student in an Organized Health Care Education/Training Program
DX: J96.01 Acute respiratory failure with hypoxia (principal); J18.9 Pneumonia, unspecified organism; E66.01 Morbid (severe) obesity due to excess calories; R55 Syncope and collapse; F31.9 Bipolar disorder, unspecified; F17.210 Nicotine dependence, cigarettes, uncomplicated; J45.909 Unspecified asthma, uncomplicated; N80.9 Endometriosis, unspecified; I25.2 Old myocardial infarction; Z68.35 Body mass index [BMI] 35.0-35.9, adult; Z79.899 Other long term (current) drug therapy; Z90.49 Acquired absence of other specified parts of digestive tract; Z71.3 Dietary counseling and surveillance; Z91.198 Patient's noncompliance with other medical treatment and regimen for other reason
CPT/HCPCS: 36415; 71045; 71275; 80053; 82803; 83605; 83735; 83880; 84484; 84703; 85007; 85025; 85610; 87040; 87633; 93005; 99291; G0378; J0456; J1650; J2543; J2919; J3370; J7050; J7120; J7620; Q9967

== ENCOUNTER 2024-06-10 08:22 | Outpatient (CLI) | payer OTHER, SELFPAY ==
[2024-06-10 09:35] LABS: Basophils % 0.3 % (0.1-2.0); Eosinophils # 0.1 K/mm3 (0.0-0.4); Eosinophils % 1.9 % (0.1-12.0); Hematocrit 38.8 % (37.0-47.0); Hemoglobin 12.3 g/dL (12.2-16.2); Lymphocytes # 4.6 K/mm3 (0.7-4.5); Lymphocytes % 61.2 % (10-50); Mean Corpuscular HGB Conc 31.7 g/dL (31.8-35.4); Mean Corpuscular Hemoglobin 25.8 pg (27.0-31.2); Mean Corpuscular Volume 81.3 fl (81-99); Mean Platelet Volume 8.5 fl (7.4-10.4); Monocytes # 0.4 K/mm3 (0.1-1.0); Monocytes % 4.7 % (1.7-9.3); Neutrophils # 2.4 K/mm3 (1.8-7.8); Neutrophils % 31.8 % (37.0-80.0); Platelet Count 332 K/mm3 (142-424); Red Blood Count 4.77 M/mm3 (4.20-5.40); Red Cell Distribution Width 14.1 % (11.5-17.5); White Blood Count 7.4 K/mm3 (4.8-10.8)
[2024-06-10 09:36] LABS: MANUAL DIFFERENTIAL MANUAL DIFFERENTIAL (MANUAL DIFF)
[2024-06-10 09:39] LABS: Albumin Level 3.7 g/dl (3.5-5.0); Chloride 108 mmol/L (98-107)
[2024-06-10 09:40] LABS: Potassium 3.9 mmoL/L (3.5-5.1); Sodium 140 mmol/L (136-145)
[2024-06-10 10:06] LABS: Lymphocytes % 64 % (10-50); Monocytes % 4 % (2-9); Neutrophils % 32 % (42-76); Platelet Estimate Normal; RBC Morphology Normal; Total Cells Counted 100
[2024-06-10 10:15] LABS: Erythrocyte Sedimentation Rate 25 mm/hr (0-20)
[2024-06-10 11:07] LABS: Alanine Aminotransferase 27 U/L (12-78); Albumin/Globulin Ratio 1.4 (1.1-1.8); Alkaline Phosphatase 108 U/L (38-126); Anion Gap 10.9 mEq/L (5-15); Aspartate Amino Transferase 24 U/L (14-36); Bilirubin,Total 0.3 mg/dl (0.2-1.3); Blood Urea Nitrogen 13 mg/dl (7-17); Calcium 8.8 mg/dl (8.4-10.2); Carbon Dioxide 25 mmol/L (22.0-30.0); Estimated Glomerular Filt Rate 98 ml/min (>60); GFR (African American) 118 ML/MIN (>60); Globulin 2.7 g/dL (1.3-3.2); Glucose 98 mg/dl (74-100); Total Protein,Serum 6.4 g/dl (6.3-8.2); Uric Acid 6.2 mg/dl (2.5-6.2)
[2024-06-10 11:17] LABS: C-Reactive Protein 3.6 mg/L (0-4)
[2024-06-11 07:11] LABS: RA Latex Turbid. <10.0 IU/mL (<14.0)
[2024-06-11 12:11] LABS: Anti-DNA (DS) Ab Qn 1 IU/mL (0-9)
[2024-06-11 13:09] LABS: Angiotensin Converting Enzyme 61 U/L (14-82)
[2024-06-12 13:00] LABS: Antiproteinase 3 (PR-3) Abs <0.2 units (0.0-0.9)
[2024-06-13 15:41] LABS: Antinuclear Antibodies, IFA Negative (.)
[2024-06-15 16:12] LABS: Strongyloides IgG Antibody Negative (Negative)
[2024-06-16 12:11] LABS: D001-IgE D pteronyssinus <0.10 kU/L (Class 0); D002-IgE D farinae <0.10 kU/L (Class 0); E001-IgE Cat Dander <0.10 kU/L (Class 0); E005-IgE Dog Dander <0.10 kU/L (Class 0); E072-IgE Mouse Urine <0.10 kU/L (Class 0); G002-IgE Bermuda Grass <0.10 kU/L (Class 0); G006-IgE Timothy Grass 0.25 kU/L (Class 0/I); I006-IgE Cockroach, German <0.10 kU/L (Class 0); Immunoglobulin E, Total 88 IU/mL (6-495); M001-IgE Penicillium chrysogen <0.10 kU/L (Class 0); M002-IgE Cladosporium herbarum <0.10 kU/L (Class 0); M003-IgE Aspergillus fumigatus <0.10 kU/L (Class 0); M006-IgE Alternaria alternata 1.32 kU/L (Class II); T001-IgE Maple/Box Elder <0.10 kU/L (Class 0); T003-IgE Common Silver Birch <0.10 kU/L (Class 0); T006-IgE Cedar, Mountain <0.10 kU/L (Class 0); T007-IgE Oak, White <0.10 kU/L (Class 0); T008-IgE Elm, American <0.10 kU/L (Class 0); T010-IgE Walnut <0.10 kU/L (Class 0); T011-IgE Maple Leaf Sycamore <0.10 kU/L (Class 0); T014-IgE Cottonwood <0.10 kU/L (Class 0); T015-IgE Ash, White <0.10 kU/L (Class 0); T022-IgE Pecan, Hickory <0.10 kU/L (Class 0); T070-IgE White Mulberry <0.10 kU/L (Class 0); W001-IgE Ragweed, Short <0.10 kU/L (Class 0); W011-IgE Thistle, Russian <0.10 kU/L (Class 0); W014-IgE Pigweed, Common <0.10 kU/L (Class 0); W018-IgE Sheep Sorrel <0.10 kU/L (Class 0)
== END 2024-06-10 23:59 | disposition home or self-care (01) ==
LOC: LAB 08:23
PROVIDERS: Visit Provider Internal Medicine Pulmonary Disease
DX: R06.09 Other forms of dyspnea (principal); J84.9 Interstitial pulmonary disease, unspecified; J30.9 Allergic rhinitis, unspecified; D72.10 Eosinophilia, unspecified
CPT/HCPCS: 36415; 80053; 82164; 82785; 83520; 84550; 85007; 85025; 85027; 85651; 86003; 86038; 86140; 86225; 86431; 86682

== ENCOUNTER 2024-06-11 13:41 | Outpatient (CLI) | payer OTHER, SELFPAY ==
--- NOTE | 2024-06-11 13:42 | CT_ITS ---
FINAL REPORT TECHNIQUE: Axial CT without IV contrast administration. Coronal and sagittal reconstructions obtained and reviewed. Supine inspiration and expiration and prone inspiration hi-resolution images were obtained and reviewed. This study was performed with techniques to keep radiation doses as low as reasonably achievable, (ALARA). Individualized dose reduction techniques using automated exposure control or adjustment of mA and/or kV according to the patient''s size were employed. CLINICAL HISTORY: INTERSTITIAL LUNG DISEASE COMPARISON: CTA chest 05/18/2024 FINDINGS: Patchy groundglass opacities, greatest in the upper lobes and superior segment of the left lower lobe, are significantly improved from the prior exam. Right lower lobe airspace disease has resolved. There is no evidence of interstitial prominence to indicate chronic interstitial lung disease. No bronchiectasis is noted. No pleural or pericardial effusion is seen. No adenopathy or mass lesion is present. IMPRESSION: Extensive patchy groundglass opacity showing marked improvement from the prior exam compatible with improving pneumonia. No evidence of interstitial lung disease or bronchiectasis. Reviewed, Interpreted and Dictated by Tu Raman MD Transcribed by Essie Saravia Authenticated and [facility]
== END 2024-06-11 23:59 | disposition home or self-care (01) ==
LOC: RAD 13:42
PROVIDERS: Visit Provider Internal Medicine Pulmonary Disease
DX: J84.9 Interstitial pulmonary disease, unspecified (principal)
CPT/HCPCS: 71250

== ENCOUNTER 2024-07-11 17:22 | Inpatient (IN) | payer OTHER, SELFPAY ==
[2024-07-11] VITALS (15 sets, daily range): BP systolic 111–131; BP diastolic 69–77; PULSE 99–146; RESP 13–38; TEMP 36.9–37.2; O2SAT 30–97; BMI 39.9; BMI 44.0
--- NOTE | 2024-07-11 17:29 | XR_ITS ---
PROCEDURE INFORMATION: Exam: XR Chest Exam date and time: 07/11/2024 6:43 PM Age: 33 years old Clinical indication: Shortness of breath; Additional info: SOA, hypoxemia TECHNIQUE: Imaging protocol: Radiologic exam of the chest. Views: 1 view. COMPARISON: CT HR CHEST X3 06/11/2024 1:53 PM FINDINGS: Lungs: Poorly defined bilateral perihilar opacities. Pleural spaces: Unremarkable. No pleural effusion. No pneumothorax. Heart/Mediastinum: Unremarkable. No cardiomegaly. Bones/joints: Unremarkable. IMPRESSION: Bilateral perihilar infiltrations.
--- NOTE | 2024-07-11 17:30 | PC.NURSE ---
pt was 30% when she was taken out of the car under the awning. placed on nonrebreather, went up to 47%. pt is currently on vapotherm and is 88 on
--- NOTE | 2024-07-11 17:41 | ECG_ITS ---
APPROVED REPORT Exam: Resting ECG HR:135 bpm ECG Measurements Heart Rate 135 AXES TN 149 P 12 QRSd 93 QRS 56 QT 291 T -11 QTc 370 Conclusion SINUS TACHYCARDIA LOW QRS VOLTAGE IN PRECORDIAL LEADS [QRS DEFLECTION < 1.0 mV IN CHEST LEADS] POSSIBLE RIGHT VENTRICULAR CONDUCTION DELAY [RSR (QR) IN V1/V2] NONSPECIFIC T-WAVE ABNORMALITY ABNORMAL ECG UNCONFIRMED REPORT Electronically signed by : BONIFACIO JIMENEZ, 07/12/2024 03:14:11
[2024-07-11 17:48] LABS: Basophils # 0.1 K/mm3 (0-0.2); Basophils % 0.3 % (0.1-2.0); Eosinophils # 0.1 K/mm3 (0.0-0.4); Eosinophils % 0.6 % (0.1-12.0); Hematocrit 36.6 % (37.0-47.0); Hemoglobin 11.3 g/dL (12.2-16.2); Lymphocytes # 4.9 K/mm3 (0.7-4.5); Mean Corpuscular HGB Conc 30.9 g/dL (31.8-35.4); Mean Corpuscular Hemoglobin 26.4 pg (27.0-31.2); Mean Corpuscular Volume 85.5 fl (81-99); Mean Platelet Volume 8.6 fl (7.4-10.4); Monocytes # 0.8 K/mm3 (0.1-1.0); Monocytes % 3.7 % (1.7-9.3); Neutrophils # 14.3 K/mm3 (1.8-7.8); Neutrophils % 69.5 % (37.0-80.0); Platelet Count 335 K/mm3 (142-424); Red Blood Count 4.28 M/mm3 (4.20-5.40); Red Cell Distribution Width 15.9 % (11.5-17.5); White Blood Count 20.5 K/mm3 (4.8-10.8)
--- NOTE | 2024-07-11 17:50 | ED_ITS ---
Discharge Plan Disposition Patient Disposition: Admitted Prescriptions Prescriptions: No Action albuterol sulfate 90 mcg/actuation HFA aerosol inhaler 2 inh inhalation Q6H PRN (Reason: shortness of breath or wheezing) 90 Days Qty: 8.5 2RF nicotine (polacrilex) 2 mg gum 2 mg buccal Q4H PRN (Reason: nicotine cravings) Qty: 100 0RF nicotine 21-14-7 mg/24 hr patch, TD daily, sequential See Rx Instructions transdermal .COMPLEX Qty: 56 0RF Rx Instructions: apply 1-21 mg NICOTINE PATCH daily for 28 days; follow with 1-14 mg PATCH daily for 14 days, then 1-7mg PATCH daily for 14 days transdermal quetiapine 100 mg tablet 100 mg PO HS gabapentin 600 mg tablet 600 mg PO TID prednisone 20 mg tablet See Rx Instructions .Route .COMPLEX Qty: 49 0RF Rx Instructions: Take 40mg (2 tab) oral once daily for 14 days followed by 20mg (1 tabs) oral once daily for 14 days followed by 10mg(Half tab) oral once daily for 14 days then stop taking prednisone. buspirone 15 mg tablet 15 mg PO TID aripiprazole 10 mg tablet 10 mg PO HS Patient Comments: TAKE 1 TABLET BY MOUTH AT BEDTIME buprenorphine-naloxone 8-2 mg tablet, sublingual 2 tab SUBLINGUAL DAILY Patient Comments: Place 2 tablet under tongue once a day Rx Instructions: VERIFIED WITH OUTPATIENT PHARMACY Patient prefers film over tablet; states that tablets leave sores in her mouth fluoxetine 40 mg capsule 40 mg PO DAILY Patient Comments: TAKE 1 CAPSULE BY MOUTH DAILY Rx Instructions: TOTAL of 60MG DAILY fluoxetine 20 mg capsule 20 mg PO DAILY Rx Instructions: TOTAL of 60MG DAILY Referrals Follow up/Referrals: Provider,Referral, MD [Primary Care Provider] - See instructions Clinical Impressions Clinical Impression: Acute hypoxemic respiratory failure, Sepsis, Pneumonia Print Language Print Language: Lao Discharge ED Provider: Dane Georges HPI General Chief Complaint: Shortness of Breath/Dyspnea Stated Complaint: soa Time Seen by Provider: 07/11/24 17:29 Mode of Arrival: Wheelchair Source of Information: Patient and Spouse Description of Symptoms (Recalled from ER Triage Doc. by RN): pt has intersticial lung disease. short of air today. saturation. 30% on RA History of Present Illness HPI narrative: Please note that above description of symptoms, in this electronic medical record under categorization of recalled from ER triage doctor by RN are reflective of an initial nursing assessment, however, is not reflective of my full history and physical exam that was personally taken and clarified. Consequentially, this preceding description of symptoms, which may include the patient's categorized chief complaint in the EMR, do not reflect my personal clinical impression, and the ultimate description of history of present illness and patient stated complaints should be deferred to this section of the note. Unless stated otherwise or congruent with this section of the note, additional signs, symptoms, or incongruence should be interpreted as inaccurate with my clinical impression. Related Data Home Medications ?Medication ?Instructions ?Recorded ?Confirmed aripiprazole 10 mg tablet 10 mg PO HS 12/15/23 06/11/24 buprenorphine 8 mg-naloxone 2 mg 2 tab sublingual DAILY 12/15/23 06/11/24 sublingual tablet buspirone 15 mg tablet 15 mg PO TID 12/15/23 06/11/24 fluoxetine 40 mg capsule 40 mg PO DAILY 12/16/23 06/11/24 fluoxetine 20 mg capsule 20 mg PO DAILY 05/18/24 06/11/24 gabapentin 600 mg tablet 600 mg PO TID 06/11/24 06/11/24 quetiapine 100 mg tablet 100 mg PO HS 06/11/24 06/11/24 Previous Rx's ?Medication ?Instructions ?Recorded albuterol sulfate 90 mcg/actuation 2 inh inhalation Q6H PRN shortness 06/05/24 aerosol inhaler of breath or wheezing 90 days #8.5 grams nicotine (polacrilex) 2 mg gum 2 mg buccal Q4H PRN nicotine 06/05/24 cravings #100 ea nicotine See Rx Instructions transdermal 06/05/24 21mg/24hr-14mg/24hr-7mg/24hr daily .COMPLEX #56 patches transderm patches,sequentl prednisone 20 mg tablet See Rx Instructions .Route 06/11/24 .COMPLEX #49 tabs Allergies Allergy/AdvReac Type Severity Reaction Status Date / Time No Known Allergies Allergy Verified 06/11/24 14:35 [facility] Disclaimer: The information contained in this section may have been updated after the patient was seen, as this information can be updated by other users. Medical History Acute respiratory failure with hypoxia Pneumonia Pneumonia Syncope ILD (interstitial lung disease) Endometriosis Acute AR Past history; patient stated she had a total of 3 attacks Anxiety Depression Bipolar disorder Surgical History History of cholecystectomy Hx of tonsillectomy Delivery by section Patient stated that she had 2 C-sections Family History Other Cancer Social History Smoking Status: Current every day smoker alcohol intake: never current occupational status: employed Travel in the last 8 weeks: None Have you lived/traveled outside [place] in past 30 days?: No Contact w/someone who lives/traveled outside US past 30 days?: No Exposure to someone with infectious disease in past 14 days?: No Do you have a fever (greater than 100.4 F or 38 C)?: No Have you tested positive for COVID-19: No Exposed to someone with COVID-19 in past 14 days?: No Do you have a sore throat?: No Do you have a cough?: No Do you have any weakness?: No Do you have any diarrhea?: No Are you experiencing any unusual bleeding?: No Do you have any muscle aches/pain?: No Do you have any abdominal pain?: No Are you experiencing loss of taste or smell?: No Other Medical History Have you received the Flu Vaccine for this season: No Have you received the Pneumonia Vaccine: No ROS Obtained: Yes All systems reviewed & no additional complaints except as documented Physical Exam General General appearance: alert, in distress and obese Neck Neck exam: Present trachea midline Chest Chest inspection: Present normal inspection and symmetric chest wall rise Respiratory Respiratory exam: Present respiratory distress, accessory muscle use, prolonged expiratory phase and other (Decreased bilaterally, hypoxemic in the 40s); Absent wheezes or stridor Cardiovascular Cardiovascular exam: Present normal rhythm, tachycardia and other (Pulses equal and symmetric in upper and lower extremities) Extremities Exam Extremities exam: Absent edema Neurological Exam Neurological exam: Present alert, oriented X3 and CN II-XII intact Skin Skin exam: Present warm and dry; Absent cyanosis, diaphoresis or pallor HEART Score HEART Score HEART Score assessment performed?: No Critical Care Critical Care Time Critical Care Time: Yes (respiratory, ID/sepsis) Attestation: On 07/11/24, the high probability of a clinically significant, sudden or life threatening deterioration of the following system(s) required my full and direct attention, intervention and personal management. The time I documented below is in addition to time spent performing reported procedures but includes the following listed in this critical care notation. Total Time Total Critical Care Time: 60 Medical Decision Making Medical Records Medical records reviewed: Yes I reviewed the patient's medical records. Emir Inquiry Pt receiving controlled substance: No Emir was queried for this patient: No Vital Signs Vital Signs: 07/11/24 17:22 07/11/24 17:30 07/11/24 17:45 Temperature 99 F Temperature Source Axillary Pulse Rate 135 H Pulse Rate [Right] 146 H Respiratory Rate 38 H Blood Pressure 114/70 Blood Pressure [Left Arm] 114/70 Blood Pressure Mean [Left Arm] 84 02 Sat by Pulse Oximetry 30 L 30 L 94 L Oxygen Delivery Method Room Air Vapotherm Vapotherm Oxygen Flow Rate (LPM) 40 Fraction of Inspired Oxygen 100 07/11/24 18:02 07/11/24 18:05 07/11/24 18:18 Temperature Temperature Source Pulse Rate 137 H Pulse Rate [Right] Respiratory Rate Blood Pressure Blood Pressure [Left Arm] Blood Pressure Mean [Left Arm] 02 Sat by Pulse Oximetry 92 L Oxygen Delivery Method CPAP Oxygen Flow Rate (LPM) Fraction of Inspired Oxygen 100 100 07/11/24 18:18 07/11/24 18:29 07/11/24 18:30 Temperature Temperature Source Pulse Rate 127 H 126 H 126 H Pulse Rate [Right] Respiratory Rate 22 24 Blood Pressure 111/77 115/71 Blood Pressure [Left Arm] Blood Pressure Mean [Left Arm] 02 Sat by Pulse Oximetry 97 97 Oxygen Delivery Method Vapotherm Vapotherm Oxygen Flow Rate (LPM) Fraction of Inspired Oxygen 07/11/24 19:15 Temperature Temperature Source Pulse Rate Pulse Rate [Right] Respiratory Rate Blood Pressure Blood Pressure [Left Arm] Blood Pressure Mean [Left Arm] 02 Sat by Pulse Oximetry 96 Oxygen Delivery Method CPAP Oxygen Flow Rate (LPM) Fraction of Inspired Oxygen 100 Lab Data Labs: Lab Results 07/11/24 17:35: WBC 20.5 H*, RBC 4.28, Hgb 11.3 L, Hct 36.6 L, MCV 85.5, MCH 26.4 L, MCHC 30.9 L, RDW 15.9, Plt Count 335, MPV 8.6, Neut % (Auto) 69.5, Lymph % (Auto) 24.0, [place] % (Auto) 3.7, Eos % (Auto) 0.6, Baso % (Auto) 0.3, Neut # (Auto) 14.3 H, Lymph # (Auto) 4.9 H, [place] # (Auto) 0.8, Eos # (Auto) 0.1, Baso # (Auto) 0.1, Total Counted 100, Neutrophils % (Manual) 62, Band Neutrophils % 5.0, Lymphocytes % (Manual) 28, Monocytes % (Manual) 4, Eosinophils % (Manual) 1, Platelet Estimate Normal, RBC Morphology Normal, PT 11.5, INR 1.03, APTT 23.2, D-Dimer 1.32 H, Sodium 135 L, Potassium 4.0, Chloride 104, Carbon Dioxide 16 L, Anion Gap 19.0 H, BUN 11, Creatinine 0.90, Estimated Creat Clear 156, Estimated GFR 73, Est GFR ( Amer) 88, Glucose 179 H, Calcium 8.9, M agnesium 1.5 L, Total Bilirubin 0.8, AST 88 H, ALT 66, Alkaline Phosphatase 160 H, Troponin I 0.02, NT-Pro-B Natriuret Pep 982 H, Total Protein 7.0, Albumin 4.0, Globulin 3.0, Albumin/Globulin Ratio 1.3, HCG, Quant < 2 07/11/24 17:37: Chlamy pneumoniae PCR Not detected, Adenovirus (PCR) Not detected, B. pertussis DNA (PCR) Not detected, Coronavirus OC43 (PCR) Not detected, Coronavirus HKU1 (PCR) Not detected, Coronavirus 229E (PCR) Not detected, SARS-CoV-2 (PCR) Not detected, Coronavirus NL63 (PCR) Not detected, Human Metapneumovir PCR Not detected, Influenza A (H1) PCR Not detected, Influ A (H1N1/09) PCR Not detected, Influenza A (H3) PCR Not detected, Influenza Type A (PCR) Not detected, Influenza Type B (PCR) Not detected, M. pneumoniae (PCR) Not detected, Parainfluenza 1 (PCR) Not detected, Parainfluenza 2 (PCR) Not detected, Parainfluenza 3 (PCR) Not detected, Parainfluenza 4 (PCR) Not detected, RSV (PCR) Not detected, Entero/Rhino (PCR) Not detected 07/11/24 17:44: VBG pH 7.28 L, VBG pCO2 29.6 L, VBG pO2 25.6 L, VBG HCO3 13.6 L, VBG Total CO2 14.5 L, VBG O2 Saturation 38.7 L, VBG Base Excess -13.2 L, VBG Lactic Acid 6.2 H 07/11/24 17:35 07/11/24 17:35 Response Orders (Tests/Meds): ED MEDICATIONS Generic Name Dose Route Start Last Admin Trade Name Freq PRN Reason Stop Dose Admin Sodium Chloride 1,710 mls @ 855 mls/hr 07/11/24 19:32 Sod Chlor 0.9% 1000ml Bag 30 ml/kg infuse over 2 hr (1710 ml) 07/11/24 21:31 IV .Q2H ONE Discontinued Medications Generic Name Dose Route Start Last Admin Trade Name Freq PRN Reason Stop Dose Admin Albuterol/Ipratropium 9 ml 07/11/24 17:29 07/11/24 18:18 Ipratropium/Albuterol 3 Ml Neb IH 07/11/24 17:30 9 ml ONCE ONE Administration Dexamethasone Sodium Phosphate 10 mg 07/11/24 17:29 07/11/24 18:04 Dexamethasone 4mg/Ml 1ml Vial IV 07/11/24 17:30 10 mg ONCE ONE Administration Ceftriaxone Sodium 2 gm/ 100 mls @ 200 mls/hr 07/11/24 18:22 07/11/24 18:45 Sodium Chloride IV 07/11/24 18:51 200 mls/hr ONCE ONE Administration Azithromycin 500 mg/ Sodium 250 mls @ 250 mls/hr 07/11/24 18:22 07/11/24 19:23 Chloride IV 07/11/24 18:23 250 mls/hr ONCE ONE Administration Magnesium Sulfate 2 gm in 50 mls @ 50 mls/hr 07/11/24 18:23 07/11/24 19:23 Magnesium Sulfate 2gm/50ml Premix IV 07/11/24 19:22 50 mls/hr ONCE ONE Administration Iopamidol 70 ml 07/11/24 19:02 07/11/24 19:03 Iopamidol-370 (76%);100ml Bottle IV 07/11/24 19:03 70 ml ONCE ONE Administration Sodium Chloride 50 ml 07/11/24 19:02 07/11/24 19:03 0.9 % Sodium Chloride 50 Ml Vial IV 07/11/24 19:03 50 ml ONCE ONE Administration Sodium Chloride 10 ml 07/11/24 19:02 07/11/24 19:03 Sodium Chloride 0.9% 10ml Syr (Rad Only) IV 07/11/24 19:03 10 ml ONCE ONE Administration ORDERS Category Date Time Status CT angio chest PE protocol Stat Cat Scan 07/11/24 18:23 Taken XR chest portable Stat Exams 07/11/24 17:29 Taken Complete Blood Count Auto Diff Stat Lab 07/11/24 17:35 Completed Comprehensive Metabolic Panel Stat Lab 07/11/24 17:35 Completed D-Dimer Stat Lab 07/11/24 17:35 Completed Full Resp Panel w/COVID ([facility]) Routine Lab 07/11/24 17:37 Completed HCG,Quantitative Stat Lab 07/11/24 17:35 Completed HIV Combo Stat Lab 07/11/24 17:35 Received Hepatitis C Ab Qual. W/ RFX Stat Lab 07/11/24 18:43 Received Magnesium Stat Lab 07/11/24 17:35 Completed NT Pro Brain Natriuretic Pep. Stat Lab 07/11/24 17:35 Completed PT INR [Prothrombin Time INR] Stat Lab 07/11/24 17:35 Completed PTT [Activated Partial Thrombo Time] Stat Lab 07/11/24 17:35 Completed Troponin I Q3H Lab 07/11/24 20:30 Ordered Troponin I Q3H Lab 07/11/24 23:30 Ordered Troponin I Stat Lab 07/11/24 17:35 Completed Blood Culture Stat Micro 07/11/24 18:07 Received Venous Blood Gas Stat RT 07/11/24 17:44 Completed MDM Narrative Medical Decision Narrative: 33-year-old female history of interstitial lung disease coming in with shortness of breath. Started today. [place] since. States that she is usually on 2 L nasal cannula, did not have an on the way to the hospital. Showed up in hospital bed and was unable to ambulate due to shortness of breath. Hypoxemic, placed in wheelchair and brought to the back. Patient acutely ill-appearing. Tachypneic, tachycardic, hypoxemic, diaphoretic, pale, perioral cyanosis. Differential includes acute hypoxemic respiratory failure, acute hypercapnic respiratory failure, pneumothorax, PE, among others. Patient was given DuoNebs, Decadron, respiratory support for symptomatic management and correction of underlying abnormalities. Patient placed on continuous cardiac monitoring and continuous pulse ox with initial blood pressure 114/70, heart rate 146, saturation 30% on room air breathing about 40 times per minute. Independent interpretation of EKG shows sinus tachycardia 135 bpm with MI interval 149, QRS 93, QTc 370. T wave inversions in 3 and aVF with no reciprocal elevations. Patient placed on nonrebreather on flush, able to saturate in the low 90%. Tried on nasal cannula high flow, this was unsuccessful with saturations 80 to 85%. Placed on BiPAP. Patient with saturations in the low 90s, remains tachycardic, but improved 1 15- 1 20, however patient's respiratory rate improved right around 20. Initial lab was VBG, independently interpreted patient's pH 7.28, CO2 29, oxygen 25, lactate elevated at 6.2 and bicarb low at 13.6 consistent with metabolic acidosis that is poorly compensated by respirations. Patient was given DuoNebs, Decadron, respiratory support for symptomatic management and correction of underlying abnormalities. Workup independently interpreted and significant for patient has leukocytosis of 20,000 with elevated neutrophils and lymphocytes. Dimer elevated at 1.3. CT PE ordered. Blood gas as discussed above. Chemistry with hyponatremia, this was repleted. Troponin negative, BNP elevated at 900. hCG negative. Patient given ceftriaxone and azithromycin due to independent interpretation of patient's chest x-ray with what appears to be patchy airspace opacities, primarily with developing consolidation in the right lower lobe. On independent interpretation of CT, bilateral lower lobe bronchopneumonia. No evidence of acute PE. See radiology read for full review of final results. On reevaluation, patient sleepy, but able to be aroused by voice. Tissue perfusion reassessment performed within 3 hours, patient mentating, following commands, good capillary refill and hemodynamically stable. At this time, I feel patient is appropriate for admission. Practice Or Student Teacher disclaimer Much of this encounter note is an electronic principle software engineer spoken language to printed text. Electronic principle software engineer of the spoken language may permit errors. Although I have reviewed the note, some errors may still exist.
[2024-07-11 17:51] LABS: VBG Base Excess -13.2 mmol/L (-2.4-2.3); VBG HCO3 13.6 mmol/L (23-30); VBG Oxygen Saturation 38.7 % (50-70); VBG PCO2 29.6 mmol/L (35-51); VBG PH 7.28 mmol/L (7.31-7.41); VBG PO2 25.6 mmol/L (28-40); VBG Total CO2 14.5 mmol/L (23-27)
[2024-07-11 17:54] LABS: MANUAL DIFFERENTIAL MANUAL DIFFERENTIAL (MANUAL DIFF)
[2024-07-11 17:56] LABS: Activated Partial Thrombo Time 23.2 seconds (22.8-30.6)
[2024-07-11 18:00] LABS: Chloride 104 mmol/L (98-107); INR 1.03 (0.9-1.1); Prothrombin Time 11.5 seconds (10.1-12.5); Sodium 135 mmol/L (136-145)
[2024-07-11 18:03] LABS: Alanine Aminotransferase 66 U/L (12-78); Albumin/Globulin Ratio 1.3 (1.1-1.8); Alkaline Phosphatase 160 U/L (38-126); Aspartate Amino Transferase 88 U/L (14-36); Bilirubin,Total 0.8 mg/dl (0.2-1.3); Blood Urea Nitrogen 11 mg/dl (7-17); Carbon Dioxide 16 mmol/L (22.0-30.0); Creatinine Clearance Estimated 156 mL/min (50-200); Estimated Glomerular Filt Rate 73 ml/min (>60); GFR (African American) 88 ML/MIN (>60)
[2024-07-11 18:04] LABS: Calcium 8.9 mg/dl (8.4-10.2); Glucose 179 mg/dl (74-100); Magnesium 1.5 mg/dl (1.6-2.3)
[2024-07-11] MEDS: DEXAMETHASONE 4MG/ML 1ML VIAL 10 MG IV (18:04)
[2024-07-11 18:09] LABS: D-Dimer 1.32 ug/mL (0.0-0.5)
[2024-07-11 18:12] LABS: Adenovirus,PCR Not Detected (NotDetected); Bordetella Pertussis Not Detected (NotDetected); Chlamydophila Pneumoniae, PCR Not Detected (NotDetected); Coronavirus 19, PCR Not Detected (NotDetected); Coronavirus 229E Not Detected (NotDetected); Coronavirus NL63 Not Detected (NotDetected); Coronavirus OC43 Not Detected (NotDetected); Coronovirus HKU1,PCR Not Detected (NotDetected); Human Metapneumovirus Not Detected (NotDetected); Influenza A, PCR Not Detected (NotDetected); Influenza AH1, 2009 Not Detected (NotDetected); Influenza AH1, PCR Not Detected (NotDetected); Influenza AH3,PCR Not Detected (NotDetected); Influenza B, PCR Not Detected (NotDetected); Mycoplasma Pneumoniae, PCR Not Detected (NotDetected); Parainfluenza 1, PCR Not Detected (NotDetected); Parainfluenza 2, PCR Not Detected (NotDetected); Parainfluenza 3, PCR Not Detected (NotDetected); Parainfluenza 4, PCR Not Detected (NotDetected); Respiratory Syncytial Virus Not Detected (NotDetected); Rhinovirus/Enterovirus Not Detected (NotDetected)
[2024-07-11 18:14] LABS: NT Pro Brain Natriuretic Pep. 982 pg/mL (0-125)
[2024-07-11 18:16] LABS: Troponin I 0.02 ng/ml (0.00-0.034)
[2024-07-11] MEDS: IPRATROPIUM/ALBUTEROL 3 ML NEB 9 ML IH (18:18)
[2024-07-11 18:22] LABS: HCG,Quantitative < 2 mIU/ml (0-5.42)
--- NOTE | 2024-07-11 18:23 | CT_ITS ---
PROCEDURE INFORMATION: Exam: CTA Chest With Contrast Exam date and time: 07/11/2024 6:55 PM Age: 33 years old Clinical indication: Shortness of breath; Additional info: Acute SOA, hypoxemia TECHNIQUE: Imaging protocol: Computed tomographic angiography of the chest with contrast. Exam focused on the arteries. 3D rendering (Not supervised by radiologist): MIP and/or 3D reconstructed images were created by the technologist. Radiation optimization: All CT scans at this facility use at least one of these dose optimization techniques: automated exposure control; mA and/or kV adjustment per patient size (includes targeted exams where dose is matched to clinical indication); or iterative reconstruction. Contrast material: ISO 370; Contrast volume: 70 ml; Contrast route: INTRAVENOUS (IV); COMPARISON: CT ANGIO CHEST PE PROTOCOL 05/18/2024 2:28 AM FINDINGS: Pulmonary arteries: No pulmonary emboli. Aorta: Unremarkable. No aortic aneurysm. No aortic dissection. Lungs: Extensive bilateral perihilar opacities. Pleural spaces: Unremarkable. No pneumothorax. No pleural effusion. Heart: Unremarkable. No cardiomegaly. No pericardial effusion. Lymph nodes: Unremarkable. No enlarged lymph nodes. Bones/joints: Unremarkable. No acute fracture. Soft tissues: Unremarkable. IMPRESSION: 1. No central or segmental pulmonary arterial embolism identified. 2. Extensive bilateral perihilar opacities. Query COVID pneumonia symptoms.
--- NOTE | 2024-07-11 18:30 | PC.NURSE ---
ELIANA STEVENSON CALLED RESPIRATORY TO HELP TAKE PT TO CT
[2024-07-11 18:31] LABS: Lactate Venous 6.2 mmol/L (0.4-2.0)
[2024-07-11] MEDS: CEFTRIAXONE SODIUM 2 GM in 0.9 % SODIUM CHLORIDE 100 ML IV (18:45)
[2024-07-11] MEDS: 0.9 % SODIUM CHLORIDE 50 ML VIAL IV (19:03)
[2024-07-11] MEDS: SODIUM CHLORIDE 0.9% 10ML SYR (RAD ONLY) 10 ML IV (19:03)
[2024-07-11] MEDS: IOPAMIDOL-370 (76%);100ML BOTTLE 70 ML IV (19:03)
[2024-07-11] MEDS: AZITHROMYCIN 500 MG in 0.9 % SODIUM CHLORIDE 250 ML 250 MG IV (19:23)
[2024-07-11] MEDS: MAGNESIUM SULFATE IN WATER 2 GM/50 ML PIGGYBACK IV (19:23)
[2024-07-11 19:49] LABS: Eosinophils % 1 % (0-3); Lymphocytes % 28 % (10-50); Monocytes % 4 % (2-9); Neutrophils % 62 % (42-76); Total Cells Counted 100
[2024-07-11 19:50] LABS: Platelet Estimate Normal; RBC Morphology Normal
[2024-07-11] MEDS: SODIUM CHLORIDE 855 ML IV (20:04)
[2024-07-11 20:16] LABS: HIV Combo NEGATIVE (Negative)
[2024-07-11 20:23] LABS: Hepatitis C Ab Qual. W/ RFX NEGATIVE (Negative)
--- NOTE | 2024-07-11 20:36 | PC.NURSE ---
report called to ELIANA Patel
--- NOTE | 2024-07-11 21:06 | PC.NURSE ---
Patient arrived to ICU unit @21:06
[2024-07-11] MEDS: METHYLPREDNISOLONE SOD SUCC 40MG VIAL 40 MG IV (21:44)
[2024-07-11] MEDS: 0.9 % SODIUM CHLORIDE 1000ML 1,000 ML 75 ML IV (21:44)
[2024-07-11] MEDS: PANTOPRAZOLE 40MG VIAL 40 MG IV (21:44)
[2024-07-11] MEDS: IPRATROPIUM/ALBUTEROL 3 ML NEB IH (22:12)
[2024-07-11 22:30] LABS: Reflex Lactic Add Lactic Reflex
[2024-07-11 23:06] LABS: Lactic Acid Follow Up (RFLX 1) 1.4 mmol/L (0.7-2.1)
[2024-07-12] VITALS (42 sets, daily range): BP systolic 105–123; BP diastolic 66–78; PULSE 70–97; RESP 14–33; TEMP 36.6–36.9; O2SAT 88–98; BMI 44.0
--- NOTE | 2024-07-12 00:04 | P.HP_ITS ---
<Statement entered by Sheldon Castrejon MD - 07/13/24 19:50> Personally evaluated patient and agree with plan of care as outlined by the PRIVATE EQUITY ANALYST. History of Present Illness *Admission Date: 07/11/24 *Reason for visit:: Respiratory failure *History of present illness: This 33-year-old female is well-known to us. She was recently in the hospital for very similar situation in April. Per the patient's history approximately 3 days ago she snorted methamphetamines said her to boyfriend would not let her smoke it., She continues to smoke at least a half a pack a day. Patient began to have respiratory distress O2 saturations in the 30s on room air with respiratory rate of 40 on arrival. BiPAP mask was required to return oxygen saturations to above 90. Normally patient is on a minimum of 2 L Teaching done on the last time she was here about her lung condition. There is a total disconnect of reality as to how bad her condition has and how her present lifestyle can be Dieck making it decline at a rapid rate. Patient has been stabilized in the emergency room and moved up as a stepdown unit patient to the unit. Patient is presently sleeping with oxygen saturations in the 90s and respiratory is slowly weaning the oxygen concentrations. Patient is also on multiple mental health drugs. Related to a long history of depression and anxiety etc.. Patient also has morbid obesity. [facility] Disclaimer: The information contained in this section may have been updated after the patient was seen, as this information can be updated by other users. Medical History Acute respiratory failure with hypoxia Pneumonia Pneumonia Syncope ILD (interstitial lung disease) Endometriosis Acute [facility] Anxiety Depression Bipolar disorder Surgical History History of cholecystectomy Hx of tonsillectomy Delivery by section Family History Other Cancer Social History Smoking Status: Current every day smoker alcohol intake: never current occupational status: employed Travel in the last 8 weeks: None Have you lived/traveled outside US in past 30 days?: No Contact w/someone who lives/traveled outside US past 30 days?: No Exposure to someone with infectious disease in past 14 days?: No Do you have a fever (greater than 100.4 F or 38 C)?: No Have you tested positive for COVID-19: No Exposed to someone with COVID-19 in past 14 days?: No Do you have a sore throat?: No Do you have a cough?: No Do you have any weakness?: No Do you have any diarrhea?: No Are you experiencing any unusual bleeding?: No Do you have any muscle aches/pain?: No Do you have any abdominal pain?: No Are you experiencing loss of taste or smell?: No Other Medical History Have you received the Flu Vaccine for this season: No Have you received the Pneumonia Vaccine: No Review of Systems Review of Systems Review of systems:: pertinent systems reviewed and negative unless documented below Constitutional Constitutional: Reports as per HPI Eyes Eyes: Reports as per HPI ENT Ears, Nose, Mouth, and Throat: Reports as per HPI *Cardiovascular Cardiovascular: Reports as per HPI *Respiratory Respiratory: Reports as per HPI Comments: Severe respiratory distress without intervention patient would have *Gastrointestinal Gastrointestinal: Reports as per HPI *Genitourinary Genitourinary: Reports as per HPI *Musculoskeletal Musculoskeletal: Reports as per HPI Integumentary/Breasts Skin/Breast: Reports as per HPI *Neurologic Neurologic: Reports as per HPI Psychiatric Psychiatric: Reports as per HPI Endocrine Endocrine: Reports as per HPI Hematologic/Lymphatic Hematologic/Lymphatic: Reports as per HPI Allergic/Immunologic Allergic/Immunologic: Reports as per HPI Meds Home Medications and Allergies Home Medications ?Medication ?Instructions ?Recorded ?Confirmed ?Type aripiprazole 10 mg tablet 10 mg PO HS 12/15/23 06/11/24 History buprenorphine 8 mg-naloxone 2 mg 2 tab sublingual DAILY 12/15/23 06/11/24 History sublingual tablet buspirone 15 mg tablet 15 mg PO TID 12/15/23 06/11/24 History fluoxetine 40 mg capsule 40 mg PO DAILY 12/16/23 06/11/24 History fluoxetine 20 mg capsule 20 mg PO DAILY 05/18/24 06/11/24 History albuterol sulfate 90 mcg/actuation 2 inh inhalation Q6H PRN shortness 06/05/24 06/11/24 Rx aerosol inhaler of breath or wheezing 90 days #8.5 grams nicotine (polacrilex) 2 mg gum 2 mg buccal Q4H PRN nicotine 06/05/24 06/11/24 Rx cravings #100 ea nicotine See Rx Instructions transdermal 06/05/24 06/11/24 Rx 21mg/24hr-14mg/24hr-7mg/24hr daily .COMPLEX #56 patches transderm patches,sequentl gabapentin 600 mg tablet 600 mg PO TID 06/11/24 06/11/24 History prednisone 20 mg tablet See Rx Instructions .Route 06/11/24 06/11/24 Rx .COMPLEX #49 tabs quetiapine 100 mg tablet 100 mg PO HS 06/11/24 06/11/24 History New Prescriptions to Start Prescriptions: Allergies Allergy/AdvReac Type Severity Reaction Status Date / Time No Known Allergies Allergy Verified 06/11/24 14:35 Exam Data for Last 24 hours Vital signs and Labs for Last 24 Hours: Temp Pulse Resp BP Pulse Ox O2 Del Method O2 Flow Rate 98.5 F 101 H 25 H 115/75 95 CPAP 40 07/11/24 21:26 07/11/24 22:12 07/11/24 22:00 07/11/24 22:00 07/11/24 22:12 07/11/24 23:00 07/11/24 17:45 FiO2 90 07/11/24 22:12 Laboratory Results - last 24 hr 07/11/24 17:35: WBC 20.5 H*, RBC 4.28, Hgb 11.3 L, Hct 36.6 L, MCV 85.5, MCH 26.4 L, MCHC 30.9 L, RDW 15.9, Plt Count 335, MPV 8.6, Neut % (Auto) 69.5, Lymph % (Auto) 24.0, [place] % (Auto) 3.7, Eos % (Auto) 0.6, Baso % (Auto) 0.3, Neut # (Auto) 14.3 H, Lymph # (Auto) 4.9 H, [place] # (Auto) 0.8, Eos # (Auto) 0.1, Baso # (Auto) 0.1, Total Counted 100, Neutrophils % (Manual) 62, Band Neutrophils % 5.0, Lymphocytes % (Manual) 28, Monocytes % (Manual) 4, Eosinophils % (Manual) 1, Platelet Estimate Normal, RBC Morphology Normal, PT 11.5, INR 1.03, APTT 23.2, D-Dimer 1.32 H, Sodium 135 L, Potassium 4.0, Chloride 104, Carbon Dioxide 16 L, Anion Gap 19.0 H, BUN 11, Creatinine 0.90, Estimated Creat Clear 156, Estimated GFR 73, Est GFR ( Amer) 88, Glucose 179 H, Calcium 8.9, Magnesium 1.5 L, Total Bilirubin 0.8, AST 88 H, ALT 66, Alkaline Phosphatase 160 H, Troponin I 0.02, NT-Pro-B Natriuret Pep 982 H, Total Protein 7.0, Albumin 4.0, Globulin 3.0, Albumin/Globulin Ratio 1.3, HCG, Quant < 2, HCV Ab ORAL w/Rflx PCR Qn Negative, HIV Ag/Ab Combo Qual Negative 07/11/24 17:37: Chlamy pneumoniae PCR Not detected, Adenovirus (PCR) Not detected, B. pertussis DNA (PCR) Not detected, Coronavirus OC43 (PCR) Not detected, Coronavirus HKU1 (PCR) Not detected, Coronavirus 229E (PCR) Not detected, SARS-CoV-2 (PCR) Not detected, Coronavirus NL63 (PCR) Not detected, Human Metapneumovir PCR Not detected, Influenza A (H1) PCR Not detected, Influ A (H1N1/09) PCR Not detected, Influenza A (H3) PCR Not detected, Influenza Type A (PCR) Not detected, Influenza Type B (PCR) Not detected, M. pneumoniae (PCR) Not detected, Parainfluenza 1 (PCR) Not detected, Parainfluenza 2 (PCR) Not detected, Parainfluenza 3 (PCR) Not detected, Parainfluenza 4 (PCR) Not detected, RSV (PCR) Not detected, Entero/Rhino (PCR) Not detected 07/11/24 17:44: VBG pH 7.28 L, VBG pCO2 29.6 L, VBG pO2 25.6 L, VBG HCO3 13.6 L, VBG Total CO2 14.5 L, VBG O2 Saturation 38.7 L, VBG Base Excess -13.2 L, VBG Lactic Acid 6.2 H 07/11/24 22:48: Lactate 1.4 I & O for Last 24 hours: Intake & Output 07/09/24 07/10/24 07/11/24 03/16/25 05:59 05:59 05:59 05:59 Weight 264 lb 6.4 oz Radiology Reports for the Last 24 Hours: Chest CT shows an enlarged heart. With infiltrate in the posterior aspects of both lungs Constitutional Constitutional: severe distress, morbidly obese, cooperative and obtunded *Routine HEENT Exam Head: Present normocephalic and atraumatic Eye: Present EOMI ENT: Present mucous membranes moist *Routine Neck Exam Neck: Present supple and full ROM Routine Chest/Breast/Axilla Exam Comments: No signs of injury found *Routine Respiratory Exam Respiratory: Present accessory muscle use, decreased breath sounds, respiratory distress, rhonchi, wheezes and diminished air movement Comments: Patient on BiPAP mask patient in respiratory distress during exam *Routine Cardiovascular Exam Cardiovascular: Present tachycardia Comments: Hard to evaluate full lung sounds with BiPAP, nailbeds pink lips are pale *Routine Abdominal Exam Abdominal: Present soft and obese *Routine Rectal Exam Rectal:: deferred *Routine Genitalia Exam Genitalia:: deferred Comment:: Patient was incontinent of stool and urine *Routine Extremities Exam Extremities: Present pulses intact Routine Back/Spine/Pelvis Exam Comments: No signs of injury found *Routine Skin Exam Skin: Present intact *Routine Neurological Exam Comments: Hard to assess patient does respond to me nods does say a word or 2 but is in respiratory distress very difficult for her to respond Routine Psychiatric Exam Psychiatric: Present unable to assess H&P: Result Impressions Respiratory distress with secondary drug abuse O2 dependent with morbid obesity Imaging and Cardiology CT scan - chest: Additional comments: Enlarged heart with infiltrate in both posterior lower lungs Assessment and Plan *Assessment and plan (1) Pneumonia: Status: Acute Qualifiers: Pneumonia type: due to unspecified organism Laterality: bilateral Lung location: lower lobe of lung Qualified Code(s): J18.9 - Pneumonia, unspecified organism Category: Medical Code(s): J18.9 - Pneumonia, unspecified organism (2) Acute hypoxemic respiratory failure: Status: Acute Category: Medical Code(s): J96.01 - Acute respiratory failure with hypoxia (3) Tobacco abuse: Status: Acute Category: Medical Code(s): Z72.0 - Tobacco use (4) Morbid obesity: Status: Acute Category: Medical Code(s): E66.01 - Morbid (severe) obesity due to excess calories (5) Pneumonia: Status: Acute Qualifiers: Pneumonia type: due to unspecified organism Laterality: bilateral Lung location: lower lobe of lung Qualified Code(s): J18.9 - Pneumonia, unspecified organism Category: Medical Code(s): J18.9 - Pneumonia, unspecified organism Plan Patient will be placed on the stepdown unit monitored overnight. He is on BiPAP. Will maximize pulmonary toileting start antibiotics add steroids. Question whether this is related to her use of methamphetamine from information we have she did not smoke with 3 days but snorted it question chemical pneumonitis. Continues to smoke at least a half a pack a day normally on 2 L of oxygen daily. Has to definitely use oxygen at night when feeling well
[2024-07-12] MEDS: AZITHROMYCIN 500 MG in 0.9 % SODIUM CHLORIDE 250 ML 250 MG IV ×2 (00:44→20:10)
[2024-07-12] MEDS: CEFTRIAXONE 1 GM 1 GM in 0.9 % SODIUM CHLORIDE 50 ML IV ×2 (00:44→20:17)
[2024-07-12] MEDS: IPRATROPIUM/ALBUTEROL 3 ML NEB IH ×6 (02:10→23:34)
[2024-07-12 05:15] LABS: Barbiturates Screen,Urine Negative ng/ml (<200); Benzodiazepines Screen,Urine Negative ng/ml (<200)
[2024-07-12 05:16] LABS: Cannabinoid Screen,Urine Negative ng/ml (<50); Cocaine Screen,Urine Negative ng/ml (<300)
[2024-07-12 05:17] LABS: Methadone Screen,Urine Negative ng/ml (<300)
[2024-07-12 05:18] LABS: Opiate Screen,Urine Negative ng/ml (<300); Phencyclidine Screen,Urine Negative ng/ml (<25)
--- NOTE | 2024-07-12 06:29 | PC.NURSE ---
Pt wearing cpap at 6/70%. pt significant other at bedside. Pt has rested throughout the night. pt has 2 iv one 20g right ac, and the other is a 20g in left hand both are patent and intact. pt has a purewick.
[2024-07-12 06:34] LABS: ABG Base Excess -7.3 mmol/L (-2.4-2.3); ABG Oxygen Saturation 95 % (90-100); ABG PCO2 32.2 mmhg (35.0-45.0); ABG PH 7.37 mmol/L (7.35-7.45); ABG PO2 79.8 mmhg (80-100)
[2024-07-12 06:35] LABS: Allen's Test Acceptable; Oxygen 70 %; PEEP 6; Source Right Radial
[2024-07-12 07:37] LABS: Basophils % 0.1 % (0.1-2.0); Eosinophils % 0.1 % (0.1-12.0); Hematocrit 31.7 % (37.0-47.0); Lymphocytes # 0.9 K/mm3 (0.7-4.5); Lymphocytes % 5.9 % (10-50); Mean Corpuscular HGB Conc 31.5 g/dL (31.8-35.4); Mean Corpuscular Hemoglobin 26.7 pg (27.0-31.2); Mean Corpuscular Volume 84.5 fl (81-99); Mean Platelet Volume 8.7 fl (7.4-10.4); Monocytes # 0.3 K/mm3 (0.1-1.0); Monocytes % 1.8 % (1.7-9.3); Neutrophils # 13.6 K/mm3 (1.8-7.8); Neutrophils % 91.5 % (37.0-80.0); Platelet Count 303 K/mm3 (142-424); Red Blood Count 3.75 M/mm3 (4.20-5.40); Red Cell Distribution Width 15.9 % (11.5-17.5); White Blood Count 14.9 K/mm3 (4.8-10.8)
[2024-07-12 07:38] LABS: Lactic Acid 1.6 mmol/L (0.7-2.1)
[2024-07-12 07:48] LABS: MANUAL DIFFERENTIAL MANUAL DIFFERENTIAL (MANUAL DIFF)
[2024-07-12 07:54] LABS: Hemoglobin 9.8 g/dL (12.2-16.2)
[2024-07-12 08:01] LABS: Albumin Level 3.5 g/dl (3.5-5.0); Chloride 109 mmol/L (98-107); Potassium 4.7 mmoL/L (3.5-5.1); Sodium 135 mmol/L (136-145)
[2024-07-12 08:03] LABS: Blood Urea Nitrogen 9 mg/dl (7-17); Creatinine Clearance Estimated 141 mL/min (50-200); Estimated Glomerular Filt Rate 144 ml/min (>60); GFR (African American) 174 ML/MIN (>60)
[2024-07-12 08:04] LABS: Alanine Aminotransferase 48 U/L (12-78); Albumin/Globulin Ratio 1.3 (1.1-1.8); Alkaline Phosphatase 159 U/L (38-126); Anion Gap 9.7 mEq/L (5-15); Aspartate Amino Transferase 77 U/L (14-36); Bilirubin,Total 0.3 mg/dl (0.2-1.3); Carbon Dioxide 21 mmol/L (22.0-30.0); Globulin 2.8 g/dL (1.3-3.2); Glucose 150 mg/dl (74-100); Total Protein,Serum 6.3 g/dl (6.3-8.2)
[2024-07-12 08:13] LABS: HCG Qualitative, Serum Negative (Negative)
[2024-07-12] MEDS: METHYLPREDNISOLONE SOD SUCC 40MG VIAL 40 MG IV ×2 (08:56→20:09)
[2024-07-12] MEDS: guaiFENesin 600 MG TAB.ER.12H PO ×2 (08:56→20:09)
[2024-07-12] MEDS: ENOXAPARIN 40MG/0.4ML SYRINGE 40 MG SUBCUT ×2 (08:56→20:09)
--- NOTE | 2024-07-12 09:11 | PC.NURSE ---
Pt placed on vapotherm 30L 80% at this time.
[2024-07-12] MEDS: SODIUM CHLORIDE 3% 15ML NEB 3 ML IH (09:25)
[2024-07-12] MEDS: BUDESONIDE 0.5MG/2ML NEB 0.5 MG IH ×2 (09:25→18:53)
--- NOTE | 2024-07-12 10:23 | PC.NURSE ---
Med rec completed using external med history and speaking with the patient at this time
--- NOTE | 2024-07-12 10:58 | HMH.PHAINT1 ---
Pharmacy Intervention Comments: MEDICATION RECONCILIATION COMPLETE USING EXTERNAL PHARMACY FILL HISTORY AND RECENT PULMONOLOGY OFFICE VISIT NOTE.
[2024-07-12] MEDS: 0.9 % SODIUM CHLORIDE 1000ML 1,000 ML 75 ML IV (12:29)
[2024-07-12] MEDS: BUPRENORPHINE/NALOXONE 8MG/2MG ODT 2 EACH SL (12:54)
[2024-07-12] MEDS: GABAPENTIN 600MG TABLET 600 MG PO ×2 (12:54→20:09)
[2024-07-12] MEDS: NICOTINE 21MG/24HR PATCH 21 MG TD (14:17)
[2024-07-12 14:27] LABS: Lymphocytes % 7 % (10-50); Monocytes % 2 % (2-9); Neutrophils % 91 % (42-76); Platelet Estimate Normal; RBC Morphology Normal; Total Cells Counted 100
--- NOTE | 2024-07-12 17:51 | PC.NURSE ---
PT HAS DONE FAIR THIS SHIFT. SHE DID HAVE ONE EPISODE WHERE SHE WAS ADAMANT ON LEAVING THE HOSPITAL. MD AND SUBSTANCE ABUSE TECHNICIAN CAME TO PT'S BEDSIDE AND HAD A DISCUSSION WITH HER ON WHY SHE SHOULD NOT LEAVE AND PT WAS AGREEABLE TO STAY IF SHE COULD HAVE HER GABAPENTIN AND SUBOXONE REORDERED. MEDS REORDERED AND GIVEN. SHE WAS ABLE TO BE WEANED OFF OF THE CPAP THIS AM AND IS NOW ON 30 LITERS PER MIN. AT 80% FiO2 AND IS TOLERATING WELL WITH 02 SATS 90-95%. LUNG SOUNDS REMAINS DIMINISHED WITH SUZE FINE CRACKLES IN THE BASES. VERY POOR AIR MOVEMENT. NO C/O PAIN OR SHORTNESS OF BREATH THIS SHIFT. VSS.
--- NOTE | 2024-07-12 18:02 | EXP.PN ---
Subjective *Date: 07/12/24 *Time: 18:39 Interval history: Patient doing better on Vapotherm. Restricted air movement. Continue steroids, antibiotics. Exam Data for Last 24 hours Vital signs and Labs for Last 24 Hours: Temp Pulse Resp BP Pulse Ox O2 Del Method O2 Flow Rate 98.0 F 79 27 H 110/69 92 L Vapotherm 30 07/12/24 16:00 07/12/24 16:00 07/12/24 16:00 07/12/24 16:00 07/12/24 16:00 07/12/24 17:00 07/12/24 17:00 FiO2 80 07/12/24 16:00 Laboratory Results - last 24 hr 07/11/24 04:44: Urine Opiates Screen Negative, Urine Methadone Screen Negative, Ur Barbituates Screen Negative, Ur Phencyclidine Scrn Negative, Ur Amphetamines Screen TNP, U Benzodiazepines Scrn Negative, Urine Cocaine Screen Negative, U Marijuana (THC) Screen Negative 07/11/24 17:35: Total Counted 100, Neutrophils % (Manual) 62, Band Neutrophils % 5.0, Lymphocytes % (Manual) 28, Monocytes % (Manual) 4, Eosinophils % (Manual) 1, Platelet Estimate Normal, RBC Morphology Normal, PT 11.5, INR 1.03, D-Dimer 1.32 H, Carbon Dioxide 16 L, Anion Gap 19.0 H, BUN 11, Creatinine 0.90, Estimated Creat Clear 156, Estimated GFR 73, Est GFR ( Amer) 88, Glucose 179 H, Calcium 8.9, Magnesium 1.5 L, Total Bilirubin 0.8, AST 88 H, ALT 66, Alkaline Phosphatase 160 H, Troponin I 0.02, NT-Pro-B Natriuret Pep 982 H, Total Protein 7.0, Globulin 3.0, Albumin/Globulin Ratio 1.3, HCG, Quant < 2, HCV Ab ORAL w/Rflx PCR Qn Negative, HIV Ag/Ab Combo Qual Negative 07/11/24 17:37: Chlamy pneumoniae PCR Not detected, Adenovirus (PCR) Not detected, B. pertussis DNA (PCR) Not detected, Coronavirus OC43 (PCR) Not detected, Coronavirus HKU1 (PCR) Not detected, Coronavirus 229E (PCR) Not detected, SARS-CoV-2 (PCR) Not detected, Coronavirus NL63 (PCR) Not detected, Human Metapneumovir PCR Not detected, Influenza A (H1) PCR Not detected, Influ A (H1N1/09) PCR Not detected, Influenza A (H3) PCR Not detected, Influenza Type A (PCR) Not detected, Influenza Type B (PCR) Not detected, M. pneumoniae (PCR) Not detected, Parainfluenza 1 (PCR) Not detected, Parainfluenza 2 (PCR) Not detected, Parainfluenza 3 (PCR) Not detected, Parainfluenza 4 (PCR) Not detected, RSV (PCR) Not detected, Entero/Rhino (PCR) Not detected 07/11/24 17:44: VBG pH 7.28 L, VBG pCO2 29.6 L, VBG pO2 25.6 L, VBG HCO3 13.6 L, VBG Total CO2 14.5 L, VBG O2 Saturation 38.7 L, VBG Base Excess -13.2 L, VBG Lactic Acid 6.2 H 07/11/24 22:48: Lactate 1.4 07/12/24 06:00: Specimen Source Right radial, O2 % 70, ABG pH 7.37, ABG pCO2 32.2 L, ABG pO2 79.8 L, ABG HCO3 18.0 L, ABG Total CO2 19.0 L, ABG O2 Saturation 95, ABG Base Excess -7.3 L, Pawel Test Acceptable, PEEP 6 07/12/24 06:55: WBC 14.9 H D, RBC 3.75 L, Hgb 9.8 L D, Hct 31.7 L, MCV 84.5, MCH 26.7 L, MCHC 31.5 L, RDW 15.9, Plt Count 303, MPV 8.7, Neut % (Auto) 91.5 H, Lymph % (Auto) 5.9 L, [place] % (Auto) 1.8, Eos % (Auto) 0.1, Baso % (Auto) 0.1, Neut # (Auto) 13.6 H, Lymph # (Auto) 0.9, [place] # (Auto) 0.3, Eos # (Auto) 0.0, Baso # (Auto) 0.0, Total Counted 100, Neutrophils % (Manual) 91 H, Lymphocytes % (Manual) 7 L, Monocytes % (Manual) 2, Platelet Estimate Normal, RBC Morphology Normal, Sodium 135 L, Potassium 4.7, Chloride 109 H, Carbon Dioxide 21 L, Anion Gap 9.7, BUN 9, Creatinine 0.50 L D, Estimated Creat Clear 141, Estimated GFR 144, Est GFR ( Amer) 174 D, Glucose 150 H, Lactate 1.6, Calcium 8.0 L, Magnesium 2.0 D, Total Bilirubin 0.3, AST 77 H, ALT 48 D, Alkaline Phosphatase 159 H, Total Protein 6.3, Albumin 3.5 D, Globulin 2.8, Albumin/Globulin Ratio 1.3, Serum HCG, Qual Negative I & O for Last 24 hours: Intake & Output 07/09/24 07/10/24 07/11/24 07/12/24 23:59 23:59 23:59 23:59 Intake Total 1082 / 1082 Output Total 0 / 0 1050 / 1050 Balance 0 32 / 32 Weight 119.93 kg 119.93 kg Constitutional Constitutional: no acute distress *Routine HEENT Exam Head: Present normocephalic Eye: Present EOMI and PERRL ENT: Present mucous membranes moist *Routine Neck Exam Neck: Present supple; Absent lymphadenopathy *Routine Respiratory Exam Respiratory: Present diminished air movement; Absent CTA bilaterally *Routine Cardiovascular Exam Cardiovascular: Present RRR *Routine Abdominal Exam Abdominal: Present soft and normoactive bowel sounds; Absent tenderness *Routine Extremities Exam Extremities: Absent cyanosis, clubbing or edema *Routine Skin Exam Skin: Present warm; Absent rash *Routine Neurological Exam Neurological: Present alert and oriented X3 Assessment and Plan *Assessment and plan (1) Acute hypoxemic respiratory failure: Status: Acute Category: Medical Code(s): J96.01 - Acute respiratory failure with hypoxia (2) Pneumonia: Status: Acute Qualifiers: Pneumonia type: due to unspecified organism Laterality: bilateral Lung location: lower lobe of lung Qualified Code(s): J18.9 - Pneumonia, unspecified organism Category: Medical Code(s): J18.9 - Pneumonia, unspecified organism Plan Jordan Pope is a 33 year old female with a ~30 pack year current smoker who presented with respiratory distress and admitted for acute hypoxic respiratory failure, community acquired pneumonia, and interstitial lung disease exacerbation. Of note, patient has presented similarly several times before. Intubated at [facility]. Left AMA in April from our facility. #Acute hypoxic respiratory failure #Severe sepsis #Community acquired pneumonia # Suspected interstitial lung disease exacerbation - CTA chest showed extensive bilateral perihilar opacities, though much of this is chronic. Initial WBC 20.5. Lactic acid 6.5. Complete respiratory panel negative. ? Presented with profound hypoxia to 30%, tachypnea, tachycardia. Escalated to CPAP therapy overnight. VBG without acute hypercapnia. ? Weaned off CPAP to Vapotherm 30 L and 80%. ? Recently evaluated by pulmonology for interstitial lung disease, DAIANA and SSB positive. Per Dr. Vicente's 06/11/24 note: ANCA, RF, CCP, SSA, anti-Wick, TEXTILE SLITTING MACHINE OPERATOR, SCL 70, dsDNA, antichromatin centromere antibodies all resulted negative. IgG antibodies and IgG subclass all within normal limits. Hypersensitivity pneumonitis panel negative from November 2023. Serum beta D glucan also resulted negative from November 2023. She was started on a prednisone taper at that time which patient has been adherent to. ? Continue ceftriaxone, azithromycin day 2. ? Continue Solu-Medrol 40 mg twice daily. ? Continue DuoNebs every 4 hours, Pulmicort twice daily. ? Pulmonology consulted, pending further recommendations. ? Follow-up morning CBC, procalcitonin, CRP, ESR. #Acute on chronic normocytic anemia ? Hemoglobin 9.8, baseline 12.3. No signs of bleeding. ? Follow-up iron panel, B12, folate. #Former opioid use disorder ? Continue home Suboxone. Full code DVT prophylaxis: Lovenox 40 mg twice daily.
[2024-07-12] MEDS: BUSPIRONE HCL 5 MG TABLET 15 MG PO (20:09)
[2024-07-12] MEDS: QUETIAPINE 100MG TABLET 100 MG PO (20:09)
[2024-07-12] MEDS: ARIPiprazole 10MG TABLET 10 MG PO (20:09)
[2024-07-12] MEDS: PANTOPRAZOLE 40MG VIAL 40 MG IV (20:15)
[2024-07-13] VITALS (31 sets, daily range): BP systolic 93–152; BP diastolic 58–91; PULSE 65–90; RESP 13–27; TEMP 36.3–37; O2SAT 89–99; BMI 43.8; BMI 44.0
--- NOTE | 2024-07-13 00:15 | CA_ITS ---
APPROVED REPORT EXAM: Comprehensive 2D, Doppler, and color-flow Echocardiogram Propulsion Motor And Generator Repairer: Emy Sparks CRT Ht: 5 ft 4 in Wt: 264lbs BSA: 2.20 BP: 96/58 mmHg Indications: snorted meth 07/08/24, resp failure, home o2 was on bipap 2D Dimensions LA Volume 35.30 mL LA Volume Index 15.70 mL/m2 (M/F) 16-34 M-Mode Dimensions RVDd 1.96 cm (0.9-2.6) LA Diam 3.47 cm (1.9-4.0) LVDd 5.25 cm (3.5-5.7) LVDs 3.43 cm (3.5-5.7) IVSd 1.46 cm (0.6-1.1) PWd 1.04 cm (0.6-1.1) EF (Teich) 63.40% FS 34.70% EDV (Teich) 132.40 mL TAPSE 2.26 (<1.7) ESV (Teich) 48.50 mL LV Diastology E Decel Time 200 (160-240 msec) E/A Ratio 1.11 MED A' 10.60 cm/s LAT A' 16.80 cm/s Aortic Valve AO Peak GR. 7.70 mmHg Mitral Valve MV E Max Abilio. 100.0 (40-130 cm/s) MV A Velocity 90.0 (40-130 cm/s) E/A Ratio 1.11 MV PHT 59.0 ms Pulmonary Valve PV Peak Velocity 175.0 (50-150 cm/s) Tricuspid Valve TR P. Velocity 247.00 cm/s RAP Estimate 10.00 mmHg RVSP 34.40 mmHg Left Ventricle The left ventricle is normal size. The left ventricular systolic function is normal. The left ventricular ejection fraction is within the normal range. There is normal left ventricular wall thickness. There is normal LV segmental wall motion. The left ventricular diastolic function is normal. LVEF is 55%. Right Ventricle Right ventricle is mildly dilated. The right ventricular systolic function is normal. Atria The left atrium size is normal. The right atrium size is normal. There is no Doppler evidence of interatrial shunt. Aortic Valve Aortic valve opens well. There is no aortic valvular stenosis. Trace aortic regurgitation is present. Mitral Valve The mitral valve is normal in structure. No evidence of mitral valve stenosis. Mild mitral regurgitation. Tricuspid Valve Tricuspid valve is grossly normal in structure and function. Mild tricuspid regurgitation. RVSP is 25-30 mmHg. Pulmonic Valve The pulmonary valve is normal in structure. Trace pulmonic regurgitation. Great Vessels The aortic root is normal in size. IVC is normal in size and collapses >50% with inspiration. Pericardium There is no pericardial effusion. Other Information Study Quality: Fair Conclusion Normal biventricular systolic function. Mild RV dilation. Mild MR, mild TR. Electronically signed by : Olimpia Cornejo MD 07/13/2024 11:52:00
[2024-07-13] MEDS: IPRATROPIUM/ALBUTEROL 3 ML NEB IH ×3 (06:20→12:52)
[2024-07-13] MEDS: BUDESONIDE 0.5MG/2ML NEB 0.5 MG IH (06:20)
[2024-07-13 06:25] LABS: Basophils % 0.1 % (0.1-2.0); Eosinophils % 0.1 % (0.1-12.0); Hematocrit 29.3 % (37.0-47.0); Hemoglobin 9.2 g/dL (12.2-16.2); Lymphocytes # 1.9 K/mm3 (0.7-4.5); Lymphocytes % 12.3 % (10-50); Mean Corpuscular HGB Conc 31.4 g/dL (31.8-35.4); Mean Corpuscular Hemoglobin 26.7 pg (27.0-31.2); Mean Corpuscular Volume 84.9 fl (81-99); Mean Platelet Volume 8.6 fl (7.4-10.4); Monocytes # 0.6 K/mm3 (0.1-1.0); Monocytes % 3.9 % (1.7-9.3); Neutrophils # 12.6 K/mm3 (1.8-7.8); Platelet Count 281 K/mm3 (142-424); Red Blood Count 3.45 M/mm3 (4.20-5.40); Red Cell Distribution Width 16.3 % (11.5-17.5); White Blood Count 15.2 K/mm3 (4.8-10.8)
[2024-07-13 06:27] LABS: MANUAL DIFFERENTIAL MANUAL DIFFERENTIAL (MANUAL DIFF)
[2024-07-13 06:31] LABS: Albumin Level 3.2 g/dl (3.5-5.0); Chloride 110 mmol/L (98-107)
[2024-07-13 06:32] LABS: Sodium 135 mmol/L (136-145)
[2024-07-13 06:33] LABS: Lactic Acid 0.8 mmol/L (0.7-2.1)
[2024-07-13 06:34] LABS: Alanine Aminotransferase 38 U/L (12-78); Aspartate Amino Transferase 51 U/L (14-36); Blood Urea Nitrogen 13 mg/dl (7-17); Carbon Dioxide 24 mmol/L (22.0-30.0); Creatinine Clearance Estimated 176 mL/min (50-200); Estimated Glomerular Filt Rate 186 ml/min (>60); GFR (African American) 225 ML/MIN (>60)
[2024-07-13 06:35] LABS: Albumin/Globulin Ratio 1.1 (1.1-1.8); Alkaline Phosphatase 133 U/L (38-126); Bilirubin,Total 0.3 mg/dl (0.2-1.3); Calcium 8.3 mg/dl (8.4-10.2); Globulin 2.8 g/dL (1.3-3.2); Glucose 128 mg/dl (74-100); Iron 38 ug/dL (37-170); Magnesium 2.1 mg/dl (1.6-2.3)
[2024-07-13 06:41] LABS: C-Reactive Protein 81.3 mg/L (0-4); Hemoglobin A1C 5.3 % (4.0-6.0)
[2024-07-13 06:44] LABS: NT Pro Brain Natriuretic Pep. 2160 pg/mL (0-125); Total Iron Binding Capacity 315 ug/dL (265-497)
[2024-07-13 06:57] LABS: Erythrocyte Sedimentation Rate 99 mm/hr (0-20)
[2024-07-13 07:04] LABS: Hypochromasia 1+; Lymphocytes % 13 % (10-50); Monocytes % 2 % (2-9); Neutrophils % 85 % (42-76); Platelet Estimate Normal; Total Cells Counted 100
[2024-07-13 07:06] LABS: Thyroid Stimulating Hormone 0.16 uIU/mL (0.465-4.68)
[2024-07-13 07:10] LABS: Ferritin 98.9 ng/ml (6.24-137)
[2024-07-13 07:30] LABS: Chol/HDL Ratio 4.3 (1-3.5); Cholesterol 183 mg/dl (140-200); HDL Cholesterol 43 mg/dl (40-60); Triglycerides 164 mg/dl (30-150); VLDL Cholesterol 33 mg/dL (0-40)
[2024-07-13 07:39] LABS: Procalcitonin 1.69 ng/mL (0.0-2.0)
[2024-07-13 07:41] LABS: Direct LDL Cholesterol 96.77 mg/dL (100-129)
[2024-07-13 08:12] LABS: Vitamin B12 247 pg/mL (239-931)
[2024-07-13] MEDS: BUPRENORPHINE/NALOXONE 8MG/2MG ODT 2 EACH SL (08:38)
[2024-07-13] MEDS: guaiFENesin 600 MG TAB.ER.12H PO ×2 (08:39→20:11)
[2024-07-13] MEDS: METHYLPREDNISOLONE SOD SUCC 40MG VIAL 40 MG IV ×2 (08:39→20:11)
[2024-07-13] MEDS: GABAPENTIN 600MG TABLET 600 MG PO ×2 (08:39→20:11)
[2024-07-13 08:40] LABS: Free T4 (Free Thyroxine) 0.92 ng/dl (0.78-2.19)
[2024-07-13] MEDS: BUSPIRONE HCL 5 MG TABLET 15 MG PO ×2 (08:40→20:11)
[2024-07-13] MEDS: ENOXAPARIN 40MG/0.4ML SYRINGE 40 MG SUBCUT ×2 (08:40→20:10)
[2024-07-13] MEDS: FLUOXETINE 20MG CAPSULE 60 MG PO (08:40)
[2024-07-13 08:46] LABS: Folate 9.23 ng/mL
--- NOTE | 2024-07-13 09:10 | PC.NURSE ---
Vapo turned down to 25L/50% by Raz Cordova,RT
--- NOTE | 2024-07-13 09:41 | EXP.PULM.CON ---
History of Present Illness History of present illness: Ms. Ingram is a 33-year-old female working history, history of interstitial lung disease 2024 presented to the ER again with worsening respiratory distress and pulmonary was called for further evaluation and management. [facility] Disclaimer: The information contained in this section may have been updated after the patient was seen, as this information can be updated by other users. Medical History Acute respiratory failure with hypoxia Pneumonia Pneumonia Syncope ILD (interstitial lung disease) Endometriosis Acute MD Anxiety Depression Bipolar disorder Surgical History History of cholecystectomy Hx of tonsillectomy Delivery by section Family History Other Cancer Social History Smoking Status: Current every day smoker alcohol intake: never current occupational status: employed Travel in the last 8 weeks: None Have you lived/traveled outside [place] in past 30 days?: No Contact w/someone who lives/traveled outside US past 30 days?: No Exposure to someone with infectious disease in past 14 days?: No Do you have a fever (greater than 100.4 F or 38 C)?: No Have you tested positive for COVID-19: No Exposed to someone with COVID-19 in past 14 days?: No Do you have a sore throat?: No Do you have a cough?: No Do you have any weakness?: No Do you have any diarrhea?: No Are you experiencing any unusual bleeding?: No Do you have any muscle aches/pain?: No Do you have any abdominal pain?: No Are you experiencing loss of taste or smell?: No Review of Systems Constitutional Constitutional: Reports anorexia, Denies body ache(s) and Reports fatigue Eyes Eyes: Denies eye discharge, Denies dry eyes, Denies irritation and Denies itchy eyes ENT Ears, Nose, Mouth, and Throat: Denies epistaxis, Denies facial pain, Denies lip swelling and Denies throat swelling *Cardiovascular Cardiovascular: Reports dyspnea and Reports dyspnea on exertion *Respiratory Respiratory: Denies change in phlegm color, Reports chest congestion, Reports cough, Reports dyspnea, Reports dyspnea on exertion, Denies excessive phlegm production, Denies hemoptysis, Denies pain on inspiration, Denies pain with cough and Denies wheezing *Gastrointestinal Gastrointestinal: Denies abdominal pain, Denies belching and Denies cramping *Musculoskeletal Musculoskeletal: Reports back pain, Reports myalgias and Reports other (No small joint swelling or Pain) *Neurologic Neurologic: Reports as per HPI Psychiatric Psychiatric: Denies homicidal ideation and Denies suicidal ideation Endocrine Endocrine: Reports fatigue and Denies heat intolerance Hematologic/Lymphatic Hematologic/Lymphatic: Denies easy bleeding and Denies lymphadenopathy Allergic/Immunologic Allergic/Immunologic: Denies itchy eyes, Denies lip swelling, Denies throat swelling and Denies wheezing Pulmonology Exam Inpatient Vital signs and Labs for Last 24 Hours: Temp Pulse Resp BP Pulse Ox O2 Del Method O2 Flow Rate 97.4 F L 85 22 93/62 L 95 Vapotherm 25 07/13/24 08:00 07/13/24 09:11 07/13/24 08:00 07/13/24 08:00 07/13/24 09:12 07/13/24 09:12 07/13/24 09:12 FiO2 50 07/13/24 09:12 Laboratory Results - last 24 hr 07/12/24 06:55: Total Counted 100, Neutrophils % (Manual) 91 H, Lymphocytes % (Manual) 7 L, Monocytes % (Manual) 2, Platelet Estimate Normal, RBC Morphology Normal 07/13/24 06:00: WBC 15.2 H, RBC 3.45 L, Hgb 9.2 L, Hct 29.3 L, MCV 84.9, MCH 26.7 L, MCHC 31.4 L, RDW 16.3, Plt Count 281, MPV 8.6, Neut % (Auto) 83.0 H, Lymph % (Auto) 12.3, [place] % (Auto) 3.9, Eos % (Auto) 0.1, Baso % (Auto) 0.1, Neut # (Auto) 12.6 H, Lymph # (Auto) 1.9, [place] # (Auto) 0.6, Eos # (Auto) 0.0, Baso # (Auto) 0.0, Total Counted 100, Neutrophils % (Manual) 85 H, Lymphocytes % (Manual) 13, Monocytes % (Manual) 2, Platelet Estimate Normal, RBC Morphology Not Reportable, Hypochromasia 1+, ESR 99 H, Sodium 135 L, Potassium 5.0, Chloride 110 H, Carbon Dioxide 24, Anion Gap 6.0, BUN 13 D, Creatinine 0.40 L, Estimated Creat Clear 176, Estimated GFR 186, Est GFR ( Amer) 225 D, Glucose 128 H, Hemoglobin A1c 5.3, Lactate 0.8, Calcium 8.3 L, Magnesium 2.1, Iron 38, TIBC 315, Iron Saturation 12.79845 L, Ferritin 98.9, Total Bilirubin 0.3, AST 51 H D, ALT 38, Alkaline Phosphatase 133 H, C-Reactive Protein 81.3 H, NT-Pro-B Natriuret Pep 2160 H, Total Protein 6.0 L, Albumin 3.2 L, Globulin 2.8, Albumin/Globulin Ratio 1.1, Triglycerides 164 H, Cholesterol 183, LDL Cholesterol Direct 96.77 L, VLDL Cholesterol 33, HDL Cholesterol 43, Cholesterol/HDL Ratio 4.3 H, Vitamin B12 247, Folate 9.23, Procalcitonin 1.69, TSH 0.16 L, Free T4 0.92 I & O for Labs for Last 24 Hours: Intake & Output 07/10/24 07/11/24 07/12/24 07/13/24 23:59 23:59 23:59 23:59 Intake Total 1082 / 1082 Output Total 0 / 0 1050 / 1050 200 / 200 Balance 0 / 75 32 / 32 -200 / -200 Weight 264 lb 6.4 oz 264 lb 6.406 oz 264 lb 6.406 oz Microbiology Reports for the Last 24 Hours: Microbiology 07/11/24 18:07 Blood Blood Culture - Preliminary NO GROWTH AFTER 24 HOURS 07/11/24 17:52 Blood Blood Culture - Preliminary NO GROWTH AFTER 24 HOURS Constitutional: Present moderate distress Head: Present normocephalic and atraumatic ENT: Present normal exam, normal oropharynx and mucous membranes moist Neck: Present normal inspection and full ROM Respiratory: Present respiratory distress, rhonchi and able to speak in complete sentences; Absent wheezes Cardiac: Present S1/S2, Tachycardia and radial pulses present GI: Present soft and distention; Absent tenderness or guarding Rectal (female): Present deferred (female): Present deferred Skin: Present intact; Absent cyanosis or jaundice Neuro: Present alert, awake and oriented x 3 Extremities: Present normal inspection; Absent clubbing or cyanosis Psychiatric: Present normal affect and cooperative Meds Home Medications and Allergies Home Medications ?Medication ?Instructions ?Recorded ?Confirmed ?Type aripiprazole 10 mg tablet 10 mg PO HS 12/15/23 07/12/24 History buprenorphine 8 mg-naloxone 2 mg 2 tab sublingual DAILY 12/15/23 07/12/24 History sublingual tablet buspirone 15 mg tablet 15 mg PO TID 12/15/23 07/12/24 History fluoxetine 40 mg capsule 40 mg PO DAILY 12/16/23 07/12/24 History fluoxetine 20 mg capsule 20 mg PO DAILY 05/18/24 07/12/24 History gabapentin 600 mg tablet 600 mg PO TID 06/11/24 07/12/24 History quetiapine 100 mg tablet 100 mg PO HS 06/11/24 07/12/24 History albuterol sulfate 90 mcg/actuation 2 inh inhalation Q6HP PRN 07/12/24 07/12/24 History aerosol inhaler shortness of breath or wheezing nicotine (polacrilex) 2 mg gum 2 mg buccal Q4HP PRN nicotine 07/12/24 07/12/24 History cravings nicotine 1 patch transdermal DAILY 07/12/24 07/12/24 History 21mg/24hr-14mg/24hr-7mg/24hr daily transderm patches,sequentl prednisone 20 mg tablet 10 mg PO DAILY 07/12/24 07/12/24 History New Prescriptions to Start Prescriptions: Allergies Allergy/AdvReac Type Severity Reaction Status Date / Time No Known Allergies Allergy Verified 06/11/24 14:35 Results Laboratory Findings 07/13/24 06:00 07/13/24 06:00 ABG ABG pH 7.37 mmol/L (7.35-7.45) 07/12/24 06:00 ABG pCO2 32.2 mmhg (35.0-45.0) L 07/12/24 06:00 ABG pO2 79.8 mmhg (80-100) L 07/12/24 06:00 ABG O2 Saturation 95 % (90-100) 07/12/24 06:00 PT/INR, D-dimer PT 11.5 seconds (10.1-12.5) 07/11/24 17:35 INR 1.03 (0.9-1.1) 07/11/24 17:35 D-Dimer 1.32 ug/mL (0.0-0.5) H 07/11/24 17:35 Abnormal lab findings: Abnormal Labs 07/11/24 07/11/24 07/12/24 17:35 17:44 06:00 WBC 20.5 H* RBC Hgb 11.3 L Hct 36.6 L MCH 26.4 L MCHC 30.9 L Neut % (Auto) Lymph % (Auto) Neut # (Auto) 14.3 H Lymph # (Auto) 4.9 H Neutrophils % (Manual) Lymphocytes % (Manual) ESR D-Dimer 1.32 H ABG pCO2 32.2 L ABG pO2 79.8 L ABG HCO3 18.0 L ABG Total CO2 19.0 L ABG Base Excess -7.3 L VBG pH 7.28 L VBG pCO2 29.6 L VBG pO2 25.6 L VBG HCO3 13.6 L VBG Total CO2 14.5 L VBG O2 Saturation 38.7 L VBG Base Excess -13.2 L VBG Lactic Acid 6.2 H Sodium 135 L Chloride Carbon Dioxide 16 L Anion Gap 19.0 H Creatinine Glucose 179 H Calcium Magnesium 1.5 L Iron Saturation AST 88 H Alkaline Phosphatase 160 H C-Reactive Protein NT-Pro-B Natriuret Pep 982 H Total Protein Albumin Triglycerides LDL Cholesterol Direct Cholesterol/HDL Ratio TSH 07/12/24 07/13/24 06:55 06:00 WBC 14.9 H D 15.2 H RBC 3.75 L 3.45 L Hgb 9.8 L D 9.2 L Hct 31.7 L 29.3 L MCH 26.7 L 26.7 L MCHC 31.5 L 31.4 L Neut % (Auto) 91.5 H 83.0 H Lymph % (Auto) 5.9 L Neut # (Auto) 13.6 H 12.6 H Lymph # (Auto) Neutrophils % (Manual) 91 H 85 H Lymphocytes % (Manual) 7 L ESR 99 H D-Dimer ABG pCO2 ABG pO2 ABG HCO3 ABG Total CO2 ABG Base Excess VBG pH VBG pCO2 VBG pO2 VBG HCO3 VBG Total CO2 VBG O2 Saturation VBG Base Excess VBG Lactic Acid Sodium 135 L 135 L Chloride 109 H 110 H Carbon Dioxide 21 L Anion Gap Creatinine 0.50 L D 0.40 L Glucose 150 H 128 H Calcium 8.0 L 8.3 L Magnesium Iron Saturation 12.69400 L AST 77 H 51 H D Alkaline Phosphatase 159 H 133 H C-Reactive Protein 81.3 H NT-Pro-B Natriuret Pep 2160 H Total Protein 6.0 L Albumin 3.2 L Triglycerides 164 H LDL Cholesterol Direct 96.77 L Cholesterol/HDL Ratio 4.3 H TSH 0.16 L Assessment and Plan *Assessment and plan (1) Acute hypoxemic respiratory failure: Status: Acute Category: Medical Code(s): J96.01 - Acute respiratory failure with hypoxia (2) Pneumonia: Status: Acute Qualifiers: Pneumonia type: due to unspecified organism Laterality: bilateral Lung location: lower lobe of lung Qualified Code(s): J18.9 - Pneumonia, unspecified organism Category: Medical Code(s): J18.9 - Pneumonia, unspecified organism (3) ILD (interstitial lung disease): Status: Acute Category: Medical Code(s): J84.9 - Interstitial pulmonary disease, unspecified Plan Ms. Ingram is a 33-year-old female working history, history of interstitial lung disease 2024 presented to the ER again with worsening respiratory distress and pulmonary was called for further evaluation and management. On her most recent visit clinic visit from May 2024, imaging showed significant improvement in the previously noted bilateral groundglass opacities with near normal CRP levels. Patient was given a steroid taper at that point of time. Autoimmune workup including DAIANA and RF panel negative. Serum IgE within normal limits. Comprehensive respiratory viral PCR panel on this admission negative. Pro-Hussain within normal limits. CRP elevated at 81.3. HIV and hep C screening negative CTA upon admission bilateral diffuse groundglass opacities significantly worsened from most recent HRCT. Negative for pulmonary embolism. Neutrophilic predominant leukocytosis. Blood cultures no growth 48 hours. Denies any hemoptysis. Denies any subjective fevers or chills. No known sick contacts. Continue to smoke, now smoking half pack a day. CT findings and clinical presentation highly concerning for RB ILD. Plan: Continue high flow nasal cannula oxygen supplementation to maintain O2 saturation goal of 90% and above Sputum induction with cultures Incentive spirometry and flutter valve Out of bed to chair, PT OT consult Follow-up with echocardiogram report Lasix 40 mg IV once Continue ceftriaxone azithromycin pending sputum culture results Continue methylprednisolone 40 mg IV every 12 hours DuoNebs 4 times daily as needed # Thank you for involving pulmonary in this patient care. Will continue to follow.
--- NOTE | 2024-07-13 10:10 | PC.NURSE ---
Vapotherm increased back to 25L/60% by RT
--- NOTE | 2024-07-13 12:07 | PC.NURSE ---
Tried to assist pt with getting up in the chair to sit for lunch, pt stated that she was not ready to wake-up. Nursing spoke w/ pt and told her that it was noon and educated pt on benefits up sitting up in chair. Pt stated again that she was not ready and that she need 1 more hour before she got up to chair. Nursing encouraged pt to sit up in chair to eat lunch, pt stated she again wanted to wait an hour. Will encourage pt again @ 1300.
[2024-07-13] MEDS: FUROSEMIDE 40MG/4ML VIAL 40 MG IV (12:08)
--- NOTE | 2024-07-13 12:11 | PC.NURSE ---
pt HAS REFUSED TO GET UP TO CHAIR TO RN AND THIS SRNA. pt STATES THEY WILL GET UP AROUND 1300. WILL CONTINUE TO ENCOURAGE pt TO GET UP TO CHAIR. CALL LIGHT IS WITHIN REACH AND NO NEEDS ARE VOICED AT THIS TIME.
--- NOTE | 2024-07-13 15:07 | PC.NURSE ---
Vapotherm turned down to 25L/50%, pt doing well.
[2024-07-13] MEDS: NICOTINE 21MG/24HR PATCH 21 MG TD (15:41)
--- NOTE | 2024-07-13 17:22 | PC.NURSE ---
Remains on vapotherm, current settings 25L/50%. Pt up to chair currently,tolerating well. Family have been at bedside intermittently. W/ activity pt does report increased SOA. Noted to desat to 87-89% w/ activity, but recovers quickly (<1 min). Sputum cup at bedside, pt educated on need for collection. No needs/ concerns voiced @ this time. Call j luis w/in reach. POC ongoing.
--- NOTE | 2024-07-13 17:44 | EXP.PN ---
Subjective *Date: 07/13/24 *Time: 17:52 Interval history: Patient states she feels much better today, weaned to Vapotherm 25 L and 50%. Continue antibiotics, steroids. Encourage ambulation. Exam Data for Last 24 hours Vital signs and Labs for Last 24 Hours: Temp Pulse Resp BP Pulse Ox O2 Del Method O2 Flow Rate 97.7 F 86 19 114/66 93 L Vapotherm 25 07/13/24 16:00 07/13/24 16:01 07/13/24 16:01 07/13/24 16:01 07/13/24 16:07/13/24 17:00 07/13/24 17:00 FiO2 50 07/13/24 16:00 Laboratory Results - last 24 hr 07/13/24 06:00: WBC 15.2 H, RBC 3.45 L, Hgb 9.2 L, Hct 29.3 L, MCV 84.9, MCH 26.7 L, MCHC 31.4 L, RDW 16.3, Plt Count 281, MPV 8.6, Neut % (Auto) 83.0 H, Lymph % (Auto) 12.3, [place] % (Auto) 3.9, Eos % (Auto) 0.1, Baso % (Auto) 0.1, Neut # (Auto) 12.6 H, Lymph # (Auto) 1.9, [place] # (Auto) 0.6, Eos # (Auto) 0.0, Baso # (Auto) 0.0, Total Counted 100, Neutrophils % (Manual) 85 H, Lymphocytes % (Manual) 13, Monocytes % (Manual) 2, Platelet Estimate Normal, RBC Morphology Not Reportable, Hypochromasia 1+, ESR 99 H, Sodium 135 L, Potassium 5.0, Chloride 110 H, Carbon Dioxide 24, Anion Gap 6.0, BUN 13 D, Creatinine 0.40 L, Estimated Creat Clear 176, Estimated GFR 186, Est GFR ( Amer) 225 D, Glucose 128 H, Hemoglobin A1c 5.3, Lactate 0.8, Calcium 8.3 L, Magnesium 2.1, Iron 38, TIBC 315, Iron Saturation 12.96243 L, Ferritin 98.9, Total Bilirubin 0.3, AST 51 H D, ALT 38, Alkaline Phosphatase 133 H, C-Reactive Protein 81.3 H, NT-Pro-B Natriuret Pep 2160 H, Total Protein 6.0 L, Albumin 3.2 L, Globulin 2.8, Albumin/Globulin Ratio 1.1, Triglycerides 164 H, Cholesterol 183, LDL Cholesterol Direct 96.77 L, VLDL Cholesterol 33, HDL Cholesterol 43, Cholesterol/HDL Ratio 4.3 H, Vitamin B12 247, Folate 9.23, Procalcitonin 1.69, TSH 0.16 L, Free T4 0.92 I & O for Last 24 hours: Intake & Output 07/10/24 07/11/24 07/12/24 07/13/24 23:59 23:59 23:59 23:59 Intake Total 1082 / 1082 Output Total 0 / 0 1050 / 1050 1200 / 1200 Balance 0 32 -1200 / -1200 Weight 119.93 kg 119.93 kg 119.93 kg Microbiology Reports for the Last 24 Hours: Microbiology 07/11/24 18:07 Blood Blood Culture - Preliminary NO GROWTH AFTER 24 HOURS 07/11/24 17:52 Blood Blood Culture - Preliminary NO GROWTH AFTER 24 HOURS Constitutional Constitutional: no acute distress *Routine HEENT Exam Head: Present normocephalic Eye: Present EOMI and PERRL ENT: Present mucous membranes moist *Routine Neck Exam Neck: Present supple; Absent lymphadenopathy *Routine Respiratory Exam Respiratory: Present diminished air movement; Absent CTA bilaterally *Routine Cardiovascular Exam Cardiovascular: Present RRR *Routine Abdominal Exam Abdominal: Present soft and normoactive bowel sounds; Absent tenderness *Routine Extremities Exam Extremities: Absent cyanosis, clubbing or edema *Routine Skin Exam Skin: Present warm; Absent rash *Routine Neurological Exam Neurological: Present alert and oriented X3 Assessment and Plan *Assessment and plan (1) Acute hypoxemic respiratory failure: Status: Acute Category: Medical Code(s): J96.01 - Acute respiratory failure with hypoxia (2) Pneumonia: Status: Acute Qualifiers: Laterality: bilateral Lung location: lower lobe of lung Pneumonia type: due to unspecified organism Qualified Code(s): J18.9 - Pneumonia, unspecified organism Category: Medical Code(s): J18.9 - Pneumonia, unspecified organism Plan Jordan Pope is a 33 year old female with a ~30 pack year current smoker who presented with respiratory distress and admitted for acute hypoxic respiratory failure, community acquired pneumonia, and interstitial lung disease exacerbation. Of note, patient has presented similarly several times before. Intubated at [facility]. Left AMA in April from our facility. #Acute hypoxic respiratory failure #Severe sepsis #Community acquired pneumonia # Suspected interstitial lung disease exacerbation - CTA chest showed extensive bilateral perihilar opacities, though much of this is chronic but seems to have worsened. Initial WBC 20.5, lactic acid 6.5. Complete respiratory panel negative. ? Presented with profound hypoxia to 30%, tachypnea, tachycardia requiring CPAP therapy. VBG without acute hypercapnia. ? Currently on Vapotherm weaned to 25 L 50%. ? Recently evaluated by pulmonology for interstitial lung disease, DAIANA and SSB positive. Per Dr. Vicente's 06/11/24 note: ANCA, RF, CCP, SSA, anti-Wick, CLINICAL DATA COORDINATOR, SCL 70, dsDNA, antichromatin centromere antibodies all resulted negative. IgG antibodies and IgG subclass all within normal limits. Hypersensitivity pneumonitis panel negative from November 2023. Serum beta D glucan also resulted negative from November 2023. She was started on a prednisone taper at that time which patient has been adherent to. ? WBC plateaued at 15, procalcitonin normal. CRP 81.3, ESR 99. BNP 2160 without signs of volume overload. ? Continue ceftriaxone, azithromycin day 3. ? Continue Solu-Medrol 40 mg twice daily. ? Incentive spirometer, flutter valve. ? Pulmonology consulted, changed DuoNebs to as needed every 6 hours and discontinued Pulmicort. Ordered one-time dose of Lasix 40 mg. Recommended to continue above treatment. ? Follow-up morning CBC, procalcitonin, CRP, ESR. ? Follow-up sputum culture. #Acute on chronic normocytic anemia ? Hemoglobin 9.2, baseline 12.3. No signs of bleeding. ? B12 low normal 247, folate and iron studies normal. #Former opioid use disorder ? Continue home Suboxone. Full code DVT prophylaxis: Lovenox 40 mg twice daily.
--- NOTE | 2024-07-13 19:15 | PC.NURSE ---
respiratory turned patients vapotherm from 25 to .
--- NOTE | 2024-07-13 19:50 | PC.NURSE ---
pt moved from chair back to bed.
[2024-07-13] MEDS: PANTOPRAZOLE 40MG VIAL 40 MG IV (20:09)
[2024-07-13] MEDS: SODIUM CHLORIDE 0.9% 10ML VIAL 10 ML IV (20:11)
[2024-07-13] MEDS: QUETIAPINE 100MG TABLET 100 MG PO (20:11)
[2024-07-13] MEDS: ARIPiprazole 10MG TABLET 10 MG PO (20:11)
[2024-07-13] MEDS: CEFTRIAXONE 1 GM 1 GM in 0.9 % SODIUM CHLORIDE 50 ML IV (20:12)
[2024-07-13] MEDS: AZITHROMYCIN 500 MG in 0.9 % SODIUM CHLORIDE 250 ML 250 MG IV (20:12)
[2024-07-13] MEDS: ACETAMINOPHEN 325MG TAB 650 MG PO (20:23)
--- NOTE | 2024-07-13 20:39 | PC.NURSE ---
pts hair brushed and braided, face washed, brief changed, room tidied, jewelry placed in specimen cup with pt sticker and placed on bedside table, witnessed katya Newton.
--- NOTE | 2024-07-13 21:37 | PC.NURSE ---
respiratory turned down vapotherm from 20 to .
--- NOTE | 2024-07-13 22:09 | PC.NURSE ---
pt desated while sleeping to 86% respiratory up'ed the vapotherm to 20/40.
[2024-07-14] VITALS (20 sets, daily range): BP systolic 108–138; BP diastolic 73–98; PULSE 58–76; RESP 13–27; TEMP 36.3–36.7; O2SAT 87–96; BMI 44.0
[2024-07-14 05:58] LABS: Basophils % 0.2 % (0.1-2.0); Hematocrit 30.8 % (37.0-47.0); Hemoglobin 9.6 g/dL (12.2-16.2); Lymphocytes # 2.6 K/mm3 (0.7-4.5); Lymphocytes % 19.6 % (10-50); Mean Corpuscular HGB Conc 31.2 g/dL (31.8-35.4); Mean Corpuscular Hemoglobin 26.2 pg (27.0-31.2); Mean Corpuscular Volume 84.2 fl (81-99); Mean Platelet Volume 8.6 fl (7.4-10.4); Monocytes # 0.4 K/mm3 (0.1-1.0); Monocytes % 2.7 % (1.7-9.3); Neutrophils # 10.3 K/mm3 (1.8-7.8); Neutrophils % 76.3 % (37.0-80.0); Platelet Count 284 K/mm3 (142-424); Red Blood Count 3.66 M/mm3 (4.20-5.40); Red Cell Distribution Width 16.2 % (11.5-17.5); White Blood Count 13.5 K/mm3 (4.8-10.8)
--- NOTE | 2024-07-14 06:06 | PC.NURSE ---
pt alert and oriented. pt was assisted from the chair to the bed at 1945. once pt was in the bed pt brief was changed and purewick was changed out. through out the night pt rested. pt boyfriend at bedside. no acute changes
[2024-07-14 06:14] LABS: Alanine Aminotransferase 34 U/L (12-78); Albumin Level 3.3 g/dl (3.5-5.0); Albumin/Globulin Ratio 1.1 (1.1-1.8); Alkaline Phosphatase 118 U/L (38-126); Anion Gap 6.3 mEq/L (5-15); Aspartate Amino Transferase 27 U/L (14-36); Bilirubin,Total 0.3 mg/dl (0.2-1.3); Blood Urea Nitrogen 21 mg/dl (7-17); Calcium 8.7 mg/dl (8.4-10.2); Carbon Dioxide 26 mmol/L (22.0-30.0); Chloride 108 mmol/L (98-107); Creatinine Clearance Estimated 117 mL/min (50-200); Estimated Glomerular Filt Rate 117 ml/min (>60); GFR (African American) 141 ML/MIN (>60); Glucose 117 mg/dl (74-100); Magnesium 2.1 mg/dl (1.6-2.3); Potassium 4.3 mmoL/L (3.5-5.1); Sodium 136 mmol/L (136-145); Total Protein,Serum 6.3 g/dl (6.3-8.2)
[2024-07-14 06:30] LABS: Procalcitonin 0.901 ng/mL (0.0-2.0)
[2024-07-14 07:33] LABS: Erythrocyte Sedimentation Rate 108 mm/hr (0-20)
[2024-07-14] MEDS: BUPRENORPHINE/NALOXONE 8MG/2MG ODT 2 EACH SL (08:32)
[2024-07-14] MEDS: ENOXAPARIN 40MG/0.4ML SYRINGE 40 MG SUBCUT (08:33)
[2024-07-14] MEDS: GABAPENTIN 600MG TABLET 600 MG PO (08:34)
[2024-07-14] MEDS: METHYLPREDNISOLONE SOD SUCC 40MG VIAL 40 MG IV (08:34)
[2024-07-14] MEDS: FLUOXETINE 20MG CAPSULE 60 MG PO (08:35)
[2024-07-14] MEDS: BUSPIRONE HCL 5 MG TABLET 15 MG PO (08:35)
[2024-07-14] MEDS: guaiFENesin 600 MG TAB.ER.12H PO (08:35)
--- NOTE | 2024-07-14 08:54 | PC.NURSE ---
0830 - Pt weaned to 4 L O2 per nasal cannula by RT Dunia.
--- NOTE | 2024-07-14 09:43 | EXP.PULM.PN ---
Subjective *Date: 07/14/24 *Time: 10:59 Interval history: No acute respiratory events overnight. Patient admits improvement in her respiratory distress. Pulmonology Exam Inpatient Vital signs and Labs for Last 24 Hours: Temp Pulse Resp BP Pulse Ox O2 Del Method O2 Flow Rate 97.4 F L 64 21 124/80 91 L Nasal Cannula 4 07/14/24 07:00 07/14/24 08:01 07/14/24 08:01 07/14/24 08:01 07/14/24 08:25 07/14/24 08:55 07/14/24 08:55 FiO2 40 07/14/24 08:00 Laboratory Results - last 24 hr 07/14/24 05:40: WBC 13.5 H, RBC 3.66 L, Hgb 9.6 L, Hct 30.8 L, MCV 84.2, MCH 26.2 L, MCHC 31.2 L, RDW 16.2, Plt Count 284, MPV 8.6, Neut % (Auto) 76.3, Lymph % (Auto) 19.6, [place] % (Auto) 2.7, Eos % (Auto) 0.0 L, Baso % (Auto) 0.2, Neut # (Auto) 10.3 H, Lymph # (Auto) 2.6, [place] # (Auto) 0.4, Eos # (Auto) 0.0, Baso # (Auto) 0.0, ESR 108 H, Sodium 136, Potassium 4.3, Chloride 108 H, Carbon Dioxide 26, Anion Gap 6.3, BUN 21 H D, Creatinine 0.60 D, Estimated Creat Clear 117, Estimated GFR 117, Est GFR ( Amer) 141 D, Glucose 117 H, Calcium 8.7, Magnesium 2.1, Total Bilirubin 0.3, AST 27 D, ALT 34, Alkaline Phosphatase 118, Total Protein 6.3, Albumin 3.3 L, Globulin 3.0, Albumin/Globulin Ratio 1.1, Procalcitonin 0.901 Temp Pulse Resp BP Pulse Ox O2 Del Method O2 Flow Rate 97.4 F L 85 22 93/62 L 95 Vapotherm 07/13/24 08:00 07/13/24 09:11 07/13/24 08:00 07/13/24 08:00 07/13/24 09:12 07/13/24 09:12 07/13/24 09:12 FiO2 50 07/13/24 09:12 Laboratory Results - last 24 hr 07/12/24 06:55: Total Counted 100, Neutrophils % (Manual) 91 H, Lymphocytes % (Manual) 7 L, Monocytes % (Manual) 2, Platelet Estimate Normal, RBC Morphology Normal 07/13/24 06:00: WBC 15.2 H, RBC 3.45 L, Hgb 9.2 L, Hct 29.3 L, MCV 84.9, MCH 26.7 L, MCHC 31.4 L, RDW 16.3, Plt Count 281, MPV 8.6, Neut % (Auto) 83.0 H, Lymph % (Auto) 12.3, [place] % (Auto) 3.9, Eos % (Auto) 0.1, Baso % (Auto) 0.1, Neut # (Auto) 12.6 H, Lymph # (Auto) 1.9, [place] # (Auto) 0.6, Eos # (Auto) 0.0, Baso # (Auto) 0.0, Total Counted 100, Neutrophils % (Manual) 85 H, Lymphocytes % (Manual) 13, Monocytes % (Manual) 2, Platelet Estimate Normal, RBC Morphology Not Reportable, Hypochromasia 1+, ESR 99 H, Sodium 135 L, Potassium 5.0, Chloride 110 H, Carbon Dioxide 24, Anion Gap 6.0, BUN 13 D, Creatinine 0.40 L, Estimated Creat Clear 176, Estimated GFR 186, Est GFR ( Amer) 225 D, Glucose 128 H, Hemoglobin A1c 5.3, Lactate 0.8, Calcium 8.3 L, Magnesium 2.1, Iron 38, TIBC 315, Iron Saturation 12.40689 L, Ferritin 98.9, Total Bilirubin 0.3, AST 51 H D, ALT 38, Alkaline Phosphatase 133 H, C-Reactive Protein 81.3 H, NT-Pro-B Natriuret Pep 2160 H, Total Protein 6.0 L, Albumin 3.2 L, Globulin 2.8, Albumin/Globulin Ratio 1.1, Triglycerides 164 H, Cholesterol 183, LDL Cholesterol Direct 96.77 L, VLDL Cholesterol 33, HDL Cholesterol 43, Cholesterol/HDL Ratio 4.3 H, Vitamin B12 247, Folate 9.23, Procalcitonin 1.69, TSH 0.16 L, Free T4 0.92 I & O for Labs for Last 24 Hours: Intake & Output 07/11/24 07/12/24 07/13/24 07/14/24 23:59 23:59 23:59 23:59 Intake Total 1082 / 1082 900 / 900 Output Total 0 / 0 1050 / 1050 2150 / 2150 0 / 0 Balance -1250 / -1250 0 / 0 Weight 264 lb 6.4 oz 264 lb 6.406 oz 264 lb 6.406 oz 264 lb 6.406 oz Intake & Output 07/10/24 07/11/24 07/12/24 07/13/24 23:59 23:59 23:59 23:59 Intake Total 1082 / 1082 Output Total 0 / 0 1050 / 1050 200 / 200 Balance -200 / -200 Weight 264 lb 6.4 oz 264 lb 6.406 oz 264 lb 6.406 oz Microbiology Reports for the Last 24 Hours: Microbiology 07/11/24 17:52 Blood Blood Culture - Preliminary NO GROWTH AFTER 48 HOURS 07/11/24 18:07 Blood Blood Culture - Preliminary NO GROWTH AFTER 48 HOURS Microbiology 07/11/24 18:07 Blood Blood Culture - Preliminary NO GROWTH AFTER 24 HOURS 07/11/24 17:52 Blood Blood Culture - Preliminary NO GROWTH AFTER 24 HOURS Constitutional: Present moderate distress Head: Present normocephalic and atraumatic ENT: Present normal exam, normal oropharynx and mucous membranes moist Neck: Present normal inspection and full ROM Respiratory: Present respiratory distress, rhonchi and able to speak in complete sentences; Absent wheezes Cardiac: Present S1/S2, Tachycardia and radial pulses present GI: Present soft and distention; Absent tenderness or guarding Rectal (female): Present deferred (female): Present deferred Skin: Present intact; Absent cyanosis or jaundice Neuro: Present alert, awake and oriented x 3 Extremities: Present normal inspection; Absent clubbing or cyanosis Psychiatric: Present normal affect and cooperative Assessment and Plan *Assessment and plan (1) Acute hypoxemic respiratory failure: Status: Acute Category: Medical Code(s): J96.01 - Acute respiratory failure with hypoxia (2) Pneumonia: Status: Acute Qualifiers: Laterality: bilateral Lung location: lower lobe of lung Pneumonia type: due to unspecified organism Qualified Code(s): J18.9 - Pneumonia, unspecified organism Category: Medical Code(s): J18.9 - Pneumonia, unspecified organism (3) ILD (interstitial lung disease): Status: Acute Category: Medical Code(s): J84.9 - Interstitial pulmonary disease, unspecified Plan Ms. Ingram is a 33-year-old female working history, history of interstitial lung disease 2024 presented to the ER again with worsening respiratory distress and pulmonary was called for further evaluation and management. On her most recent visit clinic visit from May 2024, imaging showed significant improvement in the previously noted bilateral groundglass opacities with near normal CRP levels. Patient was given a steroid taper at that point of time. Autoimmune workup including DAIANA and RF panel negative. Serum IgE within normal limits. Comprehensive respiratory viral PCR panel on this admission negative. Pro-Hussain within normal limits. CRP elevated at 81.3. HIV and hep C screening negative CTA upon admission bilateral diffuse groundglass opacities significantly worsened from most recent HRCT. Negative for pulmonary embolism. Neutrophilic predominant leukocytosis. Blood cultures no growth 48 hours. Denies any hemoptysis. Denies any subjective fevers or chills. No known sick contacts. Continue to smoke, now smoking half pack a day. CT findings and clinical presentation highly concerning for RB ILD. Interval update: Significant improvement in the noted oxygen requirements. Continue to receive antibiotics and steroids. Received 40 mg IV Lasix yesterday. Blood cultures no growth at 48 hours. Echocardiogram normal LV systolic and diastolic function. RVSP 25-30. RV mildly dilated with normal systolic function. Plan: Continue nasal cannula oxygen supplementation to maintain O2 saturation goal of 90% and above Sputum induction with cultures Incentive spirometry and flutter valve. Counseled extensively today regarding the importance of being compliant with her incentive spirometry and flutter valve Out of bed to chair, PT OT consult Continue ceftriaxone azithromycin pending sputum culture results Continue methylprednisolone 40 mg IV every 12 hours DuoNebs 4 times daily as needed # Thank you for involving pulmonary in this patient care. Will continue to follow.
--- NOTE | 2024-07-14 09:45 | XR_ITS ---
FINAL REPORT CLINICAL HISTORY: SOB COMPARISON: 07/11/2024 FINDINGS: A single frontal view of the chest was obtained. There are increased markings in the bilateral lung bases, greater on the right, suspicious for pneumonia. There are no pleural effusions. Mediastinum is unremarkable. Heart size is normal. IMPRESSION: Bibasilar opacities suspicious for pneumonia. Reviewed, Interpreted and Dictated by Tu Raman MD Transcribed by Essie Saravia Authenticated and . [facility]
--- NOTE | 2024-07-14 10:12 | P.PN_ITS ---
Subjective *Date: 07/14/24 *Time: 10:12 Medical Exam Vital signs and Labs for Last 24 Hours: Vital Signs Temp Pulse Pulse Resp BP Pulse Ox O2 Del Method 07/14/24 09:00 138/81 07/14/24 09:00 64 23 91 L 07/14/24 08:55 Nasal Cannula 07/14/24 08:25 91 L Nasal Cannula 07/14/24 08:01 64 21 124/80 93 L Vapotherm 07/14/24 08:00 20 92 L Vapotherm 07/14/24 08:00 58 L 07/14/24 07:00 97.4 F L 121/80 07/14/24 07:00 62 18 95 07/14/24 06:56 59 L 13 94 L 07/14/24 06:56 125/80 07/14/24 06:55 Vapotherm 07/14/24 06:55 60 19 125/80 94 L Vapotherm 07/14/24 06:00 63 18 95 07/14/24 06:00 121/81 07/14/24 06:00 63 17 121/81 94 L Vapotherm 07/14/24 05:00 108/73 L 07/14/24 05:00 65 27 H 95 07/14/24 05:00 Vapotherm 07/14/24 05:00 66 18 108/73 L 96 Vapotherm 07/14/24 04:01 60 07/14/24 04:00 124/78 07/14/24 04:00 68 19 94 L 07/14/24 04:00 94 L Vapotherm 07/14/24 04:00 98.0 F 64 18 124/78 93 L Vapotherm 07/14/24 03:00 114/76 07/14/24 03:00 71 19 94 L 07/14/24 03:00 Vapotherm 07/14/24 03:00 64 17 114/76 94 L Vapotherm 07/14/24 02:00 117/79 07/14/24 02:00 72 18 94 L 07/14/24 02:00 70 16 117/79 94 L Vapotherm 07/14/24 01:00 Vapotherm 07/14/24 01:00 71 18 96 07/14/24 01:00 114/77 07/14/24 00:01 72 07/14/24 00:00 76 19 92 L 07/14/24 00:00 126/76 07/14/24 00:00 73 93 L Vapotherm 07/14/24 00:00 73 20 126/76 93 L Vapotherm 07/13/24 23:00 Vapotherm 07/13/24 23:00 117/77 07/13/24 23:00 79 24 92 L Vapotherm 07/13/24 22:00 130/78 07/13/24 22:00 72 23 89 L 07/13/24 21:00 Vapotherm 07/13/24 21:00 89 20 126/71 95 Vapotherm 07/13/24 20:01 98.6 F 77 18 93 L Vapotherm 07/13/24 20:01 122/85 07/13/24 20:00 72 07/13/24 19:52 78 93 L Vapotherm 07/13/24 19:07 96 Vapotherm 07/13/24 19:00 77 20 123/73 95 Vapotherm 07/13/24 18:50 Venturi Mask 07/13/24 18:00 121/64 07/13/24 18:00 81 26 H 97 Vapotherm 07/13/24 17:00 81 17 112/68 94 L Vapotherm 07/13/24 17:00 Vapotherm 07/13/24 16:01 86 19 93 L 07/13/24 16:01 114/66 07/13/24 16:00 94 L Vapotherm 07/13/24 16:00 81 07/13/24 16:00 97.7 F 83 22 93 L Vapotherm 07/13/24 15:07 93 L Vapotherm 07/13/24 15:00 90 21 118/66 96 Vapotherm 07/13/24 15:00 Vapotherm 07/13/24 14:00 95 Vapotherm 07/13/24 13:01 77 24 152/91 H 98 Vapotherm 07/13/24 13:00 Vapotherm 07/13/24 12:57 93 L Vapotherm 07/13/24 12:01 97.6 F 71 27 H 118/73 91 L Vapotherm 07/13/24 12:00 73 07/13/24 11:00 77 25 H 121/77 92 L Vapotherm 07/13/24 11:00 Vapotherm O2 Flow Rate FiO2 07/14/24 09:00 07/14/24 09:00 07/14/24 08:55 4 07/14/24 08:25 3 07/14/24 08:01 20 07/14/24 08:00 20 40 07/14/24 08:00 07/14/24 07:00 07/14/24 07:00 07/14/24 06:56 07/14/24 06:56 07/14/24 06:55 20 07/14/24 06:55 20 07/14/24 06:00 07/14/24 06:00 07/14/24 06:00 20 07/14/24 05:00 07/14/24 05:00 07/14/24 05:00 20 07/14/24 05:00 20 07/14/24 04:01 07/14/24 04:00 07/14/24 04:00 07/14/24 04:00 20 40 07/14/24 04:00 20 07/14/24 03:00 07/14/24 03:00 07/14/24 03:00 20 07/14/24 03:00 20 07/14/24 02:00 07/14/24 02:00 07/14/24 02:00 20 07/14/24 01:00 20 07/14/24 01:00 07/14/24 01:00 07/14/24 00:01 07/14/24 00:00 07/14/24 00:00 07/14/24 00:00 20 40 07/14/24 00:00 20 07/13/24 23:00 20 07/13/24 23:00 07/13/24 23:00 20 07/13/24 22:00 07/13/24 22:00 07/13/24 21:00 20 07/13/24 21:00 20 07/13/24 20:01 20 07/13/24 20:01 07/13/24 20:00 07/13/24 19:52 20 40 07/13/24 19:07 20 40 07/13/24 19:00 25 07/13/24 18:50 25 07/13/24 18:00 07/13/24 18:00 07/13/24 17:00 25 07/13/24 17:00 25 07/13/24 16:01 07/13/24 16:01 07/13/24 16:00 50 07/13/24 16:00 07/13/24 16:00 07/13/24 15:07 25 50 07/13/24 15:00 25 07/13/24 15:00 25 07/13/24 14:00 25 60 07/13/24 13:01 25 07/13/24 13:00 25 07/13/24 12:57 25 50 07/13/24 12:01 25 07/13/24 12:00 07/13/24 11:00 25 07/13/24 11:00 25 Intake and Output 07/13/24 07/14/24 07/14/24 23:59 07:59 15:59 Intake Total 540 / 900 270 / 270 Output Total 950 / 2150 0 / 650 650 / 650 Balance -410 / -1250 0 / -380 -380 / -380 Intake: Intake, Oral Amount 240 / 600 270 / 270 Intake, Total IV Amount 300 / 300 Azithromycin 500 mg In 0.9 % 250 / 250 Sodium Chloride 250 ml @ 250 mls/hr IV Q24H [facility] Rx#:[id number] Ceftriaxone 1 gm 1 gm In 0.9 % 50 / 50 Sodium Chloride 50 ml @ 100 mls /hr IV Q24H [facility] Rx#:[id number] Output: Output, Urine Amount 950 / 2150 0 / 650 650 / 650 Other: Number of Voids 0 Number of Unmeasured Voids 1 0 Weight 119.93 kg Patient Weight 07/14/24 23:59 Weight 119.93 kg Laboratory Results - last 24 hr 07/14/24 05:40: WBC 13.5 H, RBC 3.66 L, Hgb 9.6 L, Hct 30.8 L, MCV 84.2, MCH 26.2 L, MCHC 31.2 L, RDW 16.2, Plt Count 284, MPV 8.6, Neut % (Auto) 76.3, Lymph % (Auto) 19.6, [place] % (Auto) 2.7, Eos % (Auto) 0.0 L, Baso % (Auto) 0.2, Neut # (Auto) 10.3 H, Lymph # (Auto) 2.6, [place] # (Auto) 0.4, Eos # (Auto) 0.0, Baso # (Auto) 0.0, ESR 108 H, Sodium 136, Potassium 4.3, Chloride 108 H, Carbon Dioxide 26, Anion Gap 6.3, BUN 21 H D, Creatinine 0.60 D, Estimated Creat Clear 117, Estimated GFR 117, Est GFR ( Amer) 141 D, Glucose 117 H, Calcium 8.7, Magnesium 2.1, Total Bilirubin 0.3, AST 27 D, ALT 34, Alkaline Phosphatase 118, Total Protein 6.3, Albumin 3.3 L, Globulin 3.0, Albumin/Globulin Ratio 1.1, Procalcitonin 0.901 I & O for Labs for Last 24 Hours: Intake & Output 07/11/24 07/12/24 07/13/24 07/14/24 23:59 23:59 23:59 23:59 Intake Total 1082 / 1082 900 / 900 270 / 270 Output Total 0 / 0 1050 / 1050 2150 / 2150 650 / 650 Balance 0 75 32 / 32 -1250 / -1250 -380 / -380 Weight 119.93 kg 119.93 kg 119.93 kg 119.93 kg Microbiology Reports for the Last 24 Hours: Microbiology 07/11/24 17:52 Blood Blood Culture - Preliminary NO GROWTH AFTER 48 HOURS 07/11/24 18:07 Blood Blood Culture - Preliminary NO GROWTH AFTER 48 HOURS
--- NOTE | 2024-07-14 10:16 | PC.NURSE ---
O2 decreased to 2 L nasal cannula by Dr Vicente
--- NOTE | 2024-07-14 10:49 | HMH.PTEV ---
Physical Therapy Evaluation Rehab PT IP Evaluation Start: 07/13/24 10:21 Freq: ONCE Status: Active Protocol: Document 07/14/24 10:44 GINNY (Rec: 07/14/24 10:49 GINNY [id number]) Subjective/History History History 33 yowf adm to [facility] with acute hypoxic resp fail. She was recently in the hospital for very similar situation in April. Per the patient's history approximately 3 days ago she snorted methamphetamines said her to boyfriend would not let her smoke it., She continues to smoke at least a half a pack a day. Patient began to have respiratory distress O2 saturations in the 30s on room air with respiratory rate of 40 on arrival. BiPAP mask was required to return oxygen saturations to above 90. Normally patient is on a minimum of 2 L via NC. She reports she lives with her boyfriend, no ETHAN the home, and she is generally independent with all mobility without an AD at baseline. Subjective Subjective Pt reports feeling sleepy, but otherwise agreeable to OOB mobility assessment with encouragement. [facility] How much help from another person do you currently need... Turning from your back to your side None while in a flat bed without using bedrails? Moving from lying on back to sitting on None the side of a flat bed without using bedrails? Moving to and from a bed to a chair ( None including a wheelchair)? Standing up from a chair using your arms None ? (e.g., wheelchair, bedside chair) Walking in hospital room? None Climbing 3-5 steps with a railing? None Mobility Score 24 Mobility Level [facility] Mobility Calculator Mobility 8 Walk 250 feet or more Rehab PT IP Eval Objective Appearance Patient Behavior Appropriate Patient Orientation Person,Place,Time Difficulty following instructions none Speech Pattern Clear Ambulation Patient Able to Ambulate Yes Ambulation Observation IP General Gait Pattern Observation No Deviations/Normal Ambulation Distance (feet) 20 Ambulation Assistive Device None Ambulation Ability Independent Balance Ability to Arise Able, uses arms to help Sitting Balance Steady, safe Standing Balance Narrow stance w/o support Dynamic Sitting Balance Ability Good Dynamic Standing Balance Ability Good Transfers Bed Transfer Ability Independent Chair Transfer Ability Independent Sit to Stand Bed Transfer Ability Independent Sit to Stand Chair Transfer Ability Independent Rehab PT IP prob,goals,plan Problems Date of Evaluation: 07/14/24 Discharge Plan PT Discharge Plan Currently pt is appropriate to return home once medically stable for d/c. No current acute inpatient therapy needs at this time. Eval Complexity Eval Charge Codes 91901 - High Complexity PHYSICIAN CERTIFICATION: I certify the specified therapy services for Jordan Ingram are required, authorized, and reviewed every 30 days.
[2024-07-14 11:35] LABS: C-Reactive Protein 41.5 mg/L (0-4)
--- NOTE | 2024-07-14 13:29 | PC.NURSE ---
1300- notified that pt is requesting to leave AMA. MD to bedside w/ A JaronRN speaking w/ patient and educating pt on risks of leaving AMA and her need for IV Abx and O2. Pt is still insistent that she wants to leave. 1321 - AMA paper signed and reviewed w/ pt and her . IV's DC'd. Monitors removed from pt, pt getting dressed independently w/ at bedside.
--- NOTE | 2024-07-14 14:08 | P.DS_ITS ---
General Admission date:: 07/11/24 Discharge date: 07/14/24 HPI HPI HPI: This 33-year-old female is well-known to us. She was recently in the hospital for very similar situation in April. Per the patient's history approximately 3 days ago she snorted methamphetamines said her to boyfriend would not let her smoke it., She continues to smoke at least a half a pack a day. Patient began to have respiratory distress O2 saturations in the 30s on room air with respiratory rate of 40 on arrival. BiPAP mask was required to return oxygen saturations to above 90. Normally patient is on a minimum of 2 L Teaching done on the last time she was here about her lung condition. There is a total disconnect of reality as to how bad her condition has and how her present lifestyle can be Dieck making it decline at a rapid rate. Patient has been stabilized in the emergency room and moved up as a stepdown unit patient to the unit. Patient is presently sleeping with oxygen saturations in the 90s and respiratory is slowly weaning the oxygen concentrations. Patient is also on multiple mental health drugs. Related to a long history of depression and anxiety etc.. Patient also has morbid obesity. Hospital Course Hospital Course Hospital Course: Jordan Pope is a 33 year old female with a ~30 pack year current smoker who presented with respiratory distress and admitted for acute hypoxic respiratory failure, community acquired pneumonia, and interstitial lung disease exacerbation. Of note, patient has presented similarly several times before. Intubated at [facility]. Left AMA in April from our facility. Showing improvement with treatment. Pulmonology assisting with care. Patient necessitated another day or 2 of admission to monitor for continued improvement and weaning of oxygen, she chose to leave AMA after much counseling on importance of staying. Problems addressed as follows: #Acute hypoxic respiratory failure #Severe sepsis #Community acquired pneumonia # Suspected interstitial lung disease exacerbation - CTA chest showed extensive bilateral perihilar opacities, though much of this is chronic but seems to have worsened. Initial WBC 20.5, lactic acid 6.5. Complete respiratory panel negative. ? Presented with profound hypoxia to 30%, tachypnea, tachycardia requiring CPAP therapy. VBG without acute hypercapnia. ? Currently on Vapotherm weaned to 25 L 50%. ? Recently evaluated by pulmonology for interstitial lung disease, DAIANA and SSB p ositive. Per Dr. Vicente's 06/11/24 note: ANCA, RF, CCP, SSA, anti-Wick, [employer], SCL 70, dsDNA, antichromatin centromere antibodies all resulted negative. IgG antibodies and IgG subclass all within normal limits. Hypersensitivity pneumonitis panel negative from November 2023. Serum beta D glucan also resulted negative from November 2023. She was started on a prednisone taper at that time which patient has been adherent to. ? WBC plateaued at 15, procalcitonin normal. CRP 81.3, ESR 99. BNP 2160 without signs of volume overload. ? Continue ceftriaxone, azithromycin day 3. ? Continue Solu-Medrol 40 mg twice daily. ? Incentive spirometer, flutter valve. ? Pulmonology consulted, changed DuoNebs to as needed every 6 hours and discontinued Pulmicort. Ordered one-time dose of Lasix 40 mg. Recommended to continue above treatment. ? Follow-up morning CBC, procalcitonin, CRP, ESR. ? Follow-up sputum culture. -Recommend resuming home steroid regimen. Complete 3 days of cefdinir for antibiotic course. #Acute on chronic normocytic anemia ? Hemoglobin 9.2, baseline 12.3. No signs of bleeding. B12 low normal 247, folate and iron studies normal. #Former opioid use disorder: Continue home Suboxone. Patient left AMA. Encouraged to follow-up with pulmonology as an outpatient. Exam Data for Last 24 hours Vital signs and Labs for Last 24 Hours: Temp Pulse Resp BP Pulse Ox O2 Del Method O2 Flow Rate 97.4 F L 65 21 137/98 H 90 L Nasal Cannula 3 07/14/24 07:00 07/14/24 12:00 07/14/24 10:01 07/14/24 10:01 07/14/24 11:23 07/14/24 12:55 07/14/24 12:55 FiO2 40 07/14/24 08:00 Laboratory Results - last 24 hr 07/14/24 05:40: WBC 13.5 H, RBC 3.66 L, Hgb 9.6 L, Hct 30.8 L, MCV 84.2, MCH 26.2 L, MCHC 31.2 L, RDW 16.2, Plt Count 284, MPV 8.6, Neut % (Auto) 76.3, Lymph % (Auto) 19.6, [place] % (Auto) 2.7, Eos % (Auto) 0.0 L, Baso % (Auto) 0.2, Neut # (Auto) 10.3 H, Lymph # (Auto) 2.6, [place] # (Auto) 0.4, Eos # (Auto) 0.0, Baso # (Auto) 0.0, ESR 108 H, Sodium 136, Potassium 4.3, Chloride 108 H, Carbon Dioxide 26, Anion Gap 6.3, BUN 21 H D, Creatinine 0.60 D, Estimated Creat Clear 117, Estimated GFR 117, Est GFR ( Amer) 141 D, Glucose 117 H, Calcium 8.7, Magnesium 2.1, Total Bilirubin 0.3, AST 27 D, ALT 34, Alkaline Phosphatase 118, C-Reactive Protein 41.5 H D, Total Protein 6.3, Albumin 3.3 L, Globulin 3.0, Albumin/Globulin Ratio 1.1, Procalcitonin 0.901 I & O for Last 24 hours: Intake & Output 07/11/24 07/12/24 07/13/24 07/14/24 23:59 23:59 23:59 23:59 Intake Total 1082 / 1082 900 / 900 390 / 390 Output Total 0 / 0 1050 / 1050 2150 / 2150 650 / 650 Balance 0 / 75 32 / 32 -1250 / -1250 -260 / -260 Weight 119.93 kg 119.93 kg 119.93 kg 119.93 kg Microbiology Reports for the Last 24 Hours: Microbiology 07/11/24 17:52 Blood Blood Culture - Preliminary NO GROWTH AFTER 48 HOURS 07/11/24 18:07 Blood Blood Culture - Preliminary NO GROWTH AFTER 48 HOURS Constitutional Constitutional: no acute distress, morbidly obese, chronically ill appearing and cooperative *Routine HEENT Exam Head: Present normocephalic Eye: Present EOMI and PERRL ENT: Present mucous membranes moist *Routine Neck Exam Neck: Present supple; Absent lymphadenopathy *Routine Respiratory Exam Respiratory: Present wheezes, crackles and diminished air movement; Absent CTA bilaterally or rhonchi *Routine Cardiovascular Exam Cardiovascular: Present RRR *Routine Abdominal Exam Abdominal: Present soft and normoactive bowel sounds; Absent tenderness *Routine Rectal Exam Patient deferred: visual exam *Routine Exam Patient deferred: external exam *Routine Extremities Exam Extremities: Absent cyanosis, clubbing or edema *Routine Skin Exam Skin: Present warm; Absent rash *Routine Neurological Exam Neurological: Present alert, oriented X3, CN II-XII intact and moving all extremities; Absent altered mental status Results Data Completed and Pending Labs on day of discharge: Labs from last 24 hours 07/14/24 05:40 WBC 13.5 H RBC 3.66 L Hgb 9.6 L Hct 30.8 L MCV 84.2 MCH 26.2 L MCHC 31.2 L RDW 16.2 Plt Count 284 MPV 8.6 Neut % (Auto) 76.3 Lymph % (Auto) 19.6 [place] % (Auto) 2.7 Eos % (Auto) 0.0 L Baso % (Auto) 0.2 Neut # (Auto) 10.3 H Lymph # (Auto) 2.6 [place] # (Auto) 0.4 Eos # (Auto) 0.0 Baso # (Auto) 0.0 ESR 108 H Sodium 136 Potassium 4.3 Chloride 108 H Carbon Dioxide 26 Anion Gap 6.3 BUN 21 H D Creatinine 0.60 D Estimated Creat Clear 117 Estimated GFR 117 Est GFR ( Amer) 141 D Glucose 117 H Calcium 8.7 Magnesium 2.1 Total Bilirubin 0.3 AST 27 D ALT 34 Alkaline Phosphatase 118 C-Reactive Protein 41.5 H D Total Protein 6.3 Albumin 3.3 L Globulin 3.0 Albumin/Globulin Ratio 1.1 Procalcitonin 0.901 Preliminary micro results at discharge 07/11/24 17:52 Blood Culture - Preliminary Blood NO GROWTH AFTER 48 HOURS 07/11/24 18:07 Blood Culture - Preliminary Blood NO GROWTH AFTER 48 HOURS DS: Diagnosis Discharge Diagnosis (1) Acute hypoxemic respiratory failure: Status: Acute Code(s): J96.01 - Acute respiratory failure with hypoxia (2) Pneumonia: Status: Acute Code(s): J18.9 - Pneumonia, unspecified organism Qualifiers: Laterality: bilateral Lung location: lower lobe of lung Pneumonia type: due to unspecified organism Qualified Code(s): J18.9 - Pneumonia, unspecified organism (3) ILD (interstitial lung disease): Status: Acute Code(s): J84.9 - Interstitial pulmonary disease, unspecified Meds Home Medications and Allergies Home Medications ?Medication ?Instructions ?Recorded ?Confirmed ?Type aripiprazole 10 mg tablet 10 mg PO HS 12/15/23 07/12/24 History buprenorphine 8 mg-naloxone 2 mg 2 tab sublingual DAILY 12/15/23 07/12/24 History sublingual tablet buspirone 15 mg tablet 15 mg PO TID 12/15/23 07/12/24 History fluoxetine 40 mg capsule 40 mg PO DAILY 12/16/23 07/12/24 History fluoxetine 20 mg capsule 20 mg PO DAILY 05/18/24 07/12/24 History gabapentin 600 mg tablet 600 mg PO TID 06/11/24 07/12/24 History quetiapine 100 mg tablet 100 mg PO HS 06/11/24 07/12/24 History albuterol sulfate 90 mcg/actuation 2 inh inhalation Q6HP PRN 07/12/24 07/12/24 History aerosol inhaler shortness of breath or wheezing nicotine (polacrilex) 2 mg gum 2 mg buccal Q4HP PRN nicotine 07/12/24 07/12/24 History cravings nicotine 1 patch transdermal DAILY 07/12/24 07/12/24 History 21mg/24hr-14mg/24hr-7mg/24hr daily transderm patches,sequentl prednisone 20 mg tablet 10 mg PO DAILY 07/12/24 07/12/24 History cefdinir 300 mg capsule 300 mg PO BID 3 days #6 caps 07/14/24 Rx prednisone 20 mg tablet See Rx Instructions .Route 07/14/24 Rx .COMPLEX #15 tabs New Prescriptions to Start Prescriptions: cefkassieir Maciej Baca prednisone Maciej Baca Allergies Allergy/AdvReac Type Severity Reaction Status Date / Time No Known Allergies Allergy Verified 06/11/24 14:35 Discharge Plan Disposition Patient Disposition: Left Against Medical Advice Condition: Fair Patient Discharge Instructions Print Language: Chadian Providers Admit Provider: Sheldon Castrejon Attending Provider: Sheldon Castrejon
[2024-07-16 11:12] LABS: Clinical Relevance Notes (.); Disclaimer Notes (.); Fungitell Value < 31.25 pg/mL (.); Interpretation Notes (.); Result Negative (.)
[2024-07-16 15:11] LABS: Amphetamine Positive (.); Amphetamine (GC/MS) 1845 ng/mL (Cutoff=500); Amphetamines Positive (.); Methamphetamine Positive (.); Methamphetamine (GC/MS) >3000 ng/mL (Cutoff=500)
[2024-07-17 18:13] LABS: Aspergillus flavus Negative (Neg:<1:1); Aspergillus fumigatus Negative (Neg:<1:1); Aspergillus niger Negative (Neg:<1:1); Blastomyces Antibody Negative (Neg:<1:1); Histoplasma Antibody Quant Negative (Neg:<1:1)
== END 2024-07-14 13:40 | disposition left against medical advice (07) | DRG 189 ==
LOC: ER 19:56 → ICU 20:14
PROVIDERS: Internal Medicine Pulmonary Disease; Nurse Practitioner Family; Admitting Provider Student in an Organized Health Care Education/Training Program; Emergency Provider Emergency Medicine; Visit Provider Student in an Organized Health Care Education/Training Program
DX: J96.01 Acute respiratory failure with hypoxia (principal); J18.9 Pneumonia, unspecified organism; R65.20 Severe sepsis without septic shock; Z68.41 Body mass index [BMI] 40.0-44.9, adult; D64.9 Anemia, unspecified; F15.10 Other stimulant abuse, uncomplicated; F41.9 Anxiety disorder, unspecified; E66.01 Morbid (severe) obesity due to excess calories; F17.210 Nicotine dependence, cigarettes, uncomplicated; F31.9 Bipolar disorder, unspecified; I25.2 Old myocardial infarction; Z80.9 Family history of malignant neoplasm, unspecified; Z90.49 Acquired absence of other specified parts of digestive tract; Z79.899 Other long term (current) drug therapy; Z99.81 Dependence on supplemental oxygen
CPT/HCPCS: 36415; 71045; 71275; 80053; 80061; 80307; 80324; 82607; 82728; 82746; 82803; 83036; 83540; 83550; 83605; 83735; 83880; 84145; 84439; 84443; 84484; 84702; 84703; 85007; 85025; 85378; 85610; 85651; 85730; 86140; 86606; 86612; 86698; 86803; 87040; 87389; 87449; 87633; 93005; 93306; 94640; 94760; 94761; 97163; 99291; J0456; J0574; J0696; J1100; J1650; J1940; J2919; J3475; J7030; J7050; J7620; Q9967

== ENCOUNTER 2024-08-11 00:41 | Emergency (ER) | payer OTHER, SELFPAY ==
[2024-08-11 00:41] VITALS: BP 00/00; BP 245/27; PULSE 0; RESP 0; TEMP -17.7; TEMP 0; O2SAT 0; O2SAT 60; BMI 36.9
--- NOTE | 2024-08-11 00:41 | PC.NURSE ---
0041: EMS arrival with patient. Autopulse in progress. Liter of fluid hanging, AirQ in place with active bagging ventilation in progress. 0042: Patient transferred to ER stretcher. Left IO in place from EMS insertion. 0043: Pulse check on monitor: asystole. Epi administered. Autopulse resumed 0045: Pulse check on monitor: asystole. Epi administered. Right tibia IO placed per ELIANA Sanders. Attempted lab draw. VBG obtained. Specimen clotted. Unable to obtain further labs at this time. 0047: Pulse check on monitor: asystole, MD at bedside performing cardiac US. Confirms no cardiac activity. Pulses noted when autopulse in use, but pulses not present via doppler. Autopulse resumed 0048: Epi administered. 0049: Calcium chloride, 1amp of bicarb administered. 0050: Pulse check on monitor: asystole. Epi administered. Autopulse resumed. 0052: Pulse check on monitor: asystole. MD at bedside performing cardiac US. Confirms no cardiac activity. Pulses noted when autopulse in use, but pulses not present via doppler. Autopulse resumed. 0053: Epi administered. 0055: Pulse check on monitor: asystole. MD at bedside and confirmed no cardiac activity via US. TOD 0055. 0056: Eva Lyons, Payroll Professional called to report . 0100: Patients mother, Trish, at bedside. 0145: Payroll Professional at bedside for specimen retrieval. 0200: Post mortem care provided. 0235: Payroll Professional wardrobe assistant arrived for body retrieval. Patient removed from ER 0238: Wen Giordano RN speaking with [facility]. Spoke with Anahi Hernandez.
[2024-08-11] MEDS: EPINEPHrine 0.1 MG/ML 10ML SYRINGE (CRASH CART) 1 MG IV ×5 (00:43→00:53)
[2024-08-11 00:45] VITALS: BMI 34.0
[2024-08-11] MEDS: SODIUM BICARB 8.4% 50ML SYRINGE (CRASH CART) 50 MEQ IV (00:49)
[2024-08-11] MEDS: CALCIUM CHLORIDE 1GM/10ML SYRINGE (CRASH CART) 1 GM IVP (00:49)
--- NOTE | 2024-08-11 01:24 | ED_ITS ---
Discharge Plan Disposition Patient Disposition: Date/Time: 08/11/24 00:55 Clinical Impressions Clinical Impression: Acute hypoxemic respiratory failure, ILD (interstitial lung disease), Cardiac arrest Discharge ED Provider: Lisandro Hernandez Adult HPI General Stated complaint: CODE Time Seen by Provider: 08/11/24 00:41 History of Present Illness HPI narrative: 34-year-old female with a history of interstitial lung disease with previous intubation, previous acute hypoxic respiratory failure, previous multisystem organ failure presents to the ER as a CODE BLUE. EMS provided initial history. They report they were called out for shortness of breath but when they arrived on scene patient had become unresponsive. They reported difficulty accessing the patient due to conditions of the home, but when they found her she was unresponsive, asystole, no spontaneous respirations. Air-Q supraglottic device was placed by EMS. They also placed the auto pulse and an IO and began ACLS. Prior to arrival in the ER patient had received 1 dose of code dose epi as well as IV fluids. Information from dispatch indicates that EMS was called at 2350. They arrived on scene at 0002, they arrived at the hospital at 0041. EMS reports ACLS had been continued throughout transportation. Per EMS report, patient never had any rhythm changes, spontaneous respirations, or spontaneous movements. Mom was present later in the encounter and provided additional history that the patient had been having difficulty breathing for the last few days. She had been taking her steroids as well as all of her other prescribed medications as directed and was using oxygen but continued to get worse. Mom reports that patient had been refusing to come to the hospital despite their encouragement because she was hoping to see her child with whom she had a scheduled visit. Mom reports the patient was stubborn and refusing medical evaluation. She repor ts that the patient lost her bowels earlier and at that point mom stated I knew something was really wrong . She reports that prior to calling EMS the patient was using her whole body to breathe. She states she was doing that big belly breathing . She reports that the patient was responsive when EMS was called but became unresponsive prior to their arrival. Mom reports no known alcohol or drug use today. No other known recent illness. Related Data Home Medications ?Medication ?Instructions ?Recorded ?Confirmed aripiprazole 10 mg tablet 10 mg PO HS 12/15/23 07/12/24 buprenorphine 8 mg-naloxone 2 mg 2 tab sublingual DAILY 12/15/23 07/12/24 sublingual tablet buspirone 15 mg tablet 15 mg PO TID 12/15/23 07/12/24 fluoxetine 40 mg capsule 40 mg PO DAILY 12/16/23 07/12/24 fluoxetine 20 mg capsule 20 mg PO DAILY 05/18/24 07/12/24 gabapentin 600 mg tablet 600 mg PO TID 06/11/24 07/12/24 quetiapine 100 mg tablet 100 mg PO HS 06/11/24 07/12/24 albuterol sulfate 90 mcg/actuation 2 inh inhalation Q6HP PRN 07/12/24 07/12/24 aerosol inhaler shortness of breath or wheezing nicotine (polacrilex) 2 mg gum 2 mg buccal Q4HP PRN nicotine 07/12/24 07/12/24 cravings nicotine 1 patch transdermal DAILY 07/12/24 07/12/24 21mg/24hr-14mg/24hr-7mg/24hr daily transderm patches,sequentl prednisone 20 mg tablet 10 mg PO DAILY 07/12/24 07/12/24 Previous Rx's ?Medication ?Instructions ?Recorded cefdinir 300 mg capsule 300 mg PO BID 3 days #6 caps 07/14/24 prednisone 20 mg tablet See Rx Instructions .Route 07/14/24 .COMPLEX #15 tabs Allergies Allergy/AdvReac Type Severity Reaction Status Date / Time No Known Allergies Allergy Verified 06/11/24 14:35 [facility] Disclaimer: The information contained in this section may have been updated after the patient was seen, as this information can be updated by other users. Medical History Acute respiratory failure with hypoxia Pneumonia Pneumonia Syncope ILD (interstitial lung disease) Endometriosis Acute IA Anxiety Depression Bipolar disorder Surgical History History of cholecystectomy Hx of tonsillectomy Delivery by section Family History Other Cancer Social History Smoking Status: Current every day smoker alcohol intake: never current occupational status: employed Travel in the last 8 weeks: None Other Medical History Have you received the Flu Vaccine for this season: No Have you received the Pneumonia Vaccine: No ROS Obtained: Yes unobtainable due to endotracheal tube Physical Exam General General appearance: obtunded Comment: pale, unresponsive Head Head exam: atraumatic and normocephalic Eye Eye exam: Present other (pupils fixed 6mm) ENT ENT exam: Present other (blood coming from around the air-q which was in place prior to arrival and from bilateral nares) Neck Neck exam: Present trachea midline Chest Chest inspection: Present normal inspection and other (auto pulse and zoll pads in place) Respiratory Respiratory exam: Present normal lung sounds bilaterally (Bilateral breath sounds present with bagging without adventitious sounds) Cardiovascular Cardiovascular exam: Present other (no pulse ) Abdominal Exam Abdominal exam: Present soft; Absent distention Extremities Exam Extremities exam: Absent edema Neurological Exam Neurological exam: Present other (GCS 3T, unresponsive) Skin Skin exam: Present other (cool, pale, no capillary refill) Medical Decision Making Medical Records Medical records reviewed: Yes I reviewed the patient's medical records. Screening: Per USPSTF and CDC recommendations, given the prevalence of disease in our region, it is our hospital?s policy to screen for HIV and viral Hepatitis for all patients aged 18 and over and those with ongoing risk factors. MR Comment: Review of most recent ER note demonstrates patient presented in acute hypoxic respiratory failure with SpO2 in the 40s. She ended up being admitted to the hospital on BiPAP. Review of hospitalist discharge summary demonstrates she left the hospital AMA 3 days later. General review of records demonstrates patient has frequently presented with hypoxic respiratory failure and has had varied outcomes from BiPAP and intubation to transfer to higher levels of care. Emir Inquiry Pt receiving controlled substance: No Orders (Tests/Meds): ORDERS Category Date Time Status POCUS Point of Care (ER Only) Stat Exams 08/11/24 01:02 Completed Medical Decision Narrative: In summary, 34-year-old male presents to the ER as a CODE BLUE with reports from EMS that they were called out for shortness of breath but found the patient unresponsive with an initial rhythm of asystole and no spontaneous respirations. Interventions by EMS as documented in the HPI. I was present at bedside upon patient's arrival to the ER. Upon immediate assessment patient's airway is currently protected with Air-Q supraglottic device which is bagging with minimal resistance. Patient did have bloody material coming from the esophageal ports but no secretions through the tracheal port. Breath sounds present bilaterally with bagging without adventitious sounds. I considered exchanging the airway but did not do this since patient was bagging well with bilateral breath sounds and evidence of a good seal around the trachea since there were no secretions coming from the tracheal port. Patient had palpable pulse with the auto pulse running. Upon arrival to the ER patient received code dose epinephrine for which she was due. With patient's medical history, highest suspicion for hypoxic respiratory failure causing patient's presentation. I had also considered ACS, PE, arrhythmia, I had considered intoxication or overdose but patient was never reported to have pinpoint pupils so much lower suspicion for this. Unfortunately patient never had ROSC or the stability to evaluate these other problems. CPR was continued until patient had been moved to the stretcher. Additional IO was placed in the right lower extremity by nursing. When pulse checks were performed, 2 individuals were assessing for femoral pulses, one of them using a Doppler, and I evaluated for cardiac activity with ultrasound. Patient had 1 pulse check with PEA, and the remaining pulse checks demonstrated asystole. Auto-pulse battery ran out so patient had 2 minutes of high quality manual compressions while the battery was changed and auto-pulse use was resumed. ACLS algorithm had been followed, patient did receive adjuncts including bicarb, I had also considered the possibility of severe electrolyte derangements and calcium had been administered. VBG had also been drawn and sent to the lab but unfortunately clotted and was unable to be run. By the time EMS had arrived to the hospital, they reported patient had underwent nearly 40 minutes of ACLS. Unfortunately despite continued efforts in the ER, patient continued to be pulseless, no cardiac activity on ultrasound, asystole. ROSC was not achieved. Pupils were fixed at 6 mm, no spontaneous respiratory efforts. With her extensive downtime and likely severe hypoxia before becoming unresponsive, I believe we reached a point of futility due to hypoxic organ damage. Time of was called at 0055. I spoke with patient's mom after the code. She was appropriately upset but states I knew she waited too long to go to the hospital . Supervisor [employer] was called. Procedures Miscellaneous Procedure Procedure Performed: Limited Cardiac Ultrasound Indication: CODE BLUE Identified cardiac views: Subxiphoid Findings: Cardiac activity absent, no pericardial effusion Impression: Cardiac activity absent, no pericardial effusion Images were saved to permanent archive The study was technically adequate CPT: 94812 This study was performed by me, and I personally interpreted all images/videos. Based on my clinical judgement, these images were adequate and did not necessitate further imaging. Critical Care Critical Care Time Critical Care Time: Yes Attestation: On 08/11/24, the high probability of a clinically significant, sudden or life threatening deterioration of the following system(s) (cardiac, respiratory, neuro) required my full and direct attention, intervention and personal management. The time I documented below is in addition to time spent performing reported procedures but includes the following listed in this critical care notation. Total Time Total Critical Care Time: 10
--- NOTE | 2024-08-11 02:45 | P.DN_ITS ---
Pronouncement Note Date and Time of Date of : 08/11/24 Time of : 00:55 PCOD Preliminary cause of : Respiratory failure with hypoxia Contributing Factors (1) ILD (interstitial lung disease): Additional Data Confirmation of : no pulse, no respirations, no heart sounds and pupils fixed and dilated Family: at bedside Attending/PCP notified?: Yes Attending physician: Lisandro Hernandez MD Was code activated?: Yes Autopsy should be considered if:: Unknown or unanticipated medical complications Cause is not known with certainty on clinical grounds Would allay concerns of the public/family regarding Unexplained/unexpected apparently natural and not subject to a forensic medical jurisdiction DOA Within 24 hours of admission Sustained or apparently sustained injury while in the hospital Result of high risk, infectious and contagious disease Obstetric and pediatric arising from environmental or occupational hazard Unexplained/unexpected from dental, medical, or surgical diagnostic procedures and/or therapies Would disclose a known or suspected illness which also may have a bearing on survivors or recipients of transplanted organs Autopsy requested?: No Does not meet criteria (family also declined) can line examiner notified?: Yes Organ bank notified?: Yes Advance directives: No
== END 2024-08-11 02:35 | disposition expired ==
PROVIDERS: Emergency Provider Emergency Medicine
DX: I46.9 Cardiac arrest, cause unspecified (principal); J96.01 Acute respiratory failure with hypoxia; J84.9 Interstitial pulmonary disease, unspecified
CPT/HCPCS: 92950; 96374; 96375; 99291; J0171